=== PATIENT | female | born 1960 | race African-American/Black ===

== ENCOUNTER 2020-01-09 15:01 | Outpatient (REF) | payer OTHER, SELFPAY ==
[2020-01-09 17:38] LABS: Alanine Aminotransferase 20 U/L (0-31); Albumin Level 4.7 g/dL (3.5-5.0); Alkaline Phosphatase 169 U/L (39-117); Anion Gap 12 (12-20); Aspartate Amino Transferase 21 U/L (5-31); Bilirubin Total 0.5 mg/dL (0.0-1.0); Blood Urea Nitrogen 15 mg/dL (9-16); Calcium 9.5 mg/dL (8.4-10.2); Carbon Dioxide 31 mmol/L (22-29); Chloride 99 mmol/L (96-108); Estimated Glomerular Filt Rate > 60; Glucose Fasting 88 mg/dL (60-99); Potassium 4.2 mmol/l (3.3-5.1); Sodium 138 mmol/L (135-145); Total Protein 8.1 g/dL (6.5-8.0)
[2020-01-09 17:59] LABS: Vitamin D 25-OH Total 17.5 ng/mL (>30)
[2020-01-09 18:09] LABS: Folate 10.1 ng/mL (> or = 4.0); Vitamin B12 148 pg/mL (200-900)
== END 2020-01-09 15:02 | disposition home or self-care (01) ==
LOC: HO.HMGCLDS 15:01
PROVIDERS: PCP Internal Medicine; Visit Provider Internal Medicine
DX: R53.83 Other fatigue (principal); R53.81 Other malaise; I10 Essential (primary) hypertension
CPT/HCPCS: 80053; 82306; 82607; 82746; 84443

== ENCOUNTER → 2020-01-30 14:31 | Outpatient (BNVA) | payer OTHER, SELFPAY | PROVIDERS: PCP Internal Medicine; Referring Provider Internal Medicine; Visit Provider Internal Medicine Cardiovascular Disease | DX: R00.2 Palpitations (principal); R07.9 Chest pain, unspecified | CPT/HCPCS: 93005; 99202 ==

== ENCOUNTER 2020-02-28 12:21 | Outpatient (REF) | payer OTHER, SELFPAY | END 2020-02-28 12:22 | disposition home or self-care (01) | LOC: HO.HMGCLDS 12:21 | PROVIDERS: PCP Internal Medicine; Visit Provider Internal Medicine | DX: Z20.828 Contact with and (suspected) exposure to other viral communicable diseases (principal) | CPT/HCPCS: C9803; U0003 ==

== ENCOUNTER → 2020-03-18 10:47 | Outpatient (BNVA) | payer OTHER, SELFPAY | PROVIDERS: PCP Internal Medicine; Referring Provider Internal Medicine; Visit Provider Nurse Practitioner Family | DX: G47.33 Obstructive sleep apnea (adult) (pediatric) (principal); R53.82 Chronic fatigue, unspecified; G47.19 Other hypersomnia; R06.83 Snoring | CPT/HCPCS: Q3014 ==

== ENCOUNTER 2020-03-28 11:36 | Outpatient (REF) | payer OTHER, SELFPAY ==
[2020-03-28 14:03] LABS: MANUAL DIFF FLAG NO
[2020-03-28 14:09] LABS: Basophils Absolute Auto 0.1 X10*3/uL (0.0-0.2); Basophils Percent Auto 0.5 % (0-2); Eosinophils Absolute Auto 0.1 X10*3/uL (0.0-0.4); Eosinophils Percent Auto 1.3 % (0-4); Hematocrit 42.7 % (37-47); Hemoglobin 13.8 g/dl (12.0-16.0); Imm Gran Abs Auto 0.03 X10*3/uL (0.00-0.03); Imm Gran Pct Auto 0.3 % (0.0-0.4); Lymphocytes Absolute Auto 3.5 X10*3/uL (1.2-4.9); Lymphocytes Percent Auto 34.5 % (20-40); Mean Corpuscular HGB Conc 32.3 g/dl (31.0-35.0); Mean Corpuscular Hemoglobin 29.6 pg (27.0-33.0); Mean Corpuscular Volume 91.4 fL (80-98); Mean Platelet Volume 11.5 fL (9.4-12.3); Monocytes Absolute Auto 0.8 X10*3/uL (0.1-1.2); Monocytes Percent Auto 8.4 % (2-11); Neutrophils Absolute Auto 5.5 X10*3/uL (2.0-8.3); Platelet Count 425 X10*3/uL (160-400); Red Blood Count 4.67 X10*6/uL (4.20-5.50); Red Cell Distribution Width 13.5 % (11.0-16.0); White Blood Count 10.1 X10*3/uL (4.8-10.8)
[2020-03-28 14:45] LABS: Alanine Aminotransferase 22 U/L (0-31); Anion Gap 17 (12-20); Aspartate Amino Transferase 23 U/L (5-31); Blood Urea Nitrogen 13 mg/dL (9-16); Calcium 10.1 mg/dL (8.4-10.2); Carbon Dioxide 25 mmol/L (22-29); Chloride 103 mmol/L (96-108); Estimated Glomerular Filt Rate 49; Glucose Fasting 85 mg/dL (60-99); Potassium 4.3 mmol/l (3.3-5.1); Sodium 141 mmol/L (135-145)
[2020-03-28 15:22] LABS: Folate 11.6 ng/mL (> or = 4.0); Vitamin B12 > 2000 pg/mL (200-900)
== END 2020-03-28 11:37 | disposition home or self-care (01) ==
LOC: HO.HMGCLDS 11:36
PROVIDERS: Absent Provider Internal Medicine; PCP Internal Medicine; Visit Provider Internal Medicine
DX: R53.81 Other malaise (principal); R53.83 Other fatigue; I10 Essential (primary) hypertension; E53.8 Deficiency of other specified B group vitamins; K29.70 Gastritis, unspecified, without bleeding
CPT/HCPCS: 36415; 80048; 82607; 82746; 84450; 84460; 85025

== ENCOUNTER 2020-04-04 11:16 | Outpatient (REF) | payer OTHER, SELFPAY | END 2020-04-04 11:17 | disposition home or self-care (01) | LOC: HO.LAB 11:16 | PROVIDERS: PCP Internal Medicine; Visit Provider Internal Medicine | DX: Z20.822 Contact with and (suspected) exposure to COVID-19 (principal) | CPT/HCPCS: 36415; C9803; U0003 ==

== ENCOUNTER 2020-04-28 09:32 | Outpatient (REF) | payer OTHER, SELFPAY ==
--- NOTE | 2020-04-28 11:30 | PFT_ITS ---
Forced vital capacity, FEV1, IAP16-18 are normal. MVV is slightly decreased, probably due to suboptimal effort. Post bronchodilator therapy, no significant change, but MVV is increased to normal. Total lung capacity and residual volume normal. Diffusion capacity only slightly decreased. CONCLUSION: Normal pulmonary function test. Very slight decrease in diffusion capacity is nonspecific finding, may be due to technical reason or could be due to non-pulmonary factors. Clinical correlation recommended. MD BENIGNO Jacques/MODL / [id number]
== END 2020-04-28 09:33 | disposition home or self-care (01) ==
LOC: HO.RESP 09:32
PROVIDERS: PCP Internal Medicine; Visit Provider Internal Medicine
DX: J98.09 Other diseases of bronchus, not elsewhere classified (principal); Z87.891 Personal history of nicotine dependence
CPT/HCPCS: 94060; 94727; 94729

== ENCOUNTER 2020-06-16 08:08 | Outpatient (REF) | payer OTHER, SELFPAY ==
[2020-06-16 12:03] LABS: Alanine Aminotransferase 20 U/L (0-31); Anion Gap 14 (12-20); Aspartate Amino Transferase 18 U/L (5-31); Blood Urea Nitrogen 8 mg/dL (9-16); Calcium 9.3 mg/dL (8.4-10.2); Carbon Dioxide 25 mmol/L (22-29); Chloride 106 mmol/L (96-108); Cholesterol 185 mg/dL; Estimated Glomerular Filt Rate > 60; Glucose Fasting 122 mg/dL (60-99); HDL Cholesterol 42 mg/dL; LDL Cholesterol Calculated 90 mg/dl; Potassium 4.2 mmol/L (3.3-5.1); Sodium 141 mmol/L (135-145); Triglycerides 265 mg/dL
[2020-06-16 12:06] LABS: Vitamin D 25-OH Total 82.3 ng/mL (>30)
[2020-06-16 12:29] LABS: Folate 6.7 ng/mL (> or = 4.0); Vitamin B12 301 pg/mL (200-900)
== END 2020-06-16 08:09 | disposition home or self-care (01) ==
LOC: HO.HMGCLDS 08:08
PROVIDERS: PCP Internal Medicine; Visit Provider Internal Medicine
DX: E55.9 Vitamin D deficiency, unspecified (principal); E53.8 Deficiency of other specified B group vitamins; E78.5 Hyperlipidemia, unspecified
CPT/HCPCS: 36415; 80048; 80061; 82306; 82607; 82746; 84450; 84460

== ENCOUNTER → 2020-06-17 10:51 | Outpatient (BNVA) | payer OTHER, SELFPAY | PROVIDERS: PCP Internal Medicine; Visit Provider Nurse Practitioner Family ==

== ENCOUNTER → 2020-07-28 15:10 | Outpatient (BNVA) | payer OTHER, SELFPAY | PROVIDERS: Visit Provider Internal Medicine Gastroenterology | DX: Z13.89 Encounter for screening for other disorder (principal) | CPT/HCPCS: 99212 ==

== ENCOUNTER 2020-09-02 09:48 | Outpatient (REF) | payer OTHER, SELFPAY ==
[2020-09-02 12:10] LABS: Vitamin D 25-OH Total 78.8 ng/mL (>30)
[2020-09-02 12:11] LABS: Alanine Aminotransferase 15 U/L (0-31); Anion Gap 14 (12-20); Aspartate Amino Transferase 20 U/L (5-31); Blood Urea Nitrogen 18 mg/dL (9-16); Calcium 9.5 mg/dL (8.4-10.2); Carbon Dioxide 24 mmol/L (22-29); Chloride 109 mmol/L (96-108); Cholesterol 180 mg/dL; Estimated Glomerular Filt Rate > 60; Glucose Fasting 111 mg/dL (60-99); HDL Cholesterol 59 mg/dL; LDL Cholesterol Calculated 111 mg/dl; Potassium 4.6 mmol/L (3.3-5.1); Sodium 142 mmol/L (135-145); Triglycerides 52 mg/dL
[2020-09-02 12:13] LABS: Estimated Average Glucose 126 mg/dL
[2020-09-02 12:25] LABS: Folate 11.1 ng/mL (> or = 4.0); Vitamin B12 327 pg/mL (200-900)
== END 2020-09-02 09:49 | disposition home or self-care (01) ==
LOC: HO.HMGCLDS 09:48
PROVIDERS: PCP Internal Medicine; Visit Provider Nurse Practitioner Family
DX: E53.8 Deficiency of other specified B group vitamins (principal); E55.9 Vitamin D deficiency, unspecified; E78.5 Hyperlipidemia, unspecified; I10 Essential (primary) hypertension; K29.70 Gastritis, unspecified, without bleeding; K58.1 Irritable bowel syndrome with constipation; R73.01 Impaired fasting glucose
CPT/HCPCS: 36415; 80048; 80061; 82306; 82607; 82746; 83036; 84450; 84460

== ENCOUNTER 2021-02-13 10:47 | Outpatient (REF) | payer OTHER, SELFPAY ==
--- NOTE | ~2021-02-13 | XR_ITS ---
EXAMINATION: XR CERVICAL SPINE CLINICAL INFORMATION: Headache COMPARISON: None TECHNIQUE: 5 views of the cervical spine were obtained. FINDINGS: No abnormal prevertebral soft tissue swelling is seen. No acute cervical spine fracture is noted. Neuroforamina and posterior elements unremarkable. Disc spaces are maintained. There is mild marginal spurring seen at the C6-C7 level. There is some facet sclerosis noted C3-C5. XR/XR cervical spine 4V IMPRESSION: Mild cervical spondylosis without acute fracture.
== END 2021-02-13 10:48 | disposition home or self-care (01) ==
LOC: HO.HMGCX 10:47
PROVIDERS: PCP Internal Medicine; Visit Provider Internal Medicine
DX: M54.2 Cervicalgia (principal); R51.9 Headache, unspecified
CPT/HCPCS: 72050

== ENCOUNTER 2021-02-23 08:27 | Outpatient (REF) | payer OTHER, SELFPAY ==
[2021-02-23 12:10] LABS: Anion Gap 13 (12-20); Blood Urea Nitrogen 12 mg/dL (9-16); Calcium 9.8 mg/dL (8.4-10.2); Carbon Dioxide 25 mmol/L (22-29); Chloride 108 mmol/L (96-108); Estimated Glomerular Filt Rate > 60; Glucose Fasting 104 mg/dL (60-99); Potassium 4.3 mmol/L (3.3-5.1); Sodium 142 mmol/L (135-145)
[2021-02-23 12:33] LABS: Vitamin D 25-OH Total 33.8 ng/mL (>30)
[2021-02-23 12:36] LABS: Folate 10.3 ng/mL (> or = 4.0); Vitamin B12 271 pg/mL (200-900)
== END 2021-02-23 08:28 | disposition home or self-care (01) ==
LOC: HO.HMGCLDS 08:27
PROVIDERS: PCP Internal Medicine; Visit Provider Internal Medicine
DX: R51.9 Headache, unspecified (principal); I10 Essential (primary) hypertension; R73.01 Impaired fasting glucose; E53.8 Deficiency of other specified B group vitamins; G62.9 Polyneuropathy, unspecified
CPT/HCPCS: 36415; 80048; 82306; 82607; 82746

== ENCOUNTER 2021-05-07 14:21 | Outpatient (REF) | payer OTHER, SELFPAY ==
--- NOTE | ~2021-05-07 | MM_ITS ---
EXAMINATION: MM SCREENING DIGITAL BREAST TOMOSYNTHESIS, BILATERAL CLINICAL INFORMATION: Screening. Asymptomatic. The lifetime risk of breast cancer based on the Tyrer-Cuzick Model is 4%. COMPARISON: Mammography: 04/09/2019, outside mammography 09/09/2017 ([facility]) TECHNIQUE: Digital breast tomosynthesis is performed in both the craniocaudal and mediolateral oblique views along with computer-aided detection (CAD). Synthesized 2D images are generated from the tomosynthesis. FINDINGS: There are scattered areas of fibroglandular density (ACR BI-RADS breast composition Category b). There are no significant masses, abnormal calcifications, or other abnormalities. Parenchymal pattern is similar to prior studies. There are no significant changes. MM/MM tomosynthesis screening BI IMPRESSION: No mammographic evidence of malignancy. ASSESSMENT: BI-RADS 1: Negative RECOMMENDATION: Routine annual mammography screening. This patient's information was entered into a reminder system with a target due date for their next mammogram.
== END 2021-05-07 14:22 | disposition home or self-care (01) ==
LOC: HO.MAMMO 14:21
PROVIDERS: Visit Provider Nurse Practitioner Family
DX: Z12.31 Encounter for screening mammogram for malignant neoplasm of breast (principal)
CPT/HCPCS: 77063; 77067

== ENCOUNTER 2021-08-05 13:35 | Outpatient (REF) | payer OTHER, SELFPAY ==
[2021-08-05 13:50] LABS: MANUAL DIFF FLAG NO
[2021-08-05 14:02] LABS: Basophils Percent Auto 0.5 % (0-2); Eosinophils Absolute Auto 0.1 X10*3/uL (0.0-0.4); Eosinophils Percent Auto 1.8 % (0-4); Hemoglobin 12.7 g/dl (12.0-16.0); Imm Gran Abs Auto 0.02 X10*3/uL (0.00-0.03); Imm Gran Pct Auto 0.3 % (0.0-0.4); Lymphocytes Absolute Auto 2.7 X10*3/uL (1.2-4.9); Mean Corpuscular HGB Conc 31.8 g/dl (31.0-35.0); Mean Corpuscular Hemoglobin 29.3 pg (27.0-33.0); Mean Corpuscular Volume 92.2 fL (80.0-98.0); Mean Platelet Volume 10.7 fL (9.4-12.3); Monocytes Absolute Auto 0.7 X10*3/uL (0.1-1.2); Monocytes Percent Auto 9.2 % (2-11); Neutrophils Percent Auto 53.2 % (45-73); Platelet Count 350 X10*3/uL (160-400); Red Blood Count 4.34 X10*6/uL (4.20-5.50); Red Cell Distribution Width 13.1 % (11.0-16.0); White Blood Count 7.6 X10*3/uL (4.8-10.8)
[2021-08-05 15:04] LABS: TSH reflex Free T4 0.83 uIU/mL (0.32-4.0); Vitamin D 25-OH Total 34.6 ng/mL (>30)
[2021-08-05 15:05] LABS: Alanine Aminotransferase 16 U/L (0-31); Anion Gap 13 (12-20); Aspartate Amino Transferase 17 U/L (5-31); Blood Urea Nitrogen 14 mg/dL (9-16); Calcium 9.6 mg/dL (8.4-10.2); Carbon Dioxide 23 mmol/L (22-29); Chloride 107 mmol/L (96-108); Estimated Glomerular Filt Rate > 60; Glucose Random 108 mg/dL (60-115); Potassium 4.2 mmol/L (3.3-5.1); Sodium 139 mmol/L (135-145)
[2021-08-05 15:13] LABS: Folate 10.9 ng/mL (> or = 4.0); Vitamin B12 408 pg/mL (200-900)
[2021-08-05 17:07] LABS: Estimated Average Glucose 123 mg/dL; Hemoglobin A1c % 5.9 %
== END 2021-08-05 13:36 | disposition home or self-care (01) ==
LOC: HO.LAB 13:35
PROVIDERS: Internal Medicine; PCP Nurse Practitioner Family; Visit Provider Nurse Practitioner Family
DX: I10 Essential (primary) hypertension (principal); E11.9 Type 2 diabetes mellitus without complications; R42 Dizziness and giddiness; E78.5 Hyperlipidemia, unspecified; E55.9 Vitamin D deficiency, unspecified; Z86.39 Personal history of other endocrine, nutritional and metabolic disease
CPT/HCPCS: 36415; 80048; 82306; 82607; 82746; 83036; 84443; 84450; 84460; 85025

== ENCOUNTER → 2021-09-28 13:33 | Outpatient (REF) | payer OTHER, SELFPAY | LOC: HO.SL 13:33 | PROVIDERS: PCP Nurse Practitioner Family; Visit Provider Nurse Practitioner Family | DX: G47.33 Obstructive sleep apnea (adult) (pediatric) (principal) | CPT/HCPCS: 95806 ==

== ENCOUNTER → 2021-10-19 13:21 | Outpatient (BNVA) | payer OTHER, SELFPAY | PROVIDERS: PCP Physician Assistant; Visit Provider Internal Medicine | DX: M26.19 Other specified anomalies of jaw-cranial base relationship (principal); G47.33 Obstructive sleep apnea (adult) (pediatric); E66.9 Obesity, unspecified; Z68.32 Body mass index [BMI] 32.0-32.9, adult | CPT/HCPCS: 99202 ==

== ENCOUNTER 2021-12-08 08:03 | Outpatient (REF) | payer OTHER, SELFPAY ==
--- NOTE | ~2021-12-08 | XR_ITS ---
EXAMINATION: XR SHOULDER, RIGHT CLINICAL INFORMATION: Pain. COMPARISON: None TECHNIQUE: AP external rotation, Grashey, scapular Y, and axillary views of the right shoulder. FINDINGS: The bones and soft tissues are normal. No fracture. Glenohumeral and acromioclavicular alignment is anatomic with normal joint space. No abnormal soft tissue calcifications. XR/XR shoulder RT min 2V IMPRESSION: Unremarkable right shoulder.
== END 2021-12-08 08:04 | disposition home or self-care (01) ==
LOC: HO.HOSX 08:03
PROVIDERS: Visit Provider Physician Assistant
DX: M75.101 Unspecified rotator cuff tear or rupture of right shoulder, not specified as traumatic (principal)
CPT/HCPCS: 20610; 73030; 99202; J1040

== ENCOUNTER → 2021-12-15 13:27 | Outpatient (BNVA) | payer OTHER, SELFPAY | PROVIDERS: PCP Physician Assistant; Visit Provider Internal Medicine Gastroenterology | DX: K21.9 Gastro-esophageal reflux disease without esophagitis (principal); K25.9 Gastric ulcer, unspecified as acute or chronic, without hemorrhage or perforation; K29.70 Gastritis, unspecified, without bleeding; K59.09 Other constipation; E53.8 Deficiency of other specified B group vitamins | CPT/HCPCS: 99212 ==

== ENCOUNTER 2022-02-08 07:33 | Day surgery (SDC) | payer OTHER, SELFPAY ==
[2022-01-26 12:08] VITALS: BMI 32.4
--- NOTE | 2022-02-05 12:43 | P.CONAN_ITS ---
Documented by User: Uzma Fernandez NP 02/05/22 12:46 HPI - Anesthesia Eval Consult details Narrative: 61yo F for Upper Endoscopy and Colonoscopy PMF Active Problems Active Problems: All Active Problems (Updated 12/08/21 @ 15:27 by Shayla Arango) GERD (gastroesophageal reflux disease) (Acute) Dizziness (Acute) Plantar fasciitis of right foot (Acute) Encounter to establish care (Acute ~04/08/21) Anxiety and depression (Acute) Seafood allergy (Acute) Right anterior shoulder pain (Acute) Vitamin D deficiency (Acute) Vitamin B12 deficiency (Acute) Dizziness (Acute) Vertigo (Acute) Vertigo (Acute) Sleep apnea (Acute) Fatigue (Acute) Hypertension (Acute) SOB (shortness of breath) on exertion (Acute) Left shoulder tendinitis (Acute) Asthma (Acute) Colon cancer screening (Acute) Cough (Acute) Painful arc syndrome of right shoulder (Acute) ANKIT (obstructive sleep apnea) (Acute) Retrognathia (Acute) Posterior neck pain (Acute) Frequent headaches (Acute) Headache (Acute) Obesity (BMI 30-39.9) (Acute) Essential hypertension (Acute) Plantar fasciitis, bilateral (Acute) Impaired fasting glucose (Acute) Irritable bowel syndrome with constipation (Acute) Carpal tunnel syndrome on left (Acute) Gastric ulcer (Acute) Dyslipidemia (Acute) Former smoker (Acute) Recurrent bronchospasm (Acute) Degenerative disc disease, lumbar (Acute) Vitamin D deficiency (Acute) Vitamin B12 deficiency (Acute) Gastritis (Acute) Osteoarthritis involving multiple joints on both sides of body (Acute) Depression (Acute) Migraine (Acute) Intermittent palpitations (Acute) ANKIT (obstructive sleep apnea) (Acute) Past Medical History Medical History Carpal tunnel syndrome on left Degenerative disc disease, lumbar Depression Dyslipidemia Essential hypertension Former smoker Frequent headaches Gastric ulcer Gastritis Headache History of drug abuse Impaired fasting glucose Intermittent palpitations Irritable bowel syndrome with constipation Migraine Obesity (BMI 30-39.9) ANKIT (obstructive sleep apnea) ANKIT (obstructive sleep apnea) Osteoarthritis involving multiple joints on both sides of body Peripheral neuropathy Plantar fasciitis, bilateral Posterior neck pain Recurrent bronchospasm Retrognathia Stress at work Vitamin B12 deficiency Vitamin D deficiency Family History Family History Father CKD (chronic kidney disease) Mother Alcoholism Surgical History Surgical History History of esophagogastroduodenoscopy (EGD) History of partial hysterectomy History of right knee joint replacement Hx of colonoscopy Social History Social History Housing: Apartment Are you a primary care transition coordinator to a significant other at home: No Do you presently have visiting nurse or other home services: No Alcohol intake: never Patient Tobacco Use Status: Former Tobacco user Quit Date: 2015 Tobacco use type: Cigarette Years Smoked: 30 yrs e-Cigarette/Vaping Use: Never Used Second Hand Smoke Exposure: No Use of substances other than those prescribed or required for medical reasons: No Have you been hit, kicked, punched, or otherwise hurt by someone within the past year? 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 Cognitive needs: No Hearing needs: No Vision needs: Yes Meds Allergies Allergy/AdvReac Type Severity Reaction Status Date / Time seafood Allergy Severe Anaphylaxis Verified 01/26/22 11:13 codeine [Codeine] Allergy Intermediate RASH/ITCHIN Verified 01/26/22 11:13 G tomato Allergy Intermediate Gastrointestinal Verified 01/26/22 11:13 Upset levofloxacin [From Levaquin] AdvReac Intermediate NAUSEA Verified 01/26/22 11:13 Motrin AdvReac Intermediate stomach Verified 01/26/22 11:13 pains pravastatin AdvReac Intermediate Muscle pain Verified 01/26/22 11:13 peanuts Allergy Severe anaphylaxis Uncoded 01/26/22 11:13 Home Medications Medication Instructions Recorded Confirmed Last Taken Type lorazepam 0.5 mg tablet 0.5 mg PO BEDTIME 01/09/20 01/26/22 Unknown History carboxymethylcellulose sodium 0.5 1 drp ophthalmic (eye) BID 12/15/21 01/26/22 Unknown History % eye drops (Refresh Tears) cyanocobalamin (vitamin B-12) 1,000 mcg PO DAILY 12/15/21 01/26/22 Unknown History 1,000 mcg tablet Exam Exam Date and Time: February 05, 2022 1243 Height,Weight and Vital Signs: Height 5 ft 3 in Weight 83.007 kg Pertinent Lab Results Pertinent Lab Results: Laboratory Tests 08/05/21 08/05/21 13:49 13:49 WBC 7.6 Hgb 12.7 Hct 40.0 Plt Count 350 Sodium 139 Potassium 4.2 Chloride 107 Carbon Dioxide 23 BUN 14 Creatinine 0.90 Assessment and Plan Assessment Anesthesia Assessment: Chart Reviewed Documented by User: Rosa Brito MD 02/08/22 08:47 PMFSH Past Medical History Medical History Carpal tunnel syndrome on left Degenerative disc disease, lumbar Depression Dyslipidemia Essential hypertension Former smoker Frequent headaches Gastric ulcer Gastritis Headache History of drug abuse Impaired fasting glucose Intermittent palpitations Irritable bowel syndrome with constipation Migraine Obesity (BMI 30-39.9) ANKIT (obstructive sleep apnea) ANKIT (obstructive sleep apnea) Osteoarthritis involving multiple joints on both sides of body Peripheral neuropathy Plantar fasciitis, bilateral Posterior neck pain Recurrent bronchospasm Retrognathia Stress at work Vitamin B12 deficiency Vitamin D deficiency Functional capacity: independent ambulation Patient : No Family History Family History Father CKD (chronic kidney disease) Mother Alcoholism Family history of problems with anesthesia: No Surgical History Surgical History History of esophagogastroduodenoscopy (EGD) History of partial hysterectomy History of right knee joint replacement Hx of colonoscopy History of Problems with Anesthesia: No Social History Social History Housing: Apartment Are you a primary care transition coordinator to a significant other at home: No Do you presently have visiting nurse or other home services: No Alcohol intake: never Patient Tobacco Use Status: Former Tobacco user Quit Date: 2015 Tobacco use type: Cigarette Years Smoked: 30 yrs e-Cigarette/Vaping Use: Never Used Second Hand Smoke Exposure: No Use of substances other than those prescribed or required for medical reasons: No Have you been hit, kicked, punched, or otherwise hurt by someone within the past year? 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 Cognitive needs: No Hearing needs: No Vision needs: Yes Meds Allergies Allergy/AdvReac Type Severity Reaction Status Date / Time seafood Allergy Severe Anaphylaxis Verified 01/26/22 11:13 codeine [Codeine] Allergy Intermediate RASH/ITCHIN Verified 01/26/22 11:13 G tomato Allergy Intermediate Gastrointestinal Verified 01/26/22 11:13 Upset levofloxacin [From Levaquin] AdvReac Intermediate NAUSEA Verified 01/26/22 11:13 Motrin AdvReac Intermediate stomach Verified 01/26/22 11:13 pains pravastatin AdvReac Intermediate Muscle pain Verified 01/26/22 11:13 peanuts Allergy Severe anaphylaxis Uncoded 01/26/22 11:13 Home Medications Medication Instructions Recorded Confirmed Last Taken Type lorazepam 0.5 mg tablet 0.5 mg PO BEDTIME 01/09/20 01/26/22 Unknown History carboxymethylcellulose sodium 0.5 1 drp ophthalmic (eye) BID 12/15/21 01/26/22 Unknown History % eye drops (Refresh Tears) cyanocobalamin (vitamin B-12) 1,000 mcg PO DAILY 12/15/21 01/26/22 Unknown History 1,000 mcg tablet Exam Airway Mallampati Class: II TM Dist: >3cm Neck ROM: Full Partial: Lower Heart: RRR Lungs: CTA Assessment and Plan Assessment Anesthesia Assessment: Anesthesia Plan Discussed Final Anesthetic Review Family History of Problems with Anesthesia: No History of Problems with Anesthesia: No NPO: Yes ASA Class: II Final Preanesthetic Review: No Changes in Pt Med Stat, Meds/Allgs Chart Reviewed, Consent Obtained/Reviewed and Anes Risks/Benef Reviewed Patient Risk: Low Procedure Risk: Low Anesthetic Plan Anesthetic Plan: MAC: Disposition: Standard PACU
--- NOTE | 2022-02-08 07:32 | P.HPSUR_ITS ---
Pre-Procedural Eval Section A Date of Service: 02/08/22 The patient is an INPATIENT: No The History & Physical has been completed within 30 days and I have reviewed it.: No Section B Chief Complaint: reflux disease,screening,Gastric ulcer, Details of Present Illness: Colon cancer screening, GERD Relevant Family History (Specify if Yes): No Relevant Social History: Tobacco Use (Former smoker) Present Medications: see Short Stay Collaborative assessment Medical History: Significant History (Carpal tunnel syndrome on left Degenera tive disc disease, lumbar Depression Dyslipidemia Essential hypertension Former smoker Frequent headaches Gastric ulcer Gastritis Headache History of drug abuse Impaired fasting glucose Intermittent palpitations Irritable bowel syndrome with constipation Migrai) History of Previous Operations: Relevant previous surgery/procedure and date(s) (History of esophagogastroduodenoscopy (EGD) History of partial hysterectomy History of right knee joint replacement Hx of colonoscopy) Allergies: Allergies Allergy/AdvReac Type Severity Reaction Status Date / Time seafood Allergy Severe Anaphylaxis Verified 01/26/22 11:13 codeine [Codeine] Allergy Intermediate RASH/ITCHIN Verified 01/26/22 11:13 G tomato Allergy Intermediate Gastrointestinal Verified 01/26/22 11:13 Upset levofloxacin [From Levaquin] AdvReac Intermediate NAUSEA Verified 01/26/22 11:13 Motrin AdvReac Intermediate stomach Verified 01/26/22 11:13 pains pravastatin AdvReac Intermediate Muscle pain Verified 01/26/22 11:13 peanuts Allergy Severe anaphylaxis Uncoded 01/26/22 11:13 Review of Systems Sugical H&P ROS: Negative: Constitution, Cardiovascular, Respiratory and Gastrointestinal Exam Surgical H&P Exam: Normal: Heart, Normal: Lungs, Normal: Extremities and Normal: Abdomen Plan Diagnosis/Plan: Unchanged I have reviewed the history and physical and performed a pertinent physical examination on my patient. No changes have occurred unless specified.
[2022-02-08 07:50] VITALS: BMI 32.7
[2022-02-08 07:59] VITALS: BP 141/92; PULSE 80; RESP 16; TEMP 36.6; O2SAT 97
[2022-02-08] MEDS: Lactated Ringers 1,000 ML 100 ML IVCONT (08:28)
--- NOTE | 2022-02-08 08:35 | P.BOP_ITS ---
Brief Operative Note Date of Service: 02/08/22 Pre-op diagnosis: COLON CANCER SCREENING, GERD, NAUSEA Post-op diagnosis: other ( GERD, GASTRITIS, COLON POLYPS, DIVERTICULOSIS, HEMORRHOIDS) Procedure: FLEXIBLE TRANSORAL UPPER GASTROINTESTINAL ENDOSCOPY WITH BIOPSIES AND COLONOSCOPY TILL CECUM WITH BIOPSIES Surgeon: Eleonora Londono MD Anesthesia: MAC Was an Senior Mortgage Loan Processor used for this Procedure?: Yes Senior Mortgage Loan Processor: Josué Fermin Estimated blood loss (mL): 0 Pathology: other (A. ANTRAL BIOPSIES B. GASTRIC BODY C) BX Random Right Colon D) Polyp Transverse Colon) Condition: stable Disposition: PACU
--- NOTE | 2022-02-08 08:35 | W.PM.OPN ---
Operative Note Operative Note Date of Service: 02/08/22 Narrative: Pre-op diagnosis: COLON CANCER SCREENING, GERD, NAUSEA Post-op diagnosis:?other ( GERD, GASTRITIS, COLON POLYPS, DIVERTICULOSIS, HEMORRHOIDS) Surgeon: Eleonora Londono MD Anesthesia:?MAC FLEXIBLE TRANSORAL UPPER GASTROINTESTINAL ENDOSCOPY WITH BIOPSIES AND COLONOSCOPY TILL CECUM WITH BIOPSIES UPPER ENDOSCOPY Consent: Indications for the procedure and potential complications of bleeding, perforation, reaction to medications and missed diagnosis were discussed with the patient and informed consent was obtained. Instrument: Olympus GIF H 190 mid size upper endoscope Monitoring: Vital signs and clinical assessment, continuous EKG monitoring, Pulse oximetry, Carbon Dioxide monitoring and blood pressure monitoring were done throughout the procedure. Procedure: The patient was placed in the left lateral decubitis position and pre-procedure medications were administered and a bite block was placed. The endoscope was inserted into the mouth and advanced under direct vision to the third part of duodenum. A careful inspection was made as the upper endoscope was withdrawn including a retroflexed examination of the proximal stomach; Findings and interventions are described below. Findings: Larynx: Normal Esophagus: GE junction at 36 cms. No esophagitis or Blakely?s. Stomach: Moderate diffuse gastric erythema with prominent gastric folds and nodular appearing muosa in the gastric body - biopsied. Moderate erythema in the antrum. No recurrent ulcer seen in the antrum. Grade 2 flap valve on retroflexed examination of the cardia. Duodenum: Normal bulb and descending duodenum. Intervention: Biopsies as noted above COLONOSCOPY PROCEDURE NOTE Consent: Indications for the procedure and potential complications of bleeding, perforation, reaction to medications and missed diagnosis were discussed with the patient and informed consent was obtained. Instrument: Olympus PCF H 190 L variable stiffness pediatric colonoscope Monitoring: Vital signs and clinical assessment, intermittent blood pressure monitoring, continuous EKG monitoring, Pulse oximetry and Carbon Dioxide monitoring were done throughout the procedure. Colon withdrawl time was 12 minutes. Procedure: The patient was placed in the left lateral decubitis position and pre-procedure medications were administered. After a digital rectal examination of the ano-rectum, the video colonoscope was inserted into the rectum and advanced through the colon to the cecum. The colonoscope was slowly withdrawn in a retrograde panoramic fashion and the colon mucosa was carefully examined including a retroflexed view of the rectum. Findings and interventions are described below. Procedure Difficulty: : Without difficulty Findings: Terminal Ileum: distal 5 cm was examined and appeared normal Cecum: Normal Ascending Colon: Normal Transverse Colon: Two 4-5 mm sessile polyps removed with a cold bx Descending Colon: Normal Sigmoid Colon: Moderate diverticulosis Rectum: Normal Ano-rectum: Moderate internal hemorrhoids and perianal skin tags Colon preparation: Good Impression and Post Procedure Diagnosis: Endoscopy Findings: STOMACH: Moderate diffuse gastric erythema with prominent gastric folds and nodular appearing muosa in the gastric body - biopsied. Moderate erythema in the antrum. No recurrent ulcer seen in the antrum. Colonoscopy Findings: Two small polyps removed Moderate diverticulosis seen in the sigmoid colon Moderate hemorrhoids on retroflexed exam. Plan: Await pathology results Patient has an appointment on 02/26/22 in the GI [facility] with Eleonora Londono M.D.. Repeat Colonoscopy interval based on path results - in 5 years if polyps are adenomatous and 10 years if polyps are hyperplastic. Above findings were reviewed with the patient and colon polyps and diverticulosis handouts were given in the discharge area
[2022-02-08 09:21] VITALS: BP 123/72; PULSE 92; RESP 16; TEMP 36.4; O2SAT 96
[2022-02-08 09:36] VITALS: BP 128/88; PULSE 78; RESP 16; TEMP 36.4; O2SAT 100
--- NOTE | 2022-02-08 14:24 | HO.POSTANES ---
Post Anesthesia Evaluation Post Anesthesia Evaluation Vital Signs: Vital Signs Temp Pulse Resp BP Pulse Ox O2 Del Method 02/08/22 09:36 97.5 F 78 16 128/88 100 Room Air 02/08/22 09:21 97.5 F 92 16 123/72 96 Room Air 02/08/22 07:59 97.9 F 80 16 141/92 H 97 Room Air Anesthesia: Monitored Mental Status: Awake Pain Control: Satisfactory Nausea/Vomiting: None Hydration: Adequate Anesthesia-Related Issues: No Anes. Related Issues
== END 2022-02-08 10:14 | disposition home or self-care (01) ==
PROVIDERS: PCP Physician Assistant; Visit Provider Internal Medicine Gastroenterology
PROC: (CPT 45380; principal; 2022-02-08 08:30)
DX: Z12.11 Encounter for screening for malignant neoplasm of colon (principal); K63.5 Polyp of colon; K57.30 Diverticulosis of large intestine without perforation or abscess without bleeding; K64.8 Other hemorrhoids; K64.4 Residual hemorrhoidal skin tags; K58.1 Irritable bowel syndrome with constipation; K21.9 Gastro-esophageal reflux disease without esophagitis; K29.50 Unspecified chronic gastritis without bleeding; K25.9 Gastric ulcer, unspecified as acute or chronic, without hemorrhage or perforation; I10 Essential (primary) hypertension; E78.5 Hyperlipidemia, unspecified; J45.909 Unspecified asthma, uncomplicated; R94.5 Abnormal results of liver function studies; G47.33 Obstructive sleep apnea (adult) (pediatric); E53.8 Deficiency of other specified B group vitamins; R73.01 Impaired fasting glucose; F32.A Depression, unspecified; F41.1 Generalized anxiety disorder; Z79.899 Other long term (current) drug therapy; Z88.8 Allergy status to other drugs, medicaments and biological substances; Z88.1 Allergy status to other antibiotic agents; Z87.891 Personal history of nicotine dependence
CPT/HCPCS: 45380; 43239; 88305; 88342

== ENCOUNTER → 2022-02-19 14:16 | Outpatient (BNVA) | payer OTHER, SELFPAY | PROVIDERS: PCP Physician Assistant; Visit Provider Physician Assistant | DX: M25.511 Pain in right shoulder (principal) | CPT/HCPCS: 99212 ==

== ENCOUNTER → 2022-02-26 07:28 | Outpatient (BNVA) | payer OTHER, SELFPAY | PROVIDERS: PCP Physician Assistant; Visit Provider Internal Medicine Gastroenterology | DX: Z12.11 Encounter for screening for malignant neoplasm of colon (principal); K21.9 Gastro-esophageal reflux disease without esophagitis; K25.9 Gastric ulcer, unspecified as acute or chronic, without hemorrhage or perforation; K58.1 Irritable bowel syndrome with constipation; E53.8 Deficiency of other specified B group vitamins; R68.81 Early satiety; R10.9 Unspecified abdominal pain | CPT/HCPCS: Q3014 ==

== ENCOUNTER 2022-03-09 15:20 | Outpatient (REF) | payer OTHER, SELFPAY ==
--- NOTE | ~2022-03-09 | MR_ITS ---
EXAMINATION: MR SHOULDER WITHOUT CONTRAST, RIGHT CLINICAL INFORMATION: Right shoulder pain following a lifting injury in May 2021. Decreased range of motion. COMPARISON: Right shoulder radiographs dated 12/08/2021. TECHNIQUE: MRI of the shoulder without contrast was performed on a high-field scanner. FINDINGS: Examination limited secondary to patient motion. ROTATOR CUFF: Supraspinatus and infraspinatus tendinosis. There appears to be intrasubstance/articular surface partial tearing of the posterior aspect of the supraspinatus tendon which measures approximately 1.5 cm in ML dimension. There is bursal surface fraying/partial tearing of the junctional fibers. It is unclear if there is a full-thickness component to the tear, however, this is thought less likely due to the lack of fluid within the subacromial-subdeltoid bursa. Mild subscapularis tendinosis. No muscle atrophy or fatty infiltration. BICEPS: Intact. CORACOACROMIAL ARCH: The undersurface of the acromion is attenuated, consistent with possible prior acromioplasty. The distal clavicle appears to be resected. LABRUM/CAPSULE: There appears to be heterogeneous increased T2 signal along the undersurface of the anterior, anteroinferior, inferior, posteroinferior, and posterior labrum. Evaluation significantly limited due to patient motion. Intact inferior joint capsule. GLENOHUMERAL JOINT/MARROW: Glenohumeral articular cartilage thinning with areas of full-thickness loss anteriorly with air is anterosuperior glenoid subchondral cystic change. Inferior glenoid subchondral cystic change. Small marginal osteophytes. Small joint effusion. Inferior to the joint space there is a somewhat linear cyst measuring 0.5 x 0.8 x 1.7 cm, likely representing a paralabral cyst. MR/MR shoulder RT wo con IMPRESSION: Evaluation significantly limited due to patient motion. 1. Supraspinatus and infraspinatus tendinosis with intrasubstance/articular surface partial tearing of the posterior aspect of the supraspinatus tendon measuring 1.5 cm in ML dimension. Bursal surface fraying/partial tearing of the junctional fibers. It is unclear if there is a full-thickness component to the tear, however, this is thought less likely due to the lack of fluid within the subacromial subdeltoid bursa. Mild subscapularis tendinosis. 2. Probable prior acromioplasty and distal clavicular resection. 3. Diffuse undersurface tearing of the anterior, anteroinferior, inferior, posteroinferior, and posterior labrum. Inferior paralabral cyst measuring up to 1.7 cm. Evaluation significantly limited due to patient motion. 4. [id number] glenohumeral osteoarthritis. Small joint effusion.
== END 2022-03-09 15:21 | disposition home or self-care (01) ==
LOC: HO.MRI 15:20
PROVIDERS: PCP Physician Assistant; Visit Provider Physician Assistant
DX: M25.511 Pain in right shoulder (principal)
CPT/HCPCS: 73221

== ENCOUNTER 2022-05-13 14:24 | Outpatient (REF) | payer OTHER, SELFPAY ==
--- NOTE | ~2022-05-13 | MM_ITS ---
EXAMINATION: MM SCREENING DIGITAL BREAST TOMOSYNTHESIS, BILATERAL CLINICAL INFORMATION: Screening. Asymptomatic. The lifetime risk of breast cancer based on the Tyrer-Cuzick Model is 4%. COMPARISON: Mammography: 05/07/2021, 04/09/2019; outside exam 09/09/2017 ([facility]) TECHNIQUE: Digital breast tomosynthesis is performed in both the craniocaudal and mediolateral oblique views along with computer-aided detection (CAD). Synthesized 2D images are generated from the tomosynthesis. FINDINGS: There are scattered areas of fibroglandular density (ACR BI-RADS breast composition Category b). There are no significant masses, abnormal calcifications, or other abnormalities. Parenchymal pattern is similar to prior studies. There are scattered stable bilateral minor asymmetries. No developing density or architectural abnormality. The axilla are unremarkable. Skin contours are smooth. MM/MM tomosynthesis screening BI IMPRESSION: No mammographic evidence of malignancy. ASSESSMENT: BI-RADS 2: Benign RECOMMENDATION: Routine annual mammography screening. This patient's information was entered into a reminder system with a target due date for their next mammogram.
== END 2022-05-13 14:25 | disposition home or self-care (01) ==
LOC: HO.MAMMO 14:24
PROVIDERS: PCP Physician Assistant; Visit Provider Physician Assistant
DX: Z12.31 Encounter for screening mammogram for malignant neoplasm of breast (principal)
CPT/HCPCS: 77063; 77067

== ENCOUNTER 2022-06-16 09:07 | Outpatient (REF) | payer OTHER, SELFPAY ==
--- NOTE | ~2022-06-16 | XR_ITS ---
EXAMINATION: XR CHEST CLINICAL INFORMATION: Bronchitis COMPARISON: Previous chest x-ray April 2019 TECHNIQUE: 2 views of the chest were obtained. FINDINGS: No significant abnormality is noted involving the heart, lungs, mediastinum, bony thorax or soft tissues. XR/XR chest 2V IMPRESSION: Unremarkable examination.
[2022-06-16 10:56] LABS: Hematocrit 36.6 % (37.0-47.0); Hemoglobin 11.7 g/dl (12.0-16.0); Mean Corpuscular Hemoglobin 29.3 pg (27.0-33.0); Mean Corpuscular Volume 91.5 fL (80.0-98.0); Mean Platelet Volume 11.4 fL (9.4-12.3); Platelet Count 401 X10*3/uL (160-400); Red Cell Distribution Width 13.8 % (11.0-16.0); White Blood Count 12.3 X10*3/uL (4.8-10.8)
[2022-06-16 12:24] LABS: Alanine Aminotransferase 12 U/L (0-31); Albumin Level 4.1 g/dL (3.5-5.0); Alkaline Phosphatase 131 U/L (39-117); Anion Gap 14 (12-20); Aspartate Amino Transferase 14 U/L (5-31); Bilirubin Total 0.2 mg/dL (0.0-1.0); Blood Urea Nitrogen 23 mg/dL (9-16); Calcium 9.8 mg/dL (8.4-10.2); Carbon Dioxide 23 mmol/L (22-29); Chloride 108 mmol/L (96-108); Estimated Glomerular Filt Rate 50; Glucose Fasting 126 mg/dL (60-99); Potassium 4.1 mmol/L (3.3-5.1); Rheumatoid Factor < 13.0 IU/mL (<15.0); Sodium 141 mmol/L (135-145); TSH reflex Free T4 0.56 uIU/mL (0.32-4.0); Total Protein 6.9 g/dL (6.5-8.0)
[2022-06-16 12:48] LABS: Microalbum/Creatinine Ratio Ur 25.1 ug/mg cr
[2022-06-21 09:24] LABS: Anti Nuclear Antibody Screen NEGATIVE (NEGATIVE)
== END 2022-06-16 09:08 | disposition home or self-care (01) ==
LOC: HO.XRAY 09:07
PROVIDERS: PCP Physician Assistant; Visit Provider Physician Assistant
DX: J40 Bronchitis, not specified as acute or chronic (principal); I10 Essential (primary) hypertension; M25.511 Pain in right shoulder
CPT/HCPCS: 36415; 71046; 80053; 82043; 84443; 85027; 86038; 86039; 86431

== ENCOUNTER 2022-07-14 08:44 | Outpatient (REF) | payer OTHER, SELFPAY ==
--- NOTE | ~2022-07-14 | US_ITS ---
EXAMINATION: US ABDOMEN COMPLETE CLINICAL INFORMATION: Unspecified abdominal pain. COMPARISON: None available. TECHNIQUE: Real-time imaging of the abdominal viscera. FINDINGS: PANCREAS: Normal. ABDOMINAL AORTA: The proximal, mid, and distal segments are normal in caliber. INFERIOR VENA CAVA: Visualized portions are normal. LIVER: The liver is normal in size. The liver contour is normal. There is increased liver echogenicity. No focal hepatic lesion. There is no intrahepatic biliary duct dilatation seen. GALLBLADDER: Normal. The gallbladder is physiologically distended without evidence of stones, sludge, polyps, wall thickening or pericholecystic fluid. COMMON BILE DUCT: Normal in caliber measuring 0.6 cm in diameter. RIGHT KIDNEY: There is an echogenic stone in lower pole measuring 0.4 x 0.2 x 0.2 cm. No additional echogenic stones or caliectasis seen. No hydronephrosis or focal parenchymal lesions. The kidney measures 9.8 cm in maximum dimension. LEFT KIDNEY: Normal. No hydronephrosis. No renal calculi or focal parenchymal lesions. The kidney measures 10.0 cm in maximum dimension. SPLEEN: Normal. The spleen measures 8.2 cm in maximum dimension. FREE FLUID: None. US/US abdomen complete IMPRESSION: 1. Small nonobstructive echogenic stone lower pole right kidney. 2. Mild hepatic steatosis without focal lesion. 3. The rest of the abdomen ultrasound is unremarkable.
== END 2022-07-14 08:45 | disposition home or self-care (01) ==
LOC: HO.US 08:44
PROVIDERS: PCP Physician Assistant; Visit Provider Internal Medicine Gastroenterology
DX: R10.9 Unspecified abdominal pain (principal)
CPT/HCPCS: 76700

== ENCOUNTER → 2022-07-20 08:53 | Outpatient (REF) | payer OTHER, SELFPAY | LOC: HO.NUCMED 08:53 | PROVIDERS: PCP Physician Assistant; Visit Provider Internal Medicine Gastroenterology | DX: Z13.89 Encounter for screening for other disorder (principal) ==

== ENCOUNTER 2022-08-26 09:32 | Outpatient (REF) | payer OTHER, SELFPAY ==
--- NOTE | ~2022-08-26 | CT_ITS ---
EXAMINATION: CT CHEST WITH CONTRAST CLINICAL INFORMATION: Question pulmonary nodule; chronic thoracic pain and shortness of breath. COMPARISON: None available. TECHNIQUE: Multidetector volumetric CT imaging of the chest was obtained after the administration of 65 mL of Omnipaque 350 intravenous contrast without immediate adverse reactions. Axial MIP volume rendering provided. Sagittal and coronal reformatted images were obtained. This CT examination was performed using dose optimization techniques as appropriate, variously including the following: *Automated exposure control *Adjustment of mA and/or kV according to patient size (this includes techniques or standardized protocols for targeted exams where dose is matched to indication/reason for exam; i.e. 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 LUNGS: Inferiorly within the right upper lobe (7:83), a 2 mm benign, calcified granuloma is seen. Within the superior segment of the left lower lobe (7:75 and 83), 2 mm and 4 mm noncalcified subpleural nodules are seen. There is no mass, infiltrate or groundglass opacity. No generalized increase is seen in peripheral interlobular septal markings. There is mild dependent hypoaeration. No bleb or bullous formation is seen. No small airway thickening is seen. The central airways appear patent. MEDIASTINUM: The thyroid is unremarkable. There is no thoracic aortic aneurysm or dissection. There are mild atherosclerotic calcifications of the great vessel origins and thoracic aorta. No mediastinal or hilar lymphadenopathy is seen. PLEURA: There is no pleural effusion. No pleural mass or thickening. AXILLA: No lymphadenopathy. UPPER ABDOMEN: There is hepatic steatosis. The adrenal glands are unremarkable. OSSEOUS STRUCTURES: Unremarkable. CT/CT chest w IV con IMPRESSION: 1. Nonspecific, noncalcified 4 mm and 2 mm nodules are seen within the superior segment of the left lower lobe. According to the UPDATED 2017 Fleischner Society recommendations, the advised follow-up imaging for solid nodules < 6 mm is: LOW RISK PATIENT: No routine follow-up. HIGH RISK PATIENT: Optional CT at 12 months. 2. No mass, infiltrate or groundglass opacity is seen. 3. There is no thoracic lymphadenopathy or pleural effusion. 4. No aggressive osseous lesion is seen. 5. There is hepatic steatosis. Fleischner guidelines were followed.
[2022-08-26] MEDS: iohexoL 350 MG/ML 100 ML INFUS..BTL IV (11:10)
[2022-08-27 06:31] LABS: Creatinine POC 0.6 mg/dL (0.5-1.4); GFR POC > 60
== END 2022-08-26 09:33 | disposition home or self-care (01) ==
LOC: HO.CT 09:32
PROVIDERS: PCP Physician Assistant; Visit Provider Physician Assistant
DX: R91.1 Solitary pulmonary nodule (principal); M54.6 Pain in thoracic spine; Z91.89 Other specified personal risk factors, not elsewhere classified
CPT/HCPCS: 71260; 82565; Q9967

== ENCOUNTER → 2022-09-03 10:16 | Outpatient (BNVA) | payer OTHER, SELFPAY | PROVIDERS: PCP Physician Assistant; Visit Provider Orthopaedic Surgery | DX: M75.101 Unspecified rotator cuff tear or rupture of right shoulder, not specified as traumatic (principal) | CPT/HCPCS: 20610; 99202; J1100 ==

== ENCOUNTER 2022-09-14 09:31 | Outpatient (AMB) | payer OTHER, SELFPAY ==
--- NOTE | 2022-09-14 09:38 | MHC.PC.OV ---
Vital Signs 09/14/22 09:40 Height 5 ft 2 in Weight 175 lb 4 oz BMI 32.1 BP 128/72 Blood Pressure Location Lt brachial Position Sitting Pulse 80 Pulse Source Pulse Oximeter Pulse Oximetry (%) 98 Oxygen Delivery Method Room Air Intake Visit Reasons: f/u HTN Intake Note: pt is here for f/u on HTN. patient is here stating he is in a lot of pain, states her lungs and shoulder is causing her issues. she would like to discuss this today because she states she is struggling a lot with the pain and discomfort Optical Lab Technician Required: No Accompanied by: Self / Same As Patient Allergies peanut Allergy (Severe, Verified 09/14/22 09:57) Anaphylaxis seafood Allergy (Severe, Verified 09/14/22 09:57) Anaphylaxis codeine [Codeine] Allergy (Intermediate, Verified 09/14/22 09:57) RASH/ITCHING tomato Allergy (Intermediate, Verified 09/14/22 09:57) Gastrointestinal Upset celecoxib [From Celebrex] Adverse Reaction (Intermediate, Verified 09/14/22 09:57) Palpitations ibuprofen [From Motrin] Adverse Reaction (Intermediate, Verified 09/14/22 09:57) Stomach pains levofloxacin [From Levaquin] Adverse Reaction (Intermediate, Verified 09/14/22 09:57) Nausea pravastatin Adverse Reaction (Intermediate, Verified 09/14/22 09:57) Muscle pain Medication List - Last Reconciled 09/14/22 by Feliciano Corey PA-C acetaminophen (Tylenol Extra Strength) 500 mg PO Q6H PRN 15 days albuterol sulfate 90 mcg/actuation 1 inh inhalation QID PRN 30 days amlodipine 5 mg PO DAILY cholecalciferol (vitamin D3) (Vitamin D3) 25 mcg PO DAILY cyanocobalamin (vitamin B-12) 1,000 mcg PO DAILY diclofenac sodium 50 mg PO BID 30 days diclofenac sodium 1% 2 grams topical QID dicyclomine 20 mg PO BID 30 days linaclotide (Linzess) 145 mcg PO QAM 30 days lorazepam 0.5 mg PO BEDTIME lubiprostone (Amitiza) 8 mcg PO BID 30 days mecobalamin (vitamin B12) 1,000 mcg PO DAILY 90 days miscellaneous medical supply (Blood Pressure Cuff) As directed ondansetron 4 mg PO Q8H PRN pantoprazole 40 mg PO BID 90 days riboflavin (vitamin B2) 400 mg PO DAILY rosuvastatin 5 mg PO 3XW [Self Adhesive Electrode [id number] As directed NS] sucralfate 1 g PO BID 30 days tizanidine 2 mg PO BEDTIME 30 days Tobacco use date assessed: 09/14/22 Dental Screening Dental Screen Date: 09/14/22 Did you have a dental visit in the last 12 months?: Yes Was dental information given to patient?: Patient has dentist HPI f/u HTN HPI Details Patient is a 62-year-old female here today for follow-up visit t.? patient has a past medical history significant for hypertension, obesity, GERD, IBS, ANKIT and migraines. .. Concerns--> continues to shoulder pain. MRI of the right shoulder moderate arthritis and partial tendon tear. Has seen orthopedics and has gotten injections in her shoulders. She is not interested in seeing pain management for injections Does use diclofenac sodium which helps some. Has used tizanidine 2 mg which she reports originally worked though stopped having affect on her pain. She reports due to her coughing she has been having upper left back pain. CT chest showing to nodules 2mm and 4mm.? Has been using Celebrex for her arthritic pain which does help her joint pains though causes abdominal pain and palpitations. Also did get CT chest did did show left pulmonary nodules 2 mm and 4 mm. .. CHRONIC MEDICAL CONDITIONS--> ANKIT:? Patient continues with nightly use of CPAP machine is followed by tire buster. . HTN:? Blood pressure today in office acceptable, likely due to current pain and bilateral shoulders.? Continues with the use amlodipine. .. GERD:? Continues on PPI therapy with good effect reducing her GERD symptoms.? PFSH Medical History Carpal tunnel syndrome on left Degenerative disc disease, lumbar Depression Dyslipidemia Essential hypertension Former smoker Frequent headaches Gastric ulcer Gastritis Headache History of drug abuse Impaired fasting glucose Intermittent palpitations Irritable bowel syndrome with constipation Migraine Obesity (BMI 30-39.9) ANKIT (obstructive sleep apnea) ANKIT (obstructive sleep apnea) Osteoarthritis involving multiple joints on both sides of body Peripheral neuropathy Plantar fasciitis, bilateral Posterior neck pain Recurrent bronchospasm Retrognathia Stress at work Vitamin B12 deficiency Vitamin D deficiency Surgical History History of esophagogastroduodenoscopy (EGD) History of partial hysterectomy History of right knee joint replacement Hx of colonoscopy Family History Father CKD (chronic kidney disease) Mother Alcoholism Social History Housing: Apartment Are you a primary care companion to a significant other at home: No Do you presently have visiting nurse or other home services: No Alcohol intake: never Patient Tobacco Use Status: Former Tobacco user Quit Date: 2015 Tobacco use type: Cigarette Years Smoked: 30 yrs e-Cigarette/Vaping Use: Never Used Second Hand Smoke Exposure: No service: No Current occupational status: employed Current occupation: [employer] Current occupational exposures/hazards: No Cognitive needs: No Hearing needs: No Vision needs: Yes Questionnaire Thrive Questionnaire Date Thrive assessed: 04/29/22 MATTEO-7 AMB Questionnaire MATTEO-7 Date MATTEO - 7 assessed: 04/29/22 Source: Developed by Drs. Josué Feldman, Shari Luo, Lenny Barnes and colleagues, with an educational nino from [employer] Review of Systems Const Denies headache(s) Eyes Denies loss of vision ENT Denies vertigo, Denies dizziness, Denies headache(s) and Denies sore throat Card Denies chest pain, Denies leg edema and Denies lightheadedness Resp Denies cough, Denies hemoptysis and Denies wheezing GI Denies abdominal pain, Denies melena, Denies constipation, Denies diarrhea and Denies vomiting Denies urinary frequency, Denies dysuria and Denies urinary urgency Musc Denies arthralgias, Denies joint swelling, Denies numbness and Denies tingling Neuro Denies Abnormal speech present, Denies behavioral changes, Denies vertigo, Denies dizziness, Denies headache(s), Denies loss of vision, Denies memory loss, Denies numbness and Denies tingling Psych Denies anxiety, Denies behavioral changes, Denies depression, Denies memory loss and Denies panic attacks Stefano/Lymph Denies easy bleeding and Denies easy bruising Aller/Immun Denies wheezing Physical exam (Primary Care) Vital Signs: Last Vital Signs Pulse 80 09/14/22 09:40 BP 128/72 09/14/22 09:40 Pulse Ox 98 09/14/22 09:40 Oxygen Delivery Method Room Air 09/14/22 09:40 BMI result Body Mass Index 32.1 BMI Assessment/Plan discussion: High Tobacco/Smoking Status: Tobacco use Status Tobacco use date assessed 09/14/22 07 09:40 Patient Tobacco Use Status Former Tobacco user 09/14/22 09:40 Tobacco use type Cigarette 09/14/22 09:40 e-Cigarette/Vaping Use Never Used 09/14/22 09:40 Thrive Assessment: Date of Thrive Assessment Date Thrive assessed 04/29/22 09/14/22 09:40 Const General: healthy appearing, no acute distress, alert and awake Nutritional Appearance: well nourished Orientation/consciousness: oriented to person, oriented to place and oriented to time HENMT Ears: TM's normal bilaterally General nose exam: Normal nasal mucous membranes and turbinates present Eyes Conjunctivae: conjunctivae normal Sclerae: sclerae normal Pupils: Equal, round and reactive pupils present Neck Neck: Yes no lymphadenopathy and Yes no JVD Thyroid: Thyroid normal Carotids: no bruits Resp Effort & Inspection: normal respiratory effort and not tachypneic Auscultation: no crackles, no rales, no rhonchi and no wheezes Cardio Rate: regular rate Rhythm: regular rhythm Heart sounds: no murmurs and normal S1 and S2 GI Palpation (GI): Soft to palpation, nontender, no hepatomegaly and no splenomegaly Auscultation: normal bowel sounds Skin General skin exam: no rashes or lesions noted and dry skin Neuro General: oriented to person, oriented to place and oriented to time Cranial nerves: Yes Equal, round and reactive pupils present Speech: No Abnormal speech present Gait exam (Neuro): Normal gait present Motor exam (neuro): no tremor noted Extrem Other: RIGHT SHOULDER: LIMITED RANGE OF MOTION DUE TO PAIN AND STIFFNESS, Right upper extremity: full ROM Left upper extremity: full ROM Right lower extremity: full ROM; no edema Left lower extremity: full ROM; no edema Psych Mental Status: mental status grossly normal Speech and movement: Normal speech and movement present Affect: normal affect Attitude: cooperative Thought process: Normal thought process present Assessment and Plan Assessment & Plan (1) Right rotator cuff tear: Code(s): M75.101 - Unspecified rotator cuff tear or rupture of right shoulder, not specified as traumatic Qualifiers: Rotator cuff tear extent: incomplete Rotator cuff tear trauma status: nontraumatic Qualified Code(s): M75.111 - Incomplete rotator cuff tear or rupture of right shoulder, not specified as traumatic Plan: PATIENT HAS A PARTIAL TEAR ON HER RIGHT SHOULDER. FOLLOWED BY ORTHOPEDICS AND GOT CORTISONE INJECTION WHICH DID NOT HELP HER PAIN. SHE CONTINUES WITH DICLOFENAC SODIUM GEL AND TIZANIDINE THOUGH FEELS IT IS NOT EFFECTIVE. SHE REPORTS PAIN IS BEEN AND AFFECTING HER LIFE SHE IS MORE IRRITABLE. SHE WOULD LIKE TO TRIAL NEW MUSCLE RELAXER AND TRAMADOL FOR PAIN SCALES OF 8-10. (2) Chronic thoracic back pain: Code(s): M54.6 - Pain in thoracic spine; G89.29 - Other chronic pain Qualifiers: Back pain laterality: left Qualified Code(s): M54.6 - Pain in thoracic spine; G89.29 - Other chronic pain (3) Pulmonary nodule less than 1 cm in diameter with moderate to high risk for malignant neoplasm: Code(s): R91.1 - Solitary pulmonary nodule; Z91.89 - Other specified personal risk factors, not elsewhere classified (4) Chest pain at rest: Code(s): R07.9 - Chest pain, unspecified Plan: Patient concerned about her continued chest pain which may be related to her thoracic and right shoulder pain. Will get EKG to evaluate for ischemia. Low suspicion for ACS (5) Hypertension: Code(s): I10 - Essential (primary) hypertension Qualifiers: Hypertension type: primary hypertension Qualified Code(s): I10 - Essential (primary) hypertension Plan: Blood pressure acceptable today in office. Will continue her current dose of antihypertensive medication with goal blood pressure to be below 140/90 (6) Hyperlipidemia: Code(s): E78.5 - Hyperlipidemia, unspecified Qualifiers: Hyperlipidemia type: mixed hyperlipidemia Qualified Code(s): E78.2 - Mixed hyperlipidemia Plan: Continues on statin therapy 3 times a week. Goal LDL to be below 130. Orders: Orders ECG 12 lead EKG Today R07.9 - Chest pain, unspecified Medications: New baclofen 10 mg PO BEDTIME 30 days 30 tabs 0RF M75.111 - Incomplete rotator cuff tear or rupture of right shoulder, not specified as traumatic tramadol 50 mg PO BID 7 days PRN 14 tabs 0RF pain M75.111 - Incomplete rotator cuff tear or rupture of right shoulder, not specified as traumatic ibuprofen 600 mg PO TID 30 days PRN 90 tabs 0RF pain M75.111 - Incomplete rotator cuff tear or rupture of right shoulder, not specified as traumatic Refilled rosuvastatin 5 mg PO 3XW 39 tabs 1RF Discontinued tizanidine Discontinued Reason: Doctor's Order 2 mg PO BEDTIME 30 days 30 tabs 3RF muscle spasticity M25.511 - Pain in right shoulder diclofenac sodium Discontinued Reason: Doctor's Order 50 mg PO BID 30 days 60 tabs 3RF M54.9 - Dorsalgia, unspecified Coding Level of Care Code Est Pt Level 4 (10971) Diagnoses Right rotator cuff tear M75.111 Rotator cuff tear extent: incomplete Rotator cuff tear trauma status: nontraumatic Chronic thoracic back pain M54.6; G89.29 Back pain laterality: left Pulmonary nodule less than 1 cm in diameter with moderate to high risk for malignant neoplasm R91.1; Z91.89 Chest pain at rest R07.9 Hypertension I10 Hypertension type: primary hypertension Hyperlipidemia E78.2 Hyperlipidemia type: mixed hyperlipidemia
[2022-09-14 09:40] VITALS: BP 128/72; PULSE 80; O2SAT 98; BMI 32.1
== END 2022-09-14 10:29 | disposition home or self-care (01) ==
PROVIDERS: Visit Provider Physician Assistant
DX: R07.9 Chest pain, unspecified (principal); I10 Essential (primary) hypertension; Z91.89 Other specified personal risk factors, not elsewhere classified; M75.111 Incomplete rotator cuff tear or rupture of right shoulder, not specified as traumatic; M54.6 Pain in thoracic spine; G89.29 Other chronic pain; R91.1 Solitary pulmonary nodule; E78.2 Mixed hyperlipidemia
CPT/HCPCS: 99214

== ENCOUNTER 2022-09-21 10:11 | Outpatient (AMB) | payer OTHER, SELFPAY ==
--- NOTE | 2022-09-21 10:19 | A.OFFVIS_ITS ---
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 Tile Setter Required: No Forming Press Operator: Forming Press Operator offered & declined Accompanied by: Self / Same As Patient Allergies peanut Allergy (Severe, Verified 09/21/22 10:24) Anaphylaxis seafood Allergy (Severe, Verified 09/21/22 10:24) Anaphylaxis codeine [Codeine] Allergy (Intermediate, Verified 09/21/22 10:24) RASH/ITCHING tomato Allergy (Intermediate, Verified 09/21/22 10:24) Gastrointestinal Upset celecoxib [From Celebrex] Adverse Reaction (Intermediate, Verified 09/21/22 10:24) Palpitations ibuprofen [From Motrin] Adverse Reaction (Intermediate, Verified 09/21/22 10:24) Stomach pains levofloxacin [From Levaquin] Adverse Reaction (Intermediate, Verified 09/21/22 10:24) Nausea pravastatin Adverse Reaction (Intermediate, Verified 09/21/22 10:24) Muscle pain Medication List - Last Reconciled 09/21/22 by Jamee Gamino LPN acetaminophen (Tylenol Extra Strength) 500 mg PO Q6H PRN 15 days albuterol sulfate 90 mcg/actuation 1 inh inhalation QID PRN 30 days amlodipine 5 mg PO DAILY baclofen 10 mg PO BEDTIME 30 days cholecalciferol (vitamin D3) (Vitamin D3) 25 mcg PO DAILY cyanocobalamin (vitamin B-12) 1,000 mcg PO DAILY diclofenac sodium 1% 2 grams topical QID dicyclomine 20 mg PO BID 30 days ibuprofen 600 mg PO TID PRN 30 days linaclotide (Linzess) 145 mcg PO QAM 30 days lorazepam 0.5 mg PO BEDTIME lubiprostone (Amitiza) 8 mcg PO BID 30 days mecobalamin (vitamin B12) 1,000 mcg PO DAILY 90 days miscellaneous medical supply (Blood Pressure Cuff) As directed ondansetron 4 mg PO Q8H PRN pantoprazole 40 mg PO BID 90 days riboflavin (vitamin B2) 400 mg PO DAILY rosuvastatin 5 mg PO 3XW [Self Adhesive Electrode [id number] As directed NS] sucralfate 1 g PO BID 30 days tramadol 50 mg PO BID PRN [address] scan HPI Details Janet is a pleasant 62 year old female, former smoker, approximately 30 pack year history, quit 2017 with underlying asthma, severe obstructive sleep apnea not on CPAP and anxiety. She was referred by PCP after chest CT revealed pulmonary nodules. She reports ongoing left thoracic back pain and associated it with new finding of nodules. She also reports dyspnea on moderate exertion such as stairs with intermittent wheezing and dry cough. She has albuterol MDI/nebulizer with no significant relief of symptoms. She previously used Advair with suboptimal effects. She denies childhood asthma. She reports her sister, smoker, had lung cancer. She underwent a sleep study, ordered by sleep medicine, in 2021 which revealed an AHI of 60 and was prescribed CPAP therapy. Unfortunately, she had difficulty adjusting to the machine and would take it off after an hour or two of using. She continues to report significant daytime somnolence. [facility] Medical History Carpal tunnel syndrome on left Degenerative disc disease, lumbar Depression Dyslipidemia Essential hypertension Former smoker Frequent headaches Gastric ulcer Gastritis Headache History of drug abuse Impaired fasting glucose Intermittent palpitations Irritable bowel syndrome with constipation Migraine Obesity (BMI 30-39.9) ANKIT (obstructive sleep apnea) ANKIT (obstructive sleep apnea) Osteoarthritis involving multiple joints on both sides of body Peripheral neuropathy Plantar fasciitis, bilateral Posterior neck pain Recurrent bronchospasm Retrognathia Stress at work Vitamin B12 deficiency Vitamin D deficiency Surgical History History of esophagogastroduodenoscopy (EGD) History of partial hysterectomy History of right knee joint replacement Hx of colonoscopy Family History Father CKD (chronic kidney disease) Mother Alcoholism Social History (Updated 09/21/22 @ 10:28 by Jamee Gamino LPN) Housing: Apartment Are you a primary critical care rn to a significant other at home: No Do you presently have visiting nurse or other home services: No Alcohol intake: never Patient Tobacco Use Status: Former Tobacco user Quit Date: 2015 Tobacco use type: Cigarette Cigarette Packs Per Day: 1 Cigarettes Per Day: 20 Years Smoked: 30 yrs e-Cigarette/Vaping Use: Never Used Second Hand Smoke Exposure: No service: No Current occupational status: employed 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 Current occupational exposures/hazards: No Cognitive needs: No Hearing needs: No Vision needs: Yes Review of Systems Const Denies chills, Denies excessive sweating, Denies fever(s), Denies headache(s) and Denies night sweats Eyes Denies dry eyes, Denies irritation and Denies itchy eyes ENT Reports Normal hearing present, Denies headache(s), Denies nasal congestion, Denies nasal discharge, Denies post nasal drip and Denies sore throat Card Denies chest pain, Denies chest pain at rest, Denies chest pain with activity, Denies claudication, Denies leg edema, Denies dyspnea, Denies orthopnea and Denies paroxysmal nocturnal dyspnea Resp Denies chest congestion, Denies excessive phlegm production, Denies pain on in spiration, Denies pain with cough, Denies dyspnea and Denies stridor Musc Denies myalgias Neuro Reports Normal hearing present and Denies headache(s) Endo Denies excessive sweating Stefano/Lymph Denies lymphadenopathy Aller/Immun Denies itchy eyes and Denies seasonal rhinorrhea Physical Exam Vital Signs: Last Vital Signs Pulse 85 09/21/22 10:20 BP 130/80 09/21/22 10:20 Pulse Ox 96 09/21/22 10:20 Oxygen Delivery Method Room Air 09/21/22 10:20 BMI result Body Mass Index 31.9 Const General: cooperative, comfortable, no acute distress, well developed and alert Nutritional Appearance: obese Orientation/consciousness: patient oriented x3 Limitations: no limitations HEENT Head: Yes normal to inspection, Yes normocephalic and Yes atraumatic Ears: hearing grossly normal bilaterally and external ears normal Eyes General: appearance normal, both eyes and all related structures Eyelids: Yes eyelids normal Sclerae: sclerae normal EOM: EOMs intact bilaterally Neck Neck: Yes normal visual inspection and Yes no lymphadenopathy Lymphatic: no lymphadenopathy noted Chest Chest palpation & inspection: normal inspection of the chest Resp Effort & Inspection: normal respiratory effort, able to speak in complete sentences, no audible wheezes, no cough, no stridor, not tachypneic, no tripod positioning and no use of accessory muscles Auscultation: clear to auscultation bilaterally Cardio Jugular venous distension: no JVD Rate: regular rate Rhythm: regular rhythm Back/Spine/Pelvis Other: reproducible left thoracic back pain, with palpable taut bands, no pain noted with inspiration Skin Other: warm, dry General skin exam: no rashes or lesions noted Neuro General: patient oriented x3 Cranial nerves: Yes Normal hearing present Cognition (Neuro): normal cognition Gait exam (Neuro): Normal gait present Extrem General: Yes normal to inspection, Yes capillary refill normal, Yes no clubbing, cyanosis or edema and Yes no pedal edema Psych Appearance: grossly normal and well kempt Speech and movement: Normal speech and movement present and Clear speech present Affect: normal affect Attitude: cooperative Thought process: Normal thought process present Thought content: Normal thought content present Insight: Good insight present (Psych) Judgement: Good judgement present (Psych) Results Reviewed Results Reviewed: [address] [address] [address] Scan Report Signed Patient: Janet Ramos MR#: [id number] : 1960 Acct:[id number] Age/Sex: 62 / F ADM Date: 08/26/[address]: Feliciano Corey PA-C Ordering Physician: Feliciano Corey PA-C Date of Service: 08/26/22 Procedure(s): CT chest w IV con Accession Number(s): [id number] cc: Feliciano Corey PA-C~ EXAMINATION: CT CHEST WITH CONTRAST CLINICAL INFORMATION: Question pulmonary nodule; chronic thoracic pain and shortness of breath.? COMPARISON: None available. TECHNIQUE: Multidetector volumetric CT imaging of the chest was obtained after the administration of 65 mL of Omnipaque 350 intravenous contrast without immediate adverse reactions. Axial MIP volume rendering provided. Sagittal and coronal reformatted images were obtained. This CT examination was performed using dose optimization techniques as appropriate, variously including the following: *Automated exposure control *Adjustment of mA and/or kV according to patient size (this includes techniques or standardized protocols for targeted exams where dose is matched to indication/reason for exam; i.e. 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 LUNGS: Inferiorly within the right upper lobe (7:83), a 2 mm benign, calcified granuloma is seen. Within the superior segment of the left lower lobe (7:75 and 83), 2 mm and 4 mm noncalcified subpleural nodules are seen. There is no mass, infiltrate or groundglass opacity. No generalized increase is seen in peripheral interlobular septal markings. There is mild dependent hypoaeration. No bleb or bullous formation is seen. No small airway thickening is seen. The central airways appear patent. MEDIASTINUM: The thyroid is unremarkable. There is no thoracic aortic aneurysm or dissection. There are mild atherosclerotic calcifications of the great vessel origins and thoracic aorta. No mediastinal or hilar lymphadenopathy is seen. PLEURA: There is no pleural effusion. No pleural mass or thickening.? AXILLA: No lymphadenopathy.? UPPER ABDOMEN: There is hepatic steatosis. The adrenal glands are unremarkable.? OSSEOUS STRUCTURES: Unremarkable.? CT/CT chest w IV con IMPRESSION: ? 1. Nonspecific, noncalcified 4 mm and 2 mm nodules are seen within the superior segment of the left lower lobe. ? According to the UPDATED 2017 Fleischner Society recommendations, the advised follow-up imaging for solid nodules < 6 mm is: ?? LOW RISK PATIENT: No routine follow-up. ?? HIGH RISK PATIENT: Optional CT at 12 months. ? 2. No mass, infiltrate or groundglass opacity is seen. ? 3. There is no thoracic lymphadenopathy or pleural effusion. ? 4. No aggressive osseous lesion is seen. ? 5. There is hepatic steatosis. ? Fleischner guidelines were followed. Assessment & Plan Assessment & Plan (1) Asthma: Code(s): J45.909 - Unspecified asthma, uncomplicated Qualifiers: Asthma complication type: uncomplicated Asthma persistence: intermittent Asthma severity: mild Qualified Code(s): J45.20 - Mild intermittent asthma, uncomplicated (2) Pulmonary nodule less than 1 cm in diameter with moderate to high risk for malignant neoplasm: Code(s): R91.1 - Solitary pulmonary nodule; Z91.89 - Other specified personal risk factors, not elsewhere classified (3) ANKIT (obstructive sleep apnea): Code(s): G47.33 - Obstructive sleep apnea (adult) (pediatric) (4) Retrognathia: Code(s): M26.19 - Other specified anomalies of jaw-cranial base relationship (5) Chronic thoracic back pain: Code(s): M54.6 - Pain in thoracic spine; G89.29 - Other chronic pain Qualifiers: Back pain laterality: left Qualified Code(s): M54.6 - Pain in thoracic spine; G89.29 - Other chronic pain Plan Reviewed significance of untreated severe ANKIT and the importance of trying CPAP therapy again. Will send prescription and discussed attempting to use during the day to adjust to the machine, during naps, as well as the option of trialing a different mask. If she continues to have difficulties, will refer her for a oral device, as she has notable retrognathia. She reports long history of asthma and has trialed Advair in the past with suboptimal effect. Will send in symbicort. Inhaler technique reviewed. In regards to her chronic left thoracic pain, it is likely musculoskeletal, as it is reproducible with palpation, will send for th oracic xray. Reviewed chest CT and explained the low likelihood of nodules being a source of her pain. Given her smoking history and family history of lung cancer, will repeat CT in one year. Will follow up after 4 weeks of CPAP therapy or sooner if needed. All questions were answered and patient is in agreement of plan. Orders: Orders XR thoracic spine 2V 09/21/22 G89.29 - Other chronic pain, M54.6 - Pain in thoracic spine CT chest wo IV con 08/05/23 R91.1 - Solitary pulmonary nodule, Z91.89 - Other specified personal risk factors, not elsewhere classified Medications: New 2 budesonide-formoterol 160-4.5 mcg/actuation (Symbicort) 2 puffs inhalation Q12H 10.2 grams 3RF Coding Level of Care Code New Pt Level 4 (98955) Diagnoses Asthma J45.20 Asthma complication type: uncomplicated Asthma persistence: intermittent Asthma severity: mild Pulmonary nodule less than 1 cm in diameter with moderate to high risk for malignant neoplasm R91.1; Z91.89 ANKIT (obstructive sleep apnea) G47.33 Retrognathia M26.19 Chronic thoracic back pain M54.6; G89.29 Back pain laterality: left
[2022-09-21 10:20] VITALS: BP 130/80; PULSE 85; O2SAT 96; BMI 31.9
== END 2022-09-21 11:10 | disposition home or self-care (01) ==
PROVIDERS: PCP Physician Assistant; Visit Provider Nurse Practitioner Family
DX: J45.20 Mild intermittent asthma, uncomplicated (principal); R91.1 Solitary pulmonary nodule; Z91.89 Other specified personal risk factors, not elsewhere classified; G47.33 Obstructive sleep apnea (adult) (pediatric); M26.19 Other specified anomalies of jaw-cranial base relationship; M54.6 Pain in thoracic spine; G89.29 Other chronic pain
CPT/HCPCS: 99204

== ENCOUNTER → 2022-09-21 10:11 | Outpatient (BNVA) | payer OTHER, SELFPAY | PROVIDERS: PCP Physician Assistant; Visit Provider Nurse Practitioner Family | DX: J45.20 Mild intermittent asthma, uncomplicated (principal); R91.1 Solitary pulmonary nodule; G47.33 Obstructive sleep apnea (adult) (pediatric); M26.19 Other specified anomalies of jaw-cranial base relationship; M54.6 Pain in thoracic spine; G89.29 Other chronic pain; Z91.89 Other specified personal risk factors, not elsewhere classified | CPT/HCPCS: 99202 ==

== ENCOUNTER → 2022-09-23 11:22 | Outpatient (REF) | payer OTHER, SELFPAY ==
--- NOTE | 2022-09-23 11:28 | ECG_ITS ---
Test Reason : chest pain Blood Pressure : / mmHG Vent. Rate : 088 BPM Atrial Rate : 088 BPM P-R Int : 150 ms QRS Dur : 090 ms QT Int : 372 ms P-R-T Axes : 066 008 040 degrees QTc Int : 450 ms Normal sinus rhythm Normal ECG When compared with ECG of 28-SEP-2018 12:52, No significant change was found Referred By: Feliciano Corey Electronically Signed By:Jarett Cheney
== END ==
LOC: HO.CARD 11:22
PROVIDERS: Absent Provider Nurse Practitioner Family; PCP Physician Assistant; Visit Provider Physician Assistant
DX: R07.9 Chest pain, unspecified (principal)
CPT/HCPCS: 93005

== ENCOUNTER → 2022-09-23 11:28 | Outpatient (BNV) | payer OTHER, SELFPAY | PROVIDERS: Absent Provider Nurse Practitioner Family; PCP Physician Assistant; Visit Provider Internal Medicine Cardiovascular Disease | DX: R07.9 Chest pain, unspecified (principal) | CPT/HCPCS: 93010 ==

== ENCOUNTER 2022-10-08 10:35 | Outpatient (AMB) | payer OTHER, SELFPAY ==
--- NOTE | 2022-10-08 10:40 | A.OFFVIS_ITS ---
Intake Vital Signs 10/08/22 11:01 Height 5 ft 2 in Weight 172 lb BMI 31.5 BP 134/77 Blood Pressure Location Lt brachial Position Sitting Respiration 16 Pulse 92 Pulse Source Pulse Oximeter Pulse Oximetry (%) 95 Oxygen Delivery Method Room Air Intake Visit Reasons: Pain in thoracic spine Allergies peanut Allergy (Severe, Verified 09/21/22 10:24) Anaphylaxis seafood Allergy (Severe, Verified 09/21/22 10:24) Anaphylaxis codeine [Codeine] Allergy (Intermediate, Verified 09/21/22 10:24) RASH/ITCHING tomato Allergy (Intermediate, Verified 09/21/22 10:24) Gastrointestinal Upset celecoxib [From Celebrex] Adverse Reaction (Intermediate, Verified 09/21/22 10:24) Palpitations ibuprofen [From Motrin] Adverse Reaction (Intermediate, Verified 09/21/22 10:24) Stomach pains levofloxacin [From Levaquin] Adverse Reaction (Intermediate, Verified 09/21/22 10:24) Nausea pravastatin Adverse Reaction (Intermediate, Verified 09/21/22 10:24) Muscle pain HPI HPI Comments History of Present Illness Details Janet is a very pleasant 62 year old female who presents to the office today for evaluation and management of left thoracic back pain. She has been suffering from this pain for around 6 months, denies inciting injury. Pain is reproducible with palpation and movement. She describes the pain as 9/10, constant but worse at night, sharp, tight and aching. Previously tried NSAIDs and is currently applying diclofenac topical with moderate relief, muscle relaxers and tramadol prescribed by pcp. She reports good relief with the combination of muscle relaxer and tramadol. In the past she has attempted PT and states it made her pain worse. She has tried acupuncture and did not tolerate it. She has a tens unit at home but does not have the time to use it regularly. She has received cortisone injections for lower back in the past which made her pain worse. Lidocaine patches and compound cream were declines by insurance in the past. Thoracic Spine Xray ordered by referring provider, has not completed yet. In terms of muscle damage condition is described as aching, shooting, stabbing and sharp. Pain negatively impacting her mobility, work, sleep, general activity and emotional well being. [facility] Medical History Carpal tunnel syndrome on left Degenerative disc disease, lumbar Depression Dyslipidemia Essential hypertension Former smoker Frequent headaches Gastric ulcer Gastritis Headache History of drug abuse Impaired fasting glucose Intermittent palpitations Irritable bowel syndrome with constipation Migraine Obesity (BMI 30-39.9) ANKIT (obstructive sleep apnea) ANKIT (obstructive sleep apnea) Osteoarthritis involving multiple joints on both sides of body Peripheral neuropathy Plantar fasciitis, bilateral Posterior neck pain Recurrent bronchospasm Retrognathia Stress at work Vitamin B12 deficiency Vitamin D deficiency Surgical History History of esophagogastroduodenoscopy (EGD) History of partial hysterectomy History of right knee joint replacement Hx of colonoscopy Family History Father CKD (chronic kidney disease) Mother Alcoholism Social History (Updated 09/21/22 @ 10:28 by Jamee Gamino LPN) Housing: Apartment Are you a primary childcare center director to a significant other at home: No Do you presently have visiting nurse or other home services: No Alcohol intake: never Patient Tobacco Use Status: Former Tobacco user Quit Date: 2015 Tobacco use type: Cigarette Cigarette Packs Per Day: 1 Cigarettes Per Day: 20 Years Smoked: 30 yrs e-Cigarette/Vaping Use: Never Used Second Hand Smoke Exposure: No service: No Current occupational status: employed 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 Answers questions appropriately. Fully engaged in examination. Skin: warm, dry, intact without visible rashes or lesions. HEENT: Normocephalic. Conjuntivae clear without exudate. Sclera non-icteric. Hearing intact. Cardiac: External chest normal in appearance. Respiratory: No signs of trauma. No signs of respiratory distress. No cough, audible wheezing or stridor. Abdomen: without gross distension. MS: No obvious swelling or deformities. Tenderness to palpation left lower trapezius with palpable taught bands and trigger points. Pain increased with palpation and movement Neurological: Oriented to person, place, time and situation. Thought process intact. No gait abnormalities appreciated. Psychiatric: Appropriate mood and affect. Good judgment and insight. Assessment & Plan Assessment & Plan (1) Strain of left trapezius muscle: Code(s): S46.812A - Strain of other muscles, fascia and tendons at shoulder and upper arm level, left arm, initial encounter Plan History, physical exam and provocative testing consistent with left lower trapezius strain. Discussed options for conservative treatment with patient including physical therapy, topical compound cream, lidocaine patches and Tens unit. She is not interested in PT and has a Tens unit at home but has not been using d/t time constraints. Encouraged her to try using Tens unit daily. Discussed compound cream and lidocaine patches, she was resistant to having these sent to pharmacy, they have been denied by insurance in the past. She is willing to try if insurance will cover. Patient not interested in proceeding with trigger point injections at this time, she has a remote history or cortisone injections and had a negative response. She does not want to repeat. Patient found best relief with tramadol and muscle relaxers. Baclofen refill was sent by pcp two days ago. She will call her pcp to further discuss continuing on the tramadol. Patient to hold po baclofen and topical diclofenac if she is able to start using the topical compounding cream. Follow up here as needed, call if pain worsens and she wishes to proceed with above mentioned options for treatment. Medications: New lidocaine 5% leave on most painful area for up to 12 hrs 1 patch topical DAILY 30 ea 3RF S46.812A - Strain of other muscles, fascia and tendons at shoulder and upper arm level, left arm, initial encounter cream base no.105 (bulk) (Base W301 cream) Baclofen 5%, Ketoprofen 10%, Cyclobenzaprine 2%, Magnesium CL 10% SIG: apply pea-sized amount 3-5 times daily to painful areas as needed as directed; Do not use with diclofenac topical cream. 180 grams 0RF pain Coding Level of Care Code New Pt Level 4 (51587) Diagnoses Strain of left trapezius muscle S46.812A
[2022-10-08 11:01] VITALS: BP 134/77; PULSE 92; RESP 16; O2SAT 95; BMI 31.5
== END 2022-10-08 11:28 | disposition home or self-care (01) ==
PROVIDERS: PCP Physician Assistant; Visit Provider Registered Nurse Emergency
DX: S46.812A Strain of other muscles, fascia and tendons at shoulder and upper arm level, left arm, initial encounter (principal)
CPT/HCPCS: 99204

== ENCOUNTER → 2022-10-08 10:35 | Outpatient (BNVA) | payer OTHER, SELFPAY | PROVIDERS: PCP Physician Assistant; Visit Provider Registered Nurse Emergency | DX: S46.812A Strain of other muscles, fascia and tendons at shoulder and upper arm level, left arm, initial encounter (principal) | CPT/HCPCS: 99202 ==

== ENCOUNTER 2022-10-29 09:37 | Outpatient (AMB) | payer OTHER, SELFPAY ==
--- NOTE | 2022-10-29 09:46 | A.OFFVIS_ITS ---
Intake Intake Visit Reasons: OV-RT shoulder pain -Last Injection 09/03/22 Intake Note: Janet is a 62 year old female who presents today for a follow up og her right shoulder pain. Last seen on 09/03/22 where both shoulders were injected. Recent MRI shows partial tear of the right supraspinatus tendon. She was referred to pain mgmt for a possible nerve ablation but has not followed up with this. She reports that the last injection was not helpful. She has been taking tramadol. Allergies peanut Allergy (Severe, Verified 10/29/22 09:48) Anaphylaxis seafood Allergy (Severe, Verified 10/29/22 09:48) Anaphylaxis codeine [Codeine] Allergy (Intermediate, Verified 10/29/22 09:48) RASH/ITCHING tomato Allergy (Intermediate, Verified 10/29/22 09:48) Gastrointestinal Upset celecoxib [From Celebrex] Adverse Reaction (Intermediate, Verified 10/29/22 09:48) Palpitations ibuprofen [From Motrin] Adverse Reaction (Intermediate, Verified 10/29/22 09:48) Stomach pains levofloxacin [From Levaquin] Adverse Reaction (Intermediate, Verified 10/29/22 09:48) Nausea pravastatin Adverse Reaction (Intermediate, Verified 10/29/22 09:48) Muscle pain HPI OV-RT shoulder pain -Last Injection 09/03/22 HPI Details Janet is a 62 year old woman who presents for a follow-up of her right RTC tear. She was last seen and injected on 09/03/22, bilaterally & with no relief. She was referred to our colleagues in Pain Management to discuss a SPRINT trial or nerve ablation, but she has not followed up with this. She continues to complain of pain with daily activity, worse with overhead activity and at night. She says her pain is severe and she feels limited by this, and her pain has been worsening over the last year. She says she is miserable all the time due to her pain and has not been able to sleep at night. She has been attending PT and says they provided a topical cream for her to use. She has been taking Tramadol for her pain, with mild relief. She had a poor reaction to Celebrex in the past. She found no relief from Diclofenac cream, a TENS unit, or icing. She says she is caring for her young granddaughter at home, and is not able to rest her shoulder She says she had some surgery to her right shoulder in the past, ~10 years ago, but she does not remember any details.?? [facility] Medical History Carpal tunnel syndrome on left Degenerative disc disease, lumbar Depression Dyslipidemia Essential hypertension Former smoker Frequent headaches Gastric ulcer Gastritis Headache History of drug abuse Impaired fasting glucose Intermittent palpitations Irritable bowel syndrome with constipation Migraine Obesity (BMI 30-39.9) ANKIT (obstructive sleep apnea) ANKIT (obstructive sleep apnea) Osteoarthritis involving multiple joints on both sides of body Peripheral neuropathy Plantar fasciitis, bilateral Posterior neck pain Recurrent bronchospasm Retrognathia Stress at work Vitamin B12 deficiency Vitamin D deficiency Surgical History History of esophagogastroduodenoscopy (EGD) History of partial hysterectomy History of right knee joint replacement Hx of colonoscopy Family History Father CKD (chronic kidney disease) Mother Alcoholism Social History (Updated 09/21/22 @ 10:28 by Jamee Gamino LPN) Housing: Apartment Are you a primary acute care assistant to a significant other at home: No Do you presently have visiting nurse or other home services: No Alcohol intake: never Patient Tobacco Use Status: Former Tobacco user Quit Date: 2015 Tobacco use type: Cigarette Cigarette Packs Per Day: 1 Cigarettes Per Day: 20 Years Smoked: 30 yrs e-Cigarette/Vaping Use: Never Used Second Hand Smoke Exposure: No service: No Current occupational status: employed 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 Current occupational exposures/hazards: No Cognitive needs: No Hearing needs: No Vision needs: Yes Review of Systems Const All systems reviewed & are unremarkable except as noted in HPI and below Physical Exam Const General: no acute distress, alert and awake Orientation/consciousness: patient oriented x3 HEENT Head: Yes normocephalic and Yes atraumatic Eyes EOM: EOMs intact bilaterally Resp Effort & Inspection: normal respiratory effort and able to speak in complete sentences Cardio Jugular venous distension: no JVD Skin General skin exam: turgor normal Rashes: no rashes Neuro General: patient oriented x3 Extrem Other: Right Shoulder: Very painful shoulder ER to 35 degrees 4/5 strength with empty can testing + H&N Psych Appearance: grossly normal Affect: normal affect Attitude: cooperative Results Reviewed Results Reviewed: I personally reviewed relevant MR images High-grade partial thickness tear that is not improved, with labral tearing Assessment & Plan Assessment & Plan (1) Right rotator cuff tear: Code(s): M75.101 - Unspecified rotator cuff tear or rupture of right shoulder, not specified as traumatic Qualifiers: Rotator cuff tear extent: incomplete Rotator cuff tear trauma status: nontraumatic Qualified Code(s): M75.111 - Incomplete rotator cuff tear or rupture of right shoulder, not specified as traumatic Plan: This is a 62 year old woman with partial tear of the right supraspinatus tendon. She has pain with daily activity, worse with overhead activity and at night, and has been worsening over the last year. She has failed conservative treatment options, is limited in her ADLs by pain and feels her QOL is diminished. I discussed her diagnosis and treatment options. I recommend a right shoulder RTC repair with likely biceps tenotomy. I discussed the risks, benefits, and alternatives including, but not limited to, the risk of pain, infection, stiffness, need for further surgery as well as potential medical complications such as blood clots, pulmonary embolism and cardiac complications. I discussed the recovery timeline and process as well as the importance of PT. Janet is a good candidate for this surgery, and she wishes to proceed with this decision. She will speak with Sofi to schedule this procedure. Plan Scribed for Feroz Duque MD by Santiago Segal, medical unit secretary, on 10/29/22 at 10:00 AM, EST. Coding Level of Care Code Est Pt Level 4 (68818) Diagnoses Right rotator cuff tear M75.111 Rotator cuff tear extent: incomplete Rotator cuff tear trauma status: nontraumatic
== END 2022-10-29 10:12 | disposition home or self-care (01) ==
PROVIDERS: PCP Physician Assistant; Visit Provider Orthopaedic Surgery
DX: M75.111 Incomplete rotator cuff tear or rupture of right shoulder, not specified as traumatic (principal)
CPT/HCPCS: 99214

== ENCOUNTER → 2022-10-29 09:37 | Outpatient (BNVA) | payer OTHER, SELFPAY | PROVIDERS: PCP Physician Assistant; Visit Provider Orthopaedic Surgery | DX: M75.111 Incomplete rotator cuff tear or rupture of right shoulder, not specified as traumatic (principal) | CPT/HCPCS: 99212 ==

== ENCOUNTER 2022-11-16 10:07 | Day surgery (SDC) | payer OTHER, SELFPAY ==
[2022-11-11 12:57] VITALS: BMI 32.0
--- NOTE | 2022-11-15 08:53 | P.CONAN_ITS ---
Documented by User: Uzma Fernandez NP 11/15/22 08:56 HPI - Anesthesia Eval Consult details Narrative: 62yo F for Right Shoulder Arthroscopy,poss rotator cuff repair PMFSH Active Problems Active Problems: All Active Problems (Updated 11/15/22 @ 07:17 by Ashleigh Hebert RN) Strain of left trapezius muscle (Acute) Nocturnal hypoxemia (Acute) Hyperlipidemia (Acute) Chest pain at rest (Acute) Right rotator cuff tear (Acute) Chronic thoracic back pain (Acute) Pulmonary nodule less than 1 cm in diameter with moderate to high risk for malignant neoplasm (Acute) Upper back pain (Acute) Bronchitis (Acute) Physical exam (Acute) Abdominal pain (Acute) Early satiety (Acute) Right shoulder pain (Acute) Painful arc syndrome of right shoulder (Acute) Cough (Acute) Colon cancer screening (Acute) Asthma (Acute) Left shoulder tendinitis (Acute) SOB (shortness of breath) on exertion (Acute) Hypertension (Acute) Fatigue (Acute) Sleep apnea (Acute) Vertigo (Acute) Vertigo (Acute) Dizziness (Acute) Vitamin B12 deficiency (Acute) Vitamin D deficiency (Acute) Right anterior shoulder pain (Acute) Seafood allergy (Acute) Anxiety and depression (Acute) Encounter to establish care (Acute ~04/08/21) Plantar fasciitis of right foot (Acute) Dizziness (Acute) GERD (gastroesophageal reflux disease) (Acute) ANKIT (obstructive sleep apnea) (Acute) Retrognathia (Acute) Posterior neck pain (Acute) Frequent headaches (Acute) Headache (Acute) Obesity (BMI 30-39.9) (Acute) Essential hypertension (Acute) Plantar fasciitis, bilateral (Acute) Impaired fasting glucose (Acute) Irritable bowel syndrome with constipation (Acute) Carpal tunnel syndrome on left (Acute) Gastric ulcer (Acute) Dyslipidemia (Acute) Former smoker (Acute) Recurrent bronchospasm (Acute) Degenerative disc disease, lumbar (Acute) Vitamin D deficiency (Acute) Vitamin B12 deficiency (Acute) Gastritis (Acute) Osteoarthritis involving multiple joints on both sides of body (Acute) Depression (Acute) Migraine (Acute) Intermittent palpitations (Acute) ANKIT (obstructive sleep apnea) (Acute) Past Medical History Medical History Retrognathia Posterior neck pain Frequent headaches Stress at work Obesity (BMI 30-39.9) Essential hypertension Plantar fasciitis, bilateral Impaired fasting glucose Irritable bowel syndrome with constipation Carpal tunnel syndrome on left Gastric ulcer Dyslipidemia Former smoker Recurrent bronchospasm Degenerative disc disease, lumbar Vitamin D deficiency Vitamin B12 deficiency History of drug abuse Gastritis Peripheral neuropathy Osteoarthritis involving multiple joints on both sides of body Depression Migraine Intermittent palpitations ANKIT (obstructive sleep apnea) Family History Family History Father CKD (chronic kidney disease) Mother Alcoholism Family history of problems with anesthesia: No Surgical History Surgical History History of esophagogastroduodenoscopy (EGD) Hx of colonoscopy History of right knee joint replacement History of partial hysterectomy History of Problems with Anesthesia: No Social History Social History Housing: Apartment Are you a primary out of school hours care worker to a significant other at home: No Do you presently have visiting nurse or other home services: No Alcohol intake: never Patient Tobacco Use Status: Former Tobacco user Quit Date: 2015 Tobacco use type: Cigarette Cigarette Packs Per Day: 1 Cigarettes Per Day: 20 Years Smoked: 30 yrs e-Cigarette/Vaping Use: Never Used Second Hand Smoke Exposure: No Are you DNR?: No Advance Directives: No Advance Directives Information Provided: Yes Nutrition Risks: No Nutritional Risk service: No Current occupational status: employed 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 Current occupational exposures/hazards: No Cognitive needs: No Hearing needs: No Vision needs: Yes Meds Allergies Allergy/AdvReac Type Severity Reaction Status Date / Time peanut Allergy Severe Anaphylaxis Verified 11/16/22 11:00 seafood Allergy Severe Anaphylaxis Verified 11/16/22 11:00 codeine [Codeine] Allergy Intermediate RASH/ITCHIN Verified 11/16/22 11:00 G tomato Allergy Intermediate Gastrointestinal Verified 11/16/22 11:00 Upset celecoxib [From Celebrex] AdvReac Intermediate Palpitation Verified 11/16/22 11:00 s ibuprofen [From Motrin] AdvReac Intermediate Stomach Verified 11/16/22 11:01 pains levofloxacin [From Levaquin] AdvReac Intermediate Nausea Verified 11/16/22 11:00 pravastatin AdvReac Intermediate Muscle pain Verified 11/16/22 11:00 Home Medications Medication Instructions Recorded Confirmed Last Taken Type lorazepam 0.5 mg tablet 0.5 mg PO BEDTIME 01/09/20 11/16/22 Unknown History cyanocobalamin (vitamin B-12) 1,000 mcg PO DAILY 12/15/21 11/16/22 Unknown History 1,000 mcg tablet Exam Exam Date and Time: November 15, 2022 0853 Height,Weight and Vital Signs: Height 5 ft 2 in Weight 79.379 kg Pertinent Lab Results Pertinent Lab Results: Laboratory Tests 06/16/22 10:16 WBC 12.3 H Hgb 11.7 L Hct 36.6 L Plt Count 401 H Sodium 141 Potassium 4.1 Chloride 108 Carbon Dioxide 23 BUN 23 H Creatinine 1.11 Narrative Narrative: EKG 09/2022 Vent. Rate : 088 BPM Atrial Rate : 088 BPM P-R Int : 150 ms QRS Dur : 090 ms QT Int : 372 ms P-R-T Axes : 066 008 040 degrees QTc Int : 450 ms Normal sinus rhythm Normal ECG When compared with ECG of 28-SEP-2018 12:52, No significant change was found Assessment and Plan Assessment Anesthesia Assessment: Chart Reviewed Final Anesthetic Review Family History of Problems with Anesthesia: No History of Problems with Anesthesia: No Documented by User: Ariel Atkinson MD 11/16/22 13:06 [facility] Past Medical History Medical History Retrognathia Posterior neck pain Frequent headaches Stress at work Obesity (BMI 30-39.9) Essential hypertension Plantar fasciitis, bilateral Impaired fasting glucose Irritable bowel syndrome with constipation Carpal tunnel syndrome on left Gastric ulcer Dyslipidemia Former smoker Recurrent bronchospasm Degenerative disc disease, lumbar Vitamin D deficiency Vitamin B12 deficiency History of drug abuse Gastritis Peripheral neuropathy Osteoarthritis involving multiple joints on both sides of body Depression Migraine Intermittent palpitations ANKIT (obstructive sleep apnea) Family History Family History Father CKD (chronic kidney disease) Mother Alcoholism Surgical History Surgical History History of esophagogastroduodenoscopy (EGD) Hx of colonoscopy History of right knee joint replacement History of partial hysterectomy Social History Social History Housing: Apartment Are you a primary out of school hours care worker to a significant other at home: No Do you presently have visiting nurse or other home services: No Alcohol intake: never Patient Tobacco Use Status: Former Tobacco user Quit Date: 2015 Tobacco use type: Cigarette Cigarette Packs Per Day: 1 Cigarettes Per Day: 20 Years Smoked: 30 yrs e-Cigarette/Vaping Use: Never Used Second Hand Smoke Exposure: No Are you DNR?: No Advance Directives: No Advance Directives Information Provided: Yes Nutrition Risks: No Nutritional Risk service: No Current occupational status: employed 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 Current occupational exposures/hazards: No Cognitive needs: No Hearing needs: No Vision needs: Yes Meds Allergies Allergy/AdvReac Type Severity Reaction Status Date / Time peanut Allergy Severe Anaphylaxis Verified 11/16/22 11:00 seafood Allergy Severe Anaphylaxis Verified 11/16/22 11:00 codeine [Codeine] Allergy Intermediate RASH/ITCHIN Verified 11/16/22 11:00 G tomato Allergy Intermediate Gastrointestinal Verified 11/16/22 11:00 Upset celecoxib [From Celebrex] AdvReac Intermediate Palpitation Verified 11/16/22 11:00 s ibuprofen [From Motrin] AdvReac Intermediate Stomach Verified 11/16/22 11:01 pains levofloxacin [From Levaquin] AdvReac Intermediate Nausea Verified 11/16/22 11:00 pravastatin AdvReac Intermediate Muscle pain Verified 11/16/22 11:00 Home Medications Medication Instructions Recorded Confirmed Last Taken Type lorazepam 0.5 mg tablet 0.5 mg PO BEDTIME 01/09/20 11/16/22 Unknown History cyanocobalamin (vitamin B-12) 1,000 mcg PO DAILY 12/15/21 11/16/22 Unknown History 1,000 mcg tablet Exam Airway Mallampati Class: I TM Dist: >3cm Neck ROM: Full Assessment and Plan Assessment Anesthesia Assessment: Anesthesia Plan Discussed Final Anesthetic Review NPO: Yes ASA Class: III Final Preanesthetic Review: No Changes in Pt Med Stat, Meds/Allgs Chart Review ed, Consent Obtained/Reviewed and Anes Risks/Benef Reviewed Patient Risk: Intermediate Procedure Risk: Low Anesthetic Plan Anesthetic Plan: GA and Regional Block Disposition: Standard PACU
[2022-11-16] VITALS (7 sets, daily range): BP systolic 128–147; BP diastolic 72–92; PULSE 77–99; RESP 16–20; TEMP 36.1–36.7; O2SAT 97–100
[2022-11-16] MEDS: Lactated Ringers 1,000 ML 100 ML IVCONT (11:02)
[2022-11-16] MEDS: Albuterol Sulfate (0.083%) 2.5 MG/3 ML VIAL.NEB INHALE (11:30)
--- NOTE | 2022-11-16 16:57 | PM.OP ---
Brief Operative Note Date of Service: 11/16/22 Pre-op diagnosis: Right shoulder RTC tear Post-op diagnosis: other (1) same 2) OA right shoulder) Procedure: RTC repair Implants: Esteban [employer] Nephew double loaded helacoil x 1 and 5.5 knotless suture anchor x 1 Surgeon: Feroz Duque MD Anesthesia: GETA and regional Was an Senior Client Advisor used for this Procedure?: No Estimated blood loss (mL): 20 IV fluids (mL): 1,000 Pathology: none sent Condition: stable Disposition: PACU
--- NOTE | 2022-11-26 11:14 | P.OP_ITS ---
Operative Note Operative Note Date of Service: 11/16/22 Narrative: Date of Service: 11/16/22 Pre-op diagnosis: Right shoulder RTC tear Post-op diagnosis: other (1) same 2) OA right shoulder) Procedure: RTC repair Implants: Esteb[employer]hew double loaded helacoil x 1 and 5.5 knotless suture anchor x 1 Surgeon: Feroz Duque MD Anesthesia: GETA and regional Was an Rod And Tube Straightener used for this Procedure?: No Estimated blood loss (mL): 20 IV fluids (mL): 1,000 Pathology: none sent Condition: stable Disposition: PACU Procedure in detail: Patient was brought to the operating room and placed the the beach chair position. All bony prominences were well padded and the limb was prepped and draped in standard sterile fashion. A time out was called to identify proper site, proper procedure and proper surgeon. IV antibiotics per weight were administered. I began by making a posterolateral stab incision with a 15 blade. A blunt trochar was placed into the glenohumeral joint and I insufflated the joint with saline and a 30 degree arthroscope was placed. I established an outside- in anterior portal just distal to the biceps tendon. I then began my inspection of the glenohumeral joint. There were G3 cartilage changes at the anterior glenoid with G1-2 changes of the corresponding portions of the humeral head. There was a full thickness undersurface RTC tear. The subcapularis was intact. I debrided the loose cartilage of the glenoid and the scattered degenerative labral tears.. I then removed the trochar and entered the subacromial space. A direct lateral portal was then established and I performed a bursectomy. The cuff was then examined. There was a full thickness tear of the supraspinatus without retraction. The tear was mobile. I placed one row double loaded anchors after using a tap just adjacent to the articular cartilage and then brought the suture limbs (4) through the medial cuff. I then debrided the bare area down to bleeding bone and brought 4 limbs to one lateral 5.0 anchor. This re- approximated the cuff anatomy anatomically. Once I was satisfied with the repair final images were captured and I removed all instrumentation. Portals were closed with nylon. Patient was placed in an abduction sling, extubated and brought to the recovery room in stable condition. There were no known complications.
== END 2022-11-16 15:02 | disposition home or self-care (01) ==
PROVIDERS: PCP Physician Assistant; Visit Provider Orthopaedic Surgery
PROC: (CPT 29805; principal; 2022-11-16 12:40)
DX: M75.111 Incomplete rotator cuff tear or rupture of right shoulder, not specified as traumatic (principal); M24.111 Other articular cartilage disorders, right shoulder; M19.011 Primary osteoarthritis, right shoulder; G47.33 Obstructive sleep apnea (adult) (pediatric); I10 Essential (primary) hypertension; E78.5 Hyperlipidemia, unspecified; R73.01 Impaired fasting glucose; G62.9 Polyneuropathy, unspecified; M26.19 Other specified anomalies of jaw-cranial base relationship; E55.9 Vitamin D deficiency, unspecified; F33.2 Major depressive disorder, recurrent severe without psychotic features; Z88.5 Allergy status to narcotic agent; Z88.1 Allergy status to other antibiotic agents; Z88.8 Allergy status to other drugs, medicaments and biological substances; Z98.890 Other specified postprocedural states; Z87.891 Personal history of nicotine dependence
CPT/HCPCS: 29827; 29822; 94640; C1713; J0171; J0690; J2250; J2371; J2405; J2795; J3010

== ENCOUNTER → 2022-11-16 10:07 | Outpatient (BNV) | payer OTHER, SELFPAY | PROVIDERS: PCP Physician Assistant; Visit Provider Orthopaedic Surgery | DX: M75.121 Complete rotator cuff tear or rupture of right shoulder, not specified as traumatic (principal); M19.011 Primary osteoarthritis, right shoulder | CPT/HCPCS: 29827 ==

== ENCOUNTER 2022-11-22 09:42 | Outpatient (AMB) | payer OTHER, SELFPAY ==
--- NOTE | 2022-11-22 09:59 | A.OFFVIS_ITS ---
Intake Intake Visit Reasons: PO RT poss.RTC 11/16/22NE Intake Note: Janet 62 yr old female presents today for her P/O visit for her right As RTC from 11/16/22. States she removed her dressing at home [facility] 11/19/22 due to bad smell on dressing. States she has pain under her arm pit and is concern about the bruising on arm. Over all states she is doing well. Allergies peanut Allergy (Severe, Verified 11/22/22 10:07) Anaphylaxis seafood Allergy (Severe, Verified 11/22/22 10:07) Anaphylaxis codeine [Codeine] Allergy (Intermediate, Verified 11/22/22 10:07) RASH/ITCHING tomato Allergy (Intermediate, Verified 11/22/22 10:07) Gastrointestinal Upset celecoxib [From Celebrex] Adverse Reaction (Intermediate, Verified 11/22/22 10:07) Palpitations ibuprofen [From Motrin] Adverse Reaction (Intermediate, Verified 11/22/22 10:07) Stomach pains levofloxacin [From Levaquin] Adverse Reaction (Intermediate, Verified 11/22/22 10:07) Nausea pravastatin Adverse Reaction (Intermediate, Verified 11/22/22 10:07) Muscle pain HPI PO RT poss.RTC 11/16/22NE HPI Details 62-year-old female who returns to the [facility] today for post-op right RTC , 11/16/[address] Duque. She continues to have pain under her armpit and c/o bruising on her arm. She states she removed her dressing at home on 11/19/22 due to bad smell on her dressing. She is doing well otherwise and has no concerns today. [facility] Medical History Retrognathia Posterior neck pain Frequent headaches Stress at work Obesity (BMI 30-39.9) Essential hypertension Plantar fasciitis, bilateral Impaired fasting glucose Irritable bowel syndrome with constipation Carpal tunnel syndrome on left Gastric ulcer Dyslipidemia Former smoker Recurrent bronchospasm Degenerative disc disease, lumbar Vitamin D deficiency Vitamin B12 deficiency History of drug abuse Gastritis Peripheral neuropathy Osteoarthritis involving multiple joints on both sides of body Depression Migraine Intermittent palpitations ANKIT (obstructive sleep apnea) Surgical History History of esophagogastroduodenoscopy (EGD) Hx of colonoscopy History of right knee joint replacement History of partial hysterectomy Family History Father CKD (chronic kidney disease) Mother Alcoholism Social History Housing: Apartment Are you a primary home health care physician to a significant other at home: No Do you presently have visiting nurse or other home services: No Alcohol intake: never Patient Tobacco Use Status: Former Tobacco user Quit Date: 2015 Tobacco use type: Cigarette Cigarette Packs Per Day: 1 Cigarettes Per Day: 20 Years Smoked: 30 yrs e-Cigarette/Vaping Use: Never Used Second Hand Smoke Exposure: No service: No Current occupational status: employed 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 Anterior deltoid sensation intact. She has good ROM of the elbow. NVI. Assessment & Plan Assessment & Plan (1) Right rotator cuff tear: Code(s): M75.101 - Unspecified rotator cuff tear or rupture of right shoulder, not specified as traumatic Qualifiers: Rotator cuff tear extent: incomplete Rotator cuff tear trauma status: nontraumatic Qualified Code(s): M75.111 - Incomplete rotator cuff tear or rupture of right shoulder, not specified as traumatic Plan Sutures removed today, steri strips applied. We did review her postop findings along with her post-operative images. I did explain that she needs to wear the sling for at least 6 weeks and avoid any type of lifting or reaching above or behind her plane of body. She will begin physical therapy on November 23. She was given a refill of oxycodone and Tylenol. She will see us back in [address] Duque, sooner if needed. Medications: New acetaminophen 650 mg (2 x 325 mg) PO Q4-6H PRN 240 tabs 0RF fever or pain 30 days Refilled oxycodone Partial Fill upon patient request. 5 mg PO Q4H PRN 42 tabs 0RF pain 7 days Patient Instructions: Scribed for Elle Reece PA-C, by Anshu Mendieta medical staff physician, on 11/22/2022 at 10:30 AM ETELVINA. Elle Carl PA-C, have personally reviewed and agree with the information entered by the scribe. Coding Level of Care Code Global (43376) Diagnoses Nontraumatic incomplete tear of right rotator cuff M75.111 Rotator cuff tear extent: incomplete Rotator cuff tear trauma status: nontraumatic
== END 2022-11-22 10:24 | disposition home or self-care (01) ==
PROVIDERS: PCP Physician Assistant; Visit Provider Physician Assistant
DX: M75.111 Incomplete rotator cuff tear or rupture of right shoulder, not specified as traumatic (principal)
CPT/HCPCS: 99024

== ENCOUNTER → 2022-11-22 09:42 | Outpatient (BNVA) | payer OTHER, SELFPAY | PROVIDERS: PCP Physician Assistant; Visit Provider Physician Assistant ==

== ENCOUNTER 2022-12-15 09:42 | Outpatient (AMB) | payer OTHER, SELFPAY ==
[2022-12-15 09:49] VITALS: BP 150/78; PULSE 84; RESP 17; O2SAT 97; BMI 31.1
--- NOTE | 2022-12-15 09:49 | MHC.PC.OV ---
Vital Signs 12/15/22 09:49 12/15/22 10:28 Height 5 ft 2 in Weight 170 lb BMI 31.1 BP 150/78 H 138/90 H Blood Pressure Location Lt brachial Position Sitting Respiration 17 Pulse 84 Pulse Source Pulse Oximeter Pulse Oximetry (%) 97 Oxygen Delivery Method Room Air Intake Visit Reasons: Follow-up hypertension, right shoulder pain Intake Note: Pt is here for right shoulder pain post surgery and HTN F/U. Pt is requesting pain medication, oxycodone 5mg is not working. Tankage Grinder Required: No Accompanied by: Self / Same As Patient Allergies peanut Allergy (Severe, Verified 12/15/22 10:03) Anaphylaxis seafood Allergy (Severe, Verified 12/15/22 10:03) Anaphylaxis codeine [Codeine] Allergy (Intermediate, Verified 12/15/22 10:03) RASH/ITCHING tomato Allergy (Intermediate, Verified 12/15/22 10:03) Gastrointestinal Upset celecoxib [From Celebrex] Adverse Reaction (Intermediate, Verified 12/15/22 10:03) Palpitations ibuprofen [From Motrin] Adverse Reaction (Intermediate, Verified 12/15/22 10:03) Stomach pains levofloxacin [From Levaquin] Adverse Reaction (Intermediate, Verified 12/15/22 10:03) Nausea pravastatin Adverse Reaction (Intermediate, Verified 12/15/22 10:03) Muscle pain Medication List - Last Reconciled 12/15/22 by Feliciano Corey PA-C acetaminophen (Tylenol Extra Strength) 500 mg PO Q6H PRN 15 days acetaminophen 650 mg (2 x 325 mg) PO Q4-6H PRN 30 days albuterol sulfate 90 mcg/actuation 1 inh inhalation QID PRN 30 days amlodipine 5 mg PO DAILY cholecalciferol (vitamin D3) (Vitamin D3) 25 mcg PO DAILY cream base no.105 (bulk) (Base W301 cream) Baclofen 5%, Ketoprofen 10%, Cyclobenzaprine 2%, Magnesium CL 10% SIG: apply pea-sized amount 3-5 times daily to painful areas as needed as directed; Do not use with diclofenac topical cream. cyanocobalamin (vitamin B-12) 1,000 mcg PO DAILY ibuprofen 600 mg PO TID PRN 30 days lorazepam 0.5 mg PO BEDTIME miscellaneous medical supply (Blood Pressure Cuff) As directed ondansetron 4 mg PO Q8H PRN oxycodone 5 mg PO Q6H PRN 7 days pantoprazole 40 mg PO BID 90 days rosuvastatin 5 mg PO 3XW [Self Adhesive Electrode AGF-101 As directed NS] sucralfate 1 g PO BID 30 days Tobacco use date assessed: 09/14/22 Dental Screening Dental Screen Date: 12/15/22 Did you have a dental visit in the last 12 months?: Yes Did you have a dental problem in the last 6 months where you did not have access to dental care?: No Was dental information given to patient?: Patient has dentist HPI Follow-up hypertension, right shoulder pain HPI Details Patient is a 62-year-old female here today for follow-up visit. Patient has a past medical history significant for hypertension, asthma, anxiety depression, GERD. Loosely underwent right shoulder surgery unfortunately continues to be in pain. She has been taking oxycodone 5 mg q.6 hours without much relief. 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 Pain management plan--> was unable to tolerate Celebrex, she found the prednisone was helpful thus will send 7 days script of prednisone for inflammation, will add on meloxicam daily and baclofen to use at night. Advised to use oxycodone 5 mg on a p.r.n. basis for pain scales 8-10. She plans on re-establishing with physical therapy week. Hypertension: Patient's blood pressure elevated today in office likely due to her current pain in her shoulder. Continues with amlodipine 5 mg. She does report perhaps having low blood pressures at home as she feels symptoms of dizziness after she takes her blood pressure medication at times. She does not have a blood pressure cuff to monitor and is willing to purchase or someone to take her blood pressures at home lipid [facility] Medical History Retrognathia Posterior neck pain Frequent headaches Stress at work Obesity (BMI 30-39.9) Essential hypertension Plantar fasciitis, bilateral Impaired fasting glucose Irritable bowel syndrome with constipation Carpal tunnel syndrome on left Gastric ulcer Dyslipidemia Former smoker Recurrent bronchospasm Degenerative disc disease, lumbar Vitamin D deficiency Vitamin B12 deficiency History of drug abuse Gastritis Peripheral neuropathy Osteoarthritis involving multiple joints on both sides of body Depression Migraine Intermittent palpitations ANKIT (obstructive sleep apnea) Surgical History History of esophagogastroduodenoscopy (EGD) Hx of colonoscopy History of right knee joint replacement History of partial hysterectomy Family History Father CKD (chronic kidney disease) Mother Alcoholism Social History Housing: Apartment Are you a primary lead care manager to a significant other at home: No Do you presently have visiting nurse or other home services: No Alcohol intake: never Patient Tobacco Use Status: Former Tobacco user Quit Date: 2015 Tobacco use type: Cigarette Cigarette Packs Per Day: 1 Cigarettes Per Day: 20 Years Smoked: 30 yrs e-Cigarette/Vaping Use: Never Used Second Hand Smoke Exposure: No service: No Current occupational status: employed 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 Josué Feldman, Shari Luo, Lenny Barnes and colleagues, with an educational nino from [employer]. Review of Systems Const Denies headache(s) Eyes Denies loss of vision ENT Denies vertigo, Denies dizziness, Denies headache(s) and Denies sore throat Card Denies chest pain, Denies leg edema and Denies lightheadedness Resp Denies cough, Denies hemoptysis and Denies wheezing GI Denies abdominal pain, Denies melena, Denies constipation, Denies diarrhea and Denies vomiting Denies urinary frequency, Denies dysuria and Denies urinary urgency Musc Denies arthralgias, Denies joint swelling, Denies numbness and Denies tingling Neuro Denies Abnormal speech present, Denies behavioral changes, Denies vertigo, Denies dizziness, Denies headache(s), Denies loss of vision, Denies memory loss, Denies numbness and Denies tingling Psych Denies anxiety, Denies behavioral changes, Denies depression, Denies memory loss and Denies panic attacks Stefano/Lymph Denies easy bleeding and Denies easy bruising Aller/Immun Denies wheezing Physical exam (Primary Care) Vital Signs: Last Vital Signs Pulse 84 12/15/22 09:49 Resp 17 12/15/22 09:49 BP 138/90 H 12/15/22 10:28 Pulse Ox 97 12/15/22 09:49 Oxygen Delivery Method Room Air 12/15/22 09:49 BMI result Body Mass Index 31.1 Tobacco/Smoking Status: Tobacco use Status Tobacco use date assessed 09/14/22 12/15/22 09:57 Patient Tobacco Use Status Former Tobacco user 12/15/22 09:57 Tobacco use type Cigarette 12/15/22 09:57 e-Cigarette/Vaping Use Never Used 12/15/22 09:57 Thrive Assessment: Date of Thrive Assessment Date Thrive assessed 04/29/22 12/15/22 09:57 Const General: healthy appearing, no acute distress, alert and awake Nutritional Appearance: well nourished Orientation/consciousness: oriented to person, oriented to place and oriented to time HENMT Ears: TM's normal bilaterally General nose exam: Normal nasal mucous membranes and turbinates present Eyes Conjunctivae: conjunctivae normal Sclerae: sclerae normal Pupils: Equal, round and reactive pupils present Neck Neck: Yes no lymphadenopathy and Yes no JVD Thyroid: Thyroid normal Carotids: no bruits Resp Effort & Inspection: normal respiratory effort and not tachypneic Auscultation: no crackles, no rales, no rhonchi and no wheezes Cardio Rate: regular rate Rhythm: regular rhythm Heart sounds: no murmurs and normal S1 and S2 GI Palpation (GI): Soft to palpation, nontender, no hepatomegaly and no splenomegaly Auscultation: normal bowel sounds Skin General skin exam: no rashes or lesions noted and dry skin Neuro General: oriented to person, oriented to place and oriented to time Cranial nerves: Yes Equal, round and reactive pupils present Speech: No Abnormal speech present Gait exam (Neuro): Normal gait present Motor exam (neuro): no tremor noted Extrem Other: RIGHT SHOULDER: PATIENT'S RIGHT ARM AND SLING. LIMITED RANGE OF MOTION TO TO PAIN AND STIFFNESS. WELL-HEALED ARTHROSCOPIC SURGICAL SCARS. Right upper extremity: full ROM Left upper extremity: full ROM Right lower extremity: full ROM; no edema Left lower extremity: full ROM; no edema Psych Mental Status: mental status grossly normal Speech and movement: Normal speech and movement present Affect: normal affect Attitude: cooperative Thought process: Normal thought process present Assessment and Plan Assessment & Plan (1) Status post right rotator cuff repair: Code(s): Z98.890 - Other specified postprocedural states Plan: As per HPI. Patient continues to be in moderate amount of pain and she is 1 month out of surgery. 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 Because of this she has not been able to do much physical therapy. Pain management plan--> was unable to tolerate Celebrex, she found the prednisone was helpful thus will send 7 days script of prednisone for inflammation, will add on meloxicam daily and baclofen to use at night. Advised to use oxycodone 5 mg on a p.r.n. basis for pain scales 8-10. She plans on re-establishing with physical therapy week. (2) Essential hypertension: Code(s): I10 - Essential (primary) hypertension Plan: Patient's blood pressure elevated today in office. Advised to monitor blood pressure at home to get consistent readings. Continues on amlodipine 5 mg. Goal blood pressures to be below 140/90 Medications: New meloxicam 15 mg PO DAILY 15 days 15 tabs 1RF Z98.890 - Other specified postprocedural states prednisone 10 mg PO DAILY 7 days 7 tabs 0RF Z98.890 - Other specified postprocedural states baclofen 10 mg PO BEDTIME 15 days 15 tabs 0RF Z98.890 - Other specified postprocedural states Refilled cyanocobalamin (vitamin B-12) 1,000 mcg PO DAILY 90 tabs 1RF E53.8 - Deficiency of other specified B group vitamins On Hold ibuprofen Hold Comment: Doctor's Order 600 mg PO TID 30 days PRN 90 tabs 0RF pain M75.111 - Incomplete rotator cuff tear or rupture of right shoulder, not specified as traumatic Coding Level of Care Code Est Pt Level 4 (76479) Diagnoses Status post right rotator cuff repair Z98.890 Essential hypertension I10
[2022-12-15 10:28] VITALS: BP 138/90
== END 2022-12-15 10:33 | disposition home or self-care (01) ==
PROVIDERS: PCP Physician Assistant; Visit Provider Physician Assistant
DX: Z98.890 Other specified postprocedural states (principal); I10 Essential (primary) hypertension
CPT/HCPCS: 99214

== ENCOUNTER 2022-12-27 09:24 | Outpatient (AMB) | payer OTHER, SELFPAY ==
--- NOTE | 2022-12-27 10:14 | MHC.OFFVIS ---
Intake Vital Signs 12/27/22 10:15 Height 5 ft 2 in Weight 170 lb BMI 31.1 Intake Visit Reasons: PO-Rt shoulder RTC repair 11/16 Intake Note: Janet is a 62 year old female who presents today for a post operative appointment s/p Right RTC Repair 11/16/22. Patient continues to work with PT which is going well but also painful. Patient reports that she is doing well, she has some continues pain that is worse at night. She finds that she is uncomfortable at night as she does not know how to position arm. She is taking oxycodone for he pain as well as Tylenol and ibuprofen. Reports that she occasionally will take two oxycodone pills. Allergies peanut Allergy (Severe, Verified 12/27/22 10:15) Anaphylaxis seafood Allergy (Severe, Verified 12/27/22 10:15) Anaphylaxis codeine [Codeine] Allergy (Intermediate, Verified 12/27/22 10:15) RASH/ITCHING tomato Allergy (Intermediate, Verified 12/27/22 10:15) Gastrointestinal Upset celecoxib [From Celebrex] Adverse Reaction (Intermediate, Verified 12/27/22 10:15) Palpitations ibuprofen [From Motrin] Adverse Reaction (Intermediate, Verified 12/27/22 10:15) Stomach pains levofloxacin [From Levaquin] Adverse Reaction (Intermediate, Verified 12/27/22 10:15) Nausea pravastatin Adverse Reaction (Intermediate, Verified 12/27/22 10:15) Muscle pain HPI PO-Rt shoulder RTC repair 11/16 HPI Details Janet is a 62 year old woman who presents ~6 weeks S/P right RTC repair with Bursectomy. She had a RTC tear and lolis-operatively found to have shoulder OA. She says she is doing well overall, and continues to attend PT. She says she has pain primarily at night and is unsure how to position her arm in order to sleep. She is taking Tylenol, Ibuprofen, and Oxycodone for pain. She says she occasionally takes two oxycodone at once for pain relief. [facility] Medical History Retrognathia Posterior neck pain Frequent headaches Stress at work Obesity (BMI 30-39.9) Essential hypertension Plantar fasciitis, bilateral Impaired fasting glucose Irritable bowel syndrome with constipation Carpal tunnel syndrome on left Gastric ulcer Dyslipidemia Former smoker Recurrent bronchospasm Degenerative disc disease, lumbar Vitamin D deficiency Vitamin B12 deficiency History of drug abuse Gastritis Peripheral neuropathy Osteoarthritis involving multiple joints on both sides of body Depression Migraine Intermittent palpitations ANKIT (obstructive sleep apnea) Surgical History History of esophagogastroduodenoscopy (EGD) Hx of colonoscopy History of right knee joint replacement History of partial hysterectomy Family History Father CKD (chronic kidney disease) Mother Alcoholism Social History Housing: Apartment Are you a primary elderly caregiver to a significant other at home: No Do you presently have visiting nurse or other home services: No Alcohol intake: never Patient Tobacco Use Status: Former Tobacco user Quit Date: 2015 Tobacco use type: Cigarette Cigarette Packs Per Day: 1 Cigarettes Per Day: 20 Years Smoked: 30 yrs e-Cigarette/Vaping Use: Never Used Second Hand Smoke Exposure: No service: No Current occupational status: employed 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 Current occupational exposures/hazards: No Cognitive needs: No Hearing needs: No Vision needs: Yes Review of Systems Const All systems reviewed & are unremarkable except as noted in HPI and below Physical Exam Vital Signs: BMI result Body Mass Index 31.1 Const General: no acute distress, alert and awake Orientation/consciousness: patient oriented x3 HEENT Head: Yes normocephalic and Yes atraumatic Eyes EOM: EOMs intact bilaterally Resp Effort & Inspection: normal respiratory effort and able to speak in complete sentences Cardio Jugular venous distension: no JVD Skin General skin exam: turgor normal Rashes: no rashes Neuro General: patient oriented x3 Extrem Other: Right Shoulder: Portals C/D/I 45 degrees passive ER 90 degrees active AB Psych Appearance: grossly normal Affect: normal affect Attitude: cooperative Assessment & Plan Assessment & Plan (1) Status post right rotator cuff repair: Code(s): Z98.890 - Other specified postprocedural states Plan: This is a 62 year old woman S/P right RTC repair with bursectomy, DOS: 11/16/22. She is doing well, continues to attend PT, and primarily has pain at night. She will discontinue her sling at this time, continue to attend PT, and limit or avoid any overhead or lifting activities at this time. She has finished her Oxycodone yesterday and I reviewed the safe use of NSAIDs with her. I recommend lolis-scapular strengthening exercises at home, she will follow up in 6 weeks. (2) Osteoarthritis of right shoulder: Code(s): M19.011 - Primary osteoarthritis, right shoulder Plan Scribed for Feroz Duque MD by Santiago Segal, medical administrator, on 12/27/22 at 10:30 AM, EST. Coding Level of Care Code Global (87132) Diagnoses Status post right rotator cuff repair Z98.890 Osteoarthritis of right shoulder M19.011
[2022-12-27 10:15] VITALS: BMI 31.1
== END 2022-12-27 10:43 | disposition home or self-care (01) ==
PROVIDERS: PCP Physician Assistant; Visit Provider Orthopaedic Surgery
DX: Z98.890 Other specified postprocedural states (principal); M19.011 Primary osteoarthritis, right shoulder
CPT/HCPCS: 99024

== ENCOUNTER → 2022-12-27 09:24 | Outpatient (BNVA) | payer OTHER, SELFPAY | PROVIDERS: PCP Physician Assistant; Visit Provider Orthopaedic Surgery ==

== ENCOUNTER 2023-01-03 12:00 | Outpatient (RCR) | payer OTHER, SELFPAY ==
--- NOTE | 2022-11-24 10:46 | MHC.PT.EP ---
[facility] [place] Office [place] Office [place] Office [address] Fermin Resendez [address] [phone] F: [phone] F: [phone] F: [phone] F: [phone] Physical Therapy Plan of Care Date of Evaluation: 11/23/22 Date of Surgery: 11/16/22 Diagnosis: Right RTC repair Assessment: Pt is a pleasant 62yo F who presents to PT 1 week s/p R RTC repair with Dr. Duque on 11/16/22. She presents to PT with expected impairments in pain, decreased ROM, decreased strength, and soft tissue restrictions. She is limited functionally by lifting, reaching, overhead ADLs, and use of R UE. She is an excellent candidate for skilled PT in order to progress per RTC protocol to maximize function and facilitate return to PLOF. She is recommended to be seen 2x/week for 10 weeks in order to progress per protocol. Frequency and Duration: The patient will be seen 2x/week for 10 weeks Short Term Goals: Pt will be I with HEP to promote self management of symptoms Pt will increase R shoulder flexion to 140 by week 3 per protocol Pt will increase R shoulder ER to 45 deg at 90 deg ABD by week 3 per protocol Client Operations Manager Goals: Pt will achieve full PROM all planes of R shoulder by week 8 per protocol Pt will achieve full AROM all planes of R shoulder per protocol Pt will achieve full strength all planes of R shoulder per protocol Treatment Plan: Modalities to reduce pain, spasms and effusion. Manual therapy to restore motion and function. Therapeutic exercise to improve strength and flexibility. Neuromuscular re-education for posture and balance. Therapeutic activities to return to functional activities of daily living. Electronically signed by: Marielle Gómez, PT, DPT Please sign and return to therapist. Thank you for your referral.
--- NOTE | 2023-03-29 14:30 | MHC.PT.DC ---
[facility] [place] [facility] [place] Office [place] [facility] [address] Fermin Resendez [address] [phone] F: [phone] F: [phone] F: [phone] F: [phone] Physical Therapy Discharge Report Diagnosis: Right RTC repair Date of Surgery: 11/16/22 Date of Evaluation: 11/23/22 Date of Discharge: 03/29/23 Treatments to Date: 7 Cancellations to Date: 6 No Shows to Date: 1 Discharge Status: Visit Non-compliance Discharge Summary: Pt was seen for PT from 11/23/22-01/03/23. Her last attended appointment was 01/03/23. She has had multiple cancellations throughout PT POC and had a no-show appointment for her last scheduled appointment. She is being D/C from skilled PT due to [facility] attendance policy and visit non-compliance. Pt current level of function unknown at this time Electronically signed by: Marielle Gómez, PT, DPT Please sign and return to therapist. Thank you for your referral.
== END 2023-03-29 14:30 | disposition home or self-care (01) ==
LOC: HO.PT 12:00
PROVIDERS: PCP Physician Assistant; Visit Provider Physician Assistant
DX: M75.111 Incomplete rotator cuff tear or rupture of right shoulder, not specified as traumatic (principal); Z98.890 Other specified postprocedural states
CPT/HCPCS: 97110; 97140; 97162

== ENCOUNTER 2023-02-17 10:39 | Outpatient (AMB) | payer OTHER, SELFPAY ==
[2023-02-17 11:45] VITALS: BMI 31.1
--- NOTE | 2023-02-17 11:45 | MHC.OFFVIS ---
Intake Vital Signs 02/17/23 11:45 Height 5 ft 2 in Weight 170 lb BMI 31.1 Intake Visit Reasons: OV-Rt shoulder RTC repair 11/16/22 Intake Note: Janet is a 62 year old female who presents today for a post operative appointment s/p Right RTC Repair 11/16/22. Patient reports that she is having pain with above the head movements. She is using lidocane patches, which do mildly help. She feels that the arm is very weak and needs support She missed the last few therapy appointments Allergies peanut Allergy (Severe, Verified 12/27/22 10:15) Anaphylaxis seafood Allergy (Severe, Verified 12/27/22 10:15) Anaphylaxis codeine [Codeine] Allergy (Intermediate, Verified 12/27/22 10:15) RASH/ITCHING tomato Allergy (Intermediate, Verified 12/27/22 10:15) Gastrointestinal Upset celecoxib [From Celebrex] Adverse Reaction (Intermediate, Verified 12/27/22 10:15) Palpitations ibuprofen [From Motrin] Adverse Reaction (Intermediate, Verified 12/27/22 10:15) Stomach pains levofloxacin [From Levaquin] Adverse Reaction (Intermediate, Verified 12/27/22 10:15) Nausea pravastatin Adverse Reaction (Intermediate, Verified 12/27/22 10:15) Muscle pain HPI OV-Rt shoulder RTC repair 11/16/22 HPI Details Janet is a 62 year old woman who presents ~3 months S/P right RTC repair with Bursectomy. She had a RTC tear and lolis-operatively found to have shoulder OA. She says she is having some shoulder pain with activity She has been working on strengthening exercises at home and continues to attend PT, though she says she has missed her last few appointments. [facility] Medical History Retrognathia Posterior neck pain Frequent headaches Stress at work Obesity (BMI 30-39.9) Essential hypertension Plantar fasciitis, bilateral Impaired fasting glucose Irritable bowel syndrome with constipation Carpal tunnel syndrome on left Gastric ulcer Dyslipidemia Former smoker Recurrent bronchospasm Degenerative disc disease, lumbar Vitamin D deficiency Vitamin B12 deficiency History of drug abuse Gastritis Peripheral neuropathy Osteoarthritis involving multiple joints on both sides of body Depression Migraine Intermittent palpitations ANKIT (obstructive sleep apnea) Surgical History History of esophagogastroduodenoscopy (EGD) Hx of colonoscopy History of right knee joint replacement History of partial hysterectomy Family History Father CKD (chronic kidney disease) Mother Alcoholism Social History Housing: Apartment Are you a primary rn care transition to a significant other at home: No Do you presently have visiting nurse or other home services: No Alcohol intake: never Patient Tobacco Use Status: Former Tobacco user Quit Date: 2015 Tobacco use type: Cigarette Cigarette Packs Per Day: 1 Cigarettes Per Day: 20 Years Smoked: 30 yrs e-Cigarette/Vaping Use: Never Used Second Hand Smoke Exposure: No service: No Current occupational status: employed 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 Current occupational exposures/hazards: No Cognitive needs: No Hearing needs: No Vision needs: Yes Review of Systems Const All systems reviewed & are unremarkable except as noted in HPI and below Physical Exam Vital Signs: BMI result Body Mass Index 31.1 Const General: no acute distress, alert and awake Orientation/consciousness: patient oriented x3 HEENT Head: Yes normocephalic and Yes atraumatic Eyes EOM: EOMs intact bilaterally Resp Effort & Inspection: normal respiratory effort and able to speak in complete sentences Cardio Jugular venous distension: no JVD Skin General skin exam: turgor normal Rashes: no rashes Neuro General: patient oriented x3 Extrem Other: + h/n neg EC 30/90/130/S1 Psych Appearance: grossly normal Affect: normal affect Attitude: cooperative Assessment & Plan Assessment & Plan (1) Status post right rotator cuff repair: Code(s): Z98.890 - Other specified postprocedural states Plan: RIght shoulder pain. No findings on exam but mechanics are poor. Reassured her. PT and diclofenac. Plan Scribed for Feroz Duque MD by Santiago Segal, medical insurance collector, on 02/17/23 at 11:55 AM, EST. Orders: Orders PT Evaluation and Treatment Today Z98.890 - Other specified postprocedural states Medications: New diclofenac sodium 50 mg PO Q12H PRN 60 tabs 0RF pain Coding Level of Care Code Global (41932) Diagnoses Status post right rotator cuff repair Z98.890
== END 2023-02-17 11:59 | disposition home or self-care (01) ==
PROVIDERS: PCP Physician Assistant; Visit Provider Orthopaedic Surgery
DX: M25.511 Pain in right shoulder (principal)
CPT/HCPCS: 99214

== ENCOUNTER → 2023-02-17 10:39 | Outpatient (BNVA) | payer OTHER, SELFPAY | PROVIDERS: PCP Physician Assistant; Visit Provider Orthopaedic Surgery | DX: Z47.89 Encounter for other orthopedic aftercare (principal); Z98.890 Other specified postprocedural states | CPT/HCPCS: 99212 ==

== ENCOUNTER 2023-03-09 11:00 | Outpatient (REF) | payer OTHER, SELFPAY | END 2023-03-09 11:01 | disposition home or self-care (01) | LOC: HO.HMGCLDS 11:00 | PROVIDERS: PCP Physician Assistant; Visit Provider Physician Assistant | DX: R42 Dizziness and giddiness (principal); R53.83 Other fatigue; E53.8 Deficiency of other specified B group vitamins; D50.9 Iron deficiency anemia, unspecified | CPT/HCPCS: 36415; 80048; 82607; 82746; 83540; 84443; 85027 ==

== ENCOUNTER 2023-03-22 08:55 | Outpatient (AMB) | payer OTHER, SELFPAY ==
[2023-03-22 09:00] VITALS: BP 140/90; PULSE 92; O2SAT 97; BMI 32.6
--- NOTE | 2023-03-22 09:00 | A.OFFPC_ITS ---
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: No Allergies peanut Allergy (Severe, Verified 03/22/23 09:00) Anaphylaxis seafood Allergy (Severe, Verified 03/22/23 09:00) Anaphylaxis codeine [Codeine] Allergy (Intermediate, Verified 03/22/23 09:00) RASH/ITCHING tomato Allergy (Intermediate, Verified 03/22/23 09:00) Gastrointestinal Upset celecoxib [From Celebrex] Adverse Reaction (Intermediate, Verified 03/22/23 09:00) Palpitations ibuprofen [From Motrin] Adverse Reaction (Intermediate, Verified 03/22/23 09:00) Stomach pains levofloxacin [From Levaquin] Adverse Reaction (Intermediate, Verified 03/22/23 09:00) Nausea pravastatin Adverse Reaction (Intermediate, Verified 03/22/23 09:00) Muscle pain Medication List - Last Reconciled 03/22/23 by Steven Richards Po, albuterol sulfate 90 mcg/actuation 1 inh inhalation QID PRN 30 days amlodipine 10 mg PO DAILY 90 days blood pressure test kit-medium As directed cholecalciferol (vitamin D3) (Vitamin D3) 25 mcg PO DAILY cyanocobalamin (vitamin B-12) 1,000 mcg PO DAILY diclofenac sodium 1% (Arthritis Pain (diclofenac)) 2 grams topical QID 30 days lorazepam 0.5 mg PO BEDTIME meloxicam 15 mg PO DAILY 15 days miscellaneous medical supply (Blood Pressure Cuff) As directed ondansetron 4 mg PO Q8H PRN pantoprazole 40 mg PO BID 90 days [pulse oximeter As directed] rosuvastatin 5 mg PO 3XW [Self Adhesive Electrode AGF-101 As directed NS] sucralfate 1 g PO BID 30 days Tobacco use date assessed: 03/22/23 Dental Screening Dental Screen Date: 03/22/23 HPI dizziness HPI Details 62-year-old obese female with a history of obstructive sleep apnea migraine depression lumbar degenerative disc disease hypercholesterolemia gastric ulcer impaired glucose tolerance coming in for an acute problem. ER visit [facility] 03/01/2023 for headache and dizziness patient also follows up with orthopedics for right shoulder rotator cuff repair November 2022 advised physical therapy 2 months dizzy. complain of occipital MEAD, eye blurry . Blood work reviewed with the patient noted some elevated BUN but otherwise all of the other numbers were within normal limits. Patient was just started on amlodipine 10 mg once a day and blood pressure is better presently and will continue to monitor. With the elevated BUN advised patient to increase oral fluids. Patient also complains of hearing problem/tinnitus has been given meclizine. With the tinnitus discussed about hearing test. This has been requested [facility] Medical History (Updated 03/22/23 @ 10:25 by Steven Carcamo MD) Retrognathia Posterior neck pain Frequent headaches Stress at work Obesity (BMI 30-39.9) Essential hypertension Plantar fasciitis, bilateral Impaired fasting glucose Irritable bowel syndrome with constipation Carpal tunnel syndrome on left Gastric ulcer Dyslipidemia Former smoker Recurrent bronchospasm Degenerative disc disease, lumbar Vitamin D deficiency Vitamin B12 deficiency History of drug abuse Gastritis Peripheral neuropathy Osteoarthritis involving multiple joints on both sides of body Depression Migraine Intermittent palpitations ANKIT (obstructive sleep apnea) Surgical History History of esophagogastroduodenoscopy (EGD) Hx of colonoscopy History of right knee joint replacement History of partial hysterectomy Family History Father CKD (chronic kidney disease) Mother Alcoholism Social History Housing: Apartment Are you a primary resident care aide to a significant other at home: No Do you presently have visiting nurse or other home services: No Alcohol intake: never Patient Tobacco Use Status: Former Tobacco user Quit Date: 2015 Tobacco use type: Cigarette Cigarette Packs Per Day: 1 Cigarettes Per Day: 20 Years Smoked: 30 yrs e-Cigarette/Vaping Use: Never Used Second Hand Smoke Exposure: No service: No Current occupational status: employed 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 1. Little interest or pleasure in doing things: not at all 2. Feeling down, depressed, or hopeless: several days 3. Trouble falling or staying asleep, or sleeping too much: not at all 4. Feeling tired or having little energy: not at all 5. Poor appetite or overeating: not at all 6. Feeling bad about yourself - or that you are a failure or have let yourself or your family down: not at all 7. Trouble concentrating on things, such as reading the newspaper or watching television: not at all 8. Moving or speaking so slowly that other people could have noticed. Or the opposite - being so fidgety or restless that you have been moving around a lot more than usual: not at all 9. Thoughts that you would be better off or of hurting yourself in some way: not at all Total score: 1 Depression Screening Interpretation: Negative Depression Screening Done: Yes Source: Developed by Drs. Josué Feldman, Shari Luo, Lenny Barnes and colleagues, with an educational nino from [employer]. Thrive Questionnaire Date Thrive assessed: 03/22/23 I am a: Patient What is your living situation today?: I have a steady place to live Within the past 12 months, did the food you bought not last and you didn't have the money to get more?: Never true Within the past 12 months, did you worry whether your food would run out before you got money to buy more?: Never true Do you have trouble paying for medicines?: No Do you have trouble getting transportation to medical appointments?: No Do you have trouble paying your heating and electricity bill?: No Do you have trouble taking care of your child, family member or friend?: No Do you have trouble with day-to-day activities such as bathing, preparing meals, shopping, managing finances, etc.?: No Are you currently unemployed and looking for a job?: No Are you interested in more education?: No AUDIT C Alcohol Use Questionnaire (AUDIT-C) 1. How often do you have a drink containing alcohol?: Never 3. How often do you have six or more drinks on one occasion?: Never Total Score: 0 MATTEO-7 AMB Questionnaire MATTEO-7 Date MATTEO - 7 assessed: 03/22/23 Source: Developed by Drs. Josué L. GastonShari saucedo, Lenny Barnes and colleagues, with an educational nino from [employer]. Physical exam (Primary Care) Vital Signs: Last Vital Signs Pulse 92 03/22/23 09:00 BP 140/90 H 03/22/23 09:00 Pulse Ox 97 03/22/23 09:00 Oxygen Delivery Method Room Air 03/22/23 09:00 BMI result Body Mass Index 32.6 Tobacco/Smoking Status: Tobacco use Status Tobacco use date assessed 03/22/23 03/22/23 09:02 Patient Tobacco Use Status Former Tobacco user 03/22/23 09:02 Tobacco use type Cigarette 03/22/23 09:02 e-Cigarette/Vaping Use Never Used 03/22/23 09:02 PHQ-9: PHQ-9 Score PHQ-9: Total score 1 03/22/23 09:21 Depression Screening Interpretation: Negative Thrive Assessment: Date of Thrive Assessment Date Thrive assessed 03/22/23 03/22/23 09:02 Const General: alert; No acute distress Eyes Conjunctivae: conjunctivae normal Resp Auscultation: clear to auscultation bilaterally Cardio Rate: regular rate Rhythm: regular rhythm GI Inspection: Yes normal to inspection Extrem General: Yes normal to inspection and No edema Assessment and Plan Assessment & Plan (1) Generalized anxiety disorder: Comment: CHD couonselling Code(s): F41.1 - Generalized anxiety disorder Plan: started on sertraline but patient has not started it due to antibiotic being given for otitis media. Your exam noted normal no earwax. (2) Tinnitus: Code(s): H93.19 - Tinnitus, unspecified ear Plan: hearing test requested (3) Essential hypertension: Code(s): I10 - Essential (primary) hypertension Plan: continue with amlodipine - monitor the BP and record, low salt diet (4) Obesity (BMI 30-39.9): Comment: PATIENT IS MODERATELY OBESE, HAD LOST SOME WEIGHT FOR A WHILE BUT NOW BACK TO H ER BASELINE. Code(s): E66.9 - Obesity, unspecified Plan: diet and exercise (5) GERD (gastroesophageal reflux disease): Code(s): K21.9 - Gastro-esophageal reflux disease without esophagitis Plan: Avoid the foods that causes that usually spicy foods, tomato products, juices, coffee, soda and foods that your sensitive to. After eating do not lie down, allow 3-4 hours before in lie down. And keep the head of bed above 30 degrees to avoid the acid from going up. Placed on pantoprazole regularly and Carafate as needed (6) Impaired fasting glucose: Code(s): R73.01 - Impaired fasting glucose Plan: Decrease the amount of carbohydrate intake, pasta, bread, rice and potatoes are all sugar and that is aside from all the sweet stuff, remember that fruits are good but they are Sweet also. Orders: Referrals Speech and Hearing Referral H93.19 - Tinnitus, unspecified ear Medications: New sertraline 25 mg PO DAILY 30 tabs 3RF F41.1 - Generalized anxiety disorder Coding Level of Care Code Est Pt Level 4 (71899) Diagnoses Generalized anxiety disorder F41.1 Tinnitus H93.19 Essential hypertension I10 Obesity (BMI 30-39.9) E66.9 GERD (gastroesophageal reflux disease) K21.9 Impaired fasting glucose R73.01
[2023-03-22 10:20] VITALS: BP 130/88
== END 2023-03-22 10:38 | disposition home or self-care (01) ==
PROVIDERS: PCP Physician Assistant; Visit Provider Internal Medicine
DX: I10 Essential (primary) hypertension (principal); E66.9 Obesity, unspecified; Z68.32 Body mass index [BMI] 32.0-32.9, adult; F41.1 Generalized anxiety disorder; K21.9 Gastro-esophageal reflux disease without esophagitis; R73.01 Impaired fasting glucose; H93.19 Tinnitus, unspecified ear
CPT/HCPCS: 99214

== ENCOUNTER 2023-04-27 09:45 | Outpatient (AMB) | payer OTHER, SELFPAY ==
--- NOTE | 2023-04-27 10:11 | A.OFFPC_ITS ---
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 Required: No Accompanied by: Self / Same As Patient Allergies peanut Allergy (Severe, Verified 04/27/23 10:32) Anaphylaxis seafood Allergy (Severe, Verified 04/27/23 10:32) Anaphylaxis codeine [Codeine] Allergy (Intermediate, Verified 04/27/23 10:32) RASH/ITCHING tomato Allergy (Intermediate, Verified 04/27/23 10:32) Gastrointestinal Upset celecoxib [From Celebrex] Adverse Reaction (Intermediate, Verified 04/27/23 10:32) Palpitations ibuprofen [From Motrin] Adverse Reaction (Intermediate, Verified 04/27/23 10:32) Stomach pains levofloxacin [From Levaquin] Adverse Reaction (Intermediate, Verified 04/27/23 10:32) Nausea pravastatin Adverse Reaction (Intermediate, Verified 04/27/23 10:32) Muscle pain Medication List - Last Reconciled 04/27/23 by Feliciano Corey PA-C albuterol sulfate 90 mcg/actuation 1 inh inhalation QID PRN 30 days amlodipine 10 mg PO DAILY 90 days blood pressure test kit-medium As directed cholecalciferol (vitamin D3) (Vitamin D3) 25 mcg PO DAILY cyanocobalamin (vitamin B-12) 1,000 mcg PO DAILY diclofenac sodium 1% (Arthritis Pain (diclofenac)) 2 grams topical QID 30 days lorazepam 0.5 mg PO BEDTIME meclizine 25 mg PO BID PRN 10 days meloxicam 15 mg PO DAILY 15 days miscellaneous medical supply (Blood Pressure Cuff) As directed ondansetron 4 mg PO Q8H PRN pantoprazole 40 mg PO BID 90 days [pulse oximeter As directed] rosuvastatin 5 mg PO 3XW [Self Adhesive Electrode AGF-101 As directed NS] sertraline 25 mg PO DAILY sucralfate 1 g PO BID 30 days Tobacco use date assessed: 03/22/23 Dental Screening Dental Screen Date: 04/27/23 Did you have a dental visit in the last 12 months?: Yes Did you have a dental problem in the last 6 months where you did not have access to dental care?: No Was dental information given to patient?: Patient has dentist HPI MATTEO HPI Details Patient is a 62-year-old female here today for follow-up visit. Patient has a past medical history significant for hypertension, asthma, anxiety depression, GERD. HAS MULTIPLE COMPLAINTS TODAY s/p Right shoulder surgery: Has done physical therapy. Does have upcoming appointment with orthopedics. She is still reports some weakness and decreased range of motion in her right shoulder and upper extremity. She does report feeling somewhat swollen after she sleeps. Has been using warm compress and advised to switch to using cool compress. Does use meloxicam for her pain and inflammation though feels it has not effective. Anxiety: She continues to see a mental therapist and a psychiatrist who manages her mental health medication. Anxiety has been bit better since not having her granddaughter to watch over. .. Hyperlipidemia: Continues with statin therapy and a every other day basis. Most recent lipid panel showing appropriate total cholesterol and LDL. Hypertension: Patient's blood pressure acceptable today in office. Continues with amlodipine 5 mg. She does report perhaps having low blood pressures at home as she feels symptoms of dizziness after she takes her blood pressure medication at times. She does not have a blood pressure cuff to monitor and is willing to purchase or someone to take her blood pressures at home Laboratory Tests 08/05/21 06/16/22 08/26/22 13:49 10:16 10:06 RBC 4.34 4.00 L Hgb 11.7 L Creatinine POC Creatinine 0.6 Random Glucose Hemoglobin A1c % 5.9 Vitamin B12 408 25-OH Vitamin D To julieta 34.6 Folate TSH 0.83 03/09/23 11:06 RBC 4.32 Hgb Creatinine 0.80 POC Creatinine Random Glucose 104 Hemoglobin A1c % Vitamin B12 395 25-OH Vitamin D To julieta Folate 13.6 TSH PFSH Medical History (Updated 04/27/23 @ 11:00 by Feliciano Corey PA-C) Seafood allergy Retrognathia Posterior neck pain Frequent headaches Stress at work Obesity (BMI 30-39.9) Essential hypertension Plantar fasciitis, bilateral Impaired fasting glucose Irritable bowel syndrome with constipation Carpal tunnel syndrome on left Gastric ulcer Dyslipidemia Former smoker Recurrent bronchospasm Degenerative disc disease, lumbar Vitamin D deficiency Vitamin B12 deficiency History of drug abuse Gastritis Peripheral neuropathy Osteoarthritis involving multiple joints on both sides of body Depression Migraine Intermittent palpitations ANKIT (obstructive sleep apnea) Surgical History History of esophagogastroduodenoscopy (EGD) Hx of colonoscopy History of right knee joint replacement History of partial hysterectomy Family History Father CKD (chronic kidney disease) Mother Alcoholism Social History Housing: Apartment Are you a primary home care consultant to a significant other at home: No Do you presently have visiting nurse or other home services: No Alcohol intake: never Patient Tobacco Use Status: Former Tobacco user Quit Date: 2015 Tobacco use type: Cigarette Cigarette Packs Per Day: 1 Cigarettes Per Day: 20 Years Smoked: 30 yrs e-Cigarette/Vaping Use: Never Used Second Hand Smoke Exposure: No service: No Current occupational status: employed 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 1. Little interest or pleasure in doing things: not at all 2. Feeling down, depressed, or hopeless: not at all 3. Trouble falling or staying asleep, or sleeping too much: not at all 4. Feeling tired or having little energy: not at all 5. Poor appetite or overeating: not at all 6. Feeling bad about yourself - or that you are a failure or have let yourself or your family down: not at all 7. Trouble concentrating on things, such as reading the newspaper or watching television: not at all 8. Moving or speaking so slowly that other people could have noticed. Or the opposite - being so fidgety or restless that you have been moving around a lot more than usual: not at all 9. Thoughts that you would be better off or of hurting yourself in some way: not at all Total score: 0 Depression Screening Interpretation: Negative Depression Screening Done: Yes 60319 - PHQ-9 Billing: Yes Source: Developed by Drs. Josué Feldman, Shari Luo, Lenny Barnes and colleagues, with an educational nino from [employer]. Thrive Questionnaire Date Thrive assessed: 03/22/23 AUDIT C Alcohol Use Questionnaire (AUDIT-C) 1. How often do you have a drink containing alcohol?: Never 3. How often do you have six or more drinks on one occasion?: Never Total Score: 0 MATTEO-7 AMB Questionnaire MATTEO-7 Date MATTEO - 7 assessed: 03/22/23 Source: Developed by Drs. Josué Feldman, Shari Luo, Lenny Barnes and colleagues, with an educational nino from [employer]. Review of Systems Const Denies headache(s) Eyes Denies loss of vision ENT Denies vertigo, Denies dizziness, Denies headache(s) and Denies sore throat Card Denies chest pain, Denies leg edema and Denies lightheadedness Resp Denies cough, Denies hemoptysis and Denies wheezing GI Denies abdominal pain, Denies melena, Denies constipation, Denies diarrhea and Denies vomiting Denies urinary frequency, Denies dysuria and Denies urinary urgency Musc Denies arthralgias, Denies joint swelling, Denies numbness and Denies tingling Neuro Denies Abnormal speech present, Denies behavioral changes, Denies vertigo, Denies dizziness, Denies headache(s), Denies loss of vision, Denies memory loss, Denies numbness and Denies tingling Psych Denies anxiety, Denies behavioral changes, Denies depression, Denies memory loss and Denies panic attacks Stefano/Lymph Denies easy bleeding and Denies easy bruising Aller/Immun Denies wheezing Physical exam (Primary Care) Vital Signs: Last Vital Signs Pulse 90 04/27/23 10:13 Resp 17 04/27/23 10:13 BP 122/78 04/27/23 10:13 Pulse Ox 95 04/27/23 10:13 Oxygen Delivery Method Room Air 04/27/23 10:13 BMI result Body Mass Index 32.6 Tobacco/Smoking Status: Tobacco use Status Tobacco use date assessed 03/22/23 04/27/23 10:12 Patient Tobacco Use Status Former Tobacco user 04/27/23 10:12 Tobacco use type Cigarette 04/27/23 10:12 e-Cigarette/Vaping Use Never Used 04/27/23 10:12 PHQ-9: PHQ-9 Score PHQ-9: Total score 0 04/27/23 10:37 Depression Screening Interpretation: Negative Thrive Assessment: Date of Thrive Assessment Date Thrive assessed 03/22/23 04/27/23 10:12 Const General: healthy appearing, no acute distress, alert and awake Nutritional Appearance: well nourished Orientation/consciousness: oriented to person, oriented to place and oriented to time HENMT Ears: TM's normal bilaterally General nose exam: Normal nasal mucous membranes and turbinates present Eyes Conjunctivae: conjunctivae normal Sclerae: sclerae normal Pupils: Equal, round and reactive pupils present Neck Neck: Yes no lymphadenopathy and Yes no JVD Thyroid: Thyroid normal Carotids: no bruits Resp Effort & Inspection: normal respiratory effort and not tachypneic Auscultation: no crackles, no rales, no rhonchi and no wheezes Cardio Rate: regular rate Rhythm: regular rhythm Heart sounds: no murmurs and normal S1 and S2 GI Palpation (GI): Soft to palpation, nontender, no hepatomegaly and no splenomeg lynn Auscultation: normal bowel sounds Skin General skin exam: no rashes or lesions noted and dry skin Neuro General: oriented to person, oriented to place and oriented to time Cranial nerves: Yes Equal, round and reactive pupils present Speech: No Abnormal speech present Gait exam (Neuro): Normal gait present Motor exam (neuro): no tremor noted Extrem Right upper extremity: full ROM Left upper extremity: full ROM Right lower extremity: full ROM; no edema Left lower extremity: full ROM; no edema Psych Mental Status: mental status grossly normal Speech and movement: Normal speech and movement present Affect: normal affect Attitude: cooperative Thought process: Normal thought process present Assessment and Plan Assessment & Plan (1) Essential hypertension: Code(s): I10 - Essential (primary) hypertension Plan: Patient's blood pressure acceptable today in office. Will continue her current antihypertensive medication with goal blood pressure to remain below 140/90. (2) Dyslipidemia: Code(s): E78.5 - Hyperlipidemia, unspecified Plan: Most recent lipid panel showing acceptable total cholesterol and LDL. She does use cholesterol medication never other day basis. Goal LDL to remain below 130 (3) Left knee pain: Code(s): M25.562 - Pain in left knee Qualifiers: Chronicity: chronic Qualified Code(s): M25.562 - Pain in left knee; G89.29 - Other chronic pain Plan: Reports having left knee pain when walking. Will send for x-ray likely has osteoarthritis. Advised continue her meloxicam. (4) Asthma: Code(s): J45.909 - Unspecified asthma, uncomplicated Qualifiers: Asthma complication type: uncomplicated Asthma persistence: intermittent Asthma severity: mild Qualified Code(s): J45.20 - Mild intermittent asthma, uncomplicated Plan: Patient reports she still does have SOB on exertion. Does pulmonary nodule though be followed on annual basis. Has upcoming CT in July of 2023. (5) Pulmonary nodule less than 1 cm in diameter with moderate to high risk for malignant neoplasm: Code(s): R91.1 - Solitary pulmonary nodule; Z91.89 - Other specified personal risk factors, not elsewhere classified Plan: As above has upcoming CT of chest in July of 2023. (6) SOB (shortness of breath) on exertion: Code(s): R06.02 - Shortness of breath Plan: As above (7) Tinnitus: Code(s): H93.19 - Tinnitus, unspecified ear Qualifiers: Laterality: left Qualified Code(s): H93.12 - Tinnitus, left ear Plan: Reports having tinnitus in his left ear. Will send for hearing exam to evaluate the need for amplification. Orders: Orders Lipid Panel Today E78.2 - Mixed hyperlipidemia AMB Hemoglobin A1c Today R73.01 - Impaired fasting glucose Comprehensive [place]. Panel Fast Today I10 - Essential (primary) hypertension XR knee LT 3V Today G89.29 - Other chronic pain, M25.562 - Pain in left knee Referrals Speech and Hearing Referral H93.19 - Tinnitus, unspecified ear Medications: New tramadol 50 mg PO BID 7 days PRN 14 tabs 0RF pain M19.011 - Primary osteoarthritis, right shoulder Refilled cyanocobalamin (vitamin B-12) 1,000 mcg PO DAILY 90 tabs 1RF E53.8 - Deficiency of other specified B group vitamins cholecalciferol (vitamin D3) (Vitamin D3) 25 mcg PO DAILY 90 tabs 1RF I10 - Essential (primary) hypertension Coding Level of Care Code Est Pt Level 4 (44498) Diagnoses Essential hypertension I10 Dyslipidemia E78.5 Chronic pain of left knee M25.562; G89.29 Chronicity: chronic Mild intermittent asthma without complication J45.20 Asthma complication type: uncomplicated Asthma persistence: intermittent Asthma severity: mild Pulmonary nodule less than 1 cm in diameter with moderate to high risk for malignant neoplasm R91.1; Z91.89 SOB (shortness of breath) on exertion R06.02 Tinnitus of left ear H93.12 Laterality: left
[2023-04-27 10:13] VITALS: BP 122/78; PULSE 90; RESP 17; O2SAT 95; BMI 32.6
== END 2023-04-27 11:03 | disposition home or self-care (01) ==
PROVIDERS: PCP Physician Assistant; Visit Provider Physician Assistant
DX: I10 Essential (primary) hypertension (principal); E78.5 Hyperlipidemia, unspecified; M25.562 Pain in left knee; G89.29 Other chronic pain; J45.20 Mild intermittent asthma, uncomplicated; R91.1 Solitary pulmonary nodule; Z91.89 Other specified personal risk factors, not elsewhere classified; R06.02 Shortness of breath; H93.12 Tinnitus, left ear
CPT/HCPCS: 99214

== ENCOUNTER 2023-05-04 08:11 | Outpatient (REF) | payer OTHER, SELFPAY ==
--- NOTE | ~2023-05-04 | XR_ITS ---
EXAMINATION: XR KNEE, LEFT CLINICAL INFORMATION: Pain. COMPARISON: Radiograph left knee 02/07/2014. TECHNIQUE: Three views of the left knee. FINDINGS: No fracture or subluxation. Mild joint space narrowing and subcortical sclerosis of the medial and patellofemoral compartments. Small marginal osteophytes in the medial compartment. Nonaggressive appearing 0.6 cm lucent observation in the proximal tibia adjacent to the intercondylar fossa, favoring to represent a degenerative cyst or bone cyst. Minimal subchondral lucent changes along the posterior pole of the patella, favoring to represent subchondral degenerative changes. No abnormal soft tissue calcifications. No osseous erosions. No joint effusion. No significant soft tissue abnormality. XR/XR knee LT 3V IMPRESSION: 1. No acute fracture or subluxation. 2. Mild degenerative changes.
[2023-05-04 09:10] LABS: Alanine Aminotransferase 10 U/L (0-31); Albumin Level 4.1 g/dL (3.5-5.0); Alkaline Phosphatase 127 U/L (39-117); Anion Gap 11 (12-20); Aspartate Amino Transferase 17 U/L (5-31); Bilirubin Total 0.2 mg/dL (0.0-1.0); Blood Urea Nitrogen 18 mg/dL (9-16); Calcium 9.7 mg/dL (8.4-10.2); Carbon Dioxide 26 mmol/L (22-29); Chloride 105 mmol/L (96-108); Cholesterol 205 mg/dL (<200); Estimated Glomerular Filt Rate > 60; Glucose Fasting 100 mg/dL (60-99); HDL Cholesterol 56 mg/dL (>40); LDL Cholesterol Calculated 124 mg/dL (<100); Potassium 4.3 mmol/L (3.3-5.1); Sodium 138 mmol/L (135-145); Total Protein 7.7 g/dL (6.5-8.0); Triglycerides 127 mg/dL (<150)
== END 2023-05-04 08:12 | disposition home or self-care (01) ==
LOC: HO.LAB 08:11
PROVIDERS: PCP Physician Assistant; Visit Provider Physician Assistant
DX: M25.562 Pain in left knee (principal); E78.2 Mixed hyperlipidemia; G89.29 Other chronic pain; I10 Essential (primary) hypertension
CPT/HCPCS: 36415; 73562; 80053; 80061

== ENCOUNTER 2023-05-19 08:43 | Outpatient (REF) | payer OTHER, SELFPAY ==
--- NOTE | ~2023-05-19 | MM_ITS ---
EXAMINATION: MM SCREENING DIGITAL BREAST TOMOSYNTHESIS, BILATERAL CLINICAL INFORMATION: Screening. Asymptomatic. COMPARISON: Mammography: 05/13/2022, 05/07/2021, 04/09/2019; outside exam 09/09/2017 ([facility]) TECHNIQUE: Digital breast tomosynthesis is performed in both the craniocaudal and mediolateral oblique views along with computer-aided detection (CAD). Synthesized 2D images are generated from the tomosynthesis. FINDINGS: There are scattered areas of fibroglandular density (ACR BI-RADS breast composition Category b). There are no suspicious masses, suspicious grouped calcifications, or areas of architectural distortion in either breast. There are stable scattered bilateral minor asymmetries. The parenchymal pattern is stable from prior exams. No axillary or skin abnormalities. MM/MM tomosynthesis screening BI IMPRESSION: No mammographic evidence of malignancy. No significant change. ASSESSMENT: BI-RADS BI-RADS 2 - Benign Findings RECOMMENDATION: Routine annual mammography screening. 1 year F/U This examination should not preclude the clinical evaluation of a suspicious palpable abnormality. This patient's information was entered into a reminder system with a target due date for their next mammogram.
== END 2023-05-19 08:44 | disposition home or self-care (01) ==
LOC: HO.MAMMO 08:43
PROVIDERS: PCP Physician Assistant; Visit Provider Physician Assistant
DX: Z12.31 Encounter for screening mammogram for malignant neoplasm of breast (principal)
CPT/HCPCS: 77063; 77067; 99212

== ENCOUNTER → 2023-05-19 09:15 | Outpatient (BNV) | payer OTHER, SELFPAY | PROVIDERS: PCP Physician Assistant; Visit Provider Radiology Diagnostic Radiology | DX: Z12.31 Encounter for screening mammogram for malignant neoplasm of breast (principal) | CPT/HCPCS: 77063; 77067 ==

== ENCOUNTER 2023-05-19 09:17 | Outpatient (AMB) | payer OTHER, SELFPAY ==
--- NOTE | 2023-05-19 10:13 | A.OFFVIS_ITS ---
Intake Intake Visit Reasons: OV-Rt shoulder RTC repair 11/16/22 - Confirmed Intake Note: Janet is a 62 year old female who presents today for a post operative appointment s/p Right RTC Repair 11/16/22. She says she is having some shoulder pain with activity. The pain she feels is from the shoulder and radiates down to the elbow, she also feels that the arm is just hanging & heavy . Denies numbness nad tingling in the right hand. She takes meloxicam and Tramadol which help her with her pain. She also utilizes lidocane patches PRN. She has been working on strengthening exercises at home but does not attend formal therapy. Allergies peanut Allergy (Severe, Verified 04/27/23 10:32) Anaphylaxis seafood Allergy (Severe, Verified 04/27/23 10:32) Anaphylaxis codeine [Codeine] Allergy (Intermediate, Verified 04/27/23 10:32) RASH/ITCHING tomato Allergy (Intermediate, Verified 04/27/23 10:32) Gastrointestinal Upset celecoxib [From Celebrex] Adverse Reaction (Intermediate, Verified 04/27/23 10:32) Palpitations ibuprofen [From Motrin] Adverse Reaction (Intermediate, Verified 04/27/23 10:32) Stomach pains levofloxacin [From Levaquin] Adverse Reaction (Intermediate, Verified 04/27/23 10:32) Nausea pravastatin Adverse Reaction (Intermediate, Verified 04/27/23 10:32) Muscle pain HPI OV-Rt shoulder RTC repair 11/16/22 - Confirmed HPI Details Janet is a 62 year old female who presents today for a post operative appointment s/p Right RTC Repair 11/16/22. She says she is having some shoulder pain with activity. The pain she feels is from the shoulder and radiates down to the elbow, she also feels that the arm is just hanging & heavy . Denies numbness and tingling in the right hand. She takes meloxicam and Tramadol which help her with her pain. She also utilizes lidocane patches PRN. She has been working on strengthening exercises at home but does not attend formal therapy. Overall she feels that she is improving but slowly. [facility] Medical History (Updated 04/27/23 @ 11:00 by Feliciano Corey PA-C) Seafood allergy Retrognathia Posterior neck pain Frequent headaches Stress at work Obesity (BMI 30-39.9) Essential hypertension Plantar fasciitis, bilateral Impaired fasting glucose Irritable bowel syndrome with constipation Carpal tunnel syndrome on left Gastric ulcer Dyslipidemia Former smoker Recurrent bronchospasm Degenerative disc disease, lumbar Vitamin D deficiency Vitamin B12 deficiency History of drug abuse Gastritis Peripheral neuropathy Osteoarthritis involving multiple joints on both sides of body Depression Migraine Intermittent palpitations ANKIT (obstructive sleep apnea) Surgical History History of esophagogastroduodenoscopy (EGD) Hx of colonoscopy History of right knee joint replacement History of partial hysterectomy Family History Father CKD (chronic kidney disease) Mother Alcoholism Social History Housing: Apartment Are you a primary child care leader to a significant other at home: No Do you presently have visiting nurse or other home services: No Alcohol intake: never Patient Tobacco Use Status: Former Tobacco user Quit Date: 2015 Tobacco use type: Cigarette Cigarette Packs Per Day: 1 Cigarettes Per Day: 20 Years Smoked: 30 yrs e-Cigarette/Vaping Use: Never Used Second Hand Smoke Exposure: No service: No Current occupational status: employed 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 She is where I would expect her to be 6 months post especially given the size of her tear and her age. I discussed this with her and she agrees. Continue strengthening and daily activities. F/u 3 months. Plan 3 month follow up Coding Level of Care Code Est Pt Level 3 (84143) Diagnoses Status post right rotator cuff repair Z98.890
== END 2023-05-19 10:33 | disposition home or self-care (01) ==
PROVIDERS: PCP Physician Assistant; Visit Provider Orthopaedic Surgery
DX: M25.511 Pain in right shoulder (principal)
CPT/HCPCS: 99213

== ENCOUNTER 2023-06-15 10:57 | Outpatient (AMB) | payer OTHER, SELFPAY ==
[2023-06-15 11:05] VITALS: BMI 33.3
--- NOTE | 2023-06-15 11:05 | A.OFFVIS_ITS ---
Intake VS Expanded 06/15/23 11:05 06/17/23 21:45 Height 5 ft 2 in 5 ft 2 in Weight 181 lb 14.102 oz 182 lb BMI 33.3 33.3 Intake Visit Reasons: Mixed hyperlipidemia/CONFIRMED Allergies peanut Allergy (Severe, Verified 04/27/23 10:32) Anaphylaxis seafood Allergy (Severe, Verified 04/27/23 10:32) Anaphylaxis codeine [Codeine] Allergy (Intermediate, Verified 04/27/23 10:32) RASH/ITCHING tomato Allergy (Intermediate, Verified 04/27/23 10:32) Gastrointestinal Upset celecoxib [From Celebrex] Adverse Reaction (Intermediate, Verified 04/27/23 10:32) Palpitations ibuprofen [From Motrin] Adverse Reaction (Intermediate, Verified 04/27/23 10:32) Stomach pains levofloxacin [From Levaquin] Adverse Reaction (Intermediate, Verified 04/27/23 10:32) Nausea pravastatin Adverse Reaction (Intermediate, Verified 04/27/23 10:32) Muscle pain HPI Nutrition Presentation Details Pt presents for MNT for mixed hyperlipidemia. Pt was referred by PCPKarolina Typical meal intake B: crackers cheese, cofffee sugar and milk carnation or whole grain bar 3-4 pm Sand (ham/cheese/eggs and toast ) ,juices or fermin marian ,water eating out 2-3 x/wk fried foods fish : not including fruits 1-2 /d dairy : 2-3 + serving/d ve x/wk physical activity-- ETOH/SMoking--- Beverages: water, juices, seldom soda DSG-Ywaoldr-Uk.Jeor Equation Height 5 ft 2 in Weight 182 lb Resting Metabolic Rate 1338.00 Calculated Activity Level Sedentary Calories Needed to Maintain Weight 1605.60 Diagnosis Nutrition problem #1 food nutri know defi As related to (etiology) #1 diagnosis As evidenced by (sign/symptom) #1 knowledge deficit of diet Most Recent Diabetes Results: Cholesterol 205 mg/dL (<200) H 05/04/23 HDL Cholesterol 56 mg/dL (>40) 05/04/23 Triglycerides 127 mg/dL (<150) 05/04/23 Creatinine 0.82 mg/dL (0.5-1.4) 05/04/23 Blood Urea Nitrogen 18 mg/dL (9-16) H 05/04/23 Sodium 138 mmol/L (135-145) 05/04/23 Potassium 4.3 mmol/L (3.3-5.1) 05/04/23 Chloride 105 mmol/L (96-108) 05/04/23 Carbon Dioxide 26 mmol/L (22-29) 05/04/23 Calcium 9.7 mg/dL (8.4-10.2) 05/04/23 AST 17 U/L (5-31) 05/04/23 ALT 10 U/L (0-31) 05/04/23 Total Protein 7.7 g/dL (6.5-8.0) 05/04/23 Albumin 4.1 g/dL (3.5-5.0) 05/04/23 [facility] Medical History (Updated 04/27/23 @ 11:00 by Feliciano Corey PA-C) Seafood allergy Retrognathia Posterior neck pain Frequent headaches Stress at work Obesity (BMI 30-39.9) Essential hypertension Plantar fasciitis, bilateral Impaired fasting glucose Irritable bowel syndrome with constipation Carpal tunnel syndrome on left Gastric ulcer Dyslipidemia Former smoker Recurrent bronchospasm Degenerative disc disease, lumbar Vitamin D deficiency Vitamin B12 deficiency History of drug abuse Gastritis Peripheral neuropathy Osteoarthritis involving multiple joints on both sides of body Depression Migraine Intermittent palpitations ANKIT (obstructive sleep apnea) Surgical History History of esophagogastroduodenoscopy (EGD) Hx of colonoscopy History of right knee joint replacement History of partial hysterectomy Family History Father CKD (chronic kidney disease) Mother Alcoholism Social History Housing: Apartment Are you a primary day care assistant to a significant other at home: No Do you presently have visiting nurse or other home services: No Alcohol intake: never Patient Tobacco Use Status: Former Tobacco user Quit Date: 2015 Tobacco use type: Cigarette Cigarette Packs Per Day: 1 Cigarettes Per Day: 20 Years Smoked: 30 yrs e-Cigarette/Vaping Use: Never Used Second Hand Smoke Exposure: No service: No Current occupational status: employed 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 Current occupational exposures/hazards: No Cognitive needs: No Hearing needs: No Vision needs: Yes Assessment & Plan Assessment & Plan (1) Hyperlipidemia: Code(s): E78.5 - Hyperlipidemia, unspecified Qualifiers: Hyperlipidemia type: mixed hyperlipidemia Qualified Code(s): E78.2 - Mixed hyperlipidemia Plan: Wt: 83 Kg ( 06/2023 ) Est kcal needs as per MSJ: 1600 (40% carb, 30% protein/fat) Est fluid needs as per 30 ml/d: 2500 Est prot per day as per 1 g/kg bw: 83 Recommend fiber intake : 8-10 g per day and gradually increase to 25-28 g per day for women and 35-38 g for men or as tolerated Recommend sodium intake per day : less than 1500 mg less than 2000 mg Educated patient on: ( R = reviewed V = verbalizes understanding N/R = needs review N/A = not applicable * Food sources of carbohydrate, adequate serving sizes and its role in various health conditions: R V N/R * Differences between complex carbohydrates a simple carbohydrates, role of fiber in diet: R * Lean protein sources of foods: R V NR * Differences between types of fats and role in diet (mono on saturated fat fatty acids, saturated fatty acids, trans fats): R * Food sources of sodium in salt and healthy modifications for heart health in kidney health: R V R/V * Vitamins and minerals: R V N/R * Healthy plate method concept: R V N/R * Physical activity: Benefits a precaution: R Patient Instructions: Work on reducing saturated fats (fried foods/pastries), reduce on fatty gravies/sauces/cheese sauces see 1600 prem low fat meal plan Coding Level of Care Code Nutr Indiv Intake (82623) Diagnoses Mixed hyperlipidemia E78.2 Hyperlipidemia type: mixed hyperlipidemia Time Spent (min) 30
[2023-06-17 21:45] VITALS: BMI 33.3
== END 2023-06-15 11:45 | disposition home or self-care (01) ==
PROVIDERS: PCP Physician Assistant; Visit Provider Dietitian, Registered
DX: E78.2 Mixed hyperlipidemia (principal)

== ENCOUNTER → 2023-06-15 10:57 | Outpatient (BNVA) | payer OTHER, SELFPAY | PROVIDERS: PCP Physician Assistant; Visit Provider Dietitian, Registered | DX: E78.2 Mixed hyperlipidemia (principal) | CPT/HCPCS: 97802 ==

== ENCOUNTER 2023-07-26 11:02 | Outpatient (AMB) | payer OTHER, SELFPAY ==
[2023-07-26 11:31] VITALS: BMI 32.5
--- NOTE | 2023-07-26 11:31 | A.OFFVIS_ITS ---
VS Expanded 07/26/23 11:31 Height 5 ft 2 in Weight 177 lb 14.609 oz BMI 32.5 Intake Visit Reasons: hyperlipidemia/CONFIRMED Allergies peanut Allergy (Severe, Verified 04/27/23 10:32) Anaphylaxis seafood Allergy (Severe, Verified 04/27/23 10:32) Anaphylaxis codeine [Codeine] Allergy (Intermediate, Verified 04/27/23 10:32) RASH/ITCHING tomato Allergy (Intermediate, Verified 04/27/23 10:32) Gastrointestinal Upset celecoxib [From Celebrex] Adverse Reaction (Intermediate, Verified 04/27/23 10:32) Palpitations ibuprofen [From Motrin] Adverse Reaction (Intermediate, Verified 04/27/23 10:32) Stomach pains levofloxacin [From Levaquin] Adverse Reaction (Intermediate, Verified 04/27/23 10:32) Nausea pravastatin Adverse Reaction (Intermediate, Verified 04/27/23 10:32) Muscle pain Nutrition Presentation Details: Pt presents for MNT f/u for hyperlipidemia Pt reports working on diet modification Has questions regardingfood labels BS Monitoring Most Recent Diabetes Results: Cholesterol 205 mg/dL (<200) H 05/04/23 HDL Cholesterol 56 mg/dL (>40) 05/04/23 Triglycerides 127 mg/dL (<150) 05/04/23 Creatinine 0.82 mg/dL (0.5-1.4) 05/04/23 Blood Urea Nitrogen 18 mg/dL (9-16) H 05/04/23 Sodium 138 mmol/L (135-145) 05/04/23 Potassium 4.3 mmol/L (3.3-5.1) 05/04/23 Chloride 105 mmol/L (96-108) 05/04/23 Carbon Dioxide 26 mmol/L (22-29) 05/04/23 Calcium 9.7 mg/dL (8.4-10.2) 05/04/23 AST 17 U/L (5-31) 05/04/23 ALT 10 U/L (0-31) 05/04/23 Total Protein 7.7 g/dL (6.5-8.0) 05/04/23 Albumin 4.1 g/dL (3.5-5.0) 05/04/23 [facility] Medical History (Updated 07/12/23 @ 08:04 by Feliciano Corey PA-C) Seafood allergy Retrognathia Posterior neck pain Frequent headaches Stress at work Obesity (BMI 30-39.9) Essential hypertension Plantar fasciitis, bilateral Impaired fasting glucose Irritable bowel syndrome with constipation Carpal tunnel syndrome on left Gastric ulcer Dyslipidemia Former smoker Recurrent bronchospasm Degenerative disc disease, lumbar Vitamin D deficiency Vitamin B12 deficiency History of drug abuse Gastritis Peripheral neuropathy Osteoarthritis involving multiple joints on both sides of body Depression Migraine Intermittent palpitations ANKIT (obstructive sleep apnea) Surgical History History of esophagogastroduodenoscopy (EGD) Hx of colonoscopy History of right knee joint replacement History of partial hysterectomy Family History Father CKD (chronic kidney disease) Mother Alcoholism Social History Housing: Apartment Are you a primary ostomy care nurse to a significant other at home: No Do you presently have visiting nurse or other home services: No Alcohol intake: never Patient Tobacco Use Status: Former Tobacco user Quit Date: 2015 Tobacco use type: Cigarette Cigarette Packs Per Day: 1 Cigarettes Per Day: 20 Years Smoked: 30 yrs e-Cigarette/Vaping Use: Never Used Second Hand Smoke Exposure: No service: No Current occupational status: employed 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 Current occupational exposures/hazards: No Cognitive needs: No Hearing needs: No Vision needs: Yes Assessment & Plan Assessment & Plan (1) Hyperlipidemia: Code(s): E78.5 - Hyperlipidemia, unspecified Category: Medical Qualifiers: Hyperlipidemia type: mixed hyperlipidemia Qualified Code(s): E78.2 - Mixed hyperlipidemia Plan: Wt: 83 Kg ( 06/2023 ), 80 kg (07/2023) Est kcal needs as per MSJ: 1600 (40% carb, 30% protein/fat) Est fluid needs as per 30 ml/d: 2500 Est prot per day as per 1 g/kg bw: 83 Recommend fiber intake : 8-10 g per day and gradually increase to 25-28 g per day for women and 35-38 g for men or as tolerated Recommend sodium intake per day : less than 1500 mg less than 2000 mg Educated patient on: ( R = reviewed V = verbalizes understanding N/R = needs review N/A = not applicable * Food sources of carbohydrate, adequate serving sizes and its role in various health conditions: R V N/R * Differences between complex carbohydrates a simple carbohydrates, role of fiber in diet: R * Lean protein sources of foods: R V NR * Differences between types of fats and role in diet (mono on saturated fat fatty acids, saturated fatty acids, trans fats): R * Interpreting food labels: r * Food sources of sodium in salt and healthy modifications for heart health in kidney health: R V R/V * Vitamins and minerals: R V N/R * Healthy plate method concept: R V N/R * Physical activity: Benefits a precaution: R Patient Instructions: Continue working on reducing saturated fats and trans fats from diet Include fiber rich foods (vegetables, fruits, whole grain foods) Coding Level of Care Code Nutr Indiv Subseq (86838) Diagnoses Mixed hyperlipidemia E78.2 Hyperlipidemia type: mixed hyperlipidemia Time Spent (min) 30
== END 2023-07-26 12:08 | disposition home or self-care (01) ==
PROVIDERS: PCP Physician Assistant; Visit Provider Dietitian, Registered
DX: E78.2 Mixed hyperlipidemia (principal)

== ENCOUNTER → 2023-07-26 11:02 | Outpatient (BNVA) | payer OTHER, SELFPAY | PROVIDERS: PCP Physician Assistant; Visit Provider Dietitian, Registered | DX: E78.2 Mixed hyperlipidemia (principal) | CPT/HCPCS: 97803 ==

== ENCOUNTER 2023-07-27 14:33 | Outpatient (AMB) | payer OTHER, SELFPAY ==
--- NOTE | 2023-07-27 14:44 | MHC.PC.OV ---
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 Accompanied by: Self / Same As Patient Allergies peanut Allergy (Severe, Verified 07/27/23 14:57) Anaphylaxis seafood Allergy (Severe, Verified 07/27/23 14:57) Anaphylaxis codeine [Codeine] Allergy (Intermediate, Verified 07/27/23 14:57) RASH/ITCHING tomato Allergy (Intermediate, Verified 07/27/23 14:57) Gastrointestinal Upset celecoxib [From Celebrex] Adverse Reaction (Intermediate, Verified 07/27/23 14:57) Palpitations ibuprofen [From Motrin] Adverse Reaction (Intermediate, Verified 07/27/23 14:57) Stomach pains levofloxacin [From Levaquin] Adverse Reaction (Intermediate, Verified 07/27/23 14:57) Nausea pravastatin Adverse Reaction (Intermediate, Verified 07/27/23 14:57) Muscle pain Medication List - Last Reconciled 07/27/23 by Feliciano Corey PA-C albuterol sulfate 90 mcg/actuation 1 inh inhalation QID PRN 30 days amlodipine 10 mg PO DAILY 90 days blood pressure test kit-medium As directed cholecalciferol (vitamin D3) (Vitamin D3) 25 mcg PO DAILY cyanocobalamin (vitamin B-12) 1,000 mcg PO DAILY diclofenac sodium 1% (Arthritis Pain (diclofenac)) 2 grams topical QID 30 days lorazepam 0.5 mg PO BEDTIME meclizine 25 mg PO BID PRN 10 days meloxicam 15 mg PO DAILY 30 days miscellaneous medical supply (Blood Pressure Cuff) As directed ondansetron 4 mg PO Q8H PRN pantoprazole 40 mg PO BID [pulse oximeter As directed] rosuvastatin 5 mg PO 3XW [Self Adhesive Electrode [id number] As directed NS] sertraline 25 mg PO DAILY sucralfate 1 g PO BID 30 days tramadol 50 mg PO BID PRN 7 days Tobacco use date assessed: 03/22/23 Dental Screening Dental Screen Date: 04/27/23 HPI pe HPI Details Patient is a 63-year-old female here today for follow-up visit. Patient has a past medical history significant for hypertension, asthma, anxiety depression, GERD. Acute episodes of dizziness and disorientation have somewhat resolved. She does report using a different pair of glasses which may have been the reason for her acute dizziness. She has have an upcoming CT of head in September of 2023. s/p Right shoulder surgery: Has done physical therapy. Does have upcoming appointment with orthopedics. She is still reports some weakness and decreased range of motion in her right shoulder and upper extremity. She does report feeling somewhat swollen after she sleeps. Has been using warm compress and advised to switch to using cool compress. Does use meloxicam for her pain and inflammation though feels it has not effective. . Pulmonary nodules: Patient a previous smoker. CT chest in 2022 showing--> Nonspecific, noncalcified 4 mm and 2 mm nodules are seen within the superior segment of the left lower lobe.. Patient is followed with annual chest CTs for pulmonary nodules. Anxiety: She continues to see a mental therapist and a psychiatrist who manages her mental health medication. Anxiety has been bit better since not having her granddaughter to watch over. .. Hyperlipidemia: Continues with statin therapy and a every other day basis. Most recent lipid panel showing appropriate total cholesterol and LDL. Hypertension: Patient's blood pressure acceptable today in office. Continues with amlodipine 5 mg. She does report perhaps having low blood pressures at home as she feels symptoms of dizziness after she takes her blood pressure medication at times. She does not have a blood pressure cuff to monitor and is willing to purchase or someone to take her blood pressures at home Vaccine: Up-to-date with COVID vaccine, need PCV. unclear if had varicella. Needs Tdap. Colon cancer screening: Colon done in 2021- repeat 5 years Mammogram: Mammogram done in May of 2023, normal [facility] Medical History (Updated 07/28/23 @ 07:38 by Feliciano Corey PA-C) Plantar fasciitis of right foot Seafood allergy Frequent headaches Stress at work Obesity (BMI 30-39.9) Essential hypertension Plantar fasciitis, bilateral Impaired fasting glucose Irritable bowel syndrome with constipation Gastric ulcer Dyslipidemia Former smoker Degenerative disc disease, lumbar Vitamin D deficiency Vitamin B12 deficiency History of drug abuse Gastritis Peripheral neuropathy Osteoarthritis involving multiple joints on both sides of body Migraine ANKIT (obstructive sleep apnea) Surgical History History of esophagogastroduodenoscopy (EGD) Hx of colonoscopy History of right knee joint replacement History of partial hysterectomy Family History (Updated 07/27/23 @ 15:06 by Feliciano Corey PA-C) Father CKD (chronic kidney disease) Mother Alcoholism CVA (cerebral vascular accident), Onset Age: 54 Social History Housing: Apartment Are you a primary career development coordinator to a significant other at home: No Do you presently have visiting nurse or other home services: No Alcohol intake: never Patient Tobacco Use Status: Former Tobacco user Quit Date: 2015 Tobacco use type: Cigarette Cigarette Packs Per Day: 1 Cigarettes Per Day: 20 Years Smoked: 30 yrs e-Cigarette/Vaping Use: Never Used Second Hand Smoke Exposure: No service: No Current occupational status: employed 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 Josué Feldman, Shari Luo, Lenny Barnes and colleagues, with an educational nino from [employer]. Review of Systems Const Denies body aches, Denies chills, Denies excessive sweating, Denies fatigue, Denies fever(s) and Denies headache(s) Eyes Denies blurry vision ENT Denies dysphagia, Denies vertigo, Denies dizziness, Denies headache(s), Denies hearing loss and Denies tinnitus Card Denies chest pain, Denies chest pain with activity, Denies syncope, Denies irregular heart rhythm and Denies dyspnea Resp Denies chest congestion, Denies cough, Denies hemoptysis, Denies dyspnea and Denies wheezing GI Denies abdominal pain, Denies melena, Denies hematochezia, Denies coffee ground emesis, Denies dysphagia, Denies diarrhea, Denies nausea and Denies vomiting Denies urinary frequency, Denies dysuria, Denies urinary hesitancy and Denies urinary urgency Musc Denies arthralgias, Denies limited range of motion, Denies muscle cramps and Denies muscle weakness Skin/Breast Denies rash and Denies skin ulcer Neuro Denies Abnormal speech present, Denies confusion, Denies vertigo, Denies dizziness, Denies syncope, Denies headache(s), Denies memory loss and Denies seizure-like activity Psych Denies anxiety, Denies confusion, Denies depression, Denies memory loss, Denies panic attacks and Denies paranoia Endo Denies excessive sweating, Denies fatigue, Denies flushing, Denies polydipsia and Denies polyuria Aller/Immun Denies wheezing Physical exam (Primary Care) Vital Signs: Last Vital Signs Pulse 98 07/27/23 14:50 BP 118/82 07/27/23 14:50 Pulse Ox 97 07/27/23 14:50 Oxygen Delivery Method Room Air 07/27/23 14:50 BMI result Body Mass Index 32.2 Tobacco/Smoking Status: Tobacco use Status Tobacco use date assessed 03/22/23 07/27/23 14:44 Patient Tobacco Use Status Former Tobacco user 07/27/23 14:44 Tobacco use type Cigarette 07/27/23 14:44 e-Cigarette/Vaping Use Never Used 07/27/23 14:44 Thrive Assessment: Date of Thrive Assessment Date Thrive assessed 03/22/23 07/27/23 14:44 Const General: cooperative, comfortable, no acute distress, alert and awake; No confusion Orientation/consciousness: oriented to person, oriented to place, patient oriented x3 and No confusion HENMT Head: Yes normocephalic Ears: external ears normal and TM's normal bilaterally Face and sinus: No sinus tenderness Mouth: Normal oral and palatal mucosa present and tongue normal Teeth and gingiva: dentition normal and gingiva normal Throat: Yes posterior oropharynx normal, Yes tonsils normal and Yes uvula midline Eyes Conjunctivae: conjunctivae normal Sclerae: sclerae normal Pupils: Equal, round and reactive pupils present EOM: EOMs intact bilaterally Direct Ophthalmoscopy: No no photophobia Neck Neck: Yes no lymphadenopathy, No tender and Yes no JVD Thyroid: Thyroid normal Carotids: no bruits Chest Chest palpation & inspection: no tenderness Resp Effort & Inspection: normal respiratory effort, no audible wheezes, not labored and no stridor Auscultation: no crackles, no rales, no rhonchi and no wheezes Cardio Jugular venous distension: no JVD Rate: regular rate, not bradycardic and not tachycardic Rhythm: regular rhythm Bruits: no carotid bruits Peripheral pulses: Peripheral pulses 2+ throughout GI Inspection: Yes normal to inspection, No abdominal wall ecchymosis and No visible herniation Palpation (GI): Soft to palpation, nontender, no guarding, not rigid and No hepatosplenomegaly present Auscultation: normoactive bowel sounds General: Yes no CVA tenderness Back/Spine/Pelvis Back: no CVA tenderness and No back tenderness Cervical Spine: cervical ROM normal Thoracic/Lumbar Spine: thoracic and lumbar spine normal to inspection, straight leg raise negative bilaterally, No thoraco-lumbar ROM limited and No lumbar spinal tenderness Skin Lesions: no lesions Rashes: no rashes Wounds: no wounds Neuro General: oriented to person, oriented to place, patient oriented x3, CN's II-XI intact bilaterally and No confusion Cranial nerves: Yes Equal, round and reactive pupils present and Yes Normal accommodation reflex present Cognition (Neuro): normal cognition Speech: No Abnormal speech present Gait exam (Neuro): Normal gait present Motor exam (neuro): 5/5 motor strength present throughout Extrem Right upper extremity: full ROM; no cyanosis Left upper extremity: full ROM; no cyanosis Right lower extremity: no edema Left lower extremity: no edema Psych Appearance: grossly normal Mental Status: mental status grossly normal Affect: normal affect Attitude: cooperative Thought process: Normal thought process present Immunizations pneumoc 20-yeison conj-dip cr(PF) 0.5 mL IM syringe Performing Provider: Feliciano Corey PA-C Performing Location: [facility] Administered by: ANSHU Elizondo on 07/27/23 15:47 Dose Route Admin Location Dispensed Lot Number Expiration Date NDC Political Geographer 0.5 mL IM Left Deltoid 0.5 mL [id number] 07/06/27 6473-4280-69 [employer] VIS Given Date VIS Provided VIS Publication Date 07/27/23 Single Vaccine 21 Eligibility Eligibility Date Funding Source Not [facility] Eligible 07/27/23 Private Assessment and Plan Assessment & Plan (1) Annual physical exam: Code(s): Z00.00 - Encounter for general adult medical examination without abnormal findings (2) Essential hypertension: Code(s): I10 - Essential (primary) hypertension Plan: Patient's blood pressure acceptable today in office. Will continue her current antihypertensive medication with goal blood pressure to remain below 140/90. (3) Dyslipidemia: Code(s): E78.5 - Hyperlipidemia, unspecified Plan: Most recent lipid panel showing borderline high total cholesterol.. She is now seeing a dietitian and working on dietary modifications. She continues to use rosuvastatin 5 mg 3 times a week. She does use cholesterol medication never other day basis. Goal LDL to remain below 130 (4) Asthma: Code(s): J45.909 - Unspecified asthma, uncomplicated Qualifiers: Asthma complication type: uncomplicated Asthma persistence: intermittent Asthma severity: mild Qualified Code(s): J45.20 - Mild intermittent asthma, uncomplicated Plan: Patient reports her asthma has been fairly well controlled with p.r.n. use of her albuterol inhaler. Does pulmonary nodule though be followed on annual basis. Has upcoming CT of chest in August of 2023 (5) Pulmonary nodule less than 1 cm in diameter with moderate to high risk for malignant neoplasm: Code(s): R91.1 - Solitary pulmonary nodule; Z91.89 - Other specified personal risk factors, not elsewhere classified Plan: Nonspecific, noncalcified 4 mm and 2 mm nodules are seen within the superior segment of the left lower lobe. As above has upcoming CT of chest in August of 2023. (6) Confusion: Code(s): R41.0 - Disorientation, unspecified Plan: Has resolved, was thought to be due to using a new pair of corrective lenses. Although does have a head CT coming up to evaluate for arterial stenosis in September of 2023 (7) Impaired fasting glucose: Code(s): R73.01 - Impaired fasting glucose Plan: Patient's most recent fasting blood sugar slightly elevated. She has been speaking with a dietitian and making dietary changes. (8) Former smoker: Code(s): Z87.891 - Personal history of nicotine dependence Plan: Patient quit smoking a few years ago. Does have obstructive sleep apnea and asthma. Does have 2 mm pulmonary nodule that is followed on annual basis. Orders: Orders Complete Blood Count no Diff 07/27/23 J45.20 - Mild intermittent asthma, uncomplicated Comprehensive [place]. Panel Fast 07/27/23 I10 - Essential (primary) hypertension Hemoglobin A1c 07/27/23 R73.01 - Impaired fasting glucose Vitamin D 25-OH Total 07/27/23 E55.9 - Vitamin D deficiency, unspecified Lipid Panel 07/27/23 E78.5 - Hyperlipidemia, unspecified Pneumococcal 20 Immunization 07/27/23 E55.9 - Vitamin D deficiency, unspecified, Z23 - Encounter for immunization Medications: Refilled tramadol 50 mg PO BID 7 days PRN 14 tabs 0RF pain M19.011 - Primary osteoarthritis, right shoulder Patient Instructions: Goal: Blood pressure to remain below 140/90 Barriers: Adheres to healthy eating habits and physical activity Coding Level of Care Code Est Pt Prev Care 40-64y(75217) Diagnoses Annual physical exam Z00.00 Essential hypertension I10 Dyslipidemia E78.5 Mild intermittent asthma without complication J45.20 Asthma complication type: uncomplicated Asthma persistence: intermittent Asthma severity: mild Pulmonary nodule less than 1 cm in diameter with moderate to high risk for malignant neoplasm R91.1; Z91.89 Confusion R41.0 Impaired fasting glucose R73.01 Former smoker Z87.891
[2023-07-27 14:50] VITALS: BP 118/82; PULSE 98; O2SAT 97; BMI 32.2
== END 2023-07-27 15:48 | disposition home or self-care (01) ==
LOC: HO.HMGH 14:36
PROVIDERS: PCP Physician Assistant; Visit Provider Physician Assistant
DX: Z23 Encounter for immunization (principal)
CPT/HCPCS: 90471; 90677; 99396

== ENCOUNTER 2023-08-03 10:32 | Outpatient (REF) | payer OTHER, SELFPAY ==
--- NOTE | ~2023-08-03 | CT_ITS ---
EXAMINATION: CT CHEST WITHOUT CONTRAST CLINICAL INFORMATION: Follow up pulmonary nodule. COMPARISON: CT chest 08/26/2022. TECHNIQUE: Multidetector volumetric CT imaging of the chest was done. Axial MIP volume rendering provided. Sagittal and coronal reformatted images were obtained. This CT examination was performed using dose optimization techniques as appropriate, variously including the following: *Automated exposure control *Adjustment of mA and/or kV according to patient size (this includes techniques or standardized protocols for targeted exams where dose is matched to indication/reason for exam; i.e. extremities or head) *Use of iterative reconstruction technique DLP: 175 mGy-cm FINDINGS: LUNGS: Multiple new bilateral solid pulmonary nodules some demonstrating a more grouped distribution and some that are more isolated, for example a group of pulmonary nodules in the right upper lobe largest measuring 7 mm (image 109 series 7), and a more isolated solid nodule in the anteromedial right lower lobe measuring 5 mm (image 255 series 7). There is a background of mild bronchial wall thickening with scattered intrabronchial mucous secretions. There is suggestion of mild cylindrical bronchiectasis in the right middle lobe and bilateral lower lobes. MEDIASTINUM: Normal heart size. No pericardial effusion. No mediastinal lymphadenopathy. Normal appearance of the thyroid gland. CORONARY ARTERY CALCIFICATION: Coronary artery calcifications are present. PLEURA: No pleural effusion or pneumothorax. AXILLA: Increased size of left-sided retropectoral high axillary lymph nodes measuring up to 8 mm in short axis, previously 5 mm (images 6 and 7, series 3). UPPER ABDOMEN: No significant abnormality in this limited noncontrast examination. OSSEOUS STRUCTURES: No acute or aggressive appearing osseous findings. CT/CT chest wo IV con IMPRESSION: Multiple bilateral pulmonary nodules that are new compared to most recent prior from 08/26/2022 with a combination of a grouped and isolated distribution as well as a background of mild bronchial wall thickening and possible early, subtle cylindrical bronchiectasis. Constellation of findings suggests an infectious/inflammatory process, although underlying malignancy cannot be excluded. According to the UPDATED 2017 Fleischner Society recommendations, the advised follow-up imaging for multiple solid nodules measuring up to 6-8 mm is follow-up CT at 3 to 6 months. Increased size of left-sided retropectoral axillary lymph nodes. Recommend correlation with physical examination and attention on follow-up in future CT chest. If the patient is due, dedicated breast imaging is advised.
== END 2023-08-03 10:33 | disposition home or self-care (01) ==
LOC: HO.CT 10:32
PROVIDERS: PCP Physician Assistant; Visit Provider Nurse Practitioner Family
DX: R91.1 Solitary pulmonary nodule (principal); Z91.89 Other specified personal risk factors, not elsewhere classified
CPT/HCPCS: 71250

== ENCOUNTER 2023-08-25 09:53 | Outpatient (AMB) | payer OTHER, SELFPAY ==
--- NOTE | 2023-08-25 10:24 | A.OFFVIS_ITS ---
Vital Signs 08/25/23 10:25 Height 5 ft 2 in Weight 176 lb BMI 32.2 Intake Visit Reasons: OV-Rt shoulder RTC repair 11/16/22 Intake Note: Janet is a 62 year old female who presents today for a post operative appointment s/p Right RTC Repair 11/16/22. Patient reports that her shoulder is feeling better, but it occasionally has a flair up of pain and weakness. She has concerns of left knee pain, which has been discussed in the past and surgical intervention was discussed but she did not want to proceed with this. She has been taking tramadol and meloxicam . Addidionally she has pain in the left hip/groin, but is unsure if her pain in the hip is felt from the knee. Allergies peanut Allergy (Severe, Verified 07/27/23 14:57) Anaphylaxis seafood Allergy (Severe, Verified 07/27/23 14:57) Anaphylaxis codeine [Codeine] Allergy (Intermediate, Verified 07/27/23 14:57) RASH/ITCHING tomato Allergy (Intermediate, Verified 07/27/23 14:57) Gastrointestinal Upset celecoxib [From Celebrex] Adverse Reaction (Intermediate, Verified 07/27/23 14:57) Palpitations ibuprofen [From Motrin] Adverse Reaction (Intermediate, Verified 07/27/23 14:57) Stomach pains levofloxacin [From Levaquin] Adverse Reaction (Intermediate, Verified 07/27/23 14:57) Nausea pravastatin Adverse Reaction (Intermediate, Verified 07/27/23 14:57) Muscle pain HPI HPI OV-Rt shoulder RTC repair 11/16/22: Details: Janet is doing well s/p RTC ~ 9 months ago. She continues to feel strong and stronger and her motion is improving with only mild limitations in terminal combined abduction. She also complains of left hip and knee pain. [facility] Medical History Plantar fasciitis of right foot Seafood allergy Frequent headaches Stress at work Obesity (BMI 30-39.9) Essential hypertension Plantar fasciitis, bilateral Impaired fasting glucose Irritable bowel syndrome with constipation Gastric ulcer Dyslipidemia Former smoker Degenerative disc disease, lumbar Vitamin D deficiency Vitamin B12 deficiency History of drug abuse Gastritis Peripheral neuropathy Osteoarthritis involving multiple joints on both sides of body Migraine ANKIT (obstructive sleep apnea) Surgical History History of esophagogastroduodenoscopy (EGD) Hx of colonoscopy History of right knee joint replacement History of partial hysterectomy Family History Father CKD (chronic kidney disease) Mother Alcoholism CVA (cerebral vascular accident), Onset Age: 54 Social History Housing: Apartment Are you a primary pediatric care coordinator to a significant other at home: No Do you presently have visiting nurse or other home services: No Alcohol intake: never Patient Tobacco Use Status: Former Tobacco user Tobacco use type: Cigarette Cigarette Packs Per Day: 1 Cigarettes Per Day: 20 Years Smoked: 30 yrs e-Cigarette/Vaping Use: Never Used Second Hand Smoke Exposure: No service: No Current occupational status: employed 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 Current occupational exposures/hazards: No Cognitive needs: No Hearing needs: No Vision needs: Yes Physical Exam Vital Signs: BMI result Body Mass Index 32.2 Const General: cooperative, healthy appearing, no acute distress and well groomed Orientation/consciousness: oriented to person and oriented to place HEENT Head: Yes normal to inspection, Yes normocephalic and Yes atraumatic Eyes General: appearance normal, both eyes and all related structures Alignment and Position: alignment normal Conjunctivae: conjunctivae normal EOM: EOMs intact bilaterally Neck Neck: Yes normal visual inspection and Yes trachea midline Resp Other: No rerpiratory distress Effort & Inspection: normal respiratory effort and able to speak in complete sentences GI Other: No abdominal distension Back/Spine/Pelvis Cervical Spine: normal cervical lordosis and cervical ROM normal Skin General skin exam: no rashes or lesions noted Neuro General: oriented to person, oriented to place and gait normal Extrem Other: Right shoulder with full ROM and no pain with EC testing Assessment & Plan Assessment & Plan (1) Status post right rotator cuff repair: Code(s): Z98.890 - Other specified postprocedural states Category: Surgical Plan: Janet is doing very well s/p right RTC repair. She should continue activity as toelrated. She describes some hip and knee pain that she would like to discuss in further detail. I recommend she return to see me to discuss her hips and knees and that, at that time, we can order xrays of her hips/knees. Coding Level of Care Code Est Pt Level 3 (51328) Diagnoses Status post right rotator cuff repair Z98.890
[2023-08-25 10:25] VITALS: BMI 32.2
== END 2023-08-25 10:54 | disposition home or self-care (01) ==
PROVIDERS: PCP Physician Assistant; Visit Provider Orthopaedic Surgery
DX: M75.101 Unspecified rotator cuff tear or rupture of right shoulder, not specified as traumatic (principal); Z98.890 Other specified postprocedural states
CPT/HCPCS: 99213

== ENCOUNTER → 2023-08-25 09:53 | Outpatient (BNVA) | payer OTHER, SELFPAY | PROVIDERS: PCP Physician Assistant; Visit Provider Orthopaedic Surgery | DX: Z98.890 Other specified postprocedural states (principal) | CPT/HCPCS: 99212 ==

== ENCOUNTER 2023-09-02 09:03 | Outpatient (REF) | payer OTHER, SELFPAY ==
--- NOTE | ~2023-09-02 | XR_ITS ---
EXAMINATION: XR PELVIS CLINICAL INFORMATION: History pain COMPARISON: None available. TECHNIQUE: AP view of the pelvis and one view of the left hip. FINDINGS: No acute fracture or dislocation. Dense subcentimeter sclerotic lesion in the left acetabulum and the absence of any underlying malignancy may reflect a bone island. Joint spaces are maintained. Soft tissues are unremarkable. XR/XR pelvis 1-2V IMPRESSION: 1. No acute fracture or dislocation. 2. Dense subcentimeter sclerotic lesion in the left acetabulum and the absence of any underlying malignancy may reflect a bone island.
== END 2023-09-02 09:04 | disposition home or self-care (01) ==
LOC: HO.HOSX 09:03
PROVIDERS: Visit Provider Orthopaedic Surgery
DX: M17.12 Unilateral primary osteoarthritis, left knee (principal); M25.552 Pain in left hip
CPT/HCPCS: 20610; 72170; 99212; J0665; J1100

== ENCOUNTER 2023-09-02 09:20 | Outpatient (AMB) | payer OTHER, SELFPAY ==
--- NOTE | 2023-09-02 09:23 | A.OFFVIS_ITS ---
Vital Signs 09/02/23 09:28 Height 5 ft 2 in Weight 175 lb BMI 32.0 Intake Visit Reasons: Newprob-Left hip -w/xrays-possible injection Intake Note: Janet is a 63 year old female who presents today from a new problem visit with complaints of left hip pain. Patient reports she has been having on going pain for 2 months in the anterior aspect of her hip. She expresses she has arthritis in her left knee and believes this is why she is now having hip pain. Her daughter in law helps her with her daily activities but when she is not around to help her she has to do most of her chores on her own and states this exacerbates her pain. Interested in an injection. Hx of Right TKA w/ DR in [place]. Hx of Right RTC Repair 11/16/22. Allergies peanut Allergy (Severe, Verified 09/02/23 09:47) Anaphylaxis seafood Allergy (Severe, Verified 09/02/23 09:47) Anaphylaxis codeine [Codeine] Allergy (Intermediate, Verified 09/02/23 09:47) RASH/ITCHING tomato Allergy (Intermediate, Verified 09/02/23 09:47) Gastrointestinal Upset celecoxib [From Celebrex] Adverse Reaction (Intermediate, Verified 09/02/23 09:47) Palpitations ibuprofen [From Motrin] Adverse Reaction (Intermediate, Verified 09/02/23 09:47) Stomach pains levofloxacin [From Levaquin] Adverse Reaction (Intermediate, Verified 09/02/23 09:47) Nausea pravastatin Adverse Reaction (Intermediate, Verified 09/02/23 09:47) Muscle pain HPI HPI Newprob-Left hip -w/xrays-possible injection: Details: Janet is a 63 year old female who presents today from a new problem visit with complaints of left hip pain. Patient reports she has been having on going pain for 2 months in the anterior aspect of her hip. She expresses she has arthritis in her left knee and believes this is why she is now having hip pain. Her daughter in law helps her with her daily activities but when she is not around to help her she has to do most of her chores on her own and states this exacerbates her pain. Interested in an injection. Hx of Right TKA w/ DR homero Petersen. Hx of Right RTC Repair 11/16/22. [facility] Medical History Plantar fasciitis of right foot Seafood allergy Frequent headaches Stress at work Obesity (BMI 30-39.9) Essential hypertension Plantar fasciitis, bilateral Impaired fasting glucose Irritable bowel syndrome with constipation Gastric ulcer Dyslipidemia Former smoker Degenerative disc disease, lumbar Vitamin D deficiency Vitamin B12 deficiency History of drug abuse Gastritis Peripheral neuropathy Osteoarthritis involving multiple joints on both sides of body Migraine ANKIT (obstructive sleep apnea) Surgical History History of esophagogastroduodenoscopy (EGD) Hx of colonoscopy History of right knee joint replacement History of partial hysterectomy Family History Father CKD (chronic kidney disease) Mother Alcoholism CVA (cerebral vascular accident), Onset Age: 54 Social History Housing: Apartment Are you a primary child care education coordinator to a significant other at home: No Do you presently have visiting nurse or other home services: No Alcohol intake: never Patient Tobacco Use Status: Former Tobacco user Tobacco use type: Cigarette Cigarette Packs Per Day: 1 Cigarettes Per Day: 20 Years Smoked: 30 yrs e-Cigarette/Vaping Use: Never Used Second Hand Smoke Exposure: No service: No Current occupational status: employed 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 TTP anterior and medially stable to v/s stress Office Procedures Joint Injection/Drain Joint Injection/Drain Details: Injected 1 mL of Decadron and 3 mL 1% lidocaine and 3 mL of 0.25% Marcaine. Site was prepped using aseptic technique. Patient tolerated the procedure well. Primary Site: left knee Approach Used: anterolateral Coding 86035 - Large joint Procedure code (CPT) selection complete Results Reviewed Results Reviewed: I personally reviewed relevant radiographs. nl AP pelivs. No hip OA Small subchondral cysts left knee Assessment & Plan Assessment & Plan (1) Localized osteoarthritis of left knee: Code(s): M17.12 - Unilateral primary osteoarthritis, left knee Category: Medical Plan: Injected left knee. Not interested in PT. Orders: Orders XR pelvis 1-2V Today M25.559 - Pain in unspecified hip Coding Level of Care Code Est Pt Level 3 (69506) Diagnoses Localized osteoarthritis of left knee M17.12 CPT Codes Coding - 60676 Large joint: 38664 - Large joint ([id number])
[2023-09-02 09:28] VITALS: BMI 32.0
== END 2023-09-02 10:22 | disposition home or self-care (01) ==
PROVIDERS: PCP Physician Assistant; Visit Provider Orthopaedic Surgery
DX: M17.12 Unilateral primary osteoarthritis, left knee (principal)
CPT/HCPCS: 20610; 99213

== ENCOUNTER 2023-09-06 11:22 | Outpatient (AMB) | payer OTHER, SELFPAY ==
--- NOTE | 2023-09-06 11:32 | A.OFFVIS_ITS ---
VS Expanded 09/06/23 11:33 Height 5 ft 2 in Weight 176 lb 12.972 oz BMI 32.3 Intake Visit Reasons: Hyperlipidemia/UNABLE TO LVM Allergies peanut Allergy (Severe, Verified 09/02/23 09:47) Anaphylaxis seafood Allergy (Severe, Verified 09/02/23 09:47) Anaphylaxis codeine [Codeine] Allergy (Intermediate, Verified 09/02/23 09:47) RASH/ITCHING tomato Allergy (Intermediate, Verified 09/02/23 09:47) Gastrointestinal Upset celecoxib [From Celebrex] Adverse Reaction (Intermediate, Verified 09/02/23 09:47) Palpitations ibuprofen [From Motrin] Adverse Reaction (Intermediate, Verified 09/02/23 09:47) Stomach pains levofloxacin [From Levaquin] Adverse Reaction (Intermediate, Verified 09/02/23 09:47) Nausea pravastatin Adverse Reaction (Intermediate, Verified 09/02/23 09:47) Muscle pain Nutrition Presentation Details: Pt presents for MNT f/u for dyilpidemia Pt reports gradual diet modifications BS Monitoring Most Recent Diabetes Results: No Data to Display [facility] Medical History Plantar fasciitis of right foot Seafood allergy Frequent headaches Stress at work Obesity (BMI 30-39.9) Essential hypertension Plantar fasciitis, bilateral Impaired fasting glucose Irritable bowel syndrome with constipation Gastric ulcer Dyslipidemia Former smoker Degenerative disc disease, lumbar Vitamin D deficiency Vitamin B12 deficiency History of drug abuse Gastritis Peripheral neuropathy Osteoarthritis involving multiple joints on both sides of body Migraine ANKIT (obstructive sleep apnea) Surgical History History of esophagogastroduodenoscopy (EGD) Hx of colonoscopy History of right knee joint replacement History of partial hysterectomy Family History Father CKD (chronic kidney disease) Mother Alcoholism CVA (cerebral vascular accident), Onset Age: 54 Social History Housing: Apartment Are you a primary healthcare science specialist to a significant other at home: No Do you presently have visiting nurse or other home services: No Alcohol intake: never Patient Tobacco Use Status: Former Tobacco user Tobacco use type: Cigarette Cigarette Packs Per Day: 1 Cigarettes Per Day: 20 Years Smoked: 30 yrs e-Cigarette/Vaping Use: Never Used Second Hand Smoke Exposure: No service: No Current occupational status: employed 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 [employer] Current occupational exposures/hazards: No Cognitive needs: No Hearing needs: No Vision needs: Yes Assessment & Plan Assessment & Plan (1) Hyperlipidemia: Code(s): E78.5 - Hyperlipidemia, unspecified Category: Medical Qualifiers: Hyperlipidemia type: mixed hyperlipidemia Qualified Code(s): E78.2 - Mixed hyperlipidemia Plan: Wt: 83 Kg ( 06/2023 ), 80 kg (07/2023), 80 kg (08/2023) Est kcal needs as per MSJ: 1600 (40% carb, 30% protein/fat) Est fluid needs as per 30 ml/d: 2500 Est prot per day as per 1 g/kg bw: 83 Recommend fiber intake : 8-10 g per day and gradually increase to 25-28 g per d ay for women and 35-38 g for men or as tolerated Recommend sodium intake per day : less than 1500 mg less than 2000 mg Educated patient on: ( R = reviewed V = verbalizes understanding N/R = needs review N/A = not applicable * Food sources of carbohydrate, adequate serving sizes and its role in various health conditions: R V N/R * Differences between complex carbohydrates a simple carbohydrates, role of fibe r in diet: R * Lean protein sources of foods: R V NR * Differences between types of fats and role in diet (mono on saturated fat fatty acids, saturated fatty acids, trans fats): R * Interpreting food labels: r, v (reducing sat'd fats) * Food sources of sodium in salt and healthy modifications for heart health in kidney health: R V R/V * Vitamins and minerals: R V N/R * Healthy plate method concept: R V N/R * Physical activity: Benefits a precaution: R Patient Instructions: Choose chicken thigh /breast vs wings , reducing on fat/calories Have an apple and night in place of crackers adding fiber to the diet Switch to sunflower butter in place of peanut butter (related to peanut butter allergy) Coding Level of Care Code Nutr Indiv Subseq (62506) Diagnoses Mixed hyperlipidemia E78.2 Hyperlipidemia type: mixed hyperlipidemia Time Spent (min) 25
[2023-09-06 11:33] VITALS: BMI 32.3
== END 2023-09-06 12:03 | disposition home or self-care (01) ==
PROVIDERS: PCP Physician Assistant; Visit Provider Dietitian, Registered
DX: E78.2 Mixed hyperlipidemia (principal)

== ENCOUNTER → 2023-09-06 11:22 | Outpatient (BNVA) | payer OTHER, SELFPAY | PROVIDERS: PCP Physician Assistant; Visit Provider Dietitian, Registered | DX: E66.9 Obesity, unspecified (principal); E78.2 Mixed hyperlipidemia; E53.8 Deficiency of other specified B group vitamins; E55.9 Vitamin D deficiency, unspecified; Z68.32 Body mass index [BMI] 32.0-32.9, adult; Z71.3 Dietary counseling and surveillance | CPT/HCPCS: 97803 ==

== ENCOUNTER 2023-09-14 08:44 | Outpatient (REF) | payer OTHER, SELFPAY ==
--- NOTE | ~2023-09-14 | CT_ITS ---
EXAMINATION: CT SCAN OF THE HEAD CT ANGIOGRAM HEAD CLINICAL INFORMATION: Acute episode of amnesia and confusion COMPARISON: None available. DLP: 2044.75 mGy-cm EXAMINATION: CT brain. FINDINGS: Ventricles, sulci and cisterns are normal for patient's age. There is no midline shift, no abnormal intra- or extra- axial fluid accumulation. Snyder and white matter differentiation is normal. Post contrast images show normal enhancement of major intracerebral blood vessels. No enhancing intracranial lesion or abnormal meningeal enhancement could be seen. Bone window images show no evidence of skull fracture. CT/CT angio head IMPRESSION: 1. 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 2. No intracranial hemorrhage or skull fracture is seen. 3. No evidence of space occupying or enhancing intracranial lesion could be found. 4. The current plain CT scan of the brain shows no diagnostic evidence of acute cerebral infarction. EXAMINATION: CT angiogram of brain. CLINICAL INFORMATION: Right cerebellar infarction. TECHNIQUE: CT angiogram of the brain was performed C7 following the administration of 75 mL of Omnipaque 350. Coronal and sagittal images were reconstructed from axial image data. 3-dimensional volumetric maximum intensity projection images in multiple planes were reconstructed on an independent workstation. This was performed under concurrent direct supervision and monitoring by radiologist. Reformatted maximum intensity projection angiographic images of the brain were reconstructed on an independent workstation. This CT examination was performed using dose optimization techniques as appropriate, variously including the following: *Automated exposure control *Adjustment of mA and/or kV according to patient size (this includes techniques or standardized protocols for targeted exams where dose is matched to indication/reason for exam; i.e. extremities or head) *Use of iterative reconstruction technique DLP: 2044.75 mGy-cm FINDINGS: There is normal visualization of bilateral anterior, middle and posterior cerebral arteries, internal carotid arteries, basilar artery and terminal portions of bilateral vertebral arteries. Anterior communicating artery is normal. Bilateral posterior communicating arteries are not well visualized. Bilateral superior cerebellar arteries are patent. P1 segment of right posterior cerebral artery is hypoplastic with P2 segment perfused by right posterior communicating artery, constituting a origin. Bilateral internal carotid siphons are smoothly patent. There is normal contrast filling of the cerebral venous sinuses. IMPRESSION: 1. origin of right posterior cerebral artery, represents normal variant. 2. No focal cerebral arterial lesion or significant arterial stenosis is seen.
[2023-09-14] MEDS: iohexoL 350 MG/ML 100 ML INFUS..BTL 75 ML IV (09:58)
[2023-09-14 12:07] LABS: GFR POC 58
== END 2023-09-14 08:45 | disposition home or self-care (01) ==
LOC: HO.CT 08:44
PROVIDERS: PCP Physician Assistant; Visit Provider Physician Assistant
DX: R41.0 Disorientation, unspecified (principal); R41.3 Other amnesia
CPT/HCPCS: 70496; 82565; Q9967

== ENCOUNTER 2023-09-20 12:58 | Outpatient (AMB) | payer OTHER, SELFPAY ==
[2023-09-20 13:15] VITALS: BP 110/68; PULSE 74; O2SAT 98; BMI 32.2
--- NOTE | 2023-09-20 13:15 | A.OFFVIS_ITS ---
Vital Signs 09/20/23 13:15 Height 5 ft 2 in Weight 176 lb 2 oz BMI 32.2 BP 110/68 Blood Pressure Location Lt brachial Position Sitting Pulse 74 Pulse Source Pulse Oximeter Pulse Oximetry (%) 98 Oxygen Delivery Method Room Air Intake Visit Reasons: dyspnea/ CT RESULTS Allergies peanut Allergy (Severe, Verified 09/20/23 13:19) Anaphylaxis seafood Allergy (Severe, Verified 09/20/23 13:19) Anaphylaxis codeine [Codeine] Allergy (Intermediate, Verified 09/20/23 13:19) RASH/ITCHING tomato Allergy (Intermediate, Verified 09/20/23 13:19) Gastrointestinal Upset celecoxib [From Celebrex] Adverse Reaction (Intermediate, Verified 09/20/23 13:19) Palpitations ibuprofen [From Motrin] Adverse Reaction (Intermediate, Verified 09/20/23 13:19) Stomach pains levofloxacin [From Levaquin] Adverse Reaction (Intermediate, Verified 09/20/23 13:19) Nausea pravastatin Adverse Reaction (Intermediate, Verified 09/20/23 13:19) Muscle pain HPI HPI dyspnea/ CT RESULTS: Details: Janet is a pleasant 63 year old female, former smoker, approximately 30 pack year history, quit 2017 with underlying asthma, severe obstructive sleep apnea not on CPAP and anxiety. At the last visit, she was placed on symbicort however discontinued after a short period as she was experiencing throat irritation. She continues to report dyspnea on moderate exertion, intermittent wheezing and dry cough. She has albuterol MDI/nebulizer with moderate relief of symptoms. Today she presents to review chest CT results. [facility] Medical History Plantar fasciitis of right foot Seafood allergy Frequent headaches Stress at work Obesity (BMI 30-39.9) Essential hypertension Plantar fasciitis, bilateral Impaired fasting glucose Irritable bowel syndrome with constipation Gastric ulcer Dyslipidemia Former smoker Degenerative disc disease, lumbar Vitamin D deficiency Vitamin B12 deficiency History of drug abuse Gastritis Peripheral neuropathy Osteoarthritis involving multiple joints on both sides of body Migraine ANKIT (obstructive sleep apnea) Surgical History History of esophagogastroduodenoscopy (EGD) Hx of colonoscopy History of right knee joint replacement History of partial hysterectomy Family History Father CKD (chronic kidney disease) Mother Alcoholism CVA (cerebral vascular accident), Onset Age: 54 Social History Housing: Apartment Are you a primary manager critical care to a significant other at home: No Do you presently have visiting nurse or other home services: No Alcohol intake: never Patient Tobacco Use Status: Former Tobacco user Tobacco use type: Cigarette Cigarette Packs Per Day: 1 Cigarettes Per Day: 20 Years Smoked: 30 yrs e-Cigarette/Vaping Use: Never Used Second Hand Smoke Exposure: No service: No Current occupational status: employed 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 Current occupational exposures/hazards: No Cognitive needs: No Hearing needs: No Vision needs: Yes Review of Systems Const Denies chills, Denies excessive sweating, Denies fever(s), Denies headache(s) and Denies night sweats Eyes Denies dry eyes, Denies irritation and Denies itchy eyes ENT Reports Normal hearing present, Denies headache(s), Denies nasal congestion, Denies nasal discharge, Denies post nasal drip and Denies sore throat Card Denies chest pain, Denies chest pain at rest, Denies chest pain with activity, Denies claudication, Denies leg edema, Denies orthopnea and Denies paroxysmal nocturnal dyspnea Resp Denies chest congestion, Denies excessive phlegm production, Denies pain on inspiration, Denies pain with cough and Denies stridor Musc Denies myalgias Neuro Reports Normal hearing present and Denies headache(s) Endo Denies excessive sweating Stefano/Lymph Denies lymphadenopathy Aller/Immun Denies itchy eyes and Denies seasonal rhinorrhea Physical Exam Vital Signs: Last Vital Signs Pulse 74 09/20/23 13:15 BP 110/68 09/20/23 13:15 Pulse Ox 98 09/20/23 13:15 Oxygen Delivery Method Room Air 09/20/23 13:15 BMI result Body Mass Index 32.2 Const General: cooperative, healthy appearing, comfortable, no acute distress, well developed and alert Orientation/consciousness: patient oriented x3 Limitations: no limitations HEENT Head: Yes normal to inspection, Yes normocephalic and Yes atraumatic Ears: hearing grossly normal bilaterally and external ears normal Eyes General: appearance normal, both eyes and all related structures Eyelids: Yes eyelids normal Sclerae: sclerae normal EOM: EOMs intact bilaterally Neck Neck: Yes normal visual inspection and Yes no lymphadenopathy Lymphatic: no lymphadenopathy noted Chest Chest palpation & inspection: normal inspection of the chest Resp Effort & Inspection: normal respiratory effort, able to speak in complete sentences, no audible wheezes, no cough, no stridor, not tachypneic, no tripod positioning and no use of accessory muscles Auscultation: clear to auscultation bilaterally Cardio Jugular venous distension: no JVD Rate: regular rate Rhythm: regular rhythm Skin Other: warm, dry General skin exam: no rashes or lesions noted Neuro General: patient oriented x3 Cranial nerves: Yes Normal hearing present Cognition (Neuro): normal cognition Gait exam (Neuro): Normal gait present Extrem General: Yes normal to inspection, Yes capillary refill normal, Yes no clubbing, cyanosis or edema and Yes no pedal edema Psych Appearance: grossly normal and well kempt Speech and movement: Normal speech and movement present and Clear speech present Affect: normal affect Attitude: cooperative Thought process: Normal thought process present Thought content: Normal thought content present Insight: Good insight present (Psych) Judgement: Good judgement present (Psych) Results Reviewed Results Reviewed: [address] [address] [address] Scan Report Signed Patient: Janet Ramos MR#: [id number] : 1960 Acct:[id number] Age/Sex: 63 / F ADM Date: 08/03/23 Loc: HO.CT Attending Dr: Josephine Antonio NP Ordering Physician: Josephine Antonio NP Date of Service: 08/03/23 Procedure(s): CT chest wo IV con Accession Number(s): [id number] cc: Feliciano Corey PA-C; Josephine Antonio NP~ EXAMINATION: CT CHEST WITHOUT CONTRAST CLINICAL INFORMATION: Follow up pulmonary nodule. COMPARISON: CT chest 08/26/2022. TECHNIQUE: Multidetector volumetric CT imaging of the chest was done. Axial MIP volume rendering provided. Sagittal and coronal reformatted images were obtained. This CT examination was performed using dose optimization techniques as appropriate, variously including the following: *Automated exposure control *Adjustment of mA and/or kV according to patient size (this includes techniques or standardized protocols for targeted exams where dose is matched to indication/reason for exam; i.e. extremities or head) *Use of iterative reconstruction technique DLP: 175 mGy-cm FINDINGS: LUNGS: Multiple new bilateral solid pulmonary nodules some demonstrating a more grouped distribution and some that are more isolated, for example a group of pulmonary nodules in the right upper lobe largest measuring 7 mm (image 109 series 7), and a more isolated solid nodule in the anteromedial right lower lobe measuring 5 mm (image 255 series 7). There is a background of mild bronchial wall thickening with scattered intrabronchial mucous secretions. There is suggestion of mild cylindrical bronchiectasis in the right middle lobe and bilateral lower lobes. MEDIASTINUM: Normal heart size. No pericardial effusion. No mediastinal lymphadenopathy. Normal appearance of the thyroid gland. CORONARY ARTERY CALCIFICATION: Coronary artery calcifications are present. PLEURA: No pleural effusion or pneumothorax. AXILLA: Increased size of left-sided retropectoral high axillary lymph nodes measuring up to 8 mm in short axis, previously 5 mm (images 6 and 7, series 3). UPPER ABDOMEN: No significant abnormality in this limited noncontrast examination. OSSEOUS STRUCTURES: No acute or aggressive appearing osseous findings. CT/CT chest wo IV con IMPRESSION: Multiple bilateral pulmonary nodules that are new compared to most recent prior from 08/26/2022 with a combination of a grouped and isolated distribution as well as a background of mild bronchial wall thickening and possible early, subtle cylindrical bronchiectasis. Constellation of findings suggests an infectious/inflammatory process, although underlying malignancy cannot be excluded. According to the UPDATED 2017 Fleischner Society recommendations, the advised follow-up imaging for multiple solid nodules measuring up to 6-8 mm is follow-up CT at 3 to 6 months. Increased size of left-sided retropectoral axillary lymph nodes. Recommend correlation with physical examination and attention on follow-up in future CT chest. If the patient is due, dedicated breast imaging is advised. Dictated By: Mercedes Fernandez Signed By: <Electronically signed by Mercedes Fernandez in [place]> 09/12/23 1602 DD/ 1055 TD/TT: Net Making Supervisor: Assessment & Plan Assessment & Plan (1) Asthma: Code(s): J45.909 - Unspecified asthma, uncomplicated Category: Medical Qualifiers: Asthma severity: mild Asthma persistence: intermittent Asthma complication type: uncomplicated Qualified Code(s): J45.20 - Mild intermittent asthma, uncomplicated (2) Pulmonary nodule less than 1 cm in diameter with moderate to high risk for malignant neoplasm: Code(s): R91.1 - Solitary pulmonary nodule; Z91.89 - Other specified personal risk factors, not elsewhere classified Category: Medical (3) ANKIT (obstructive sleep apnea): Code(s): G47.33 - Obstructive sleep apnea (adult) (pediatric) Category: Medical (4) 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 There was also note of left retropectoral axillary lymph node, increasing in size from 5 mm to 8mm. Patient has noted discomfort in this area over the last few months. Reviewed the images with patient as well as recommendations for a follow up chest CT in 3 months. Given that this CT is from 07/2023 will put order in for October 2023. Notified PCP of incidental finding of the increased lymph node. Of note, last mammogram from 05/2023 unremarkable. In regards to dyspnea, wheezing and chest tightness, will trial wixela in addition to albuterol PRN. Reviewed importance of good oral hygiene. Will follow up to review chest CT and response to inhaler, or sooner if needed. All questions were answered and patient is in agreement of plan. Medications: New fluticasone propion-salmeterol 250-50 mcg/dose (Wixela Inhub) 1 inh inhalation Q12H 60 ea 6RF Refilled 2 albuterol sulfate 90 mcg/actuation 1 inh inhalation QID 30 days PRN 8.5 grams 3RF shortness of breath or wheezing J45.909 - Unspecified asthma, uncomplicated Coding Level of Care Code Est Pt Level 4 (49735) Diagnoses Mild intermittent asthma without complication J45.20 Asthma severity: mild Asthma persistence: intermittent Asthma complication type: uncomplicated Pulmonary nodule less than 1 cm in diameter with moderate to high risk for malignant neoplasm R91.1; Z91.89 ANKIT (obstructive sleep apnea) G47.33 Retrognathia M26.19
== END 2023-09-20 14:00 | disposition home or self-care (01) ==
PROVIDERS: PCP Physician Assistant; Visit Provider Nurse Practitioner Family
DX: J45.20 Mild intermittent asthma, uncomplicated (principal); R91.1 Solitary pulmonary nodule; Z91.89 Other specified personal risk factors, not elsewhere classified; G47.33 Obstructive sleep apnea (adult) (pediatric); M26.19 Other specified anomalies of jaw-cranial base relationship
CPT/HCPCS: 99214

== ENCOUNTER → 2023-09-20 12:58 | Outpatient (BNVA) | payer OTHER, SELFPAY | PROVIDERS: PCP Physician Assistant; Visit Provider Nurse Practitioner Family | DX: J45.20 Mild intermittent asthma, uncomplicated (principal); R91.1 Solitary pulmonary nodule; G47.33 Obstructive sleep apnea (adult) (pediatric); M26.19 Other specified anomalies of jaw-cranial base relationship; Z91.89 Other specified personal risk factors, not elsewhere classified; Z87.891 Personal history of nicotine dependence | CPT/HCPCS: 99212 ==

== ENCOUNTER 2023-10-11 12:28 | Outpatient (REF) | payer OTHER, SELFPAY | END 2023-10-11 12:29 | disposition home or self-care (01) | LOC: HO.MAMMO 12:28 | PROVIDERS: PCP Physician Assistant; Visit Provider Physician Assistant | DX: Z13.89 Encounter for screening for other disorder (principal) ==

== ENCOUNTER 2023-10-20 09:29 | Outpatient (AMB) | payer OTHER, SELFPAY ==
[2023-10-20 09:34] VITALS: BMI 32.2
--- NOTE | 2023-10-20 09:34 | A.OFFVIS_ITS ---
Vital Signs 10/20/23 09:34 Height 5 ft 2 in Weight 176 lb BMI 32.2 Intake Visit Reasons: OV- Left Hip severe pain Intake Note: Janet is a 63 year old female who presents today for a follow up of her left hip pain. Patient reports that her pain has increased significantly and is impacting her AODL. She has pain at all times, worse when weight bearing. Patient reports that she is feeling exremely anxious Allergies peanut Allergy (Severe, Verified 09/20/23 13:19) Anaphylaxis seafood Allergy (Severe, Verified 09/20/23 13:19) Anaphylaxis codeine [Codeine] Allergy (Intermediate, Verified 09/20/23 13:19) RASH/ITCHING tomato Allergy (Intermediate, Verified 09/20/23 13:19) Gastrointestinal Upset celecoxib [From Celebrex] Adverse Reaction (Intermediate, Verified 09/20/23 13:19) Palpitations ibuprofen [From Motrin] Adverse Reaction (Intermediate, Verified 09/20/23 13:19) Stomach pains levofloxacin [From Levaquin] Adverse Reaction (Intermediate, Verified 09/20/23 13:19) Nausea pravastatin Adverse Reaction (Intermediate, Verified 09/20/23 13:19) Muscle pain HPI HPI OV- Left Hip severe pain: Details: Janet is a 63 year old female who presents today for a follow up of her left hip pain. Patient reports that her pain has increased significantly and is impacting her AODL. She has pain at all times, worse when weight bearing. Her pain is lateral left hip PFSH Medical History Plantar fasciitis of right foot Seafood allergy Frequent headaches Stress at work Obesity (BMI 30-39.9) Essential hypertension Plantar fasciitis, bilateral Impaired fasting glucose Irritable bowel syndrome with constipation Gastric ulcer Dyslipidemia Former smoker Degenerative disc disease, lumbar Vitamin D deficiency Vitamin B12 deficiency History of drug abuse Gastritis Peripheral neuropathy Osteoarthritis involving multiple joints on both sides of body Migraine ANKIT (obstructive sleep apnea) Surgical History History of esophagogastroduodenoscopy (EGD) Hx of colonoscopy History of right knee joint replacement History of partial hysterectomy Family History Father CKD (chronic kidney disease) Mother Alcoholism CVA (cerebral vascular accident), Onset Age: 54 Social History Housing: Apartment Are you a primary healthcare market consultant to a significant other at home: No Do you presently have visiting nurse or other home services: No Alcohol intake: never Patient Tobacco Use Status: Former Tobacco user Tobacco use type: Cigarette Cigarette Packs Per Day: 1 Cigarettes Per Day: 20 Years Smoked: 30 yrs e-Cigarette/Vaping Use: Never Used Second Hand Smoke Exposure: No service: No Current occupational status: employed 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 No groin pain with hip Office Procedures Joint Injection/Aspiration Joint Injection/Aspiration Details: Injected 1 mL of Decadron and 3 mL 1% lidocaine and 3 mL of 0.25% Marcaine. Site was prepped using aseptic technique. Patient tolerated the procedure well. Primary Site: other (Left greater trochanter) Approach Used: posterolateral Coding 03658 - Large joint Procedure code (CPT) selection complete Results Reviewed Results Reviewed: No significant hip osteoarthritis Assessment & Plan Assessment & Plan (1) Greater trochanteric bursitis of left hip: Code(s): M70.62 - Trochanteric bursitis, left hip Category: Medical Plan: Left hip bursitis. I injected her left hip. I discussed further treatment options. She can follow up p.r.n. if she would like and I think the next step would be physical therapy. Coding Level of Care Code Est Pt Level 3 (28164) Diagnoses Greater trochanteric bursitis of left hip M70.62 CPT Codes Coding - Large joint: 36480 - Large joint ([id number])
== END 2023-10-20 10:38 | disposition home or self-care (01) ==
PROVIDERS: PCP Physician Assistant; Visit Provider Orthopaedic Surgery
DX: M70.62 Trochanteric bursitis, left hip (principal)
CPT/HCPCS: 20610; 99213

== ENCOUNTER → 2023-10-20 09:29 | Outpatient (BNVA) | payer OTHER, SELFPAY | PROVIDERS: PCP Physician Assistant; Visit Provider Orthopaedic Surgery | DX: M70.62 Trochanteric bursitis, left hip (principal) | CPT/HCPCS: 20610; 99212; J0665; J1100 ==

== ENCOUNTER 2023-11-03 08:01 | Outpatient (REF) | payer OTHER, SELFPAY ==
[2023-11-03 08:25] LABS: Hematocrit 38.8 % (37.0-47.0); Hemoglobin 12.6 g/dl (12.0-16.0); Mean Corpuscular HGB Conc 32.5 g/dl (31.0-35.0); Mean Corpuscular Hemoglobin 29.5 pg (27.0-33.0); Mean Corpuscular Volume 90.9 fL (80.0-98.0); Mean Platelet Volume 10.4 fL (9.4-12.3); Platelet Count 319 X10*3/uL (160-400); Red Blood Count 4.27 X10*6/uL (4.20-5.50); Red Cell Distribution Width 13.4 % (11.0-16.0); White Blood Count 8.3 X10*3/uL (4.8-10.8)
[2023-11-03 08:29] LABS: Estimated Average Glucose 117 mg/dL; Hemoglobin A1c % 5.7 % (<6.0)
[2023-11-03 09:08] LABS: Alanine Aminotransferase 12 U/L (0-31); Albumin Level 4.2 g/dL (3.5-5.0); Alkaline Phosphatase 112 U/L (39-117); Anion Gap 14 (12-20); Aspartate Amino Transferase 14 U/L (5-31); Bilirubin Total 0.3 mg/dL (0.0-1.0); Blood Urea Nitrogen 14 mg/dL (9-16); Calcium 9.9 mg/dL (8.4-10.2); Carbon Dioxide 26 mmol/L (22-29); Chloride 106 mmol/L (96-108); Cholesterol 203 mg/dL (<200); Estimated Glomerular Filt Rate 58; Glucose Fasting 112 mg/dL (60-99); HDL Cholesterol 57 mg/dL (>40); LDL Cholesterol Calculated 127 mg/dL (<100); Potassium 3.9 mmol/L (3.3-5.1); Sodium 142 mmol/L (135-145); Total Protein 7.3 g/dL (6.5-8.0); Triglycerides 97 mg/dL (<150)
[2023-11-03 09:17] LABS: Vitamin D 25-OH Total 48.5 ng/mL (>30)
== END 2023-11-03 08:02 | disposition home or self-care (01) ==
LOC: HO.LAB 08:01
PROVIDERS: PCP Physician Assistant; Visit Provider Physician Assistant
DX: J45.20 Mild intermittent asthma, uncomplicated (principal); E55.9 Vitamin D deficiency, unspecified; R09.89 Other specified symptoms and signs involving the circulatory and respiratory systems; E78.5 Hyperlipidemia, unspecified; R73.01 Impaired fasting glucose; I10 Essential (primary) hypertension
CPT/HCPCS: 36415; 80053; 80061; 82306; 83036; 85027

== ENCOUNTER 2023-11-29 | Outpatient (REF) | payer OTHER, SELFPAY | END 2023-11-29 00:01 | disposition home or self-care (01) | LOC: CF | PROVIDERS: PCP Physician Assistant; Visit Provider Physician Assistant | DX: R91.1 Solitary pulmonary nodule (principal); J45.20 Mild intermittent asthma, uncomplicated; R73.01 Impaired fasting glucose; Z91.89 Other specified personal risk factors, not elsewhere classified | CPT/HCPCS: 99212 ==

== ENCOUNTER 2023-11-29 11:23 | Outpatient (AMB) | payer OTHER, SELFPAY ==
[2023-11-29 11:48] VITALS: BP 160/100; PULSE 125; O2SAT 95; BMI 31.5
--- NOTE | 2023-11-29 11:48 | MHC.PC.OV ---
Vital Signs 11/29/23 11:48 11/29/23 12:19 Height 5 ft 2 in Weight 172 lb 2 oz BMI 31.5 BP 160/100 H 138/90 H Blood Pressure Location Lt brachial Position Sitting Pulse 125 H Pulse Source Pulse Oximeter Pulse Oximetry (%) 95 Oxygen Delivery Method Room Air Intake Visit Reasons: f/u HLD Supervisor Motor Vehicle Assembly Required: No Accompanied by: Self / Same As Patient Allergies peanut Allergy (Severe, Verified 11/29/23 12:03) Anaphylaxis seafood Allergy (Severe, Verified 11/29/23 12:03) Anaphylaxis codeine [Codeine] Allergy (Intermediate, Verified 11/29/23 12:03) RASH/ITCHING tomato Allergy (Intermediate, Verified 11/29/23 12:03) Gastrointestinal Upset celecoxib [From Celebrex] Adverse Reaction (Intermediate, Verified 11/29/23 12:03) Palpitations ibuprofen [From Motrin] Adverse Reaction (Intermediate, Verified 11/29/23 12:03) Stomach pains levofloxacin [From Levaquin] Adverse Reaction (Intermediate, Verified 11/29/23 12:03) Nausea pravastatin Adverse Reaction (Intermediate, Verified 11/29/23 12:03) Muscle pain Medication List - Last Reconciled 11/29/23 by Feliciano Corey PA-C albuterol sulfate 90 mcg/actuation 1 inh inhalation QID PRN 30 days amlodipine 10 mg PO DAILY 90 days blood pressure test kit-medium As directed cholecalciferol (vitamin D3) (Vitamin D3) 25 mcg PO DAILY COVID-19 antigen test (BinaxNOW COVID-19 Ag Self Test kit) As directed cyanocobalamin (vitamin B-12) 1,000 mcg PO DAILY diclofenac sodium 1% (Arthritis Pain (diclofenac)) 2 grams topical QID 30 days diphenhydramine HCl (Benadryl Allergy) 25 mg PO BEDTIME 10 days fluticasone propion-salmeterol 250-50 mcg/dose (Wixela Inhub) 1 inh inhalation Q12H lorazepam 0.5 mg PO BEDTIME meclizine 25 mg PO BID PRN 10 days meloxicam 15 mg PO DAILY 30 days miscellaneous medical supply (Blood Pressure Cuff) As directed ondansetron 4 mg PO Q8H PRN pantoprazole 40 mg PO BID 90 days [pulse oximeter As directed] rosuvastatin 5 mg PO 3XW [Self Adhesive Electrode AGF-101 As directed NS] sertraline 25 mg PO DAILY sucralfate 1 g PO BID 30 days tramadol 50 mg PO BID PRN 7 days [wedge pillow As directed] Tobacco use date assessed: 03/22/23 Dental Screening Dental Screen Date: 04/27/23 HPI f/u HLD HPI Details Patient is a 63-year-old female here today for follow-up visit. Patient has a past medical history significant for hypertension, asthma, anxiety depression, GERD. s/p Right shoulder surgery: Has done physical therapy. She has better range of motion in her right shoulder. She has much less pain was well per . Pulmonary nodules: Patient a previous smoker. CT chest in 2022 showing--> Nonspecific, noncalcified 4 mm and 2 mm nodules are seen within the superior segment of the left lower lobe.. Patient is followed with annual chest CTs for pulmonary nodules. Which she also has nocturnal hypoxemia to which requires supplemental oxygen overnight. Also needs a wedge pillow to help prop her up during sleep He is requesting a 2nd opinion from a new neurologist .. Hyperlipidemia: Continues with statin therapy and a every other day basis. Most recent lipid panel showing appropriate total cholesterol and LDL. Hypertension: Patient's blood pressure very elevated today in office, she is under some emotional distress due to recently losing her brother.. Continues with amlodipine 10 mg. Laboratory Tests 03/09/23 05/04/23 11/03/23 11:06 08:25 08:15 RBC 4.32 Hgb 12.6 Creatinine 0.82 Fasting Glucose 100 H 112 H Hemoglobin A1c % 5.7 Cholesterol 205 H 203 H LDL Cholesterol, C alc 124 H PFSH Medical History Plantar fasciitis of right foot Seafood allergy Frequent headaches Stress at work Obesity (BMI 30-39.9) Essential hypertension Plantar fasciitis, bilateral Impaired fasting glucose Irritable bowel syndrome with constipation Gastric ulcer Dyslipidemia Former smoker Degenerative disc disease, lumbar Vitamin D deficiency Vitamin B12 deficiency History of drug abuse Gastritis Peripheral neuropathy Osteoarthritis involving multiple joints on both sides of body Migraine ANKIT (obstructive sleep apnea) Surgical History History of esophagogastroduodenoscopy (EGD) Hx of colonoscopy History of right knee joint replacement History of partial hysterectomy Family History Father CKD (chronic kidney disease) Mother Alcoholism CVA (cerebral vascular accident), Onset Age: 54 Social History Housing: Apartment Are you a primary home care specialist to a significant other at home: No Do you presently have visiting nurse or other home services: No Alcohol intake: never Patient Tobacco Use Status: Former Tobacco user Tobacco use type: Cigarette Cigarette Packs Per Day: 1 Cigarettes Per Day: 20 Years Smoked: 30 yrs e-Cigarette/Vaping Use: Never Used Second Hand Smoke Exposure: No service: No Current occupational status: employed 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 Josué Feldman, Shari Luo, Lenny Barnes and colleagues, with an educational nino from [employer]. Review of Systems Const Denies headache(s) Eyes Denies loss of vision ENT Denies vertigo, Denies dizziness, Denies headache(s) and Denies sore throat Card Denies chest pain, Denies leg edema and Denies lightheadedness Resp Denies cough, Denies hemoptysis and Denies wheezing GI Denies abdominal pain, Denies melena, Denies constipation, Denies diarrhea and Denies vomiting Denies urinary frequency, Denies dysuria and Denies urinary urgency Musc Denies arthralgias, Denies joint swelling, Denies numbness and Denies tingling Neuro Denies Abnormal speech present, Denies behavioral changes, Denies vertigo, Denies dizziness, Denies headache(s), Denies loss of vision, Denies memory loss, Denies numbness and Denies tingling Psych Denies anxiety, Denies behavioral changes, Denies depression, Denies memory loss and Denies panic attacks Stefano/Lymph Denies easy bleeding and Denies easy bruising Aller/Immun Denies wheezing Physical exam (Primary Care) Vital Signs: Last Vital Signs Pulse 125 H 11/29/23 11:48 BP 138/90 H 11/29/23 12:19 Pulse Ox 95 11/29/23 11:48 Oxygen Delivery Method Room Air 11/29/23 11:48 BMI result Body Mass Index 31.5 Tobacco/Smoking Status: Tobacco use Status Tobacco use date assessed 03/22/23 11/29/23 11:54 Patient Tobacco Use Status Former Tobacco user 11/29/23 11:54 Tobacco use type Cigarette 11/29/23 11:54 e-Cigarette/Vaping Use Never Used 11/29/23 11:54 Thrive Assessment: Date of Thrive Assessment Date Thrive assessed 03/22/23 11/29/23 11:54 Const General: healthy appearing, no acute distress, alert and awake Nutritional Appearance: well nourished Orientation/consciousness: oriented to person, oriented to place and oriented to time HENMT Ears: TM's normal bilaterally General nose exam: Normal nasal mucous membranes and turbinates present Eyes Conjunctivae: conjunctivae normal Sclerae: sclerae normal Pupils: Equal, round and reactive pupils present Neck Neck: Yes no lymphadenopathy and Yes no JVD Thyroid: Thyroid normal Carotids: no bruits Resp Effort & Inspection: normal respiratory effort and not tachypneic Auscultation: no crackles, no rales, no rhonchi and no wheezes Cardio Rate: regular rate Rhythm: regular rhythm Heart sounds: no murmurs and normal S1 and S2 GI Palpation (GI): Soft to palpation, nontender, no hepatomegaly and no splenomegaly Auscultation: normal bowel sounds Skin General skin exam: no rashes or lesions noted and dry skin Neuro General: oriented to person, oriented to place and oriented to time Cranial nerves: Yes Equal, round and reactive pupils present Speech: No Abnormal speech present Gait exam (Neuro): Normal gait present Motor exam (neuro): no tremor noted Extrem Right upper extremity: full ROM Left upper extremity: full ROM Right lower extremity: full ROM; no edema Left lower extremity: full ROM; no edema Psych Mental Status: mental status grossly normal Speech and movement: Normal speech and movement present Affect: normal affect Attitude: cooperative Thought process: Normal thought process present Assessment and Plan Assessment & Plan (1) Essential hypertension: Code(s): I10 - Essential (primary) hypertension Plan: Patient's blood pressure slightly elevated today in office likely due to her emotional distress she is in that this time due to her recent passing of her brother. Will continue her current antihypertensive medication with goal blood pressure to remain below 140/90. (2) Dyslipidemia: Code(s): E78.5 - Hyperlipidemia, unspecified Plan: Most recent lipid panel showing borderline high total cholesterol.. She is now seeing a dietitian and working on dietary modifications. She continues to use rosuvastatin 5 mg 3 times a week. She does use cholesterol medication never other day basis. Goal LDL to remain below 130 (3) Asthma: Code(s): J45.909 - Unspecified asthma, uncomplicated Qualifiers: Asthma complication type: uncomplicated Asthma persistence: intermittent Asthma severity: mild Qualified Code(s): J45.20 - Mild intermittent asthma, uncomplicated Plan: Patient reports her asthma has been fairly well controlled with p.r.n. use of her albuterol inhaler. Does pulmonary nodule though be followed on annual basis. Needs repeat CT scan and chest to evaluate her nodules. (4) Impaired fasting glucose: Code(s): R73.01 - Impaired fasting glucose Plan: Most recent fasting blood sugar 112 and A1c of 5.7. She will continue working on lifestyle and dietary modification (5) Pulmonary nodule less than 1 cm in diameter with moderate to high risk for malignant neoplasm: Code(s): R91.1 - Solitary pulmonary nodule; Z91.89 - Other specified personal risk factors, not elsewhere classified Plan: As per HPI patient does have lung nodule that will be followed by serial CT scans. She does have pulmonology was following her though she is requesting to see a new pulmonology provider. Will place in 2nd opinion for Dr. Plunkett Orders: Orders Lipid Panel Today E78.2 - Mixed hyperlipidemia Complete Blood Count no Diff Today E78.2 - Mixed hyperlipidemia Comprehensive Gordon. Panel Fast Today E78.2 - Mixed hyperlipidemia Referrals Pulmonology Referral J45.20 - Mild intermittent asthma, uncomplicated, R91.1 - Solitary pulmonary nodule, Z91.89 - Other specified personal risk factors, not elsewhere classified Medications: New Shower Chair As directed 1 ea 0RF M51.36 - Other intervertebral disc degeneration, lumbar region Refilled albuterol sulfate 90 mcg/actuation 1 inh inhalation QID 30 days PRN 8.5 grams 3RF shortness of breath or wheezing J45.909 - Unspecified asthma, uncomplicated amlodipine 10 mg PO DAILY 90 days 90 tabs 1RF I10 - Essential (primary) hypertension fluticasone propion-salmeterol 250-50 mcg/dose (Wixela Inhub) 1 inh inhalation Q12H 60 ea 6RF [wedge pillow] As directed 1 ea 0RF G47.30 - Sleep apnea, unspecified, K21.9 - Gastro-esophageal reflux disease without esophagitis cyanocobalamin (vitamin B-12) 1,000 mcg PO DAILY 90 tabs 1RF E53.8 - Deficiency of other specified B group vitamins meclizine 25 mg PO BID 10 days PRN 20 tabs 0RF dizziness R42 - Dizziness and giddiness sertraline 25 mg PO DAILY 30 tabs 3RF F41.1 - Generalized anxiety disorder Coding Level of Care Code Est Pt Level 4 (49648) Diagnoses Essential hypertension I10 Dyslipidemia E78.5 Mild intermittent asthma without complication J45.20 Asthma complication type: uncomplicated Asthma persistence: intermittent Asthma severity: mild Impaired fasting glucose R73.01 Pulmonary nodule less than 1 cm in diameter with moderate to high risk for malignant neoplasm R91.1; Z91.89
[2023-11-29 12:19] VITALS: BP 138/90
== END 2023-11-29 12:29 | disposition home or self-care (01) ==
PROVIDERS: PCP Physician Assistant; Visit Provider Physician Assistant
DX: I10 Essential (primary) hypertension (principal); E78.5 Hyperlipidemia, unspecified; J45.20 Mild intermittent asthma, uncomplicated; R73.01 Impaired fasting glucose; R91.1 Solitary pulmonary nodule; Z91.89 Other specified personal risk factors, not elsewhere classified

== ENCOUNTER 2023-12-22 09:10 | Outpatient (AMB) | payer OTHER, SELFPAY ==
--- NOTE | 2023-12-22 09:14 | A.OFFVIS_ITS ---
Intake Visit Reasons: follow up /med review Intake Note: Patient follow up for abdominal pain and US results. Patient cc: N/V on and off, abdominal pain, GERD with burning sensation come and go. 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 Allergies peanut Allergy (Severe, Verified 12/22/23 09:13) Anaphylaxis seafood Allergy (Severe, Verified 12/22/23 09:13) Anaphylaxis codeine [Codeine] Allergy (Intermediate, Verified 12/22/23 09:13) RASH/ITCHING tomato Allergy (Intermediate, Verified 12/22/23 09:13) Gastrointestinal Upset celecoxib [From Celebrex] Adverse Reaction (Intermediate, Verified 12/22/23 09:13) Palpitations ibuprofen [From Motrin] Adverse Reaction (Intermediate, Verified 12/22/23 09:13) Stomach pains levofloxacin [From Levaquin] Adverse Reaction (Intermediate, Verified 12/22/23 09:13) Nausea pravastatin Adverse Reaction (Intermediate, Verified 12/22/23 09:13) Muscle pain Medication List - Last Reconciled 12/22/23 by Eleonora Londono MD albuterol sulfate 90 mcg/actuation 1 inh inhalation QID PRN 30 days amlodipine 10 mg PO DAILY 90 days blood pressure test kit-medium As directed cholecalciferol (vitamin D3) (Vitamin D3) 25 mcg PO DAILY COVID-19 antigen test (BinaxNOW COVID-19 Ag Self Test kit) As directed cyanocobalamin (vitamin B-12) 1,000 mcg PO DAILY diclofenac sodium 1% (Arthritis Pain (diclofenac)) 2 grams topical QID 30 days diphenhydramine HCl (Benadryl Allergy) 25 mg PO BEDTIME 10 days fluticasone propion-salmeterol 250-50 mcg/dose (Wixela Inhub) 1 inh inhalation Q12H lorazepam 0.5 mg PO BEDTIME meclizine 25 mg PO BID PRN 10 days meloxicam 15 mg PO DAILY 30 days miscellaneous medical supply (Blood Pressure Cuff) As directed ondansetron 4 mg PO Q8H PRN pantoprazole 40 mg PO BID 90 days [pulse oximeter As directed] rosuvastatin 5 mg PO 3XW [Self Adhesive Electrode [id number] As directed NS] sertraline 25 mg PO DAILY Shower Chair As directed sucralfate 1 g PO BID 30 days tramadol 50 mg PO BID PRN 7 days [wedge pillow As directed] HPI HPI follow up /med review: Details: TELEMEDICINE VISIT FOR THIS 63 -YEAR-OLD FEMALE REFERRED FOR COLON CANCER SCREENING TO SCHEDULE A COLONOSCOPY AND FOR FU OF HEARTBURN AND NAUSEA; CHRONIC ILLNESSES:? ASTHMA, MIGRIANES, DEPRESSION - H/0 SUICIDALITY OVER DOSE - DOES THERAPY WEEKLY WITH DR. HOWARD AT [facility], ANXIETY, RT LUNG NODULE, RIGHT HIP AND LEFT KNEE OA, MEMORY LOSS, GASTRITIS, H/O BACK PAIN, H/O DRUG USE - CLEAN FOR MANY YEARS, GERD ?TODAY'S VISIT Patient follow up for abdominal pain and US results. Patient cc: N/V on and off, abdominal pain, GERD with burning sensation come and go. Trying to eat healthy and lost some weight - 172 Younger brother at age 56 (on his BD) 2 weeks - hospitalized at [facility] with MRSA and of heart failure and still grieving (waiting for the autopsy report) Has been watching what she eats - does not eat foods which is going to cause nausea or make her sick. Takes Pantoprazole and sucralfate - has intermittent nausea and vomiting Tries not to eat late at night. Drinking more water and eating less cheese. Taking quinoa instead of rice Takes Lorazepam 0.5 mg at bedtime and dose was increased to 1 mg. PAST VISIT: If she eats a whole meal, she will have abdominal pain - can get sick. Eats a small portion - thinks her metabolism is slow and is not very active. Denies constipation. Has 2-3 loose BMs a day - soft and not hard Occasional constipation followed by passage of hard stools. Patient cc: abdominal bloating and still with pain in her right after procedure. Denies any other GI issues. EGD and Colon results reviewed with the patient. I am not feeling good. Having nausea yesterday - took 3 tab of dulcolax and went 8 times It was a big mess Has nausea and having some stomach ache Pantoprazole is not helping and does not have Zofran. Avoids red meat and sauces Scheduled EGD and Colon twice and had to cancel since her ride got COVID infection. Having constipation for the past month Had dinner at 8 pm - rice, salad, shrimp and octupus.. Had not eaten octopus in several yrs.? Able to drink tiny sips. Also noted a burning sensation. Denies facial swelling and had to sit up straight to see if food would go down. became anxious and noted ? shortness of breath. Noted minor episode of dysphagia the day prior when she had a small amount of octopus. ? Dysphagia when she had rice and shrimp Food felt stuck. Woke up at 5 am with chest pain and went to [facility] ER. Feet were itching a lot Notes intermittent heartburn and takes pantoprazole and zofran. Has chronic constipation and takes a stool softener 3 times a day with partial improvement. Minor rectal bleeding when she has hard stools. Denies known FH of colon polyps or cancer. ? EGD AND BIOPSY RESULTS WERE REVIEWED WITH THE PATIENT. ? Stopped eating Soda, Oreos, coffee and drinking a lot of water. ? Takes Protonix only before eating any irritating foods - 4/7 days a week - advised to take daily. ? Takes Carafate prn if she has pain 3/7 days a week. ? Takes Garlic in the morning. ? Takes fermin tea. ? Symptoms have improved partially ? Denies smoking and stopped drinking 5 yrs ago. - heavy drinker on the weekends ? Take Alleve 2 pills a day for CTS - had abd pain before she started taking Alleve. ? Had an EGD and Colonoscopy 5 yrs ago ? at [facility] - normal per patient and said its good for 10 yrs. ? Denies problems with anesthesia ? Denies major cardiac or pulmonary problems. ? Denies known FH of colon polyps or GI malignancy. ? PAST GI HISTORY BY REVIEW OF MEDICAL RECORDS: ? Last seen on 03/14/19: ? Assessments ? 1. Upper abdominal pain - R10.10 (Primary) ? 2. Gastroesophageal reflux disease, esophagitis presence not specified - K21.9 ? 3. Abdominal bloating - R14.0 ? 4. Constipation, unspecified constipation type - K59.00 ? 5. Elevated LFTs - R94.5 ? 58 YF with migraine headache, asthma, anxiety and depression seen for evaluation of abdominal pain with bloating, GERD and constipation. She has early satiety suggestive of gastric outlet obstruction versus idiopathic gastroparesis. ? Patient was advised to start Carafate in addition to omeprazole 20 mg once daily and schedule an upper endoscopy for further evaluation. Procedure and potential complications including bleeding, perforation, drug reaction, aspiration and missed diagnosis were reviewed with the patient. ? Treatment ? 1. Upper abdominal pain ? Start Carafate Tablet, 1 GM, 1 tablet at bedtime on an empty stomach before meals, Orally, twice a day, 30 day(s), 60 Tablet, Refills 3 ? IMAGING: EGD ? 2. Gastroesophageal reflux disease, esophagitis presence not specified ? IMAGING: EGD ? 3. Abdominal bloating ? LAB: IgA ? LAB: TRANSGLUTAMINASE AB IGA ? LAB: TRANSGLUTAMINASE AB IGG ? IMAGING: EGD ? 4. Elevated LFTs ? LAB: LIVER PROFILE ? Notes: Elevated AP of 151 in 2009. Will check repeat LFTs [facility] reviewed. Elevated AP of 151 in 2009. ?IMAGING STUDIES: 05/2006 UGI showed: ? IMPRESSION: Small hiatus hernia with mild gastroesophageal reflux. ? Otherwise normal upper GI and small bowel series. ?ENDOSCOPIC PROCEDURES: 02/08/22 EGD AND COLON SHOWED: Endoscopy Findings: STOMACH: Moderate diffuse gastric erythema with prominent gastric folds and nodular appearing muosa in the gastric body - biopsied. ? Moderate erythema in the antrum.? No recurrent ulcer seen in the antrum. Colonoscopy Findings: Two small polyps removed Moderate diverticulosis seen in the sigmoid colon Moderate hemorrhoids on retroflexed exam. Plan: Repeat Colonoscopy interval based on path results - in 5 years if polyps are adenomatous and 10 years if polyps are hyperplastic. BIOPSIES SHOWED: A.? Stomach, antrum, biopsy:? Antral-type mucosa with mild chronic inactive inflammation; no Helicobacter organisms seen. B.? Stomach, body, biopsy:? Oxyntic mucosa with mild chronic inactive inflammation; no Helicobacter organisms seen. C.? Colon, random right, biopsy:? Colonic mucosa within normal limits. D.? Colon, transverse, polypectomy:? Colonic mucosa with mild surface hyperplastic changes and small lymphoid aggregate; multiple additional levels examined. 02/16/19 EGD SHOWED: ? STOMACH: Moderate diffuse gastric erythema with prominent gastric folds and ? nodular appearing muosa in the gastric body - biopsied. A 1.5 cms healing ? ulcer in the antrum with multiple healing erosions bopsies were obtained. ? DUODENUM: Normal ? Plan: ? Await pathology results ? Continue present medications ? Patient has an appointment on 05/08/19 in the GI Clinic with Eleonora Londono M.D ? BIOPSIES SHOWED: ? A. Small bowel, biopsies: Duodenal mucosa with no significant histopathology; no ? villous abnormality identified; no increase in intraepithelial lymphocytes. ? B. Stomach, antrum, biopsies: Gastric antral mucosa with mild chronic, inactive ? gastritis; negative for Helicobacter pylori organisms; negative for intestinal ? metaplasia; negative for dysplasia. ? C. Stomach, ulcer, biopsy: Reactive gastropathy with background mild chronic inactive ? inflammation; no Helicobacter organisms seen; negative for dysplasia. ? D. Stomach, body, biopsy: Gastric body mucosa with mild chronic, inactive ? gastritis; negative for Helicobacter pylori organisms; negative for intestinal metaplasia; negative for dysplasia. Colonoscopy at [facility] or [facility] 10 yrs ago - normal per pt. [facility] Medical History Plantar fasciitis of right foot Seafood allergy Frequent headaches Stress at work Obesity (BMI 30-39.9) Essential hypertension Plantar fasciitis, bilateral Impaired fasting glucose Irritable bowel syndrome with constipation Gastric ulcer Dyslipidemia Former smoker Degenerative disc disease, lumbar Vitamin D deficiency Vitamin B12 deficiency History of drug abuse Gastritis Peripheral neuropathy Osteoarthritis involving multiple joints on both sides of body Migraine ANKIT (obstructive sleep apnea) Surgical History History of esophagogastroduodenoscopy (EGD) Hx of colonoscopy History of right knee joint replacement History of partial hysterectomy Family History Father CKD (chronic kidney disease) Mother Alcoholism CVA (cerebral vascular accident), Onset Age: 54 Social History Housing: Apartment Are you a primary skin care instructor to a significant other at home: No Do you presently have visiting nurse or other home services: No Alcohol intake: never Patient Tobacco Use Status: Former Tobacco user Tobacco use type: Cigarette Cigarette Packs Per Day: 1 Cigarettes Per Day: 20 Years Smoked: 30 yrs e-Cigarette/Vaping Use: Never Used Second Hand Smoke Exposure: No service: No Current occupational status: employed 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 [employer] Current occupational exposures/hazards: No Cognitive needs: No Hearing needs: No Vision needs: Yes Review of Systems Const All systems reviewed & are unremarkable except as noted in HPI and below Telehealth Telehealth Telehealth Platform: Telephone Location of provider rendering services: practice address Location of patient: address on file Patient Identification confirmed using: Name, : Yes Telehealth method: voice only Patient verbally consented to treatment: Yes Patient verbally consented to billing insurance company: Yes Patient informed of any privacy concerns related to visit: Yes Minutes spent on Phone/Video with Pt.: 15 Assessment & Plan Assessment & Plan (1) Vitamin B12 deficiency: Code(s): E53.8 - Deficiency of other specified B group vitamins Category: Medical (2) Gastric ulcer: Code(s): K25.9 - Gastric ulcer, unspecified as acute or chronic, without hemorrhage or perforation Category: Medical (3) GERD (gastroesophageal reflux disease): Code(s): K21.9 - Gastro-esophageal reflux disease without esophagitis Category: Medical (4) Early satiety: Code(s): R68.81 - Early satiety Category: Medical Plan 63 YF with migraine headache, asthma, anxiety and depression followed in GI for abdominal pain with bloating, GERD and constipation. She has early satiety suggestive of gastric outlet obstruction versus idiopathic gastroparesis. Patient was advised to start Carafate in addition to omeprazole 20 mg once daily 02/16/19 EGD showed Moderate diffuse gastric erythema with prominent gastric folds and nodular appearing mucosa in the gastric body - biopsied. A 1.5 cms healing ulcer in the antrum with multiple healing erosions. Gastric biopsies were negative for Helicobacter pylori. 02/2022 EGD and colonoscopy was performed in results as noted above. Patient was advised to schedule an abdominal ultrasound and a gastric emptying study. 10/17/24 Refill sent for sucralfate Follow-up in 4 weeks Medications: Refilled sucralfate 1 g PO BID 30 days 60 tabs 1RF K21.9 - Gastro-esophageal reflux disease without esophagitis Coding Level of Care Code Tele Est Pt Level 3 (99568) Diagnoses Vitamin B12 deficiency E53.8 Gastric ulcer K25.9 GERD (gastroesophageal reflux disease) K21.9 Early satiety R68.81 Time Spent (min) 15
== END 2023-12-22 09:55 | disposition home or self-care (01) ==
LOC: HO.HGI 09:10
PROVIDERS: PCP Physician Assistant; Visit Provider Internal Medicine Gastroenterology
DX: K25.9 Gastric ulcer, unspecified as acute or chronic, without hemorrhage or perforation (principal); K21.9 Gastro-esophageal reflux disease without esophagitis; R68.81 Early satiety; E53.8 Deficiency of other specified B group vitamins
CPT/HCPCS: 99442

== ENCOUNTER → 2023-12-22 09:10 | Outpatient (BNVA) | payer OTHER, SELFPAY | PROVIDERS: PCP Physician Assistant; Visit Provider Internal Medicine Gastroenterology ==

== ENCOUNTER 2024-03-02 13:09 | Outpatient (REF) | payer OTHER, SELFPAY ==
--- NOTE | ~2024-03-02 | CT_ITS ---
EXAMINATION: CT CHEST WITHOUT CONTRAST CLINICAL INFORMATION: Pulmonary nodule. COMPARISON: Multiple priors, most recent CT chest dated 08/03/2023. TECHNIQUE: Multidetector volumetric CT imaging of the chest was done. Axial MIP volume rendering provided. Sagittal and coronal reformatted images were obtained. This CT examination was performed using dose optimization techniques as appropriate, variously including the following: *Automated exposure control *Adjustment of mA and/or kV according to patient size (this includes techniques or standardized protocols for targeted exams where dose is matched to indication/reason for exam; i.e. 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 LUNGS: Previously seen clustered right upper lobe pulmonary nodules have significantly decreased when compared to the prior examination with near-complete resolution. There are a few tiny 0.2-0.3 cm right lower lobe pulmonary nodules persisting. There are increasing reticulonodular densities along the posterior aspect of the right upper lobe. Additional previously seen right middle and lower lobe nodules have decreased. No large, confluent airspace consolidation. Central airways are patent. MEDIASTINUM: No cardiomegaly. No pericardial effusion. No thoracic aortic dilatation. No significant mediastinal or hilar lymphadenopathy. Unremarkable thyroid. CORONARY ARTERY CALCIFICATION: None visualized on this study. PLEURA: There is no pleural effusion. No pleural mass or thickening. AXILLA: No lymphadenopathy. UPPER ABDOMEN: Unremarkable. OSSEOUS STRUCTURES: Unremarkable. CT/CT chest wo IV con IMPRESSION: 1. Waxing and waning nodular densities within the right lung, overall decreased when compared to the prior CT. Given the interval change when compared to the prior examination, findings likely represent an infectious or inflammatory process. No large, confluent airspace consolidation or large pulmonary mass. 2. No significant lymphadenopathy. Fleischner guidelines were followed. Electronically signed by: Francisco Mcgowan MD 03/02/2024 03:47 PM EST
== END 2024-03-02 13:10 | disposition home or self-care (01) ==
LOC: HO.CT 13:09
PROVIDERS: PCP Physician Assistant; Visit Provider Nurse Practitioner Family
DX: R91.1 Solitary pulmonary nodule (principal); Z91.89 Other specified personal risk factors, not elsewhere classified
CPT/HCPCS: 71250

== ENCOUNTER 2024-03-29 12:12 | Outpatient (AMB) | payer OTHER, SELFPAY ==
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
[2024-03-29 12:51] VITALS: BP 120/78; PULSE 80; O2SAT 98; BMI 30.4
--- OUTSIDE RECORDS SUMMARY | 2024-03-29 14:34 | XMS_ITS | Data Portability ---
Author Organization [employer] [place] [facility] [place] Address [address] [place] [address] Care Team Providers Care Twitchell Operator Name Role Phone GIRMA KOEHLER Referring Provider [phone] HIM CCA OTHER Assessment Encounter Date Assessment Date Assessment LastModified by Organization Details LastModified Time 12/28/2023 12/28/2023 I provided real -time medical direction via phone for this encounter and was available for additional phone-based assistance as needed. I have reviewed and agree with the Assessment and Plan as documented by the Inclusion Specialist. Patient given the opportunity to ask questions. Our service contacted for an assessment of: wound care As per above, patient developed sylvester of skins 7 days ago. Has been putting hydrogen peroxide on them. Taking Tylenol for pain Per user experience designer on the scene, VSS. AF. NAD. See uploaded pictures Impression: Sylvester Plan: Stop peroxide. Use silvadene or bacitracin. Keep clean and dry. Allergies: Reviewed PCP f/u: would benefit from wound care We discussed the diagnostic uncertainty of home visits and the risk associated with this. In this case, the patient and I felt this to be an acceptable and reasonable amount of risk given the benefit of avoiding an ED visit. We discussed the need to seek care urgently/emergentl y in the setting of any new or worsening serious symptoms, particularly fever chills [email or web address] Not available 12/28/2023 10:11:30 02/21/2024 02/21/2024 As noted, we wer e called to see this patient regarding concerns of 3 weeks of feeling unwell including generalized weakness/fatigue, palpitations, nonexertional intermittent chest pain without any clear exacerbating or alleviating factors. Reports a pulsating sensation in her head when she is having palpitations but no headaches, no vision changes, no weakness, no neck pain. PMHx notable for hypertension, hyperlipidemia, anxiety, and GERD. Jie has not been able to reach her PCP. No acute injuries or falls. No URI sxs. No f/c. No n/v/d. No abd pain. No rashes. No sob. No lightheadedness or fainting. No melena or brbpr. Taking PO. Evaluation in the field was performed by my user experience designer colleague, as noted above, I provided real-time direction and supervision for this visit. The evaluation revealed stable vitals, nonfocal neuro exam, fully awake, alert and oriented, nl gait, nc/at, neck supple, lungs clear, rrr, abd soft, nd, no ext edema; mmm. Impression & Plan: Palpitations Atypical CP Nonspecific weakness/fatigue Lower clinical suspicion for ACS, PE, TAD, PNA, malignant dysrhythmia, occult GIB, acute CVA Work up included POC h/h, BMP, ekg, rapid flu and covid. Labs and ekg independently reviewed by me, discussed with medic and patient. Will ask CRC RN to do a wellness check tomorrow and try to coordinate follow up with PCP Primary care, consider a follow up for a reassessment Disposition: We discussed the diagnostic uncertainty of home visits and the risk associated with this. In this case, the patient and I felt this to be an acceptable and reasonable amount of risk given the benefit of avoiding an ED visit. We discussed the need to seek care urgently/emergentl y in the setting of any new or worsening serious symptoms, particularly exertional cp, sob, fevers, lightheadness, black or bloody stools, other concerns [email or web address] Not available 02/21/2024 19:13:59 Plan of Treatment Reminders Order Date Submit Date Provider Last Modified By Organization Details Last Modified Time Details Appointments None recorded. Lab BMP, serum or plasma 2023 024 JACKY [facility], [address] [place] [address], [id number], 4 08:00:40 rapid flu (A+B) 2023 024 [email or web address] [facility], [address] [place] [address], [id number], 4 18:58:21 hemoglobi n + hematocri t, blood 2023 024 JACKY [facility], [address] [place], [id number], 4 08:01:48 rapid SARS CoV 2 Ag, QL IA, respirato ry specimen 2023 024 [email or web address] [facility], [address] [place] [address], [id number], 4 18:58:28 rapid SARS CoV 2 Ag, QL IA, respirato ry specimen 2023 024 JACKY [facility], [address] [place] [address], [id number], 4 08:01:48 rapid flu (A+B) 2023 JACKY [facility], [address] [place] [address], [id number], 4 08:01:49 BMP, serum or plasma 2023 024 JACKY [facility], [address] [place] [address], [id number], 4 08:01:50 hemoglobi n + hematocri t, blood 2023 024 JACKY [facility], [address] [place] [address], [id number], 4 08:01:50 Referral None recorded. Procedures None recorded. Surgeries None recorded. Imaging electroca rdiogram 2023 024 [email or web address] [facility], [address] [place] [address], [id number], 4 09:46:22 electroca rdiogram 2023 024 [email or web address] [facility], [address] [place] [address], [id number], 09:46:31 Medication Orders ketorolac 30 mg/mL injection solution 2023 024 [email or web address] Not available 09:43:24 Patient TargetsNo targets recorded. Patient InstructionsNo instructions recorded. Reason for Referral None Reported. Results Created Date Observation Date Name Description Value Unit Range Abnormal Flag Note LastModifiedBy Organization Detail LastModifiedTime 02/21/2002/21/2024 rapid SARS CoV 2 Ag, QL IA, respi rator y speci men rapid SARS CoV 2 Ag, QL IA, respiratory specimen negati ve Not Available [facility] [address] [place] [address], [id number], 02/21/2024 18:51:03 02/21/20 24 02/21/2024 rapid flu (A+B) Flu negati ve Not Available [facility] [address] [place] [address], [id number], 02/21/2024 18:50:39 02/21/20 24 02/22/2024 elect rocar diogr am No observ ation record ed. [email or web address] [address] [place] [address], [id number], 02/22/2024 08:02:14 02/21/20 24 02/22/2024 elect rocar diogr am No observ ation record ed. [email or web address] [address] [place] [address], [id number], 02/22/2024 08:02:35 Result Notes None recorded. Procedures Surgical History None recorded. Imaging Results Imaging Date Name Status LastModified by Organization Details LastModified Time 02/22/2024 electrocardiogram completed [email or web address] [address] [place] [address], [id number], 02/22/2024 08:02:14 02/22/2024 electrocardiogram completed [email or web address] [address] [place] [address], [id number], 02/22/2024 08:02:35 Procedure Notes None recorded. Medical Equipment None Reported. Allergies Allergen ID Allergen Name Allergen Category Reaction Reaction Severity Criticality Documentation Date Start Date Code Code System Note Provider Name and Address Organization Details Recorded Time 8178 levofloxa lily medicatio n Not available Not available Not available 01/03/2024 35474 RxNorm Not Available [facility] - production 4 03:42:32 913 Levaquin medicatio n Not available Not available Not available 11/01/2021 19076 2 RxNorm Natty Messer MD [address] [place] [address],[address], [place], [address], [facility] 2 17:19:49 914 morphine medicatio n Not available Not available Not available 11/01/2021 7052 RxNorm Natty Messer MD [address] [place] [address],[address], [place], [address], GIVVER 2 17:19:55 Medications Name Sig Start Date Stop Date Status Note LastModified by Organization Details LastModified Time Refresh Tears 0.5 % eye drops INSTILL 1 DROP INTO BOTH EYES TWICE A DAY active Not Available Not Available Not Available tizanidine 2 mg tablet TAKE 1 TABLET BY MOUTH AT BEDTIME NEEDED SPASM active Not Available Not Available No t Available ondansetron HCl 4 mg tablet TAKE 1 TABLET BY MOUTH EVERY 8 HOURS NEEDED FOR NAUSEA AND VOMITING active Not Available Not Available No t Available prednisone 20 mg tablet TAKE 1 TABLET BY MOUTH EVERY DAY active Not Available Not Available No t Available cyanocobalam in (vit B-12) 1,000 mcg tablet TAKE 1 TABLET BY MOUTH EVERY DAY active Not Available Not Available No t Available amlodipine 2.5 mg tablet TAKE 1 TABLET BY MOUTH EVERY DAY active Not Available Not Available No t Available amlodipine 5 mg tablet TAKE 1 TABLET BY MOUTH EVERY DAY active Not Available Not Available No t Available ketorolac 30 mg/mL (1 mL) injection solution Inject 15 mg by intramuscul ar route for 1 day. 2021 active Not Available Not Available Not Avai lable lorazepam 0.5 mg tablet TAKE ONE TABLET BY MOUTH TWICE A DAY NEEDED FOR ANXIETY active Not Available Not Available No t Available dicyclomine 20 mg tablet TAKE 1 CAPSULE BY MOUTH THREE TIMES DAILY active Not Available Not Available Not Available meclizine 25 mg tablet TAKE 1 TABLET BY MOUTH EVERY DAY NEEDED FOR MOTION SICKNESS active Not Available Not Available No t Available pantoprazole 40 mg tablet,delay ed release TAKE 1 TABLET BY MOUTH ONCE DAILY active Not Available Not Available No t Available Banophen 25 mg tablet TAKE 1/2 OR 1 TABLET AT BEDTIME NEEDED FOR SLEEP active Not Available Not Available No t Available sertraline 25 mg tablet TAKE 1 TABLET BY MOUTH EVERY DAY active Not Available Not Available No t Available epinephrine 0.3 mg/0.3 mL injection, auto-injecto r DIRECTED FOR ANAPHYLAXIS . KEEP ON HAND AT ALL TIMES active Not Available Not Available No t Available methylpredni solone 4 mg tablets in a dose pack TAKE 6 TABLETS ON DAY 1 DIRECTED ON PACKAGE AND DECREASE BY 1 TAB EACH DAY FOR A TOTAL OF 6 DAYS active Not Available Not Available No t Available ondansetron 4 mg disintegrati ng tablet TAKE 1 TABLET BY MOUTH EVERY 8 HOURS NEEDED FOR NAUSEA AND VOMITING active Not Available Not Available No t Available nabumetone 500 mg tablet TAKE 1 TABLET BY MOUTH TWICE A DAY active Not Available Not Available No t Available magnesium 200 mg tablet TAKE 1 TABLET BY MOUTH EVERY DAY active Not Available Not Available No t Available Vitamin D3 25 mcg (1,000 unit) tablet TAKE 1 TABLET BY MOUTH ONCE DAILY active Not Available Not Available No t Available rosuvastatin 5 mg tablet TAKE 1 TABLET BY MOUTH THREE TIMES A WEEK active Not Available Not Available No t Available tizanidine 4 mg capsule TAKE 1 CAPSULE BY MOUTH BEDTIME NEEDED FOR MUSCLE SPASTICITY active Not Available Not Available N ot Available ondansetron HCl (PF) 4 mg/2 mL injection solution 4mg by [facility] at my request 2021 active Not Available Not Available Not Avai lable diclofenac 1 % topical gel APPLY 2 GRAMS TOPICALLY 4 TIMES A DAY active Not Available Not Available Not Available ketorolac 30 mg/mL injection solution Inject 15 mg by intravenous route. 2023 active Not Available Not Available Not Avai lable Senexon-S 8.6 mg-50 mg tablet TAKE 2 TABLETS BY MOUTH DAILY NEEDED FOR CONSTIPATIO N active Not Available Not Available No t Available Banophen 50 mg capsule TAKE 1 CAPSULE BY MOUTH EVERYDAY AT BEDTIME active Not Available Not Available No t Available mecobalamin (vitamin B12) 1,000 mcg disintegrati ng tablet,subli ngual TAKE 1 TABLET BY MOUTH EVERY DAY active Not Available Not Available No t Available riboflavin (vitamin B2) 400 mg tablet TAKE 1 TABLET BY MOUTH DAILY active Not Available Not Available Not Available Vitals Date Recorded Heart rate Body weight Oxygen saturation Oxygen saturation in Arterial blood by Pulse oximetry Respiratory rate Body temperature Systolic blood pressure Diastolic blood pressure Provider Name and Address Organization Details Last Updated DateTime 3 81 /min 33793.7 2 g 98 % 98 % 16 /min 97.8 [degF] 135 mm[Hg] 87 mm[Hg] Not Available [facility] 3 13:13:37 Date Recorded Body temperature Body height Oxygen saturation Oxygen saturation in Arterial blood by Pulse oximetry Heart rate Body weight Respiratory rate Systolic blood pressure Diastolic blood pressure Provider Name and Address Organization Details Last Updated DateTime 3 97.5 [degF] 160.02 cm 97 % 97 % 80 /min 89208.9 68 g 16 /min 163 mm[Hg] 115 mm[Hg] Not Available [facility] 3 19:43:16 Date Recorded Respiratory rate Body temperature Body height Oxygen saturation Oxygen saturation in Arterial blood by Pulse oximetry Body weight Heart rate Systolic blood pressure Diastolic blood pressure Provider Name and Address Organization Details Last Updated DateTime 4 16 /min 97.6 [degF] 157.48 cm 98 % 98 % 98419.6 g 92 /min 132 mm[Hg] 88 mm[Hg] Not Available [facility] 4 09:26:21 Date Recorded Body height Oxygen saturation Oxygen saturation in Arterial blood by Pulse oximetry Respiratory rate Heart rate Body temperature Body weight Systolic blood pressure Diastolic blood pressure Provider Name and Address Organization Details Last Updated DateTime 4 152.4 cm 98 % 98 % 14 /min 80 /min 98.4 [degF] 60999.8 g 128 mm[Hg] 80 mm[Hg] Not Available [facility] 4 09:53:58 Date Recorded Respiratory rate Heart rate Body height Body weight Body temperature Oxygen saturation Oxygen saturation in Arterial blood by Pulse oximetry Systolic blood pressure Diastolic blood pressure Provider Name and Address Organization Details Last Updated DateTime 4 16 /min 72 /min 160.02 cm 48475.8 24 g 98.2 [degF] 99 % 99 % 121 mm[Hg] 83 mm[Hg] Not Available [facility] - production 18:36:22 Social History None recorded. Functional Status None recorded. Mental Status None recorded. Family History Nothing Reported. Medical History No medical history recorded. Gynecological HistoryNo gynecological history recorded. Obstetrics History GPAL:G 0 P 0 0 0 0 Past Encounters Encounter ID Performer Location Encounter Start Date Encounter Closed Date Diagnosis/Indication Diagnosis SNOMED-CT Code Diagnosis ICD10 Code Diagnosis Note [id number] Azam Posada MD [facility] [address] [place] [phone] 07/28/2021 16:03:46 07/28/2021 16:08:14 [id number] [facility] [address] [place] [phone] 07/29/2021 14:03:55 11/13/2021 12:40:11 Closed injury of head 6561575699 06 S09.90XD + Concussion / given worsening headache/ dizziness & nausea with new blurred vision- patient needs CT imaging of brain to r/o bleed/cont usion. Pat agreeable now to go to the ER( had refused at last visit). Expectant report called to [facility] [id number] [facility] [address] [place] [phone] 11/01/2021 17:18:52 11/18/2021 11:39:21 Shoulder pain [id number] M25.519 I have reviewed and agree with the Assessment and Plan as documented by the Inclusion Specialist. I was available for additional phone based assistance as needed. Patient declined to have Medic call me [id number] [facility] [address] [place] [phone] 02/17/2022 15:49:16 02/19/2022 10:47:42 Shoulder pain 32986889 M25.519 No hx of kidney disease; has responded well per patient report to Toradol in the past; cannot tolerate NSAIDS but this is due to GI issue (method of administra tion) [id number] [facility] [address] [place] [phone] 02/20/2022 20:39:34 02/23/2022 11:03:44 Shoulder pain 69244772 M25.519 Ongoing shoulder pain unchanged from 3d ago, awaiting MRI. No contraindi cations to NSAIDs (mild gastritis) , given toradol x1 and encouraged NSAID + PPI and APAP, PCP f/up. Red flag symptoms reviewed, pt instructed to call 911 if condition worsens or new symptoms develop, pt expressed understand ing. I have reviewed and agree with the assessment and plan as documented by the user experience designer. I provided real time medical direction for this encounter and was immediatel y available to provide additional phone based assistance as needed. [id number] Michael Ram MD [facility] [address] [place] [phone] 05/27/2022 10:35:07 05/31/2022 12:47:58 Strain of left trapezius muscle [id number] S29.012A [id number] Buddy Carter MD [facility] [address] [place] [phone] 08/20/2022 14:55:30 08/21/2022 22:51:29 Pain of right shoulder joint [id number] 0672343 M25.511 Patient presents with recent onset pain of the right shoulder. On exam there is full range of motion with mild pain. There is tenderness on top of the shoulder which may be consistent with bursitis. Management of bursitis, is rest, ice, and anti-infla mmatory therapy initiallyP dmitry- Toradol 15mg IM- OK for low dose NSAIDs if no renal disease or history of stomach ulcers, though for a short period [id number] Jia Ruiz MD [facility] [address] [place] [phone] 09/09/2022 12:10:03 09/09/2022 23:13:39 Pain of right shoulder joint [id number] M25.511 [id number] Chely Klein MD [facility] [address] [place] [phone] 11/28/2022 13:13:25 11/28/2022 18:15:24 Chest pain 50758257 R07.9 Evaluation in the field was performed by my user experience designer colleague, as noted above, I provided real-time direction and supervisio n for this visit. 62yo F recent should surgery p/w a few days of sharp chest pain radiating to back. Denies tearing sensation or associated dyspnea, diaphoresi s, LE edema/DVT sx. VS wnl. Taking oxycodone post-op w/ some improvemen t of chest pain. Endorses sig stress. On user experience designer exam chest pain reproducib le and pt tearful, anxious taking care of great grandchild . EKG without acute ST seg changes to suggest ACS, no classic signs for PE however discussed w/ pt limitation of EKG alone in diagnosing serious etiologies such as ACS, aortic dissection , or PE. Pt declined ED eval for further work up. Given most likely etiology is referred pain from shoulder or stress given toradol x1 and recommend PCP eval tomorrow in person. We discussed the diagnostic uncertaint y of home visits and the risk associated with this. In this case, the patient and I felt this to be an acceptable and reasonable amount of risk given the benefit of avoiding an ED visit. We discussed the need to seek care urgently/e mergently in the setting of any new or worsening serious symptoms, shortness of breath, cough, chest pain, fever. [id number] Azam Posada MD [facility] [address] [place] [phone] 03/01/2023 19:43:02 03/27/2023 14:08:15 Hypertensive urgency [id number] I16.0 This 62-year-ol d female called with a new onset fairly severe headache, paresthesi as and an elevated BP. She has no history of chronic headaches. I am concerned about a possible brain bleed and recommende d that she go to the ER. The patient agreed with this plan. [id number] Chely Klein MD [facility] [address] [place] [phone] 10/10/2023 09:24:11 10/10/2023 17:16:32 Pain of left hip joint [id number] 54526 M25.552 Evaluation in the field was performed by my user experience designer colleague, as noted above, I provided real-time direction and supervisio n for this visit. 63yo F endorsing 2 months of atraumatic L hip pain. Worse with lying down and standing, pain feels deep . Minimal improvemen t w/ APAP, meloxicam, and tramadol given by PCP. Not done PT. Prior imaging unremarkab le. Denies fevers/chi lls. On user experience designer eval VS unremarkab le, exam generalize d pain with ROM without point TTP. Most likely hip OA, low suspicion for septic joint or new fracture given report of unremarkab le imaging. Recommend con't APAP, given toradol 15 mg IM x1 (last meloxicam 24hr ago), and engaging with PCP to discuss next steps for chronic pain control. PCP: please schedule pt to discuss mgmt of poorly controlled chronic L hip pain. We discussed the diagnostic uncertaint y of home visits and the risk associated with this. In this case, the patient and I felt this to be an acceptable and reasonable amount of risk given the benefit of avoiding an ED visit. We discussed the need to seek care urgently/e mergently in the setting of any new or worsening serious symptoms, shortness of breath, cough, chest pain, fever. [id number] Liat Foote MD [facility] [address] [place] [phone] 12/28/2023 09:53:45 12/28/2023 18:59:37 Burn of skin [id number] T30.0 [id number] DAVID ADAME MD [facility] [address] [place] [phone] 02/21/2024 18:36:14 02/21/2024 22:16:37 Palpitations 71820081 R00.2 Weakness present 4778736 07 M62.81 Fatigue 23285316 R53.83 Health Concerns Section Related Observation LastModified by Organization Detai ls LastModified Time None Recorded Concern Status LastModified by Organization Details LastModified Time None Recorded Advance Directives Directive None Recorded Payers Encounter Date Sequence Insurance Name Policy Number Policy Godinez Covered Member ID Godinez Member ID Guarantor Name 11/28/2022 1 [facility] - DOS ON OR AFTER 2022 - DUAL ELIGIBLE - [facility] AND ONE CARE (MEDICARE REPLACEMENT/ADV ANTAGE - HMO) Janet Ramos [id number] Janet Ramos 03/01/2023 1 [facility] - DOS ON OR AFTER 2022 - DUAL ELIGIBLE - [facility] AND ONE CARE (MEDICARE REPLACEMENT/ADV ANTAGE - HMO) Janet Ramos [id number] Janet Ramos 10/10/2023 1 [facility] - DOS ON OR AFTER 2022 - DUAL ELIGIBLE - [facility]IONS AND ONE CARE (MEDICARE REPLACEMENT/ADV ANTAGE - HMO) Janet Ramos [id number] Janet Ramos 12/28/2023 1 [facility] - DOS ON OR AFTER 2022 - DUAL ELIGIBLE - [facility] OPTIONS AND ONE CARE (MEDICARE REPLACEMENT/ADV ANTAGE - HMO) Janet Ramos [id number] Janet Ramos 02/21/2024 1 [facility] - DOS ON OR AFTER 2022 - DUAL ELIGIBLE - [facility] OPTIONS AND ONE CARE (MEDICARE REPLACEMENT/ADV ANTAGE - HMO) Janet Ramos [id number] Janet Ramos Notes Date Note Type Note Provider Name and Address Organization Details Recorded Time 11/28/2022 text/html [facility] Nursing Assessment: Patient Reports: Diaphoretic/Sweating ; Shortness of Breath; Weakness/tachycardia Denies: History of Heart Attack, in the setting of active chest pain Active Chest pain, radiates to neck jaw and or arm Describes as ? c rushing? Sudden onset of nausea/Vomiting and shortness of breath. Unable to speak in full sentences without distress Palpitations, feeling dizzy Chest pain, increased fatigue CHF history, increased swelling and edema Chief Complaints: Chest Pain PMH: COPD/Asthma, Hypertension, Diabetes Allergies: Levofloxacin Comments: Member reports having right shoulder surgery 12 days ago - Member reports she have been having chest pain since last night - Pain is described as sharp - On/off - Improves when laying down - Member reports increased stress - R/T caring for a child and is hoping DCF removes the child. Declines any ER treatment -Concerns expressed and advised s/s to monitor - Agrees to contact 911 if s/s worsen. Yenifer THOMAS .................... .................... .................... .................... .................... .................... .................... . Inclusion Specialist Note From Sha Paredes: Pt reports two days of intermittent left sided chest pain that radiates to her back. Pt denies hx of NE. Pt denies SOB, VELAZCO, f/n/v/d. Of note, pt sts she is under a great deal of stress because she is currently taking compete care of her 3 year old great granddaughter while DCF sorts the case out. Pt is alert, NAD. VSS. Afebrile. Neuro exam and gait normal. Lungs CTA. Benign ABD exam. No LLE. ECG is NSR with no ST elevation or ectopy. During interview pt is clearly stressed out and began crying when discussing her family. Pt advised that we cannot r/o NSTEMI in the field and is instructed to seek emergent medical care for new or worsening sx, which are reviewed with her. .................... .................... .................... .................... .................... .................... .................... . Disposition: Fulfilled Chely Klein MD [address] [facility],[address], [place], [phone], [employer] 11/28/2022 13:47:21 03/01/2023 text/html HPI: Member transferred from member services stating she has called her PCP a few times but states she has been given the run around. Member reports feeling dizzy with getting up, was short of breath yesterday and gave herself an updraft treatment with effect. Member also reports having a headache. Member has tested herself for COVID with negative results on Tue and today. Member is eating and drinking fluids. Member states she does not want to visit the ED. .................... .................... .................... .................... .................... .................... .................... . CRC Nurse Triage Notes (Mariano Werner): Comments: Reviewed - Yenifer THOMAS .................... .................... .................... .................... .................... .................... .................... . Inclusion Specialist Note From Sha Paredes: Pt reports several days of worsening MEAD unrelieved by tylenol and intermittent blurred vision. Pt denies CP, SOB, VELAZCO, f/n/v/d. Pt is alert, NAD. Hypertensive 168/115, VS otherwise stable. Afebrile. Non focal neuro exam. Normal gait. Pupils 3 mm + PERRLA. Lungs CTA. Benign ABD exam. No LE edema. Rapid covid and flu negative. Unremarkable ECG. Pt advised to go to the ED to r/o CVA. Pt agreeable but adamantly

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
--- OUTSIDE RECORDS SUMMARY | 2024-03-29 14:34 | XMS_ITS | Clinical Summary ---
Author Organization [employer] [facility] it Address [address] [place] [address] Care Team Providers Care Table Lever Operator Name Role Phone Malgorzata Reeves MD Primary Care Provider [phone] Surgical History Surgery Date Site/Laterality Comments SHOULDER SURGERY PROCEDURE: HISTORICAL SHOULDER SURGERY OTHER SURGICAL HISTORY PROCEDURE: SKIN CYST; COMMENT: back and elbow BACK SURGERY PROCEDURE: HISTORICAL BACK SURGERY; COMMENT: forgien object remove HYSTERECTOMY PROCEDURE: HISTORICAL HYSTERECTOMY TUBAL LIGATION PROCEDURE: HISTORICAL TUBAL LIGATION TOTAL KNEE ARTHROPLASTY Right PROCEDURE: HISTORICAL TOTAL KNEE REPLACE FOOT SURGERY PROCEDURE: HISTORICAL FOOT SURGERY CERVICAL BIOPSY W/ LOOP ELECTRODE EXCISION PROCEDURE: ND CONIZATION CERVIX W/WO D&C RPR ELTRD EXC; COMMENT: pt states twice Medical History Medical History Date Comments Anxiety 04/30/2019 DX:Anxiety Asthma 04/30/2019 DX:Asthma Depression 04/30/2019 DX:Depression GERD (gastroesophageal reflux disease) DX:GERD (gastroesophageal reflux disease) History of total right knee replacement 0 DX:History of total right knee replacement HTN (hypertension) DX:HTN (hyper tension) Hyperlipidemia DX:Hyperlipidemi a ANKIT (obstructive sleep apnea) DX :ANKIT (obstructive sleep apnea) Prediabetes DX:Prediabetes PTSD (post-traumatic stress disorder) DX:PTSD (post-traumatic stress disorder); COMMENT: Followed by [facility] Pulmonary nodule 03/07/2014 DX:Pulmonary no dule; COMMENT: benign, followed by PCP Severe obesity (BMI 35.0-39. 9) with comorbidity (CMS/HCC) 04/30/2019 DX:Severe obesity (BMI 35.0- 39.9) with comorbidity (HCC) Vitamin D deficiency DX:Vitamin D deficiency Family History Medical History Relation Name Comments Other: kidney d Father Liver disease Mother Relation Name Status Comments Father Mother Social History Tobacco Use Types Packs/Day Years Used Date Smoking Tobacco: Former Cigarettes Q uit: 03/07/2016 Smokeless Tobacco: Former Quit: 03/07/2016 Alcohol Use Standard Drinks/Week Comments No 0 (1 standard drink = 0.6 oz pur e alcohol) Sex and Gender Information Value Date Recorded Sex Assigned at Not on file Gender Identity Not on file Sexual Orientation Not on file Obstetrics History Plan of Treatment Health Maintenance Due Date Last Done Comments Breast Cancer Screening 1960 Pneumococcal Vaccine: Pediat rics (0 to 5 Years) and At-Risk Patients (6 to 64 Years) (1 of 2 - PCV) 1966 Cervical Cancer Screening: P ap Smear 1981 Zoster Vaccines (1 of 2) 2010 RSV Immunization Patients 60 + Years Old (1 - Risk 60-74 years 1-dose series) 2020 Cholesterol Screening (Lipid Panel) 02/06/2022 Colorectal Cancer Screening: Colonoscopy 02/06/2022 Depression Screening 02/06/2022 HIV Screening 02/06/2022 Hepatitis C Screening 02/06/2022 Social Influencers of Health Screening 02/06/2022 Hypertension/CHF/CAD Annual BMP Blood Test 02/20/2022 COVID-19 Vaccine ( - 2023-2 5 season) 2023 Influenza Vaccine (#1) 2023 DTaP,Tdap,and Td Vaccines (2 - Td or Tdap) 08/25/2027 08/24/2017 HIB Vaccines Aged Out No longer eligi ble based on patient's age to complete this topic HPV Vaccines Aged Out No longer eligi ble based on patient's age to complete this topic Hepatitis A Vaccines Aged Out No long er eligible based on patient's age to complete this topic Hepatitis B Vaccines Aged Out No long er eligible based on patient's age to complete this topic IPV Vaccines Aged Out No longer eligi ble based on patient's age to complete this topic MMR Vaccines Aged Out No longer eligi ble based on patient's age to complete this topic Meningococcal ACWY Vaccine Aged Out N o longer eligible based on patient's age to complete this topic RSV Immunization Patients Un lydia 20 months Aged Out No longer eligible b ased on patient's age to complete this topic Varicella Vaccines Aged Out No longer eligible based on patient's age to complete this topic Care Teams Table Lever Operator Relationship Specialty Start Date End Date Malgorzata Reeves MD [address] [place] [address] PCP - General Internal Medicine 03/28/19
--- OUTSIDE RECORDS SUMMARY | 2024-03-29 14:34 | XMS_ITS | Clinical Summary ---
Author Organization [facility] Address [address] [place] [address] Care Team Providers Care Medical Research Associate Name Role Phone Janina Don MD Primary Care Pro vider Allergies Active Allergy Reactions Criticality Noted Date Comments [place] 08/04/2017 Codeine 08/04/2017 Ibuprofen Rash Low 06/20/2014 Levofloxacin Nausea And Vomiting 06/14/2014 Other 08/04/2017 Tomato 11/11/2017 Medications Medication Sig Dispensed Refills Start Date End Date Status acetaminophen (TYLENOL) 325 MG tablet Take 650 mg by mouth. 0 02/13/2015 Active albuterol (PROVENTIL HFA;VENTOLIN HFA) 108 (90 BASE) MCG/ACT inhaler Inhale 2 puffs into the lungs. 0 11/28/2015 Active clonazePAM (KLONOPIN) 1 MG tablet TK 1 T PO TID PRN 0 10/30/2015 Active cyanocobalamin (VITAMIN B12) 1000 MCG/ML injection Inject 1,000 mcg into the muscle. 0 09/02/2015 Active diphenhydrAMINE (BENADRYL) 50 MG capsule TK 2 CS PO HS 0 11/01/2015 Active docusate sodium (COLACE) 100 MG capsule Take 100 mg by mouth. 0 02/13/2015 Active fluticasone (FLOVENT HFA) 110 MCG/ACT inhaler INHALE 1 PUFF BY MOUTH TWICE DAILY 0 05/24/2016 Active mometasone (NASONEX) 50 MCG/ACT nasal spray spray or apply 2 sprays inside Nose. 0 11/28/2015 Active omeprazole (PRILOSEC) 20 MG capsule TAKE 1 CAPSULE BY MOUTH EVERY MORNING BEFORE BREAKFAST. DO NOT CRUSH OR CHEW 0 09/23/2016 Active polyethylene glycol (GLYCOLAX) powder Dissolve in a glass (8 oz) of water. 0 12/18/2014 Active risperiDONE (RISPERDAL) 1 MG tablet TK 1 T PO HS FOR 2 WEEKS THEN TK 2 TS HS 0 11/04/2015 Active simvastatin (ZOCOR) tablet 40 mg Take 40 mg by mouth. 0 09/02/2015 Active venlafaxine (EFFEXOR-XR) 150 MG 24 hr capsule TK 1 C PO D 0 10/30/2015 Active venlafaxine (EFFEXOR-XR) 75 MG 24 hr capsule TK ONE C PO D 0 10/30/2015 Active Cholecalciferol (D 2000) 2000 UNITS TABS Take 2,000 Units by mouth. 0 02/13/2015 Active risperiDONE (RISPERDAL) 0.5 MG tablet TK 1 T PO BID 1 11/22/2016 Active ARTIFICIAL TEARS 1.4 % ophthalmic solution INSTILL 1 DROP INTO BOTH EYES BID PRF DRY EYES 0 12/21/2016 Active OXcarbazepine (TRILEPTAL) 300 MG tablet TK 1 T PO QAM AND TK 2 TS PO QHS 0 12/25/2016 Active ondansetron (ZOFRAN) 4 MG tablet TK 1 T PO Q 8 H PRN NV 1 12/09/2016 Active NICOTINE STEP 1 21 MG/24HR 0 10/26/2016 Active mirtazapine (REMERON) 7.5 MG tablet TK 1 T PO QHS 2 12/20/2016 Active hydrochlorothiazide (MICROZIDE) 12.5 MG capsule TK 1 C PO DAILY 6 12/09/2016 Active diclofenac (VOLTAREN) 25 MG EC tablet TK 1 T PO TID PRF PAIN 2 12/13/2016 Active HYDROmorphone (DILAUDID) 2 MG tablet TK 1 T PO Q 8 H PRN P 0 03/11/2017 Active methocarbamol (ROBAXIN) 750 MG tablet TK 1 T PO QID PRF MUSCLE SPASMS 0 02/17/2017 Active sulfamethoxazole-trim ethoprim (BACTRIM DS,SEPTRA DS) 800-160 MG per tablet TK 1 T PO BID FOR 7 DAYS 0 01/19/2017 Active Active Problems Problem Noted Date Diagnosed Date Right shoulder pain 10/29/2016 Family History Medical History Relation Name Comments No Sig Med Hx Mother Relation Name Status Comments Mother Social History Tobacco Use Types Packs/Day Years Used Date Smoking Tobacco: Smoker, Current Status Unknown Smokeless Tobacco: Never Alcohol Use Standard Drinks/Week Comments No 0 (1 standard drink = 0.6 oz pur e alcohol) Sex and Gender Information Value Date Recorded Sex Assigned at Not on file Gender Identity Not on file Sexual Orientation Not on file Plan of Treatment Health Maintenance Due Date Last Done Comments Hepatitis C Screening 1960 COVID-19 Vaccine (#1) 1960 Depression Screening 1972 Preventative Health Evaluation 1978 Cervical Cancer Screening (P ap Smear) 1981 Colon Cancer Screening (Colonoscopy) 2005 Breast Cancer Screening (Mammogram) 2010 Shingrix-Zoster Vaccine (1 of 2) 2010 Pneumococcal Vaccine (2 of 2 - PCV) 02/14/2016 02/13/2015 Influenza Vaccine (#1) 2023 DTap / Tdap / Td (2 - Td or Tdap) 08/25/2027 018 RSV Adult > 60+ Yrs or Pregn ant (1 - 1-dose 75+ series) 05/06/2035 Hepatitis B Vaccines Aged Out No long er eligible based on patient's age to complete this topic RSV Ped < 20 months Aged Out No longe r eligible based on patient's age to complete this topic Care Teams Medical Research Associate Relationship Specialty Start Date End Date Janina Don MD [address] [place] [address] [place] [address] PCP - General Family Medicine 08/24/18
== END 2024-03-29 13:50 | disposition home or self-care (01) ==
PROVIDERS: PCP Physician Assistant; Visit Provider Physician Assistant
DX: I10 Essential (primary) hypertension (principal); L30.9 Dermatitis, unspecified; J45.20 Mild intermittent asthma, uncomplicated; F41.9 Anxiety disorder, unspecified; F32.A Depression, unspecified; E78.2 Mixed hyperlipidemia; R07.9 Chest pain, unspecified

== ENCOUNTER → 2024-03-29 12:12 | Outpatient (BNVA) | payer OTHER, SELFPAY | PROVIDERS: PCP Physician Assistant; Visit Provider Physician Assistant | DX: I10 Essential (primary) hypertension (principal); L30.9 Dermatitis, unspecified; J45.20 Mild intermittent asthma, uncomplicated; F41.9 Anxiety disorder, unspecified; F32.A Depression, unspecified; E78.2 Mixed hyperlipidemia; R07.9 Chest pain, unspecified | CPT/HCPCS: 96127; 99212 ==

== ENCOUNTER → 2024-04-09 09:57 | Outpatient (BNV) | payer OTHER, SELFPAY | PROVIDERS: PCP Physician Assistant | DX: R06.02 Shortness of breath (principal) | CPT/HCPCS: 93016; 93018 ==

== ENCOUNTER → 2024-05-07 13:27 | Outpatient (BNVA) | payer OTHER, SELFPAY | PROVIDERS: PCP Physician Assistant; Visit Provider Nurse Practitioner Family | DX: J45.41 Moderate persistent asthma with (acute) exacerbation (principal); R05.9 Cough, unspecified | CPT/HCPCS: 99212 ==

== ENCOUNTER 2024-05-07 14:36 | Outpatient (AMB) | payer OTHER, SELFPAY ==
--- NOTE | 2024-05-07 15:05 | MHC.PC.OV ---
Vital Signs 05/07/24 15:06 Height 5 ft 2 in Weight 167 lb BMI 30.5 BP 148/90 H Blood Pressure Location Lt brachial Position Sitting Pulse 93 Pulse Source Pulse Oximeter Temp 97.3 F Temp Source Temporal Artery Scan Pulse Oximetry (%) 98 Oxygen Delivery Method Room Air Intake Visit Reasons: asthma Maintenance Welder Required: No Accompanied by: Self / Same As Patient Allergies peanut Allergy (Severe, Verified 05/07/24 15:22) Anaphylaxis seafood Allergy (Severe, Verified 05/07/24 15:22) Anaphylaxis codeine [Codeine] Allergy (Intermediate, Verified 05/07/24 15:22) RASH/ITCHING tomato Allergy (Intermediate, Verified 05/07/24 15:22) Gastrointestinal Upset celecoxib [From Celebrex] Adverse Reaction (Intermediate, Verified 05/07/24 15:22) Palpitations ibuprofen [From Motrin] Adverse Reaction (Intermediate, Verified 05/07/24 15:22) Stomach pains levofloxacin [From Levaquin] Adverse Reaction (Intermediate, Verified 05/07/24 15:22) Nausea pravastatin Adverse Reaction (Intermediate, Verified 05/07/24 15:22) Muscle pain Medication List - Last Reconciled 05/07/24 by RAJEEV Dickerson albuterol sulfate 90 mcg/actuation 1 puff inhalation QID PRN albuterol sulfate 2.5 mg (3 mL) inhalation Q6H PRN 15 days amlodipine 10 mg PO DAILY 90 days benzonatate 100 mg PO TID blood pressure test kit-medium As directed cholecalciferol (vitamin D3) (Vitamin D3) 25 mcg PO DAILY COVID-19 antigen test ([facility] COVID-19 Ag Self Test kit) As directed cyanocobalamin (vitamin B-12) 1,000 mcg PO DAILY diclofenac sodium 1% (Arthritis Pain (diclofenac)) 2 grams topical QID 30 days diphenhydramine HCl (Benadryl Allergy) 25 mg PO BEDTIME 10 days fluticasone propion-salmeterol 250-50 mcg/dose (Wixela Inhub) 1 inh inhalation Q12H hydroxyzine HCl 25 mg PO BID 7 days meclizine 25 mg PO BID PRN 10 days meloxicam 15 mg PO DAILY 30 days miscellaneous medical supply (Blood Pressure Cuff) As directed nebulizers (AeroEclipse II Nebulizer) NEED FOR NEW NEBULIZER MACHINE ondansetron 4 mg PO Q8H PRN pantoprazole 40 mg PO BID [pulse oximeter As directed] rosuvastatin 5 mg PO 3XW [Self Adhesive Electrode AGF-101 As directed NS] Shower Chair As directed sucralfate 1 g PO BID 90 days tramadol 50 mg PO BID PRN 7 days triamcinolone acetonide 0.1% 1 appl topical DAILY 30 days [wedge pillow As directed] Tobacco use date assessed: 03/29/24 Dental Screening Dental Screen Date: 03/29/24 HPI asthma HPI Details The patient is a 64-year-old female with significant past medical history of generalized anxiety, pulmonary nodules less than 1 cm in diameter with moderate to high risk for malignant neoplasm, bronchitis, asthma, sleep apnea, hypertension and GERD Reports that her asthma exacerbation has been going on for about a month and a half. Reports she was seeing Josephine Antonio CLAY MILLER in Pulmonology and was given some bad news about lung nodules. Reports that the news was too much for her and she did not have her family with her for support. Patient reports that she felt like she was given information as if she was about to . Patient reports that she ended up in [place]; unclear if she went to see another doctor or just going to see family. However, it appears that due to the patient refusal to see this provider, she has not been able to get her asthma under control. The patient was unable to speak a full sentence without coughing and wheezing between. Discussed with the patient that the specialist would be able to do more for her asthma then the primary care setting. The patient remains adamant about not seeing a certain provider. The patient is asking for a referral for a new applications processor. Discussed with patient that one was already placed by her PCP, but it will take time to be seen. Will put the patient on a Prednisone taper and increase her benzonatate to 200mg TID. The patient would benefit from oxygen supplement (2 liters at rest and 3 liters with exertion). [facility] Medical History Plantar fasciitis of right foot Seafood allergy Frequent headaches Stress at work Obesity (BMI 30-39.9) Essential hypertension Plantar fasciitis, bilateral Impaired fasting glucose Irritable bowel syndrome with constipation Gastric ulcer Dyslipidemia Former smoker Degenerative disc disease, lumbar Vitamin D deficiency Vitamin B12 deficiency History of drug abuse Gastritis Peripheral neuropathy Osteoarthritis involving multiple joints on both sides of body Migraine ANKIT (obstructive sleep apnea) Surgical History History of esophagogastroduodenoscopy (EGD) Hx of colonoscopy History of right knee joint replacement History of partial hysterectomy Family History Father CKD (chronic kidney disease) Mother Alcoholism CVA (cerebral vascular accident), Onset Age: 54 Social History Housing: Apartment Are you a primary home day care provider to a significant other at home: No Do you presently have visiting nurse or other home services: No Alcohol intake: never Patient Tobacco Use Status: Former Tobacco user Tobacco use type: Cigarette Cigarette Packs Per Day: 1 Cigarettes Per Day: 20 Years Smoked: 30 yrs e-Cigarette/Vaping Use: Never Used Second Hand Smoke Exposure: No service: No Current occupational status: employed 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 Josué Feldman, Shari Luo, Lenny Barnes and colleagues, with an educational nino from [employer]. Review of Systems Const Details: Denies chills, Denies fatigue, Denies fever(s), Denies headache(s) and Denies weakness HEENT Denies change in vision, Denies dizziness, Denies headache(s), Denies hearing loss, Denies nasal congestion, Denies sinus pain, Denies sinus pressure and Denies sore throat Card Denies chest pain, Denies lightheadedness, +dyspnea and Denies other (palpitations) Resp +nonproductive cough, +dyspnea and +wheezing GI Denies abdominal pain, Denies melena, Denies hematochezia, Denies change in bowel habits, Denies dyspepsia and Denies nausea Denies hematuria and Denies dysuria Physical exam (Primary Care) Vital Signs: Last Vital Signs Temp 97.3 F 05/07/24 15:06 Pulse 93 05/07/24 15:06 BP 148/90 H 05/07/24 15:06 Pulse Ox 98 05/07/24 15:06 Oxygen Delivery Method Room Air 05/07/24 15:06 BMI result Body Mass Index 30.5 Tobacco/Smoking Status: Tobacco use Status Tobacco use date assessed 03/29/24 05/07/24 15:10 Patient Tobacco Use Status Former Tobacco user 05/07/24 15:10 Tobacco use type Cigarette 05/07/24 15:10 e-Cigarette/Vaping Use Never Used 05/07/24 15:10 Thrive Assessment: Date of Thrive Assessment Date Thrive assessed 03/29/24 05/07/24 15:10 Const Other: General: no acute distress, well developed, alert and awake Nutritional Appearance: well nourished Orientation/consciousness: patient oriented x3 HENMT Head: Yes normocephalic and Yes atraumatic Ears: hearing grossly normal bilaterally and TM's normal bilaterally General nose exam: Normal external nose present and Normal nares present Mouth: Normal oral and palatal mucosa present and moist mucous membranes Eyes Pupils: Equal, round and reactive pupils present and Pupil accommodation reflex normal EOM: EOMs intact bilaterally Neck Neck: Yes normal visual inspection, Yes no lymphadenopathy Thyroid: Thyroid normal Lymphatic: no lymphadenopathy noted Resp Effort & Inspection: normal respiratory effort Auscultation: wheezes throughout upper and lower lobes Cardio Rate: regular rate Rhythm: regular rhythm Heart sounds: S1 normal heart sound present, S2 normal heart sound present, no gallops, no murmurs and no rubs GI Palpation (GI): Abdomen is soft and nontender Auscultation: normal bowel sounds General: Yes no CVA tenderness Coding Level of Care Code Est Pt Level 4 (31225) Diagnoses Moderate persistent asthma with exacerbation J45.41 Asthma severity: moderate Asthma persistence: persistent Cough, unspecified type R05.9 Cough type: unspecified Time Spent (min) 39 Assessment & Plan Assessment & Plan (1) Asthma exacerbation: Code(s): J45.901 - Unspecified asthma with (acute) exacerbation Category: Medical Qualifiers: Asthma severity: moderate Asthma persistence: persistent Qualified Code(s): J45.41 - Moderate persistent asthma with (acute) exacerbation Plan: DuoNeb tx was given in office with positive effect. Prednisone tapered was ordered. Increase benzonatate from 100 mg to 200 mg t.i.d. discussed with patient to continue home inhalers and nebulizer. The patient would benefit from oxygen supplement. (2) Cough: Code(s): R05.9 - Cough, unspecified Category: Medical Qualifiers: Cough type: unspecified Qualified Code(s): R05.9 - Cough, unspecified Plan: The patient has nonproductive cough, benzonatate was increased to 200mg TID. Orders: Orders AMB Nebulizer Treatment 05/07/24 R06.2 - Wheezing Medications: New ipratropium-albuterol 0.5 mg-3 mg(2.5 mg base)/3 mL 3 mL inhalation ONCE 3 mL 0RF R06.2 - Wheezing benzonatate 200 mg PO TID 60 caps 0RF R05.9 - Cough, unspecified albuterol sulfate 2.5 mg (3 mL) inhalation ONCE 3 mL 0RF R06.2 - Wheezing prednisone see taper instructions take 4 tabs x 2 day, 3 tabs x2 days, 2 tabs x 2 days, 1 tab x 2 days =20 tabs over 8 days 10 mg PO DIRECTED 20 tabs 0RF Refilled diphenhydramine HCl (Benadryl Allergy) 25 mg PO BEDTIME 10 days 10 tabs 0RF sleep J02.9 - Acute pharyngitis, unspecified
[2024-05-07 15:06] VITALS: BP 148/90; PULSE 93; TEMP 36.3; O2SAT 98; BMI 30.5
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
--- OUTSIDE RECORDS SUMMARY | 2024-05-07 17:24 | XMS_ITS | Clinical Summary ---
Author Organization [facility] [employer] Address [address] [place] [address] Care Team Providers Care Executive Producer Name Role Phone Janina Don MD Primary Care Pro vider Allergies Active Allergy Reactions Criticality Noted Date Comments [place] 08/04/2017 Codeine 08/04/2017 Ibuprofen Rash Low 06/20/2014 [...] (2 of 2 - PCV) 02/14/2016 02/13/2015 Pneumococcal Vaccine (2 of 2 - PCV) [...] age to complete this topic Care Teams Executive Producer Relationship Specialty Start Date End Date Janina Don MD [address] [place] [address] [facility] [address] PCP - General Family Medicine 08/24/18
--- OUTSIDE RECORDS SUMMARY | 2024-05-07 17:24 | XMS_ITS | Encounter Summary ---
Author Organization [facility] Address [address] [place] [address] Care Team Providers Care Gas Meter Installer Name Role Phone Community, Pcp Primary Care Provider Malgorzata Zelaya Md, MD Primary Care Provider Unavailable Encounter Details Date Type Department Care Team Description 08/11/2017 Orders Only General Surgery - [place] [address] [facility] [address] [place] [address] Kalen Rivero MD [address] [place] [id number] Arm lesion (Primary Dx) Social History Tobacco Use Types Packs/Day Years Used Date Smoking Tobacco: Former Smokeless Tobacco: Former Quit: 2016 Sex Assigned at Date Recorded Not on file documented as of this encounter Plan of Treatment Not on file documented as of this encounter Visit Diagnoses Diagnosis Arm lesion- Primary Unspecified disorder of skin and subcutaneous tissue documented in this encounter Care Teams Gas Meter Installer Relationship Specialty Start Date End Date Community, Pcp PCP - General Internal Medicine 07/25/17 03/27/19 Malgorzata Reeves MD, MD PCP - General Internal Medicine 03/28/19 documented as of this encounter
--- OUTSIDE RECORDS SUMMARY | 2024-05-07 17:24 | XMS_ITS | Clinical Summary ---
Author Organization [facility] Address [address] [place] [address] Care Team Providers Care Ecd Name Role Phone Malgorzata Reeves MD Primary Care Provider Surgical History Surgery Date Site/Laterality Comments SHOULDER [...] CERVICAL BIOPSY W/ LOOP ELECTRODE EXCISION PROCEDURE: DC CONIZATION CERVIX W/WO D&C RPR ELTRD EXC; [...] drink = 0.6 oz pur e alcohol) Comments Unknown Sex and Gender Information Value Date Recorded Sex Assigned at Not on file Legal Sex Female 6:13 PM EST Gender Identity Not on file Sexual Orientation Not on file Obstetrics History Plan of Treatment Health Maintenance Due Date Last Done Comments Breast Cancer Screening 1960 Pneumococcal Vaccine: 50+ Ye ars (1 of 2 - PCV) 05/06/1979 Pneumococcal Vaccine: Pediat rics (0 to 5 Years) and At-Risk Patients (6 to 64 Years) (1 of 2 - PCV) 05/06/1979 Cervical Cancer Screening: P ap Smear 1981 [...] patient's age to complete this topic Meningococcal B Vacine Aged Out No lo nger eligible based on patient's age to complete this topic RSV Immunization Patients Un lydia 20 months Aged Out No longer eligible b ased on patient's age to complete this topic Varicella Vaccines Aged Out No longer eligible based on patient's age to complete this topic Care Teams Ecd Relationship Specialty Start Date End Date Malgorzata Reeves MD [address] [place] [address] PCP - General Internal Medicine 03/28/19
--- OUTSIDE RECORDS SUMMARY | 2024-05-07 17:24 | XMS_ITS | Encounter Summary ---
Author Organization [facility] Address [address] [place] [address] Care Team Providers Care Diaper Machine Tender Name Role Phone Community, Pcp Primary Care Provider Malgorzata Zelaya Md, MD Primary Care Provider Unavailable Reason for Visit * Reason Onset Date Comments Testing 03/23/2019 Encounter Details Date Type Department Care Team Description 03/23/2019 Telephone Physiatry - [address] [address] Lilia Mcdonald MD [address] [place] [address] [address] [place] [address] Testing Social History Tobacco Use Types Packs/Day Years Used Date Smoking Tobacco: Former Smokeless Tobacco: Former Quit: 2017 Alcohol Use Standard Drinks/Week Comments No 0 (1 standard drink = 0.6 oz pur e alcohol) Sex Assigned at Date Recorded Not on file documented as of this encounter Miscellaneous Notes * Telephone Encounter - Ashley Goddard M.A. - 03/23/2019 4:45 PM EST EMG ordered by Dr. Mcdonald By fax request documented in this encounter Plan of Treatment Not on file documented as of this encounter Results * EMG INTERNAL/EXTERNAL (04/24/2019) Lilia Mcdonald MD PHYSIATRY documented in this encounter Visit Diagnoses Diagnosis Carpal tunnel syndrome on both sides- Primary Carpal tunnel syndrome documented in this encounter Care Teams Diaper Machine Tender Relationship Specialty Start Date End Date Community, Pcp PCP - General Internal Medicine 07/25/17 03/27/19 Malgorzata Reeves MD, MD PCP - General Internal Medicine 03/28/19 documented as of this encounter
--- OUTSIDE RECORDS SUMMARY | 2024-05-07 17:24 | XMS_ITS | Encounter Summary ---
Author Organization [facility] Address [address] [place] [address] Care Team Providers Care Refinery Operator Vapor Recovery Unit Name Role Phone Community, Pcp Primary Care Provider Malgorzata Zelaya Md, MD Primary Care Provider Unavailable Reason for Visit * Reason Onset Date Comments Testing 08/11/2017 Encounter Details Date Type Department Care Team Description 08/11/2017 Telephone General Surgery - [place] [address] [facility] [address] [place] [address] Kalen Rivero MD [address] [place] [address] Testing Social History Tobacco Use Types Packs/Day Years Used Date Smoking Tobacco: Former Smokeless Tobacco: Former Quit: 2016 Sex Assigned at Date Recorded Not on file documented as of this encounter Miscellaneous Notes * Telephone Encounter - Yaquelin Ace M.A. - 08/11/2017 4:26 PM EDT Pt called in looking for a appt for ultarsound of extrimitys and pt hung up phone she is yelling and cursing documented in this encounter Plan of Treatment Not on file documented as of this encounter Visit Diagnoses Not on filedocumented in this encounter Care Teams Refinery Operator Vapor Recovery Unit Relationship Specialty Start Date End Date Community, Pcp PCP - General Internal Medicine 07/25/17 03/27/19 Malgorzata Reeves MD, MD PCP - General Internal Medicine 03/28/19 documented as of this encounter
== END 2024-05-07 16:00 | disposition home or self-care (01) ==
PROVIDERS: PCP Physician Assistant
DX: J45.41 Moderate persistent asthma with (acute) exacerbation (principal); R05.9 Cough, unspecified

== ENCOUNTER → 2024-05-14 12:23 | Outpatient (REF) | payer OTHER, SELFPAY ==
--- NOTE | 2024-05-14 12:30 | CA_ITS ---
Transthoracic Echocardiogram Patient (Last, First, Middle): Janet Ramos M Gender: Female Date of : 1960 Age: 64 Procedure Date: 05/14/2024 Procedure Type: Transthoracic Echocardiogram Location: OP Height: 157.48 cm Weight: 75.75 kg BSA: 1.77 m2 Heart Rate: 83 bpm BP: 146 / 84 mmHg Manager Functional: SB Referring MD: Feliciano Corey PA-C Symptoms: R07.9 - Chest pain, unspecified Study Quality: Adequate ECG Rhythm: Sinus Conclusions: - The left ventricular systolic function is normal. The calculated ejection fraction is 66% by biplane method. - No obvious valvular pathology seen on this study. Findings Left Ventricle Normal left ventricular cavity size. The left ventricular systolic function is normal. The calculated ejection fraction is 66% by biplane method. There is no evidence of regional wall motion abnormalities. Diastolic function is normal for age. There is mild septal asymmetric hypertrophy. Right Ventricle Normal right ventricular cavity size and systolic function. Atria Both atria are normal in size. Aortic Valve There is a normal trileaflet aortic valve. There is no aortic valve stenosis. There is no aortic valve regurgitation. Mitral Valve The mitral valve appears normal. There is no mitral valve regurgitation. There is no mitral valve stenosis. Pulmonic Valve The pulmonic valve is likely normal. Tricuspid Valve There is mild tricuspid valve regurgitation. There is no evidence of pulmonary hypertension. Great Vessels The asc aorta is normal in size. Venous The inferior vena cava is normal in size and collapses greater than 50% with inspiration. Pericardium/Pleural There is no evidence of pericardial effusion. Prior Study Comparison No prior study available for comparison. Recommendations, Care & Conclusions No obvious valvular pathology seen on this study. Measurements 2D Linear Measurements IVSd: 1.06 0.6-0.9/0.6-1.0 cm LVIDd: 4.40 3.9-5.3/4.2-5.9 cm LVIDd Index: 2.49 2.4-3.2/2.2-3.1 cm/m2 LVIDs: 3.06 2.0-3.6 cm LVPWd: 0.65 0.7-1.1 cm LA Diam: 3.60 2.7-3.8/3.0-4.0 cm LAIDs Index: 2.03 1.5-2.3 cm/m2 LV Mass: 148.63 67-162/88-224 g LV Mass Index: 83.97 43-95/49-115 g/m2 LVOT Diam: 2.00 3.0+(-)1.3 cm 2D Systolic Function EF 4C: 64.30 >55% EF 2C: 67.10 >55% EF BiP: 65.80 >55% Mitral Valve MV Pk E: 1.03 MV PK A: 0.93 MV Decel Time: 179.00 E/A: 1.10 E'Lateral: 10.00 E'Medial: 10.60 E/E' Med: 9.70 E/E' Lat: 10.30 PHT: 52.00 MVA PHT: 4.23 Decel [place]: 5.76 Aortic Valve AoV Pk Fan: 1.55 AoV Pk Grad: 10.00 GABRIELLA: 2.92 LVOT LVOT Pk Fan: 1.38 LVOT Mn Fan: 0.91 LVOT VTI: 0.25 LVOT Pk Grad: 8.00 LVOT Mn Grad: 4.00 LVOT Diam: 2.00 LVOT Area: 3.14 Diastolic Function MV Pk E: 1.03 MV Pk A: 0.93 E/A: 1.10 E'Medial: 10.60 E/E' Med: 9.70 E' Laterial: 10.00 E/E' Lat: 10.30 Right Ventricle TAPSE (mm): 20.80 TVS' Fan: 12.50 Tricuspid Valve TR Pk Fan: 2.39 TR Pk Grad: 23.00 RA Press: 3.00 RVSP: 26.00 Great Vessels Aorta Sinus of Valsalva: 2.90 2.0-3.5 cm Ao Asc: 3.00 2.1-3.4 cm Pulmonary Valve PV Pk Fan: 0.92 Peak PV Grad: 3.00 Updated in Other Vendor System with Status of Final Pancho Shelby MD electronically signed on 05/14/2024 2:29:58 PM with status of Final
--- OUTSIDE RECORDS SUMMARY | 2024-05-14 13:56 | XMS_ITS | Clinical Summary ---
Author Organization [facility] Address [address] [place] [address] Care Team Providers Care Video Poker Floorman Name Role Phone Janina Don MD Primary Care Pro vider Allergies Active Allergy Reactions Criticality Noted Date Comments [place] 08/04/2017 Codeine 08/04/2017 Ibuprofen Rash Low 06/20/2014 [...] age to complete this topic Care Teams Video Poker Floorman Relationship Specialty Start Date End Date Janina Don MD [address] [place] [address] [facility] [id number] PCP - General Family Medicine 08/24/18
--- OUTSIDE RECORDS SUMMARY | 2024-05-14 13:56 | XMS_ITS | Data Portability ---
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 monitor reported s/s and seek emergency treatment if needed. Console Assembler Organization Information for Ana Dumas [employer] Business Legal Name: [employer].? Address: [address] [place] [address], Ceramic Engineer: Michael LEON No.: [id number] Console Assembler POC Test Results from Ana Dumas - ALS Rapid COVID antigen (15:37:58) COVID: - Rapid influenza antigen (15:37:58) Flu: - Rapid strep test (15:37:59) Strep: + .................... .................... .................... .................... .................... .................... .................... . Console Assembler Note From Piter Ana: Sent to a call for a pt complaining of URI symptoms. SC8 arrives on scene, pt is alert and oriented, airway is patent. Pt complains of headache, nasal congestion, sore throat, cough with green phlegm (each AM) x 8 days and chronic abd pain. Pt denies cp, sob, n/v/d, fever, or loc. Pt states she has been using Flonase and nebulizer. Pt states she called her PCP today, who prescribed Amoxicillin x 7 days. Pt states she started Amoxicillin today. BP:115/77, P:80, RR:18, SpO2:98% RA, T:98.4; Head: unremarkable; Lung sounds: clear bilaterally; Abdomen: soft, non-tender, no distention; Back: unremarkable; Extremities: unremarkable; Skin: pink, warm, dry; Rapid covid/flu test: neg; Rapid strep test: neg; C consulted and pt is advised to continue symptomatic treatment and take antibiotics as prescribed. Red flags discussed. Pt has no further questions. .................... .................... .................... .................... .................... .................... .................... . [facility] Consulted: Chely Kelin .................... .................... .................... .................... .................... .................... .................... . Disposition: Fulfilled Chely Klein MD [address] [place] [address],[address], [place], [address], [employer] 04/17/2024 20:28:07 04/29/2024 text/html CRC Nurse Triage Notes (Cassie Reyes - RN): Reason For Request: Patient just got over the flu, and just feels tired, no strength. When she walks she feels more tired, and sometimes feels like passing out when she moves a lot. Minor Headache. Always tired. Patient Reports: History of asthma, increased use of inhaler; Shortness of breath with exertionDenies: Increased work of breathing/labored ? with or without fever Unable to speak in full sentences without distress Discoloration of skin -cyanosis Needs to sleep sitting up, can? t catch breath Shortness of breath in setting of confusion Cough, fever greater than 2 days Lower extremity swelling COPD Sputum increase Cough Pain with inspiration Chief Complaints: WeaknessPMH: COPD/Asthma, Hypertension, Joint Replacement (e.g., Hip, Knee), Chronic Pain, AsthmaPMH Reviewed at 04/28/2024:17Allergies Reviewed at 04/28/2024 - 13:17Comments: Cocktail Waitress verified the name//address and phone number.Pt calling for recently had the flu for over a month. She is not coughing but still feels fatigued and still having fever / chills. She is also having pain in her legs, when she touches it. She can bear weight on the legs.She also feels she is not eating well. She is sob when she is walking . She is talking in full sentences , no exp wheeze. She is also having Montaño. The legs are not swollen or warm to the touch. She has asthma and has nebs and inhalers.Education provided on the response time and the Patient was advised to monitor reported s/s and seek emergency treatment if needed 19:17- Member called to reschedule until tomorrow. Agreeable to a visit. Feeling about the same. Daly Cerrato RN Console Assembler Organization Information for Sha Paredes Legal Name: [facility] Address: [address] [place] [address], [place] [address], Ceramic Engineer: Heraclio Ortega MD CLIA No.: [id number] Console Assembler POC Test Results from Sha Paredes Rapid COVID antigen (10:26:43) COVID: - Rapid influenza antigen (::44) Flu: - epoc (10:26:46) pH: 7.44 pH units pCO2: 40.8 mmHg pO2: 31.4 mmHg Na: 145 mmol/L K: 4.1 mmol/L iCa: 1.21 mmol/L Cl: 107 mmol/L TCO2: 26.5 mEq/L Hct: 39 % Hb: 13.1 g/dL Glu: 125 mg/dL Lac: 1.62 mmol/L Cr: 0.76 mg/dL BUN: 12 mg/dL A .................... .................... .................... .................... .................... .................... .................... . Console Assembler Note From Sha Paredes: This 63-year-old female with a history including but not limited to HTN, asthma, chronic pain requested a visit today to address one month of URI symptoms consisting of dry cough, dyspnea on exertion, fatigue and headaches. Patient denies rhinorrhea, sinus congestion, fevers, nausea, vomiting, diarrhea. Patient is use multiple different OTCs with little to no relief. Patient is using fluticasone, cetirizine, albuterol MDI and nebulized albuterol which she ran out of last night. Patient also endorses poor PO intake and states she finished a seven day course of amoxicillin four days ago. Patient presents awake and alert, in no acute distress and speaking full sentences. She has mild tachycardia, vital signs are otherwise stable and she is afebrile. Nonfocal neurological exam. Normal gait. No sinus tenderness. Normal oropharynx exam. Mild expiratory wheezing. Abdomen is soft, nontender, nondistended. No lower extremity edema. Rapid COVID and flu testing are both negative. Unremarkable POC labs are uploaded. I treated this patient with a duo neb which resolved the wheezing, lactated ringer's 1 L IV which resolve the tachycardia, ketorolac 15 mg IVP which resolvd the headache, prednisone 40 mg and azithromycin 500 mg. We discussed the diagnostic uncertainty of home visits and the risk associated with this. In this case, the patient and I feel this to be an acceptable and reasonable amount of risk given the benefit of avoiding an ED visit. I provided detailed instructions on the patient's prescriptions and the importance of oral hydration. I recommend she follows up with her primary care physician this week and present to the emergency department for any new or worsening severe symptoms such as severe headache, chest pain, severe shortness of breath, high fever, altered mental status. The patient was given the opportunity to ask questions and is agreeable to this plan. .................... .................... .................... .................... .................... .................... .................... . [facility] Consulted: Adilson Taylor .................... .................... .................... .................... .................... .................... .................... . Disposition: Fulfilled Akira Taylor MD [address] [place] [address],[address] [facility], [place], [address], [employer] 04/29/2024 15:01:54 OBGyn Episode No OBEpisode recorded.
--- OUTSIDE RECORDS SUMMARY | 2024-05-14 13:56 | XMS_ITS | Clinical Summary ---
Author Organization [employer] [facility] it Address [address] [place] [address] Care Team Providers Care Case Management Manager Name Role Phone Malgorzata Reeves MD Primary Care Provider [phone] Surgical History Surgery Date Site/Laterality Comments SHOULDER [...] CERVICAL BIOPSY W/ LOOP ELECTRODE EXCISION PROCEDURE: KS CONIZATION CERVIX W/WO D&C RPR ELTRD EXC; [...] age to complete this topic Care Teams Case Management Manager Relationship Specialty Start Date End Date Malgorzata Reeves MD [address] [place] [address] PCP - General Internal Medicine 03/28/19
--- OUTSIDE RECORDS SUMMARY | 2024-05-14 13:56 | XMS_ITS | Continuity of Care Document ---
Author Organization [facility] Assurely [place], [place] in - [facility] hospital Address [address] [place] [address] Care Team Providers Care Engineering Professor Name Role Phone GIRMA KOEHLER Referring Provider HIM CCA OTHER Assessment No assessment recorded. Plan of Treatment Reminders Order Date Submit Date Provider Last Modified By Organization Details Last Modified Time Details Appointments None recorded. Lab rapid SARS CoV 2 Ag, QL [place], respiratory specimen [address], [address] [place] [address], [phone], 5 20:26:06 rapid flu (A+B) 2024 025 [email or web address], [address] [place] [address], [phone], 5 20:26:06 rapid strep group A, throat [address], [address] [place] [address], [phone], 5 20:26:06 Referral None recorded. Procedures None recorded. Surgeries None recorded. Imaging None recorded. Medication Orders None recorded. Patient TargetsNo targets recorded. Patient InstructionsNo instructions recorded. Reason for Referral None Reported. Results Created Date Observation Date Name Description Value Unit Range Abnormal Flag Note LastModifiedBy Organization Detail LastModifiedTime Result Notes None recorded. Medical Equipment None Reported. Allergies Allergen ID Allergen Name Allergen Category Reaction Reaction Severity Criticality Documentation Date Start Date Code Code System Note Provider Name and Address Organization Details Recorded Time 8178 levofloxa lily medicatio n Not available Not available Not available 01/03/2024 12304 RxNorm Not Available [facility] - production 4 03:42:32 913 Levaquin medicatio n Not available Not available Not available 11/01/2021 65648 2 RxDheeraj Messer MD [address] [facility],[address], [place], [address], [employer] 2 17:19:49 914 morphine medicatio n Not available Not available Not available 11/01/2021 7052 RxDheeraj Messer MD [address] [place] [address],[address], [place], [address], [employer] 2 17:19:55 Medications Name Sig Start Date [...] 4 mg/2 mL injection solution 4mg by [facility] at my request 2021 active Not [...] Available No t Available Vitals Date Recorded Oxygen saturation Oxygen saturation in Arterial blood by Pulse oximetry Body temperature Body weight Heart rate Body height Respiratory rate Systolic blood pressure Diastolic blood pressure Provider Name and Address Organization Details Last Updated DateTime 5 98 % 98 % 98.4 [degF] 79936.7 2 g 80 /min 160.02 cm 18 /min 115 mm[Hg] 77 mm[Hg] Not Available [facility] - production 5 15:37:54 Social History None recorded. Functional Status None recorded. Mental Status None recorded. Family History Nothing Reported. Medical History No medical history recorded. Gynecological HistoryNo gynecological history recorded. Obstetrics History GPAL:G 0 P 0 0 0 0 Past Encounters Encounter ID Performer Location Encounter Start Date Encounter Closed Date Diagnosis/Indication Diagnosis SNOMED-CT Code Diagnosis ICD10 Code Diagnosis Note [id number] Chely Klein MD Main - [address] [address] 04/17/2024 15:31:49 04/17/2024 23:01:50 Sore throat 905083944 J02.9 Evaluation in the field was performed by my validation technician colleague, as noted above, I provided real-time direction and supervisio n for this visit. 63yo F evaluated for 1 week of nasal congestion , sore throat, cough, and malaise. Endorses b/l chronic abd pain. Denies fevers, hemoptysis , other new symptoms. Phone call with PCP this AM and was sent rx for amoxicilli n for empiric tx. On validation technician eval VS wnl, exam with lungs CTA [...] shortness of breath, cough, chest pain, fever. Health Concerns Section Related Observation LastModified by Organization Detai ls LastModified Time None Recorded Concern Status LastModified by Organization Details LastModified Time None Recorded Payers Encounter Date Sequence Insurance Name Policy Number Policy Godinez Covered Member ID Godinez Member ID Guarantor Name 04/17/2024 1 [facility] - DOS ON OR AFTER 2022 - DUAL ELIGIBLE - HALFWAY OPTIONS AND ONE CARE (MEDICARE REPLACEMENT/ADV ANTAGE - HMO) Janet Ramos [id number] Janet Ramos Notes Date Note Type Note Provider Name and Address Organization Details Recorded Time 04/17/2024 text/html CRC Nurse Triage Notes (Connie Gallardo - RN): Reason For Request: Pt reporting a headache>cough>sor e throat>some body aches>slight fever>going on 8 days Chief Complaints: Headache, Cough, Sore throat PMH: COPD/Asthma, Hypertension, Joint Replacement (e.g., Hip, Knee), Chronic Pain PMH Reviewed at 04/17/2024 - :35 Allergies Reviewed at 04/17/2024 - 12:35 Comments: [...] s/s and seek emergency treatment if needed. Pharmacy Benefit Manager Organization Information for Ana Dumas Ajith RUDOLPH Business Legal Name: [employer] Address: [address] [place] [address], Shake Table Operator: Michael Steinberg MD CLIA No.: [id number] Pharmacy Benefit Manager POC Test Results from Piter Ananikki RUDOLPH Rapid COVID antigen (15:37:58) COVID: - Rapid influenza antigen (15:37:58) Flu: - Rapid strep test (15:37:59) Strep: + .................. .................. .................. .................. .................. .................. .................. ............... Pharmacy Benefit Manager Note From Ana Dumas: Sent to a call for a pt [...] covid/flu test: neg; Rapid strep test: neg; [facility] consulted and pt is advised to continue symptomatic treatment and take antibiotics as prescribed. Red flags discussed. Pt has no further questions. .................. .................. .................. .................. .................. .................. .................. ............... [facility] Consulted: Chely Klein .................. .................. .................. .................. .................. .................. .................. ............... Disposition: Fulfilled Chely Klein MD [address] [place] [address],[address], [place], [address], Curse - [facility] 04/17/2024 20:28:07 OBGyn Episode No OBEpisode recorded.
--- OUTSIDE RECORDS SUMMARY | 2024-05-14 13:56 | XMS_ITS | Continuity of Care Document ---
Author Organization [facility] [place] - [facility] Address [address] [place] [phone] Care Team Providers Care Arabic Teacher Name Role Phone RODO GIRMA Referring Provider HIM CCA OTHER Assessment No assessment recorded. Plan of Treatment Reminders Order Date Submit Date Provider Last Modified By Organization Details Last Modified Time Details Appointments None recorded. Lab rapid SARS CoV 2 Ag, QL IA, respiratory specimen 2024 025 [facility], [address] [place] [address], [phone], 5 16:30:58 rapid flu (A+B) 2024 025 [facility], [address] [place] [address], [address], 5 16:30:58 BMP, serum or plasma 2024 025 [facility], [address] [place] [address], [address], 5 16:30:59 hemoglobin + hematocrit, blood 2024 025 [facility], [address] [place] [address], [address], 5 16:30:59 Referral None recorded. Procedures None recorded. Surgeries None recorded. Imaging None recorded. Medication Orders lactated Ringers intravenous solution 2024 025 [id number], [address] [place], [address], 5 10:36:17 ketorolac 15 mg/mL injection solution 2024 [address] [facility] [address] [address] [place], [address], 5 10:36:17 azithromyci n 500 mg tablet 2024 025 [address] [facility] [address] [address] [address] [place], [address], 5 10:36:17 azithromyci n 250 mg tablet 2024 025 [facility] [address] [place], [address], 5 10:36:18 prednisone 20 mg tablet 2024 0[address] [place], [address], 5 10:36:17 prednisone 20 mg tablet 2024 025 [facility], [address] [place], [address], 5 10:36:19 ipratropium 0.5 mg-albutero l 3 mg (2.5 mg base)/3 mL nebulizatio n soln 2024 0[address] [place], [address], 5 10:36:17 Patient TargetsNo targets recorded. Patient InstructionsNo instructions [...] Not available Not available Not available 01/03/2024 90293 RxNorm Not Available [facility] - production 4 03:42:32 913 Levaquin medicatio n Not available Not available Not available 11/01/2021 90970 2 Shoshana Messer MD [address] [facility],[address], [place], [address], Yedda 2 17:19:49 914 morphine medicatio n Not available Not available Not available 11/01/2021 7052 Shoshana Messer MD [address] [facility],[address], [place], [address], Yedda 2 17:19:55 Medications Name Sig Start Date [...] 4 mg/2 mL injection solution 4mg by [facility] at my request 2021 active Not [...] Available No t Available Vitals Date Recorded Heart rate Body temperature Oxygen saturation Oxygen saturation in Arterial blood by Pulse oximetry Respiratory rate Systolic blood pressure Diastolic blood pressure Provider Name and Address Organization Details Last Updated DateTime 5 108 /min 98 [degF] 98 % 98 % 18 /min 116 mm[Hg] 85 mm[Hg] Not Available [facility] - production 5 10:19:56 Social History None recorded. Functional Status None recorded. Mental Status None recorded. Family History Nothing Reported. Medical History No medical history recorded. Gynecological HistoryNo gynecological history recorded. Obstetrics History GPAL:G 0 P 0 0 0 0 Past Encounters Encounter ID Performer Location Encounter Start Date Encounter Closed Date Diagnosis/Indication Diagnosis SNOMED-CT Code Diagnosis ICD10 Code Diagnosis Note [id number] Chely Klein MD [facility] - [address] [address] 04/17/2024 15:31:49 04/17/2024 23:01:50 Sore throat 072193603 J02.9 Evaluation in the field was performed by my mechanical technical service specialist colleague, as noted above, I provided real-time direction and supervisio n for this visit. 63yo F evaluated for 1 week of nasal congestion , sore throat, cough, and malaise. Endorses b/l chronic abd pain. Denies fevers, hemoptysis , other new symptoms. Phone call with PCP this AM and was sent rx for amoxicilli n for empiric tx. On mechanical technical service specialist eval VS wnl, exam with lungs CTA [...] shortness of breath, cough, chest pain, fever. [id number] Akira Taylor MD Main - [address] [address] 04/29/2024 10:19:54 04/30/2024 17:15:08 Mild dehydration [id number] 108 E86.0 Will give 1L of LR now. Exacerbati on of mild persistent asthma 684755018 J45.31 Will tx with Z-pack and prednisone taper per patient request. BMP and H/H within normal limits Discussed red flag signs for which to seek higher level of care Headache 11626518 R51.9 S/p Toradol x1 w/improvem ent. No renal disease or bleeding risks. Health Concerns Section Related Observation LastModified by Organization Detai ls LastModified Time None Recorded Concern Status LastModified by Organization Details LastModified Time None Recorded Payers Encounter Date Sequence Insurance Name Policy Number Policy Godinez Covered Member ID Godinez Member ID Guarantor Name 04/29/2024 1 [facility] - DOS ON OR AFTER 2022 - DUAL ELIGIBLE - DETENTION OPTIONS AND ONE CARE (MEDICARE REPLACEMENT/ADV ANTAGE - HMO) Janet Ramos [id number] Janet Ramos Notes Date Note Type Note Provider Name and Address Organization Details Recorded Time 04/29/2024 text/html CRC Nurse Triage Notes (Cassie [...] Hip, Knee), Chronic Pain, AsthmaPMH Reviewed at 04/28/2024 - 13:17Allergies Reviewed at 04/28/2024 - 13:17Comments: Coke Still Cleaner verified the name//address and phone number.Pt calling [...] Feeling about the same. Daly Cerrato RN Manager People Organization Information for Sha Paredes Legal Name: [facility] Address: [address] [place] [address], Canvas Marker: Heraclio Ortega MD [facility] No.: [id number] Manager People POC Test Results from Sha Paredes Rapid [...] .................... .................... .................... .................... .................... .................... . Manager People Note From Sha Paredes: This 63-year-old female [...] .................... .................... .................... .................... .................... .................... . [facility] Consulted: Adilson Taylor .................... .................... .................... .................... .................... .................... .................... . Disposition: Fulfilled Akira Taylor MD [address] [place] [address],[address] [facility], [place], [address], SARY ADRIANA CRAIN 04/29/2024 15:01:54 OBGyn Episode No OBEpisode recorded.
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
== END ==
LOC: HO.CARD 12:23
PROVIDERS: PCP Physician Assistant; Visit Provider Physician Assistant
DX: R07.9 Chest pain, unspecified (principal)
CPT/HCPCS: 93306

== ENCOUNTER → 2024-05-14 12:30 | Outpatient (BNV) | payer OTHER, SELFPAY | PROVIDERS: PCP Physician Assistant; Visit Provider Internal Medicine | DX: I42.2 Other hypertrophic cardiomyopathy (principal); I36.1 Nonrheumatic tricuspid (valve) insufficiency | CPT/HCPCS: 93306 ==

== ENCOUNTER → 2024-05-24 09:00 | Outpatient (BNV) | payer OTHER, SELFPAY | PROVIDERS: PCP Physician Assistant; Visit Provider Internal Medicine | DX: Z12.31 Encounter for screening mammogram for malignant neoplasm of breast (principal) | CPT/HCPCS: 77063; 77067 ==

== ENCOUNTER 2024-05-24 09:04 | Outpatient (REF) | payer OTHER, SELFPAY ==
--- OUTSIDE RECORDS SUMMARY | 2024-05-24 09:37 | XMS_ITS | Clinical Summary ---
Author Organization [facility] it Address [address] [place] [address] Care Team Providers Care Oyster Floater Name Role Phone Malgorzata Reeves MD Primary Care Provider [phone] Surgical History Surgery Date Site/Laterality Comments SHOULDER [...] CERVICAL BIOPSY W/ LOOP ELECTRODE EXCISION PROCEDURE: SD CONIZATION CERVIX W/WO D&C RPR ELTRD EXC; [...] age to complete this topic Care Teams Oyster Floater Relationship Specialty Start Date End Date Malgorzata Reeves MD [address] [place] [address] PCP - General Internal Medicine 03/28/19
--- OUTSIDE RECORDS SUMMARY | 2024-05-24 09:37 | XMS_ITS | Clinical Summary ---
Author Organization [facility] Address [address] [place] [address] Care Team Providers Care Freight Manager Name Role Phone Malgorzata Reeves Md, MD Primary Care Provider Unavailable Allergies Active Allergy Reactions Severity Noted Date Comments Chocolate 08/04/2017 Codeine 08/04/2017 Ibuprofen OTHER 11/11/2017 GI upset Levofloxacin 11/11/2017 Tomato 11/11/2017 Medications Medication Sig Dispensed Refills Start Date End Date Status hydrochlorothiazide (MICROZIDE) 12.5 MG capsule Take 12.5 mg by mouth daily. 0 Active Elastic Bandages & Supports (ABDOMINAL BINDER/ELASTIC 2XL) Misc 1 Tab by Does not apply route daily. 1 Each 0 11/11/2017 Active Pantoprazole Sodium (PROTONIX OR) Take by mouth. 0 Active lorazepam (ATIVAN) 0.5 MG tablet Take 0.5 mg by mouth as needed. 0 Active ALBUTEROL SULFATE IN Inhale into the lungs. 0 Active TRAMADOL HCL OR Take by mouth. 0 Activ e Active Problems Problem Noted Date Severe obesity (BMI 35.0-39.9) with sarita rbidity 04/30/2019 Depression 04/30/2019 Anxiety 04/30/2019 Asthma 04/30/2019 History of total right knee replacement 04/30/2019 Pulmonary nodule 03/07/2014 Overview: benign, followed by PCP Vitamin D deficiency ANKIT (obstructive sleep apnea) HTN (hypertension) PTSD (post-traumatic stress disorder) Overview: Followed by [facility] Prediabetes Hyperlipidemia GERD (gastroesophageal reflux disease) Resolved Problems Problem Noted Date Resolved Date Arm lesion 08/04/2017 04/30/2019 Fibroids 04/30/2019 Immunizations Name Administration Dates Next Due Tdap 08/24/2017 Family History Medical History Relation Name Comments kidney d Father Liver Disease Mother Relation Name Status Comments Father Mother Social History Tobacco Use Types Packs/Day Years Used Date Smoking Tobacco: Former Smokeless Tobacco: Former Quit: 2017 Alcohol Use Standard Drinks/Week Comments No 0 (1 standard drink = 0.6 oz pur e alcohol) Sex Assigned at Date Recorded Not on file Last Filed Vital Signs Vital Sign Reading Time Taken Comments Blood Pressure 124/84 04/24/2019 10:54 AM EST Pulse 68 04/24/2019 10:54 AM EST Temperature 35.8 ??C (96.5 ??F) 08/04/2017 8:50 AM ED T Respiratory Rate - - Oxygen Saturation - - Inhaled Oxygen Concentration - - Weight 88.3 kg (194 lb 9.6 oz) 12/09/2017 11:22 AM EDT Height 157.5 cm (5' 2 ) 12/09/2017 11:22 AM EDT Body Mass Index 35.59 12/09/2017 11:22 AM EDT Plan of Treatment Health Maintenance Due Date Last Done Comments Covid-19 Vaccine (#1) 1960 DEPRESSION SCREEN 1972 HEPATITIS C SCREENING 1978 PNEUMOCOCCAL VACCINE FOR HIG H RISK PATIENTS (#1) 05/06/1979 CHOLESTEROL SCREENING 1980 BASELINE HEALTH EXAM 40-64 2000 MAMMOGRAM 2000 COLON CANCER SCREENING 2010 SHINGLES VACCINE (1 of 2) 2010 CERVICAL CANCER SCREENING 03/28/2018 03/28/2015 INFLUENZA (#1) 2023 BMI CHECK/ADVISE 03/07/2024 11/11/2017, 08/04/2017 DTAP/TDAP/TD (2 - Td or Tdap) 08/25/2027 08/24/2017 Care Teams Freight Manager Relationship Specialty Start Date End Date Malgorzata Reeves MD, MD PCP - General Internal Medicine 03/28/19
--- OUTSIDE RECORDS SUMMARY | 2024-05-24 09:37 | XMS_ITS | Encounter Summary ---
Author Organization [facility] Address [address] [place] [address] Care Team Providers Care Checkerer Hand Name Role Phone Community, Pcp Primary Care Provider Malgorzata Zelaya Md, MD Primary Care Provider Unavailable Reason for Visit * Reason Onset Date Comments Testing 08/11/2017 Encounter Details Date Type Department Care Team Description 08/11/2017 Telephone General Surgery - [facility] [address] [facility] [address] [place] [address] Kalen Rivero MD [address] [place] [address] Testing Social History Tobacco Use Types Packs/Day [...] on filedocumented in this encounter Care Teams Checkerer Hand Relationship Specialty Start Date End Date Community, Pcp PCP - General Internal Medicine 07/25/17 03/27/19 Malgorzata Reeves MD, MD PCP - General Internal Medicine 03/28/19 documented as of this encounter
--- OUTSIDE RECORDS SUMMARY | 2024-05-24 09:37 | XMS_ITS | Continuity of Care Document ---
Author Organization [facility] [place] [facility] Address [address] [place] [address] Care Team Providers Care Asbestos Removal Worker Name Role Phone RODOGIRMA Referring Provider HIM CCA OTHER Assessment Encounter Date Assessment Date Assessment LastModified by Organization Details LastModified Time 05/16/2024 05/16/2024 service called for conitnued productive cough found 64 araceli with hx asthma COPD HTN c/o cough white sputum 3 month completed course azithro, prednisone taper with modest improvement during treatment; however return of sx after course completed consistent with prior hx of prolonged respiratory sx requiring extended treatment +wheeze attempting to make appointment with pulmonary denies fever, chills All: levo, morphine VSS no wheeze on exam; recently took home albuterol neb COVID neg FLU neg #Cough prolonged course, c/w prior already received course azithromycin -course cefpodox -pred 40mg x1 now and relatively longer taper -continue routine nebs -otherwise return to primary team vkudesia Not available 05/16/2024 19:26:32 Plan of Treatment Reminders Order Date Submit Date Provider Last Modified By Organization Details Last Modified Time Details Appointments None recorded. Lab rapid SARS CoV 2 Ag, QL IA, respiratory specimen 2024 025 [facility], [address] [place] [address], [id number], 19:08:31 rapid flu (A+B) 2024 025 [facility], [address] [place] [address], [phone], 19:10:41 rapid SARS CoV 2 Ag, QL IA, respiratory specimen 2024 025 [facility], [address] [place] [address], [id number], 5 22:53:31 rapid flu (A+B) 2024 025 [facility], [address] [place] [address], [phone], 5 22:53:31 Referral None recorded. Procedures None recorded. Surgeries None recorded. Imaging None recorded. Medication Orders cefpodoxime 200 mg tablet 2024 025 [facility]/Pharmacy #[id number], [address] [place], [address], 18:43:18 prednisone 20 mg tablet [address] [facility]/Pharmacy #[id number], [address] [place], [address], 5 18:43:16 prednisone 10 mg tablet [address] [place] [address]/Pharmacy #[id number], [address] [place], [address], 5 18:45:29 Patient TargetsNo targets recorded. Patient InstructionsNo instructions recorded. Reason for Referral None Reported. Results Created Date Observation Date Name Description Value Unit Range Abnormal Flag Note LastModifiedBy Organization Detail LastModifiedTime 05/17/1905/16/2024 rapid flu (A+B) Flu negati ve Not Available [facility] ed [address] [place] [address], [phone], 05/16/2024 18:40:35 05/17/1905/16/2024 rapid SARS CoV 2 Ag, QL IA, respi rator y speci men rapid SARS CoV 2 Ag, QL IA, respiratory specimen negati ve Not Available [facility] ed [address] [place] [address], [phone], 05/16/2024 18:40:35 Result Notes None recorded. Medical Equipment None Reported. Allergies Allergen ID Allergen Name Allergen Category Reaction Reaction Severity Criticality Documentation Date Start Date Code Code System Note Provider Name and Address Organization Details Recorded Time 8178 levofloxa lily medicatio n Not available Not available Not available 01/03/2024 82673 RxNorm Not Available [facility] - production 4 03:42:32 913 Levaquin medicatio n Not available Not available Not available 11/01/2021 15393 2 RxNorm Natty Messer MD [address] [place] [address],[address], [place], [phone], [facility] 2 17:19:49 914 morphine medicatio n Not available Not available Not available 11/01/2021 7052 RxNorm Natty Messer MD [address] [place] [address],[address], [place], [phone], [facility] 2 17:19:55 Medications Name Sig Start Date Stop Date Status Note LastModified by Organization Details LastModified Time prednisone 10 mg tablet PLEASE SEE ATTACHED FOR DETAILED DIRECTIONS active Not Available Not Available N ot Available ipratropium 0.5 mg-albuterol 3 mg (2.5 mg base)/3 mL nebulization soln active Not Available Not Available Not Available tizanidine 2 mg tablet TAKE 1 TABLET BY MOUTH AT BEDTIME NEEDED SPASM active Not Available Not Available No t Available albuterol sulfate 2.5 mg/3 mL (0.083 %) solution for nebulization 2.5 MG (3 ML) INHALED EVERY 6 HOURS NEEDED FOR SHORTNESS OF BREATH OR WHEEZING FOR 15 DAYS active Not Available Not Available Not Available cefpodoxime 200 mg tablet TAKE 1 TABLET BY MOUTH EVERY 12 HOURS FOR 7 DAYS active Not Available Not Available N ot Available azithromycin 250 mg tablet TAKE 1 [...] No t Available prednisone 20 mg tablet Take 2 tablets by oral route. 2024 active Not Available Not Available Not Avai lable cyanocobalam in (vit B-12) 1,000 mcg tablet [...] 4 mg/2 mL injection solution 4mg by [facility] at my request 2021 active Not [...] t Available Vitals Date Recorded Respiratory rate Heart rate Body temperature Oxygen saturation Oxygen saturation in Arterial blood by Pulse oximetry Systolic blood pressure Diastolic blood pressure Provider Name and Address Organization Details Last Updated DateTime 5 18 /min 91 /min 98.6 [degF] 98 % 98 % 127 mm[Hg] 76 mm[Hg] Not Available [facility] - production 5 18:34:55 Social History None recorded. Functional Status None recorded. Mental Status None recorded. Family History Nothing Reported. Medical History No medical history recorded. Gynecological HistoryNo gynecological history recorded. Obstetrics History GPAL:G 0 P 0 0 0 0 Past Encounters Encounter ID Performer Location Encounter Start Date Encounter Closed Date Diagnosis/Indication Diagnosis SNOMED-CT Code Diagnosis ICD10 Code Diagnosis Note [id number] Akira Taylor MD [facility] - [facility] [address] [place] [phone] 04/29/2024 10:19:54 04/30/2024 17:15:08 Mild dehydration 4922290116 108 E86.0 Will give 1L of LR now. Exacerbati on of mild persistent asthma 084525273 J45.31 Will tx with Z-pack and prednisone taper per patient request. BMP and H/H within normal limits Discussed red flag signs for which to seek higher level of care Headache 55933910 R51.9 S/p Toradol x1 w/improvem ent. No renal disease or bleeding risks. [id number] Michael Ram MD Main - [facility] [address] [place] [phone] 05/16/2024 18:34:52 05/17/2024 11:16:25 Cough 73235961 R05.9 Health Concerns Section Related Observation LastModified by Organization Detai ls LastModified Time None Recorded Concern Status LastModified by Organization Details LastModified Time None Recorded Payers Encounter Date Sequence Insurance Name Policy Number Policy Godinez Covered Member ID Godinez Member ID Guarantor Name 05/16/2024 1 [facility] - DOS ON OR AFTER 2022 - DUAL ELIGIBLE - FDC OPTIONS AND ONE CARE (MEDICARE REPLACEMENT/ADV ANTAGE - HMO) Janet Ramos [id number] Janet Ramos Notes Date Note Type Note Provider Name and Address Organization Details Recorded Time 05/16/2024 text/html HPI: Call transferred to [facility] from [facility]. Mbr states she was suppose to have an [facility] visit yesterday but no one came. This repairer typewriter did not locate visit and confirmed with [facility] team no visit received yesterday. Mbr reports recent flu and pneumonia, hx of asthma and lung nodules. Mbr states she has worsening SOB with exertion, productive cough, pain to her upper back, headache and occasional blurry vision. Mbr denies SOB or blurry vision at time of call, CP, fever or chills, numbness, tingling or weakness. Mbr reports she has been feeling unwell for 3 months and is awaiting a referral to a new card room manager. Mbr reports she recently completed course of prednisone. Mbr reports using nebulizer that helps for a little while . Mbr was speaking full clear sentences as time of call. Mbr reports she has contacted PCP and they are unable to get her an appt. Marcelor was offered [facility] which she is agreeable to. Advised a referral would be submitted. Mbr was advised to call for new/worsening sx and was educated on sx that warrant calling 911/going to ED. .................... .................... .................... .................... .................... .................... .................... . [facility] Nurse Triage Notes (Uzma Smith): Reason For Request: SOB Chief Complaints: Breathing Problems PMH: COPD/Asthma, Hypertension, Joint Replacement (e.g., Hip, Knee), Chronic Pain, Asthma PMH Reviewed at 05/16/2024:51 Allergies Reviewed at 05/16/2024 - 15:51 Comments: Reviewed HPI, no further data needed. Maury THOMAS Psychiatric Attendant Organization Information for [facility] Business Legal Name: [employer]? Address: [address] [place] [address], [place] [employer] Supervisor: Michael Steinberg MD [facility] No.: [id number] Psychiatric Attendant POC Test Results from [facility] Rapid influenza antigen (18:46:58) Flu: - Attachments uploaded as part of this test result can be found under Documents section. Rapid COVID antigen (18:46:59) COVID: - Attachments uploaded as part of this test result can be found under Documents section. .................... .................... .................... .................... .................... .................... .................... . Psychiatric Attendant Note From [facility]: SC12 dispatched to the address listed above for the report of a female libertarian with shortness of breath. Patient was found inside home seated on couch, alert and oriented x4, patent airway, breathing non labored speaking in complete sentences, skin WPD in no immediate distress. +/= Chest rise. +SOB, -CP, -NVD, -Trauma, -Fever reported. GCS 15. Lung sounds clear in all brown. Patient reports that she has been sick with URI symptoms for about 3 months now causing exacerbation of her asthma, patient reports that she has been having productive cough in white sputum, congestion, and increased shortness of breath with exertion. Patient reports that she had flu about 3 months ago which started her symptoms, patient reports that when she gets sick the symptoms tend to last a few months. Patient reports that she has had 2 courses of prednisone along with 1 course of Azithromycin which patient reports helped her symptoms. Patient also reports the use of Albuterol nebulizer treatments for symptoms management which patient stated does not help much. Additionally, patient reports discomfort between the shoulder blades that radiates to the chest, patient reports that she already had an echocardiogram and EKG which were normal. Patient advised she is in the process of scheduling an appointment with a card room manager. Patient reports normal food/fluid intake, advised she has been medication compliant. Patient vital signs obtained as noted. COVID/FLU POC tests performed and negative for all. [facility] consulted, provided orders for 40mg Prednisone PO, advised that he would be sending prescription to patient preferred pharmacy for course of prednisone and Cefpodoxime. 40mg Prednisone PO administered without incident, six patient rights verified. Red flags discussed with patient, advised to call back or go to ED if condition worsened. SC 12 clear. [facility] Lab Orders: rapid SARS CoV 2 Ag, QL IA, respiratory specimen: Performed rapid flu (A+B): Performed .................... .................... .................... .................... .................... .................... .................... . [facility] Consulted: Michael Ram .................... .................... .................... .................... .................... .................... .................... . Disposition: Fulfilled Michael Ram MD [address] [facility], [place], [address], S[place] - [place], ADRIANA 05/16/2024 22:53:33 OBGyn Episode No OBEpisode recorded.
--- OUTSIDE RECORDS SUMMARY | 2024-05-24 09:37 | XMS_ITS | Encounter Summary ---
Author Organization [email or web address] Address [address] [place] [address] Care Team Providers Care Tire Fabric Inspector Name Role Phone Community, Pcp Primary Care Provider UnavailMalgorzata Mccurdy Md, MD Primary Care Provider Unavailable [facility] [place] Primary Care Provider Unavaila ble Encounter Details Date Type Department Care Team Description 06/15/2013 Personnel Analyst Report Medical Records [address] [place] [id number] Bernard Nolen PA-C Social History Tobacco Use Types Packs/Day Years Used Date Smoking Tobacco: Never Assessed Sex Assigned at Date Recorded Not on file documented as of this encounter Plan of Treatment Not on file documented as of this encounter Visit Diagnoses Not on filedocumented in this encounter Care Teams Tire Fabric Inspector Relationship Specialty Start Date End Date Community, Pcp PCP - General Internal Medicine 07/25/17 03/27/19 Malgorzata Reeves MD, PCP - General Internal Medicine 03/28/19 [facility] PCP - General 11/07/14 07/24/17 documented as of this encounter
--- OUTSIDE RECORDS SUMMARY | 2024-05-24 09:37 | XMS_ITS | Continuity of Care Document ---
Author Organization [facility] [employer] [facility], [place] - [facility] Address [address] [place] [id number] Care Team Providers Care Income Tax Adjuster Name Role Phone RODO GIRMA Referring Provider HIM CCA OTHER Assessment No assessment recorded. Plan of Treatment Reminders Order Date Submit Date Provider Last Modified By Organization Details Last Modified Time Details Appointments None recorded. Lab rapid SARS CoV 2 Ag, QL IA, respiratory specimen 2024 025 [facility], [address] [place] [address], [id number], 5 16:30:58 rapid flu (A+B) 2024 025 Critical access hospital, [address] [place] [address], [phone], 5 16:30:58 BMP, serum or plasma 2024 025 Critical access hospital, [address] [place] [address], [phone], 5 16:30:59 hemoglobin + hematocrit, blood 2024 025 Critical access hospital, [address] [place] [address], [phone], 5 16:30:59 Referral None recorded. Procedures None recorded. Surgeries None recorded. Imaging None recorded. Medication Orders lactated Ringers intravenous solution 2024 025 [id number], [address] [place], [address], 5 10:36:17 ketorolac 15 mg/mL injection solution 2024 025 [address] [facility] [id number] [address] [place], [address], 5 10:36:17 azithromyci n 500 mg tablet 2024 025 [id number] [place], [address], 5 10:36:17 azithromyci n 250 mg tablet 2024 025 [id number] [address] [place], [address], 5 10:36:18 prednisone 20 mg tablet 2024 025 [id number] [place], [address], 5 10:36:17 prednisone 20 mg tablet 2024 025 [id number], [address] [place], [address], 5 10:36:19 ipratropium 0.5 mg-albutero l 3 mg (2.5 mg base)/3 mL nebulizatio n soln 2024 025 [id number] [place], [address], 5 10:36:17 Patient TargetsNo targets recorded. Patient [...] Not available Not available Not available 01/03/2024 [id number] RxNorm Not Available [facility] - production 4 03:42:32 913 Levaquin medicatio n Not available Not available Not available 11/01/2021 [id number] 2 Shoshana Messer MD [address] [facility],[address], [place], [phone], [employer] 2 17:19:49 914 morphine medicatio n Not available Not available Not available 11/01/2021 7052 Shoshana Messer MD [address] [facility],[address], [place], [address], [employer] 2 17:19:55 Medications Name Sig Start Date [...] 4 mg/2 mL injection solution 4mg by [facility] at my request 2021 active Not Available [...] SNOMED-CT Code Diagnosis ICD10 Code Diagnosis Note [id number] Chely Klein MD Main - [facility] [address] [place] [phone] 04/17/2024 15:31:49 04/17/2024 23:01:50 Sore throat [id number] J02.9 Evaluation in the field was performed by my site head colleague, as noted above, I provided real-time direction and supervisio n for this visit. 63yo F evaluated for 1 week of nasal congestion , sore throat, cough, and malaise. Endorses b/l chronic abd pain. Denies fevers, hemoptysis , other new symptoms. Phone call with PCP this AM and was sent rx for amoxicilli n for empiric tx. On site head eval VS wnl, exam with lungs CTA [...] shortness of breath, cough, chest pain, fever. 44440 Akira Taylor MD Main - [facility] [address] [place] [phone] 04/29/2024 10:19:54 04/30/2024 17:15:08 Mild dehydration [id number] 108 E86.0 Will give 1L of LR now. Exacerbati on of mild persistent asthma [id number] J45.31 Will tx with Z-pack and prednisone taper per patient request. BMP and H/H within normal limits Discussed red flag signs for which to seek higher level of care Headache [id number] R51.9 S/p Toradol x1 w/improvem ent. No renal disease or bleeding risks. Health Concerns Section Related Observation LastModified by Organization Detai ls LastModified Time None Recorded Concern Status LastModified by Organization Details LastModified Time None Recorded Payers Encounter Date Sequence Insurance Name Policy Number Policy Godinez Covered Member ID Godinez Member ID Guarantor Name 04/29/2024 1 [facility] - DOS ON OR AFTER 2022 - DUAL ELIGIBLE - ALF OPTIONS AND ONE CARE (MEDICARE REPLACEMENT/ADV ANTAGE - HMO) Janet Ramos [id number] Janet Ramos Notes Date Note Type Note [...] - 13:17Allergies Reviewed at 04/28/2024 - 13:17Comments: [employer] verified the name//address and phone number.Pt calling [...] Feeling about the same. Daly Cerrato RN Beet Worker Organization Information for [facility] Legal Name: [facility] Transportation Address: [address] [place] [address], [place] [address], Communications Equipment Supervisor: Heraclio Ortega MD [place] No.: [id number] Beet Worker POC Test Results from [facility] Rapid [...] .................... .................... .................... .................... .................... .................... . Beet Worker Note From [facility]: This 63-year-old female [...] .................... .................... .................... .................... .................... .................... . [facility] Consulted: Adilson Taylor .................... .................... .................... .................... .................... .................... .................... . Disposition: Fulfilled Akira Taylor MD [address] [facility],[address], [place], [address], SARY ADRIANA CRAIN 04/29/2024 15:01:54 OBGyn Episode No OBEpisode recorded.
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
--- OUTSIDE RECORDS SUMMARY | 2024-05-24 09:37 | XMS_ITS | Encounter Summary ---
Author Organization [facility] Address [address] [place] [address] Care Team Providers Care Cementer Machine Applicator Name Role Phone Community, Pcp Primary Care Provider Malgorzata Zelaya Md, MD Primary Care Provider Unavailable Encounter Details Date Type Department Care Team Description 08/08/2017 Release of Information Medical Records [address] [place] [id number] Abstract, Provider Social History Tobacco Use Types Packs/Day Years Used Date Smoking Tobacco: Former Smokeless Tobacco: Former Quit: 2017 Sex Assigned at Date Recorded Not on file documented as of this encounter Plan of Treatment Not on file documented as of this encounter Visit Diagnoses Not on filedocumented in this encounter Care Teams Cementer Machine Applicator Relationship Specialty Start Date End Date Community, Pcp PCP - General Internal Medicine 07/25/17 03/27/19 Malgorzata Reeves MD, MD PCP - General Internal Medicine 03/28/19 documented as of this encounter
--- OUTSIDE RECORDS SUMMARY | 2024-05-24 09:37 | XMS_ITS | Clinical Summary ---
Author Organization [facility] Address [address] [place] [address] Care Team Providers Care Electrical Tryout Person Name Role Phone Janina Don MD Primary Care Pro vider Allergies Active Allergy Reactions Criticality Noted Date Comments [place] 08/04/2017 Codeine 08/04/2017 Ibuprofen Rash Low 06/20/2014 [...] age to complete this topic Care Teams Electrical Tryout Person Relationship Specialty Start Date End Date Janina Don MD [address] [place] [address] [facility] [id number] PCP - General Family Medicine 08/24/18
== END 2024-05-24 09:05 | disposition home or self-care (01) ==
LOC: HO.MAMMO 09:04
PROVIDERS: PCP Physician Assistant; Visit Provider Physician Assistant
DX: Z12.31 Encounter for screening mammogram for malignant neoplasm of breast (principal)
CPT/HCPCS: 77063; 77067

== ENCOUNTER 2024-06-14 13:02 | Outpatient (AMB) | payer OTHER, SELFPAY ==
--- NOTE | 2024-06-14 13:15 | A.OFFVIS_ITS ---
Vital Signs 06/14/24 13:56 Height 5 ft 2 in Weight 167 lb BMI 30.5 BP 125/76 Blood Pressure Location Lt brachial Position Sitting Pulse 86 Pulse Oximetry (%) 100 Oxygen Delivery Method Room Air Intake Visit Reasons: r/s from 01/19 Intake Note: Patient follow up for Early satiety Patient cc: abdominal discomfort on and off, chest pain with GERD. Denies any other GI issues. Director Of Rooms Required: No Accompanied by: Self / Same As Patient Allergies peanut Allergy (Severe, Verified 06/14/24 13:14) Anaphylaxis seafood Allergy (Severe, Verified 06/14/24 13:14) Anaphylaxis codeine [Codeine] Allergy (Intermediate, Verified 06/14/24 13:14) RASH/ITCHING tomato Allergy (Intermediate, Verified 06/14/24 13:14) Gastrointestinal Upset celecoxib [From Celebrex] Adverse Reaction (Intermediate, Verified 06/14/24 13:14) Palpitations ibuprofen [From Motrin] Adverse Reaction (Intermediate, Verified 06/14/24 13:14) Stomach pains levofloxacin [From Levaquin] Adverse Reaction (Intermediate, Verified 06/14/24 13:14) Nausea pravastatin Adverse Reaction (Intermediate, Verified 06/14/24 13:14) Muscle pain Medication List - Last Reconciled 06/14/24 by Eleonora Londono MD albuterol sulfate 90 mcg/actuation 1 puff inhalation QID PRN albuterol sulfate 2.5 mg (3 mL) inhalation Q6H PRN 15 days amlodipine 10 mg PO DAILY 90 days blood pressure test kit-medium As directed cholecalciferol (vitamin D3) (Vitamin D3) 25 mcg PO DAILY COVID-19 antigen test ([facility] Ag Self Test kit) As directed cyanocobalamin (vitamin B-12) 1,000 mcg PO DAILY diclofenac sodium 1% (Arthritis Pain (diclofenac)) 2 grams topical QID 30 days diphenhydramine HCl (Benadryl Allergy) 25 mg PO BEDTIME 10 days fluticasone propion-salmeterol 250-50 mcg/dose (Wixela Inhub) 1 inh inhalation Q12H hydroxyzine HCl 25 mg PO BID 7 days ipratropium-albuterol 0.5 mg-3 mg(2.5 mg base)/3 mL 3 mL inhalation Q4-6H PRN meclizine 25 mg PO BID PRN 10 days meloxicam 15 mg PO DAILY 30 days miscellaneous medical supply (Blood Pressure Cuff) As directed nebulizers (AeroEclipse II Nebulizer) NEED FOR NEW NEBULIZER MACHINE ondansetron 4 mg PO Q8H PRN pantoprazole 40 mg PO BID [pulse oximeter As directed] rosuvastatin 5 mg PO 3XW [Self Adhesive Electrode AGF-101 As directed NS] Shower Chair As directed sucralfate 1 g PO BID 90 days tramadol 50 mg PO BID PRN 7 days triamcinolone acetonide 0.1% 1 appl topical DAILY 30 days [wedge pillow As directed] HPI HPI r/s from 01/19: Details: GI CLINIC VISIT FOR THIS 64-YEAR-OLD FEMALE REFERRED FOR COLON CANCER SCREENING TO SCHEDULE A COLONOSCOPY AND FOR FU OF HEARTBURN AND NAUSEA; CHRONIC ILLNESSES:? ASTHMA, MIGRIANES, DEPRESSION - H/0 SUICIDALITY OVER DOSE - DOES THERAPY WEEKLY WITH DR. HOWARD AT [facility], ANXIETY, RT LUNG NODULE, RIGHT HIP AND LEFT KNEE OA, MEMORY LOSS, GASTRITIS, H/O BACK PAIN, H/O DRUG USE - CLEAN FOR MANY YEARS, GERD TODAY'S VISIT Patient follow up for abdominal pain and US results. Patient cc: Patient cc: abdominal discomfort on and off, chest pain with GERD. Feeling better after changing her diet - not taking red meat Can have intermittent nausea and denies vomiting. Having chest pains - attributed to acid reflux. Sometimes she forgets to take the 2nd dose of Pantoprazole Gained some wt after she took prednisone for asthma Voice is raspy when she wakes up Trying to eat healthy and lost some weight - Wt loss of 15 lb over the past year PAST VISIT: Younger brother at age 56 (on his BD) 2 weeks - hospitalized at [facility] with MRSA and of heart failure and still grieving (waiting for the autopsy report) Has been watching what she eats - does not eat foods which is going to cause nausea or make her sick. Takes Pantoprazole and sucralfate - has intermittent nausea and vomiting Tries not to eat late at night. Drinking more water and eating less cheese. Taking quinoa instead of rice Takes Lorazepam 0.5 mg at bedtime and dose was increased to 1 mg. If she eats a whole meal, she will have abdominal pain - can get sick. Eats a small portion - thinks her metabolism is slow and is not very active. Denies constipation. Has 2-3 loose BMs a day - soft and not hard Occasional constipation followed by passage of hard stools. Patient cc: abdominal bloating and still with pain in her right after procedure. Denies any other GI issues. EGD and Colon results reviewed with the patient. I am not feeling good. Having nausea yesterday - took 3 tab of dulcolax and went 8 times It was a big mess Has nausea and having some stomach ache Pantoprazole is not helping and does not have Zofran. Avoids red meat and sauces Scheduled EGD and Colon twice and had to cancel since her ride got COVID infection. Having constipation for the past month Had dinner at 8 pm - rice, salad, shrimp and octupus.. Had not eaten octopus in several yrs.? Able to drink tiny sips. Also noted a burning sensation. Denies facial swelling and had to sit up straight to see if food would go down. became anxious and noted ? shortness of breath. Noted minor episode of dysphagia the day prior when she had a small amount of octopus. ? Dysphagia when she had rice and shrimp Food felt stuck. Woke up at 5 am with chest pain and went to [facility] ER. Feet were itching a lot Notes intermittent heartburn and takes pantoprazole and zofran. Has chronic constipation and takes a stool softener 3 times a day with partial improvement. Minor rectal bleeding when she has hard stools. Denies known FH of colon polyps or cancer. ? EGD AND BIOPSY RESULTS WERE REVIEWED WITH THE PATIENT. ? Stopped eating Soda, Oreos, coffee and drinking a lot of water. ? Takes Protonix only before eating any irritating foods - 4/7 days a week - advised to take daily. ? Takes Carafate prn if she has pain 3/7 days a week. ? Takes Garlic in the morning. ? Takes fermin tea. ? Symptoms have improved partially ? Denies smoking and stopped drinking 5 yrs ago. - heavy drinker on the weekends ? Take Alleve 2 pills a day for CTS - had abd pain before she started taking Alleve. ? Had an EGD and Colonoscopy 5 yrs ago ? at [facility] - normal per patient and said its good for 10 yrs. ? Denies problems with anesthesia ? Denies major cardiac or pulmonary problems. ? Denies known FH of colon polyps or GI malignancy. ? PAST GI HISTORY BY REVIEW OF MEDICAL RECORDS: ? Last seen on 03/14/19: ? Assessments ? 1. Upper abdominal pain - R10.10 (Primary) ? 2. Gastroesophageal reflux disease, esophagitis presence not specified - K21.9 ? 3. Abdominal bloating - R14.0 ? 4. Constipation, unspecified constipation type - K59.00 ? 5. Elevated LFTs - R94.5 ? 58 YF with migraine headache, asthma, anxiety and depression seen for evaluation of abdominal pain with bloating, GERD and constipation. She has early satiety suggestive of gastric outlet obstruction versus idiopathic gastroparesis. ? Patient was advised to start Carafate in addition to omeprazole 20 mg once daily and schedule an upper endoscopy for further evaluation. Procedure and potential complications including bleeding, perforation, drug reaction, aspiration and missed diagnosis were reviewed with the patient. ? Treatment ? 1. Upper abdominal pain ? Start Carafate Tablet, 1 GM, 1 tablet at bedtime on an empty stomach before meals, Orally, twice a day, 30 day(s), 60 Tablet, Refills 3 ? IMAGING: EGD ? 2. Gastroesophageal reflux disease, esophagitis presence not specified ? IMAGING: EGD ? 3. Abdominal bloating ? LAB: IgA ? LAB: TRANSGLUTAMINASE AB IGA ? LAB: TRANSGLUTAMINASE AB IGG ? IMAGING: EGD ? 4. Elevated LFTs ? LAB: LIVER PROFILE ? Notes: Elevated AP of 151 in 2008. Will check repeat LFTs [facility]?08/[facility] reviewed. Elevated AP of 151 in 2008. ?IMAGING STUDIES: 05/2006 UGI showed: ? IMPRESSION: Small hiatus hernia with mild gastroesophageal reflux. ? Otherwise normal upper GI and small bowel series. ENDOSCOPIC PROCEDURES: 12/5/22 EGD AND COLON SHOWED: Endoscopy Findings: STOMACH: Moderate diffuse gastric erythema with prominent gastric folds and nodular appearing muosa in the gastric body - biopsied. ? Moderate erythema in the antrum.? No recurrent ulcer seen in the antrum. Colonoscopy Findings: Two small polyps removed Moderate diverticulosis seen in the sigmoid colon Moderate hemorrhoids on retroflexed exam. Plan: Repeat Colonoscopy interval based on path results - in 5 years if polyps are adenomatous and 10 years if polyps are hyperplastic. BIOPSIES SHOWED: A.? Stomach, antrum, biopsy:? Antral-type mucosa with mild chronic inactive inflammation; no Helicobacter organisms seen. B.? Stomach, body, biopsy:? Oxyntic mucosa with mild chronic inactive inflammation; no Helicobacter organisms seen. C.? Colon, random right, biopsy:? Colonic mucosa within normal limits. D.? Colon, transverse, polypectomy:? Colonic mucosa with mild surface hyp erplastic changes and small lymphoid aggregate; multiple additional levels examined. 02/16/19 EGD SHOWED: ? STOMACH: Moderate diffuse gastric erythema with prominent gastric folds and ? nodular appearing muosa in the gastric body - biopsied. A 1.5 cms healing ? ulcer in the antrum with multiple healing erosions bopsies were obtained. ? DUODENUM: Normal ? Plan: ? Await pathology results ? Continue present medications ? Patient has an appointment on 05/08/19 in the GI Clinic with Eleonora Londono M.D ? BIOPSIES SHOWED: ? A. Small bowel, biopsies: Duodenal mucosa with no significant histopathology; no ? villous abnormality identified; no increase in intraepithelial lymphocytes. ? B. Stomach, antrum, biopsies: Gastric antral mucosa with mild chronic, inactive ? gastritis; negative for Helicobacter pylori organisms; negative for intestinal ? metaplasia; negative for dysplasia. ? C. Stomach, ulcer, biopsy: Reactive gastropathy with background mild chronic inactive ? inflammation; no Helicobacter organisms seen; negative for dysplasia. ? D. Stomach, body, biopsy: Gastric body mucosa with mild chronic, inactive ? gastritis; negative for Helicobacter pylori organisms; negative for intestinal metaplasia; negative for dysplasia. Colonoscopy at [facility] or [facility] 10 yrs ago - normal per patient [facility] Medical History (Updated 05/08/24 @ 22:29 by RAJEEV Dickerson) Plantar fasciitis of right foot Seafood allergy Frequent headaches Stress at work Obesity (BMI 30-39.9) Essential hypertension Plantar fasciitis, bilateral Impaired fasting glucose Irritable bowel syndrome with constipation Gastric ulcer Dyslipidemia Former smoker Degenerative disc disease, lumbar Vitamin D deficiency Vitamin B12 deficiency History of drug abuse Gastritis Peripheral neuropathy Osteoarthritis involving multiple joints on both sides of body Migraine ANKIT (obstructive sleep apnea) Surgical History (Updated 06/14/24 @ 13:51 by Eden Haley) Hx of shoulder replacement History of esophagogastroduodenoscopy (EGD) Hx of colonoscopy History of right knee joint replacement History of partial hysterectomy Family History Father CKD (chronic kidney disease) Mother Alcoholism CVA (cerebral vascular accident), Onset Age: 54 Social History Housing: Apartment Are you a primary hospice patient care secretary to a significant other at home: No Do you presently have visiting nurse or other home services: No Alcohol intake: never Patient Tobacco Use Status: Former Tobacco user Tobacco use type: Cigarette Cigarette Packs Per Day: 1 Cigarettes Per Day: 20 Years Smoked: 30 yrs e-Cigarette/Vaping Use: Never Used Second Hand Smoke Exposure: No service: No Current occupational status: employed 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 Current occupational exposures/hazards: No Cognitive needs: No Hearing needs: No Vision needs: Yes Review of Systems Const All systems reviewed & are unremarkable except as noted in HPI and below Physical Exam Vital Signs: Last Vital Signs Pulse 86 06/14/24 13:56 BP 125/76 06/14/24 13:56 Pulse Ox 100 06/14/24 13:56 Oxygen Delivery Method Room Air 06/14/24 13:56 BMI result Body Mass Index 30.5 Const General: healthy appearing and no acute distress Nutritional Appearance: obese Orientation/consciousness: patient oriented x3 Limitations: no limitations HEENT Head: Yes normal to inspection Ears: hearing grossly normal bilaterally Eyes Sclerae: sclerae normal Pupils: Equal, round and reactive pupils present Neck Neck: Yes normal visual inspection Chest Chest palpation & inspection: normal inspection of the chest Resp Effort & Inspection: normal respiratory effort Auscultation: clear to auscultation bilaterally Cardio Palpation: normal PMI Rate: regular rate Rhythm: regular rhythm Heart sounds: S1 normal heart sound present, S2 normal heart sound present and no murmurs GI Palpation (GI): Soft to palpation, nontender and No hepatosplenomegaly present Auscultation: normal bowel sounds Rectal Exam - Female: deferred Skin General skin exam: no rashes or lesions noted Neuro General: patient oriented x3, gait normal and moves all extremities Cranial nerves: Yes Equal, round and reactive pupils present Psych Appearance: grossly normal Mental Status: mental status grossly normal Assessment & Plan Assessment & Plan (1) Vitamin B12 deficiency: Code(s): E53.8 - Deficiency of other specified B group vitamins Category: Medical (2) Irritable bowel syndrome with constipation: Code(s): K58.1 - Irritable bowel syndrome with constipation Category: Medical (3) GERD (gastroesophageal reflux disease): Code(s): K21.9 - Gastro-esophageal reflux disease without esophagitis Category: Medical (4) Early satiety: Code(s): R68.81 - Early satiety Category: Medical Plan 64 YF with migraine headache, asthma, anxiety and depression followed in GI for abdominal pain with bloating, GERD and constipation. She has early satiety suggestive of gastric outlet obstruction versus idiopathic gastroparesis. Patient was advised to start Carafate in addition to omeprazole 20 mg once daily 02/16/19 EGD showed Moderate diffuse gastric erythema with prominent gastric folds and nodular appearing mucosa in the gastric body - biopsied. A 1.5 cms healing ulcer in the antrum with multiple healing erosions. Gastric biopsies were negative for Helicobacter pylori. 02/2022 EGD and colonoscopy was performed in results as noted above. Patient was advised to schedule an abdominal ultrasound and a gastric emptying study. 12/22/23 Refill sent for sucralfate 06/14/24 Feeling better after changing her diet - not taking red meat Can have intermittent nausea and denies vomiting. Having chest pains - attributed to acid reflux. Follow-up in 4 months Coding Level of Care Code Est Pt Level 3 (76809) Diagnoses Vitamin B12 deficiency E53.8 Irritable bowel syndrome with constipation K58.1 GERD (gastroesophageal reflux disease) K21.9 Early satiety R68.81 Time Spent (min) 21
[2024-06-14 13:56] VITALS: BP 125/76; PULSE 86; O2SAT 100; BMI 30.5
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
--- OUTSIDE RECORDS SUMMARY | 2024-06-14 15:45 | XMS_ITS | Clinical Summary ---
Author Organization [facility] Address [address] [place] [address] Phone Care Team Providers Care Dough Panner Name Role Phone Malgorzata Reeves MD Primary Care Provider Allergies Active Allergy Reactions Criticality Noted Date Comments Varenicline 05/31/2024 Levofloxacin 05/31/2024 Morphine 05/31/2024 Medications cetirizine (ZyrTEC) 10 mg tablet Take 1 tablet (10 mg total) by mouth 1 (one) time each day. 30 each 05/31/2024 Active Encounters Date Type Department Care Team Description 05/31/2024 3:32 PM EDT - 05/31/2024 4:33 PM EDT Emergency [facility] Emergency [address] [place] [address] Matthew Lyon DO Allergic rhinitis due to other allergic trigger, unspecified seasonality (Primary Dx) Discharge Disposition: Home or Self Care from Last 3 Months Surgical History Surgery Date Site/Laterality Comments SHOULDER [...] CERVICAL BIOPSY W/ LOOP ELECTRODE EXCISION PROCEDURE: OH CONIZATION CERVIX W/WO D&C RPR ELTRD EXC; [...] Severe obesity (BMI 35.0-39. 9) with comorbidity (CMS/HCC V24, CMS/HCC V28) 04/30/2019 DX:Severe obesi ty (BMI 35.0- 39.9) with comorbidity (HCC) Vitamin [...] Value Date Recorded Sex Assigned at Female 05/31/2024 3:46 PM EDT Legal Sex Female 6:13 PM EST Gender Identity Female 05/31/2024 3:46 PM EDT Sexual Orientation Choose not to disclose 2024 3:46 PM EDT Obstetrics History Last Filed Vital Signs Vital Sign Reading Time Taken Comments Blood Pressure 129/105 05/31/2024 1:42 PM EDT Pulse 98 05/31/2024 3:32 PM EDT Temperature 36.6 ??C (97.9 ??F) 05/31/2024 1:42 PM ED T Respiratory Rate 20 05/31/2024 1:42 PM EDT Oxygen Saturation 100% 05/31/2024 3:32 PM EDT Inhaled Oxygen Concentration - - Weight 73.5 kg (162 lb) 05/31/2024 1:42 PM EDT Height 160 cm (5' 3 ) 05/31/2024 1:42 PM EDT Body Mass Index 28.7 05/31/2024 1:42 PM EDT Plan of Treatment Health Maintenance Due Date Last Done Comments Breast Cancer Screening 1960 Cervical Cancer Screening: Pap Smear 1981 Zoster Vaccines (1 of 2) 2010 Pneumococcal Vaccine: 50+ Years (2 of 2 - PCV) 02/14/2016 02/13/2015, 01/16/2013 Pneumococcal Vaccine: Pediatrics (0 to 5 Years) and At-Risk Patients (6 to 64 Years) (2 of 2 - PCV) 02/14/2016 02/13/2015, 01/16/2013 RSV Immunization Adult Patients (1 - Risk 60-74 years 1-dose series) 2020 Colorectal Cancer Screening: Colonoscopy 02/06/2022 Depression Screening 02/06/2022 HIV Screening 02/06/2022 Hepatitis C Screening 02/06/2022 Medicare Annual Wellness Visit 02/06/2022 Social Influencers of Health Screening 02/06/2022 Cholesterol Screening (Lipid Panel) 08/24/2022 08/24/2017 COVID-19 Vaccine (4 - season) 2023 01/30/2021, 07/10/2020, 06/12/2020 Influenza Vaccine (Season Ended) 2024 01/09/2020, 05/17/2018, 03/26/2016, Additional history exists Hypertension/CHF/CAD Annual BMP Blood Test 05/31/2025 05/31/2024 DTaP,Tdap,and Td Vaccines (4 - Td or Tdap) 08/25/2027 08/24/2017, 10/15/2012, 05/10/2011 Hepatitis B Vaccines Completed 07/17/2015, 01/02/2015, 12/03/2014 HIB Vaccines Aged Out No longer eligi [...] age to complete this topic Meningococcal B Vaccine Aged Out No l onger eligible based on patient's age to complete this topic RSV Immunization Patients Under 20 months Aged Out No longer eligible based on patient's age to complete this topic Varicella Vaccines Aged Out No longer eligible based on patient's age to complete this topic Procedures Procedure Name Priority Date/Time Associated Diagnosis Comments CBC WITH AUTO DIFFERENTIAL STAT 05/31/2024 2:56 PM EDT BASIC METABOLIC PANEL STAT 05/31/2024 2:56 PM EDT CBC AND DIFFERENTIAL STAT 05/31/2024 2:56 PM EDT XR CHEST 2 VIEWS STAT 05/31/2024 2:01 PM EDT [id number], RSV, FLU A AND B QUALITATIVE RT-PCR, INTERNAL LAB STAT 05/31/2024 1:47 PM EDT from Last 3 Months Results * (ABNORMAL) CBC auto differential (05/31/2024 2:56 PM EDT) WBC 11.0(H) 4.8 - 10.8 K/mcL LAB HEMETOLOGY METHOD 05/31/2024 3:19 PM EDT [facility] RBC 4.10 3.80 - 4.80 M/mcL LAB HEMETOLOGY METHOD 05/31/2024 3:19 PM EDT [facility] Hemoglobin 12.0 11.5 - 16.0 g/dL LAB HEMETOLOGY METHOD 05/31/2024 3:19 PM EDT [facility] Hematocrit 38.3 35.0 - 47.0 % LAB HEMETOLOGY METHOD 05/31/2024 3:19 PM EDT [facility] MCV 94.6 79.0 - 98.0 FL LAB HEMETOLOGY METHOD 05/31/2024 3:19 PM EDT [facility] MCH 29.6 27.0 - 32.0 pcg LAB HEMETOLOGY METHOD 05/31/2024 3:19 PM [facility] MCHC 31.3(L) 32.0 - 37.0 g/dL LAB HEMETOLOGY METHOD 05/31/2024 3:19 PM [facility] RDW 14.5 11.0 - 15.0 % LAB HEMETOLOGY METHOD 05/31/2024 3:19 PM [facility] Platelets 371 130 - 400 K/mcL LAB HEMETOLOGY METHOD 05/31/2024 3:19 PM [facility] MPV 10.1 7.0 - 11.0 FL LAB HEMETOLOGY METHOD 05/31/2024 3:19 PM [facility] NRBC 0.0 <1.0 % LAB HEMETOLOGY METHOD 05/31/2024 3:19 PM [facility] NRBC Absolute 0.00 <0.10 K/mcL LAB HEMETOLOGY METHOD 05/31/2024 3:19 PM [facility] Neutrophils Relative 66.8 % LAB HEMETOLOGY METHOD 05/31/2024 3:19 PM [facility] Lymphocytes Relative 22.8 % LAB HEMETOLOGY METHOD 05/31/2024 3:19 PM [facility] Monocytes Relative 8.6 % LAB HEMETOLOGY METHOD 05/31/2024 3:19 PM [facility] Eosinophils Relative 1.2 % LAB HEMETOLOGY METHOD 05/31/2024 3:19 PM [facility] Basophils Relative 0.3 % LAB HEMETOLOGY METHOD 05/31/2024 3:19 PM [facility] Immature Granulocytes Relative 0.3 % LAB HEMETOLOGY METHOD 05/31/2024 3:19 PM [facility] Neutrophils Absolute 7.37(H) 1.50 - 7.00 K/mcL LAB HEMETOLOGY METHOD 05/31/2024 3:19 PM EDT [facility] Lymphocytes Absolute 2.52 1.00 - 5.00 K/mcL LAB HEMETOLOGY METHOD 05/31/2024 3:19 PM EDT [facility] Monocytes Absolute 0.95 0.20 - 1.00 K/mcL LAB HEMETOLOGY METHOD 05/31/2024 3:19 PM EDT [facility] Eosinophils Absolute 0.13 0.00 - 0.50 K/mcL LAB HEMETOLOGY METHOD 05/31/2024 3:19 PM EDT [facility] Basophils Absolute 0.03 0.00 - 0.20 K/[facility] LAB HEMETOLOGY METHOD 05/31/2024 3:19 PM EDT [facility] Immature Granulocytes Absolute 0.03 0.00 - 0.03 K/[facility] LAB HEMETOLOGY METHOD 05/31/2024 3:19 PM EDT [facility] Blood Venous blood specimen / Unknown Venipuncture / Unknown 05/31/2024 2:56 PM EDT 05/31/2024 3:12 PM EDT us Matthew Lyon DO LAB BLOOD ORDERABLES Final Result [facility] [address] [place] [address], * Basic metabolic panel (05/31/2024 2:56 PM EDT) Sodium 137 133 - 145 mmol/L LAB CHEMISTRY METHOD 05/31/2024 3:43 PM EDT [facility] Potassium 4.3 3.5 - 5.5 mmol/L LAB CHEMISTRY METHOD 05/31/2024 3:43 PM EDT [facility] Chloride 105 96 - 110 mmol/L LAB CHEMISTRY METHOD 05/31/2024 3:43 PM EDT [facility] CO2 28 21 - 32 mmol/L LAB CHEMISTRY METHOD 05/31/2024 3:43 [facility] Anion Gap 4 3 - 11 LAB CHEMISTRY METHOD 05/31/2024 3:43 PM [facility] Glucose 100 70 - 100 mg/dL LAB CHEMISTRY METHOD 05/31/2024 3:43 PM [facility] BUN 14 5 - 25 mg/dL LAB CHEMISTRY METHOD 05/31/2024 3:43 PM [facility] Creatinine 0.75 0.50 - 1.10 mg/dL LAB CHEMISTRY METHOD 05/31/2024 3:43 PM [facility] eGFR 89 >=60 mL/min/1. 73m2 LAB CHEMISTRY METHOD 05/31/2024 3:43 PM EDT [facility] Comment:Calculation based on the??Chronic Kidney Disease Epidemiology Collaboration (CKD-EPI) equation refit??without adjustment for race. BUN/Creatinine Ratio 18.7 LAB CHEMISTRY METHOD 05/31/2024 3:43 PM [facility] Calcium 9.5 8.5 - 10.5 mg/dL LAB CHEMISTRY METHOD 05/31/2024 3:43 PM T [facility] Blood Venous blood specimen / Unknown Venipuncture / Unknown 05/31/2024 2:56 PM EDT 05/31/2024 3:12 PM EDT us Matthew Lyon DO LAB BLOOD ORDERABLES Final Result [facility] [address] [place] [address], * XR Chest 2 Views (05/31/2024 2:01 PM EDT) Anatomical Region Laterality Modality Body Radiographic Latanya ging 05/31/2024 3:09 PM EDT Impressions 05/31/2024 3:09 PM EDT No evidence of active pulmonary disease. No significant change from the prior study. [id number] -------- FINAL REPORT -------- Dictated By: Markel Ybarra Dictated Date: 05/31/2024 15:09 ET Assigned Physician: Markel Ybarra Reviewed and Electronically Signed By: Markel Ybarra Signed Date: 05/31/2024 15:09 ET Workstation ID: [id number] Transcribed By: Self Edit Transcribed Date: 05/31/2024 15:09 ET Narrative 05/31/2024 3:09 PM EDT INDICATION: Shortness of breath for 4 months FINDINGS: Two views of the chest were obtained. Compared to multiple prior studies most recent from November 25, 2021. Lung brown are clear. Cardiomediastinal silhouette is normal in size and shape. Bony structures are within normal limits for the patient's age. Procedure Note Markel Ybarra MD - 05/31/2024 INDICATION: Shortness of breath for 4 months FINDINGS: Two views of the chest were obtained. Compared to multiple priorstudies most recent from November 25, 2021. Lung brown are clear. Cardiomediastinal silhouette is normal in size and shape. Bony structures are within normal limits for the patient's age. IMPRESSION: No evidence of active pulmonary disease. No significant change from theprior study. [id number] -------- FINAL REPORT -------- Dictated By: Markel Ybarra Dictated Date: 05/31/2024 15:09 ET Assigned Physician: Markel Ybarra Reviewed and Electronically Signed By: Markel Ybarra Signed Date: 05/31/2024 15:09 ET Workstation ID: [id number] Transcribed By: Self Edit Transcribed Date: 05/31/2024 15:09 ET us Matthew Lyon DO IMG XR PROCEDURES Final Res ult * [id number], RSV, Influenza A and B qualitative RT-PCR (05/31/2024 1:47 PM EDT) Influenza A PCR Not Detected Not Detected LAB MICROBIOLOGY METHOD 05/31/2024 3:54 PM EDT [facility] Influenza B PCR Not Detected Not Detected LAB MICROBIOLOGY METHOD 05/31/2024 3:54 PM EDT [facility] RSV PCR Not Detected Not Detected LAB MICROBIOLOGY METHOD 05/31/2024 3:54 PM EDT [facility] SARS COV-2 Not Detected Not Detected LAB MICROBIOLOGY METHOD 05/31/2024 3:54 PM EDT [facility] Swab Both anterior nares / Unknown Non-blood Collection / Unknown 05/31/2024 1:47 PM EDT 05/31/2024 3:04 PM EDT Narrative [facility] - 05/31/2024 3:54 PM EDT Disclaimer: ??Testing was performed using the [employer] GeneXpert Xpress SARS-CoV-2 _Flu_RSV PLUS PCR assay. ??The manner in which this information is used to guide patient care is the responsibility of the healthcare provider. ??Results should be correlated with the clinical history, epidemiological data, and other data available to the clinician evaluating the patient. ??Negative results do not preclude infection. ??This test has been authorized by the FDA under an Emergency Use Authorization (EUA). ??This test is only authorized for the duration of time the declaration that circumstances exist justifying the authorization of the emergency use of in vitro diagnostic tests for detection of SARS-CoV-2 virus and/or diagnosis of COVID-19 infection under section 564 (b) (1) of the Act, 21 U.S.C 360bbb-3 (b) (1), unless the authorization is terminated or revoked sooner. ?? Reference Range: Not Detected Fact sheet for Healthcare providers can be found at https://www.fda.gov/media/814642/download. ?? Fact sheet for Healthcare patients can be found at https://www.fda.gov/media/718304/download. Matthew Lyon DO LAB MICROBIOLOGY - GENERAL ORDERABLES Final Result [facility] [place] [facility] [address] [place] [address], [place] [phone] from Last 3 Months Insurance MEDICAID - [place] [employer] MEDICARE Member Subscriber Plan / Payer (Ef fective 2020-Present) Name:Janet Ramos Relation to Subscriber:Self Name:Janet Ramos Payer ID:[id number] Group ID:[id number] Type:Not on file Address: [address] [place] [address] Care Teams Dough Panner Relationship Specialty Start Date End Date Malgorzata Reeves MD [address] [place] [address] PCP - General Internal Medicine 03/28/19
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
--- OUTSIDE RECORDS SUMMARY | 2024-06-14 15:45 | XMS_ITS | Clinical Summary ---
Author Organization [facility] Address [address] [place] [address] Care Team Providers Care Cement Loader Name Role Phone Janina Don MD Primary Care Pro vider Allergies Active Allergy Reactions Criticality Noted Date Comments [place] 08/04/2017 Codeine 08/04/2017 Ibuprofen Rash Low 06/20/2014 [...] age to complete this topic Care Teams Cement Loader Relationship Specialty Start Date End Date Janina Don MD [address] [place] [address] [facility] [id number] P[facility] - General Family Medicine 08/24/18
== END 2024-06-14 15:16 | disposition home or self-care (01) ==
PROVIDERS: PCP Physician Assistant; Visit Provider Internal Medicine Gastroenterology
DX: E53.8 Deficiency of other specified B group vitamins (principal); K58.1 Irritable bowel syndrome with constipation; K21.9 Gastro-esophageal reflux disease without esophagitis; R68.81 Early satiety
CPT/HCPCS: 99213

== ENCOUNTER → 2024-06-14 13:02 | Outpatient (BNVA) | payer OTHER, SELFPAY | PROVIDERS: PCP Physician Assistant; Visit Provider Internal Medicine Gastroenterology | DX: K21.9 Gastro-esophageal reflux disease without esophagitis (principal); K52.1 Toxic gastroenteritis and colitis; R07.9 Chest pain, unspecified; E53.8 Deficiency of other specified B group vitamins; R68.81 Early satiety | CPT/HCPCS: 99212 ==

== ENCOUNTER 2024-07-18 09:20 | Outpatient (REF) | payer OTHER, SELFPAY ==
--- OUTSIDE RECORDS SUMMARY | 2024-07-18 09:56 | XMS_ITS | Clinical Summary ---
Author Organization [employer] [facility] Address [address] [place] [address] Care Team Providers Care Pattern And Chain Maker Name Role Phone Janina Don MD Primary Care Pro vider Allergies Active Allergy Reactions Criticality Noted Date Comments [place] 08/04/2017 Codeine 08/04/2017 Ibuprofen Rash Low 06/20/2014 [...] age to complete this topic Care Teams Pattern And Chain Maker Relationship Specialty Start Date End Date Janina Don MD [address] [place] [address] [facility] [id number] P[facility] - General Family Medicine 08/24/18
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
--- OUTSIDE RECORDS SUMMARY | 2024-07-18 09:57 | XMS_ITS | Clinical Summary ---
Author Organization [facility] Address [address] [place] [address] Phone Care Team Providers Care Looper Operator Name Role Phone Malgorzata Reeves MD Primary Care Provider [phone] Allergies Active Allergy Reactions Criticality Noted Date Comments Varenicline 05/31/2024 Levofloxacin 05/31/2024 Morphine 05/31/2024 Medications cetirizine (ZyrTEC) 10 mg tablet Take 1 tablet (10 mg total) by mouth 1 (one) time each day. 30 each 05/31/2024 Active Encounters Date Type Department Care Team Description 05/31/2024 3:32 PM EDT - 05/31/2024 4:33 PM EDT Emergency [facility] Emergency [address] [place] [address] Matthew Lyon DO Allergic rhinitis [...] CERVICAL BIOPSY W/ LOOP ELECTRODE EXCISION PROCEDURE: VA CONIZATION CERVIX W/WO D&C RPR ELTRD EXC; [...] 2 VIEWS STAT 05/31/2024 2:01 PM EDT [id number], RSV, FLU A AND B QUALITATIVE RT-PCR, INTERNAL LAB STAT 05/31/2024 1:47 PM EDT from Last 3 Months Results * (ABNORMAL) CBC auto differential (05/31/2024 2:56 PM EDT) WBC 11.0(H) 4.8 - 10.8 K/mcL LAB HEMETOLOGY METHOD 05/31/2024 3:19 PM EDT [facility] RBC 4.10 3.80 - 4.80 M/mcL LAB HEMETOLOGY METHOD 05/31/2024 3:19 PM EDT [facility] Hemoglobin 12.0 11.5 - 16.0 g/dL LAB HEMETOLOGY METHOD 05/31/2024 3:19 PM EDT [facility] Hematocrit 38.3 35.0 - 47.0 % LAB HEMETOLOGY METHOD 05/31/2024 3:19 PM EDT [facility] MCV 94.6 79.0 - 98.0 FL LAB HEMETOLOGY METHOD 05/31/2024 3:19 PM EDT [facility] MCH 29.6 27.0 - 32.0 pcg LAB HEMETOLOGY METHOD 05/31/2024 3:19 PM EDT [facility] MCHC 31.3(L) 32.0 - 37.0 g/dL LAB HEMETOLOGY METHOD 05/31/2024 3:19 PM EDT [facility] RDW 14.5 11.0 - 15.0 % LAB HEMETOLOGY METHOD 05/31/2024 3:19 PM EDT [facility] Platelets 371 130 - 400 K/mcL LAB HEMETOLOGY METHOD 05/31/2024 3:19 PM EDT [facility] MPV 10.1 7.0 - 11.0 FL LAB [facility]EMETOLOGY [facility] NRBC 0.0 <1.0 % LAB HEMETOLOGY METHOD 05/31[facility]2024 [facility] NRBC Absolute 0.00 <0.10 K/mcL LAB HEMETOLOGY METHOD 05/31/2024 3:19 PM EDT [facility] Neutrophils Relative 66.8 % LAB HEMETOLOGY METHOD 05/31[facility]2024 [facility] Lymphocytes Relative 22.8 % LAB HEMETOLOGY METHOD 05/31/2024 3:19 PM [facility] Monocytes Relative 8.6 % LAB HEMETOLOGY METHOD 05/31/2024 3:[facility] Eosinophils Relative 1.2 % LAB HEMETOLOGY METHOD 05/31/2024 3:[facility] Basophils Relative 0.3 % LAB HEMETOLOGY METHOD 05/31/2024 3:[facility] Immature Granulocytes Relative 0.3 % LAB HEMETOLOGY METHOD 05/31/2024 3:[facility] Neutrophils Absolute 7.37(H) 1.50 - 7.00 K/mcL LAB HEMETOLOGY METHOD 05/31/2024 3:19 PM EDT [facility] Lymphocytes Absolute 2.52 1.00 - 5.00 K/[facility] LAB HEMETOLOGY METHOD 05/31/2024 3:19 PM EDT [facility] Monocytes Absolute 0.95 0.20 - 1.00 K/[facility] LAB HEMETOLOGY METHOD 05/31/2024 3:19 PM EDT [facility] Eosinophils Absolute 0.13 0.00 - 0.50 K/[facility] LAB HEMETOLOGY METHOD 05/31/2024 3:19 PM EDT [facility] Basophils Absolute 0.03 0.00 - 0.20 K/[facility] LAB HEMETOLOGY METHOD 05/31/2024 3:19 PM EDT [facility] Immature Granulocytes Absolute 0.03 0.00 - 0.03 K/[facility] LAB HEMETOLOGY METHOD 05/31/2024 3:19 PM EDT [facility] Blood Venous blood specimen / Unknown Venipuncture / Unknown 05/31/2024 2:56 PM EDT 05/31/2024 3:12 PM EDT Matthew Lyon DO LAB BLOOD ORDERABLES Final Result [facility] [address] [place] [address], * Basic metabolic panel (05/31/2024 2:56 PM EDT) Sodium 137 133 - 145 mmol/L LAB CHEMISTRY METHOD 05/31/2024 3:43 PM EDT [facility] Potassium 4.3 3.5 - 5.5 mmol/L LAB CHEMISTRY METHOD 05/31/2024 3:43 PM EDT [facility] Chloride 105 96 - 110 mmol/L LAB CHEMISTRY METHOD 05/31/2024 3:43 PM EDT [facility] CO2 28 21 - 32 mmol/L LAB CHEMISTRY METHOD 05/31/2024 3:43 PM EDT [facility] Anion Gap 4 3 - 11 LAB CHEMISTRY METHOD 05/31/2024 3:43 PM EDT [facility] Glucose 100 70 - 100 mg/dL LAB CHEMISTRY METHOD 05/31/2024 3:43 PM EDT [facility] BUN 14 5 - 25 mg/dL LAB CHEMISTRY METHOD 05/31/2024 3:43 PM EDT [facility] Creatinine 0.75 0.50 - 1.10 mg/dL LAB CHEMISTRY METHOD 05/31/2024 3:43 PM EDT [facility] eGFR 89 >=60 mL/min/1. 73m2 LAB CHEMISTRY METHOD 05/31/2024 3:43 PM EDT [facility] Comment:Calculation based on the??Chronic Kidney Disease Epidemiology Collaboration (CKD-EPI) equation refit??without adjustment for race. BUN/Creatinine Ratio 18.7 LAB CHEMISTRY METHOD 05/31/2024 3:43 PM EDT [facility] Calcium 9.5 8.5 - 10.5 mg/dL LAB CHEMISTRY METHOD 05/31/2024 3:43 PM EDT [facility] Blood Venous blood specimen / Unknown Venipuncture / Unknown 05/31/2024 2:56 PM EDT 05/31/2024 3:12 PM EDT us Matthew Lyon DO LAB BLOOD ORDERABLES Final Result [facility] [address] [place] [address], * XR Chest 2 Views (05/31/2024 2:01 PM EDT) Anatomical Region Laterality Modality Body Radiographic Latanya ging 05/31/2024 3:09 PM EDT Impressions 05/31/2024 3:09 PM EDT No evidence of active pulmonary disease. No significant change from the prior study. [id number] -------- FINAL REPORT -------- Dictated By: Markel Ybarra Dictated Date: 05/31/2024 15:09 ET Assigned Physician: Markel Ybarra Reviewed and Electronically Signed By: Markel Ybarra Signed Date: 05/31/2024 15:09 ET Workstation ID: [id number] Transcribed By: Self Edit Transcribed Date: 05/31/2024 [...] disease. No significant change from theprior study. [id number] -------- FINAL REPORT -------- Dictated By: Markel Ybarra Dictated Date: 05/31/2024 15:09 ET Assigned Physician: Markel Ybarra Reviewed and Electronically Signed By: Markel Ybarra Signed Date: 05/31/2024 15:09 ET Workstation ID: [id number] Transcribed By: Self Edit Transcribed Date: 05/31/2024 15:09 ET us Matthew Lyon DO IMG XR PROCEDURES Final Res ult * [id number], RSV, Influenza A and B qualitative RT-PCR (05/31/2024 1:47 PM EDT) Influenza A PCR Not Detected Not Detected LAB MICROBIOLOGY METHOD 05/31/2024 3:54 PM EDT [facility] Influenza B PCR Not Detected Not Detected LAB MICROBIOLOGY METHOD 05/31/2024 3:54 PM EDT [facility] RSV PCR Not Detected Not Detected LAB MICROBIOLOGY METHOD 05/31/2024 3:54 PM EDT [facility] SARS COV-2 Not Detected Not Detected LAB MICROBIOLOGY METHOD 05/31/2024 3:54 PM EDT [facility] Swab Both anterior nares / Unknown Non-blood Collection / Unknown 05/31/2024 1:47 PM EDT 05/31/2024 3:04 PM EDT Narrative [facility] - 05/31/2024 3:54 PM EDT Disclaimer: ??Testing was performed using the [employer] GeneXpert Xpress SARS-CoV-2 _Flu_RSV PLUS PCR assay. [...] for Healthcare providers can be found at https://www.fda.gov/media/217037/download. ?? Fact sheet for Healthcare patients can be found at https://www.fda.gov/media/401577/download. Matthew Lyon DO LAB MICROBIOLOGY - GENERAL ORDERABLES Final Result [facility] [address] [place] [address], [place] [phone] from Last 3 Months Insurance MEDICAID - [place] [employer] MEDICARE Member Subscriber Plan / Payer (Ef fective 2020-Present) Name:Janet Ramos Relation to Subscriber:Self Name:Janet Ramos Payer ID:[id number] Group ID:[id number] Type:Not on file Address: [address] [place] [address] Care Teams Looper Operator Relationship Specialty Start Date End Date Malgorzata Reeves MD [address] [place] [address] PCP - General Internal Medicine 03/28/19
[2024-07-18 10:21] LABS: Hematocrit 38.5 % (37.0-47.0); Hemoglobin 12.3 g/dl (12.0-16.0); Mean Corpuscular HGB Conc 31.9 g/dl (31.0-35.0); Mean Corpuscular Hemoglobin 29.1 pg (27.0-33.0); Mean Corpuscular Volume 91.2 fL (80.0-98.0); Mean Platelet Volume 10.4 fL (9.4-12.3); Platelet Count 347 X10*3/uL (160-400); Red Blood Count 4.22 X10*6/uL (4.20-5.50); Red Cell Distribution Width 13.4 % (11.0-16.0); White Blood Count 6.7 X10*3/uL (4.8-10.8)
[2024-07-18 11:12] LABS: Alanine Aminotransferase 17 U/L (0-31); Albumin Level 4.2 g/dL (3.5-5.0); Alkaline Phosphatase 123 U/L (39-117); Anion Gap 14 (12-20); Aspartate Amino Transferase 20 U/L (5-31); Bilirubin Total 0.2 mg/dL (0.0-1.0); Blood Urea Nitrogen 18 mg/dL (9-16); Carbon Dioxide 26 mmol/L (22-29); Chloride 107 mmol/L (96-108); Cholesterol 203 mg/dL (<200); Estimated Glomerular Filt Rate > 60; Glucose Fasting 94 mg/dL (60-99); HDL Cholesterol 69 mg/dL (>40); LDL Cholesterol Calculated 120 mg/dL (<100); Sodium 143 mmol/L (135-145); Total Protein 7.2 g/dL (6.5-8.0); Triglycerides 73 mg/dL (<150)
== END 2024-07-18 09:21 | disposition home or self-care (01) ==
LOC: HO.LAB 09:20
PROVIDERS: PCP Physician Assistant; Visit Provider Physician Assistant
DX: E78.2 Mixed hyperlipidemia (principal)
CPT/HCPCS: 36415; 80053; 80061; 85027

== ENCOUNTER 2024-08-02 12:44 | Outpatient (REF) | payer OTHER, SELFPAY ==
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
[2024-08-02 13:30] LABS: Hemoglobin 13.5 g/dl (12.0-16.0); Mean Corpuscular HGB Conc 32.9 g/dl (31.0-35.0); Mean Corpuscular Hemoglobin 29.8 pg (27.0-33.0); Mean Corpuscular Volume 90.5 fL (80.0-98.0); Mean Platelet Volume 10.1 fL (9.4-12.3); Platelet Count 353 X10*3/uL (160-400); Red Blood Count 4.53 X10*6/uL (4.20-5.50); Red Cell Distribution Width 13.2 % (11.0-16.0); White Blood Count 7.2 X10*3/uL (4.8-10.8)
[2024-08-02 13:38] LABS: Estimated Average Glucose 120 mg/dL; Hemoglobin A1c % 5.8 % (<6.0)
[2024-08-02 14:00] LABS: Alanine Aminotransferase 18 U/L (0-31); Albumin Level 4.6 g/dL (3.5-5.0); Alkaline Phosphatase 132 U/L (39-117); Anion Gap 12 (12-20); Aspartate Amino Transferase 20 U/L (5-31); Bilirubin Total 0.2 mg/dL (0.0-1.0); Blood Urea Nitrogen 13 mg/dL (9-16); Calcium 9.9 mg/dL (8.4-10.2); Carbon Dioxide 28 mmol/L (22-29); Chloride 107 mmol/L (96-108); Estimated Glomerular Filt Rate > 60; Glucose Fasting 111 mg/dL (60-99); Potassium 4.1 mmol/L (3.3-5.1); Sodium 143 mmol/L (135-145); Total Protein 7.7 g/dL (6.5-8.0)
[2024-08-02 14:19] LABS: Vitamin D 25-OH Total 46.5 ng/mL (>30)
[2024-08-02 14:19] LABS: Creatinine Urine 254.22 mg/dL; Microalbum/Creatinine Ratio Ur 11.8 ug/mg cr (<30)
== END 2024-08-02 12:45 | disposition home or self-care (01) ==
LOC: HO.LAB 12:44
PROVIDERS: PCP Physician Assistant; Visit Provider Physician Assistant
DX: I10 Essential (primary) hypertension (principal); E55.9 Vitamin D deficiency, unspecified; R73.01 Impaired fasting glucose; J45.909 Unspecified asthma, uncomplicated; E78.5 Hyperlipidemia, unspecified; G43.909 Migraine, unspecified, not intractable, without status migrainosus; M79.89 Other specified soft tissue disorders; M19.011 Primary osteoarthritis, right shoulder
CPT/HCPCS: 36415; 80053; 82043; 82306; 82570; 83036; 85027; 99212

== ENCOUNTER 2024-08-02 13:12 | Outpatient (AMB) | payer OTHER, SELFPAY ==
--- NOTE | 2024-08-02 13:14 | MHC.PC.OV ---
Vital Signs 08/02/24 13:22 Height 5 ft 2 in Weight 168 lb BMI 30.7 BP 118/78 Blood Pressure Location Lt brachial Position Sitting Pulse 88 Pulse Source Pulse Oximeter Temp 97.1 F Temp Source Temporal Artery Scan Pulse Oximetry (%) 98 Oxygen Delivery Method Room Air Intake Visit Reasons: not feeling well Safekeeping Clerk Required: No Accompanied by: Self / Same As Patient Allergies peanut Allergy (Severe, Verified 08/02/24 13:23) Anaphylaxis seafood Allergy (Severe, Verified 08/02/24 13:23) Anaphylaxis codeine [Codeine] Allergy (Intermediate, Verified 08/02/24 13:23) RASH/ITCHING tomato Allergy (Intermediate, Verified 08/02/24 13:23) Gastrointestinal Upset celecoxib [From Celebrex] Adverse Reaction (Intermediate, Verified 08/02/24 13:23) Palpitations ibuprofen [From Motrin] Adverse Reaction (Intermediate, Verified 08/02/24 13:23) Stomach pains levofloxacin [From Levaquin] Adverse Reaction (Intermediate, Verified 08/02/24 13:23) Nausea pravastatin Adverse Reaction (Intermediate, Verified 08/02/24 13:23) Muscle pain Medication List - Last Reconciled 08/02/24 by Feliciano Corey PA-C albuterol sulfate 90 mcg/actuation 1 puff inhalation QID PRN albuterol sulfate 2.5 mg (3 mL) inhalation Q6H PRN 15 days amitriptyline 25 mg PO BEDTIME 30 days amlodipine 10 mg PO DAILY 90 days blood pressure test kit-medium As directed cholecalciferol (vitamin D3) (Vitamin D3) 25 mcg PO DAILY COVID-19 antigen test (BinaxNO COVID-19 Ag Self Test kit) As directed cyanocobalamin (vitamin B-12) 1,000 mcg PO DAILY diclofenac sodium 1% (Arthritis Pain (diclofenac)) 2 grams topical QID 30 days diphenhydramine HCl (Benadryl Allergy) 25 mg PO BEDTIME 10 days fluticasone propion-salmeterol 250-50 mcg/dose (Wixela Inhub) 1 inh inhalation Q12H hydroxyzine HCl 25 mg PO BID 7 days ipratropium-albuterol 0.5 mg-3 mg(2.5 mg base)/3 mL 3 mL inhalation Q4-6H PRN meclizine 25 mg PO BID PRN 10 days meloxicam 15 mg PO DAILY 30 days miscellaneous medical supply (Blood Pressure Cuff) As directed nebulizers (AeroEclipse II Nebulizer) NEED FOR NEW NEBULIZER MACHINE ondansetron 4 mg PO Q8H PRN pantoprazole 40 mg PO BID [pulse oximeter As directed] rosuvastatin 5 mg PO 3XW [Self Adhesive Electrode AGF-101 As directed NS] Shower Chair As directed sucralfate 1 g PO BID 90 days tramadol 50 mg PO BID PRN 7 days triamcinolone acetonide 0.1% 1 appl topical DAILY 30 days [wedge pillow As directed] Tobacco use date assessed: 03/29/24 Fall risk assessment: No Falls in past year Last assessed Fall Risk: 08/02/24 Dental Screening Dental Screen Date: 03/29/24 HPI not feeling well HPI Details patient is a 64-year-old female with a past medical history significant for asthma, hyperlipidemia, anxiety and depression, polyarthralgia and migraine disorder. .. hyperlipidemia: recent lipid panel showing borderline high total cholesterol and LDL. She has been using rosuvastatin 5 mg 3 times a week. Will changed her frequency of dosing to daily to get better control over total cholesterol and LDL. .. The patient has experienced chronic migraines, exacerbated by stress and other life events. She is hesitant to take amitriptyline and lorazepam together at night due to concerns about interactions, although reassurances have been provided that concurrent use is safe. Her migraines are described as severe and debilitating, affecting her daily functioning and mood. She has undergone imaging and blood work, which were reported as normal, yet headaches persist. [facility] Medical History (Updated 08/02/24 @ 13:48 by Feliciano Corey PA-C) Plantar fasciitis of right foot Seafood allergy Frequent headaches Stress at work Obesity (BMI 30-39.9) Essential hypertension Plantar fasciitis, bilateral Impaired fasting glucose Irritable bowel syndrome with constipation Gastric ulcer Dyslipidemia Former smoker Degenerative disc disease, lumbar Vitamin D deficiency Vitamin B12 deficiency History of drug abuse Gastritis Peripheral neuropathy Osteoarthritis involving multiple joints on both sides of body Migraine ANKIT (obstructive sleep apnea) Surgical History Hx of shoulder replacement History of esophagogastroduodenoscopy (EGD) Hx of colonoscopy History of right knee joint replacement History of partial hysterectomy Family History Father CKD (chronic kidney disease) Mother Alcoholism CVA (cerebral vascular accident), Onset Age: 54 Social History Housing: Apartment Are you a primary day care attendant to a significant other at home: No Do you presently have visiting nurse or other home services: No Alcohol intake: never Patient Tobacco Use Status: Former Tobacco user Tobacco use type: Cigarette Cigarette Packs Per Day: 1 Cigarettes Per Day: 20 Years Smoked: 30 yrs Packs Per Year: 0 Packs per year/per ci.00 e-Cigarette/Vaping Use: Never Used Second Hand Smoke Exposure: No service: No Current occupational status: employed 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 Josué Feldman, Shari Luo, Lenny Barnes and colleagues, with an educational nino from [employer]. Review of Systems Const Reports headache(s) Eyes Denies loss of vision ENT Denies vertigo, Denies dizziness, Reports headache(s) and Denies sore throat Card Denies chest pain, Denies leg edema and Denies lightheadedness Resp Denies cough, Denies hemoptysis and Denies wheezing GI Denies abdominal pain, Denies melena, Denies constipation, Denies diarrhea and Denies vomiting Denies urinary frequency, Denies dysuria and Denies urinary urgency Musc Denies arthralgias, Denies joint swelling, Denies numbness and Denies tingling Neuro Denies Abnormal speech present, Denies behavioral changes, Denies vertigo, Denies dizziness, Reports headache(s), Denies loss of vision, Denies memory loss, Denies numbness and Denies tingling Psych Denies anxiety, Denies behavioral changes, Denies depression, Denies memory loss and Denies panic attacks Stefano/Lymph Denies easy bleeding and Denies easy bruising Aller/Immun Denies wheezing Physical exam (Primary Care) Vital Signs: Last Vital Signs Temp 97.1 F 08/02/24 13:22 Pulse 88 08/02/24 13:22 BP 118/78 08/02/24 13:22 Pulse Ox 98 08/02/24 13:22 Oxygen Delivery Method Room Air 08/02/24 13:22 BMI result Body Mass Index 30.7 Tobacco/Smoking Status: Tobacco use Status Tobacco use date assessed 03/29/24 08/02/24 13:15 Patient Tobacco Use Status Former Tobacco user 08/02/24 13:15 Tobacco use type Cigarette 08/02/24 13:15 e-Cigarette/Vaping Use Never Used 08/02/24 13:15 Thrive Assessment: Date of Thrive Assessment Date Thrive assessed 03/29/24 08/02/24 13:15 Const General: healthy appearing, no acute distress, alert and awake Nutritional Appearance: well nourished Orientation/consciousness: oriented to person, oriented to place and oriented to time HENMT Ears: TM's normal bilaterally General nose exam: Normal nasal mucous membranes and turbinates present Eyes Conjunctivae: conjunctivae normal Sclerae: sclerae normal Pupils: Equal, round and reactive pupils present Neck Neck: Yes no lymphadenopathy and Yes no JVD Thyroid: Thyroid normal Carotids: no bruits Resp Effort & Inspection: normal respiratory effort and not tachypneic Auscultation: no crackles, no rales, no rhonchi and no wheezes Cardio Rate: regular rate Rhythm: regular rhythm Heart sounds: no murmurs and normal S1 and S2 GI Palpation (GI): Soft to palpation, nontender, no hepatomegaly and no splenomegaly Auscultation: normal bowel sounds Skin General skin exam: no rashes or lesions noted and dry skin Neuro General: oriented to person, oriented to place and oriented to time Cranial nerves: Yes Equal, round and reactive pupils present Speech: No Abnormal speech present Gait exam (Neuro): Normal gait present Motor exam (neuro): no tremor noted Extrem Right upper extremity: full ROM Left upper extremity: full ROM Right lower extremity: full ROM; no edema Left lower extremity: full ROM; no edema Psych Mental Status: mental status grossly normal Speech and movement: Normal speech and movement present Affect: normal affect Attitude: cooperative Thought process: Normal thought process present Coding Level of Care Code Est Pt Level 4 (35371) Diagnoses Migraine without status migrainosus, not intractable, unspecified migraine type G43.909 Intractability: not intractable Migraine type: unspecified Status migrainosus presence: without status migrainosus Dyslipidemia E78.5 Assessment & Plan Assessment & Plan (1) Migraine: Code(s): G43.909 - Migraine, unspecified, not intractable, without status migrainosus Category: Medical Qualifiers: Intractability: not intractable Migraine type: unspecified Status migrainosus presence: without status migrainosus Qualified Code(s): G43.909 - Migraine, unspecified, not intractable, without status migrainosus Plan: The patient is experiencing severe migraines affecting her quality of life. I will prescribe sumatriptan as needed for acute migraine attacks, providing relief. Additionally, I will reassure her regarding the safe concurrent use of amitriptyline and lorazepam for nighttime migraine and insomnia management. (2) Dyslipidemia: Code(s): E78.5 - Hyperlipidemia, unspecified Category: Medical Plan: The patient?s hypercholesterolemia remains borderline high despite current therapy. I will switch her rosuvastatin regimen to a daily dose to enhance its efficacy in lowering cholesterol levels. Regular monitoring of her liver function tests will be done to ensure safety, given her history of prednisone use. Medications: New sumatriptan succinate take 1 tab at onset of headache; if no relief may repeat 1 tab after at least 2 hrs; max = 4 tabs/24 hr PO 9 tabs 0RF 30 days G43.909 - Migraine, unspecified, not intractable, without status migrainosus Changed From rosuvastatin 5 mg PO 3XW 39 tabs 1RF E78.5 - Hyperlipidemia, unspecified To rosuvastatin 5 mg PO DAILY 30 tabs 3RF 30 days E78.5 - Hyperlipidemia, unspecified Refilled tramadol 50 mg PO BID PRN 14 tabs 0RF pain 7 days M19.011 - Primary osteoarthritis, right shoulder
[2024-08-02 13:22] VITALS: BP 118/78; PULSE 88; TEMP 36.2; O2SAT 98; BMI 30.7
== END 2024-08-02 14:08 | disposition home or self-care (01) ==
PROVIDERS: PCP Physician Assistant; Visit Provider Physician Assistant
DX: G43.909 Migraine, unspecified, not intractable, without status migrainosus (principal); E78.5 Hyperlipidemia, unspecified

== ENCOUNTER 2024-09-13 13:22 | Outpatient (AMB) | payer OTHER, SELFPAY ==
--- OUTSIDE RECORDS SUMMARY | 2024-09-07 23:59 | XMS_ITS | Continuity of Care Document ---
Author Organization [facility] ter Address [address] [place] [id number]- Care Team Providers Care Enthone Solder Stripper Name Role Phone Feliciano William Primary Care Physician [phone] Encounter [facility] [id number] Date(s): 07/06/24 - 09/07/[address] [address] Attending Physician: Saad Sanderson MD Admitting Physician: Saad Sanderson MD Referring Physician: Feliciano William Encounter Type: Pre-Outpt Allergies, Adverse Reactions, Alerts Substance Criticality Severity Reaction Reaction Severity Status codeine Active shellfish Active Levaquin Active Chantix Hives Active Chocolate Active Peanuts Active Tomatoes Active Immunizations Given and Recorded Vaccine Date Status Refusal Reason influenza virus vaccine, inactivated 05/17/18 Give n influenza virus vaccine, inactivated 03/26/16 Give n influenza virus vaccine, inactivated 11/13/12 Give n influenza virus vaccine, inactivated 1 05/10/11 Gi david pneumococcal 23-valent vaccine 01/16/13 Given tetanus-diphtheria toxoids (Td) 10/15/12 Given Tetanus-Diphth Toxoids, Adult (oldterm) 05/10/11 G iven 1Admin Note: FLULAVAL Medications albuterol 0.083% inhalation solution 3 mL = 2.5 mg, Inhalation, Every 6 hours, # 25 each, 0 Refills, Maintenance, 12/26/17 6:56:25 AM EDT Start Date: 12/26/17 Status: Ordered Quantity: 25.0 Unit: each Repeat number: 1 albuterol CFC free 90 mcg/inh inhalation aerosol 2, puffs, Inhalation, Every 4 hours, PRN, # 8.5 Gm, Refills 0, Tot. Refills 0, Maintenance, 12/26/17 6:56:36 AM EDT, Aerosol, Print Requisition Start Date: 12/26/17 Status: Ordered Quantity: 8.5 Unit: g Repeat number: 1 Amlodipine By Mouth, Daily, 0 Refills, Maintenance, 02/16/22 5:28:00 PM EST, Partial fill upon patient requestif the prescription is for a schedule II opioid drug. Start Date: 02/16/22 Status: Ordered Repeat number: 1 Ativan 1 mg oral tablet See Instructions, 1 tablet tonight 1 mg By Mouth 2 times a day X 3 days )from tomorrow) 1 tab dailyfor 3 days 1/2 tab (0.5 mg) daily fro 3 days and stop, # 12 tablet, 0 Refills, Maintenance, 05/20/1911:17:12 PM EDT, Tablet Start Date: 05/19/18 Status: Ordered Quantity: 12.0 Unit: tablet Repeat number: 1 hydrochlorothiazide 12.5 mg oral capsule 1 capsule = 12.5 mg, By Mouth, Daily, dx: hypertension, lower extremity edema, # 30 capsule, 6 Refills, Maintenance, 12/18/16 11:10:20 AM EDT, Capsule, [facility] [id number] Start Date: 12/18/16 Stop Date: 07/16/17 Status: Ordered Quantity: 30.0 Unit: capsule Repeat number: 7 LORazepam 0.5 mg oral tablet 1 tablet = 0.5 mg, By Mouth, Every 8 hours, 0 Refills, Maintenance, 02/16/22 5:29:00 PM EST, Partial fill upon patient request if the prescription is for a schedule II opioid drug. Start Date: 02/16/22 Status: Ordered Repeat number: 1 omeprazole 20 mg oral delayed release tablet 1 tablet = 20 mg, By Mouth, Daily, dx: GERD, # 30 tablet, 6 Refills, Maintenance, 12/09/16 10:10:36 AM EDT, EC Tablet, [id number] Start Date: 12/09/16 Stop Date: 07/07/17 Status: Ordered Quantity: 30.0 Unit: tablet Repeat number: 7 Pantoprazole Daily, 0 Refills, Maintenance, 02/16/22 5:28:00 PM EST Start Date: 02/16/22 Status: Ordered Repeat number: 1 Percocet-5/325 325 mg-5 mg oral tablet 1, tablet, By Mouth, 3 times a day, PRN, # 10 tablet, Refills 0, Tot. Refills 0, Maintenance, Pain,07/10/18 3:46:40 AM EDT, Print Requisition Start Date: 07/10/18 Stop Date: 07/13/18 Status: Ordered Quantity: 10.0 Unit: tablet Repeat number: 1 Remeron 15 mg oral tablet 1 tablet = 15 mg, By Mouth, Daily at bedtime, # 30 tablet, 0 Refills, Maintenance, 05/19/18 12:21:46PM EDT, Tablet Start Date: 05/19/18 Stop Date: 06/18/18 Status: Ordered Quantity: 30.0 Unit: tablet Repeat number: 1 rosuvastatin 5 mg oral tablet 0 Refills, Maintenance, 07/18/24 7:55:00 AM EDT, Partial fill upon patient request if the prescription is for a schedule II opioid drug. Start Date: 07/18/24 Status: Ordered Repeat number: 1 simvastatin 10 mg oral tablet 10 mg, 1, tablet, By Mouth, Daily at bedtime, dx: hyperlipidemia, # 30 tablet, Refills 6, Tot. Refills 6, Maintenance, 12/09/16 10:10:14 AM EDT, Route to Pharmacy Electronically, [facility] [id number] Start Date: 12/09/16 Stop Date: 07/07/17 Status: Ordered Quantity: 30.0 Unit: tablet Repeat number: 7 Soma 350 mg oral tablet 350 mg, 1, tablet, By Mouth, 3 times a day, # 15 tablet, Refills 0, Tot. Refills 0, Maintenance, 07/10/18 3:46:38 AM EDT, Print Requisition Start Date: 07/10/18 Stop Date: 07/15/18 Status: Ordered Quantity: 15.0 Unit: tablet Repeat number: 1 Tramadol = 50 mg, By Mouth, prn, 0 Refills, Maintenance, 07/18/24 7:54:00 AM EDT, Partial fill upon patient request if the prescription is for a schedule II opioid drug. Start Date: 07/18/24 Status: Ordered Repeat number: 1 Vitamin B12 0 Refills, Maintenance, 02/16/22 5:29:00 PM EST, Partial fill upon patient request if the prescription is for a schedule II opioid drug. Start Date: 02/16/22 Status: Ordered Repeat number: 1 Vitamin D3 oral tablet 1 tablet = 10 mcg, By Mouth, Daily, 0 Refills, Maintenance, 02/16/22 5:29:00 PM EST, Partial fill upon patient request if the prescription is for a schedule II opioid drug. Start Date: 02/16/22 Status: Ordered Repeat number: 1 Wixela Inhub 250 mcg-50 mcg inhalation powder 1 inhalation, Inhalation, 2 times a day, rinse mouth and throat after use, # 1 capsule, 3 Refills, Maintenance, 07/18/24 8:48:00 AM EDT, Powder, [facility]/pharmacy #[id number], Partial fill upon patient request if the prescription is for a schedule II opioid drug., 1 inhalation Inhalation 2 times a day,Instr:rinse mouth and throat after use, 160, cm, 07/18/24 7:47:00 EDT, Height, 79.1, kg, 10/16/23 14:48:00 EDT, Dry Weight Start Date: 07/18/24 Status: Ordered Quantity: 1.0 Unit: capsule Repeat number: 4 Zofran 4 mg oral tablet 1 tablet = 4 mg, By Mouth, Every 8 hours, PRN Nausea & Vomiting, # 10 tablet, 0 Refills, Maintenance, 07/31/21 3:40:00 PM EDT, Tablet, [facility]/pharmacy #[id number], Partial fill upon patient request if the prescription is for a schedule II opioid drug., 160, cm, 07/31/21 15:16:00 EDT, Height, 81.1, kg, 06/01/21 17:01:00 EDT, Dry Weight Start Date: 07/31/21 Status: Ordered Quantity: 10.0 Unit: tablet Repeat number: 1 Problem List Condition Confirmation Course Effective Dates Status H ealth Status Informant Anxiety depression 1 Confirmed Active Asthma Confirmed Active Constipation Confirmed Active Dysphagia Confirmed Active Fecal urgency Confirmed Active Hyperlipidemia Confirmed Active Migraines Confirmed Active Odynophagia Confirmed Active PTSD - Post-traumatic stress disorder Confirmed Active Screening colonoscopy Confirmed Active 1History of self-cutting and overdose Social History Social History Type Response Tobacco Use: patient has not smoked in 2 years. Sex Sex Representation Female (finding) Patient Care team information Care Team Personnel Name: Sharmin Morris RN Position: [facility] [employer] Member Role: Primary Care Nurse Name: Feliciano William Position: Reference Physician Member Role: PCP Address: [address] [place] [address] [address] [place] [address] Telecom: Name: Linda Tyson RN Position: [facility] RN Member Role: Primary Care Nurse Name: Kathy Vasquez RN Position: [facility] RN Member Role: Primary Care Nurse Name: Kait Starr RN Position: [facility] RN Member Role: Primary Care Nurse Care Team Related Persons Name: DANE HAWKINS Name: AHSAN KING Name: PAUL HERRERA Insurance Providers Guarantor name: [facility] Plan Information #: 1 Payer: [facility] Payer Identifier: NA Member Number: [id number] Group Number: [id number] Subscriber Identifier: [id number] Relationship to Subscriber: self Coverage Type: Medicare Managed Care (Includes Medicare Advantage Plans) Coverage Verification Date: Telecom: NA Address: NA
--- OUTSIDE RECORDS SUMMARY | 2024-09-13 13:25 | XMS_ITS | Clinical Summary ---
Author Organization [employer] [facility] Address [address] [place] [address] Care Team Providers Care Air Cargo Specialist Name Role Phone Janina Don MD Primary Care Pro vider Allergies Active Allergy Reactions Criticality Noted Date Comments [place] 08/04/2017 Codeine 08/04/2017 Ibuprofen Rash Low 06/20/2014 [...] - PCV) 02/14/2016 02/13/2015 Influenza Vaccine (#1) 2024 DTap / Tdap / Td (2 - [...] age to complete this topic Care Teams Air Cargo Specialist Relationship Specialty Start Date End Date Janina Don MD [address] [place] [address] [facility] [address] PCP - General Family Medicine 08/24/18
--- OUTSIDE RECORDS SUMMARY | 2024-09-13 13:25 | XMS_ITS | Clinical Summary ---
Author Organization [facility] Address [address] [place] [address] Phone Care Team Providers Care Key Account Representative Name Role Phone Malgorzata Reeves MD Primary Care Provider Allergies Active Allergy Reactions Criticality Noted Date Comments Varenicline 05/31/2024 Levofloxacin 05/31/2024 Morphine 05/31/2024 Medications cetirizine (ZyrTEC) 10 mg tablet Take 1 tablet (10 mg total) by mouth 1 (one) time each day. 30 each 05/31/2024 Active Surgical History Surgery Date Site/Laterality Comments SHOULDER [...] CERVICAL BIOPSY W/ LOOP ELECTRODE EXCISION PROCEDURE: [place] CONIZATION CERVIX W/WO D&C RPR ELTRD EXC; [...] 98 05/31/2024 3:32 PM EDT Temperature 36.6 C (97.9 F) 05/31/2024 1:42 PM EDT Respiratory Rate 20 05/31/2024 1:42 PM EDT [...] 5 Years) and At-Risk Patients (6 to 49 Years) (2 of 2 - PCV) 02/14/2016 [...] season) 2023 01/30/2021, 07/10/2020, 06/12/2020 Influenza Vaccine (#1) 2024 , 05/17/2018, 03/26/2016, Additional history exists Hypertension/CHF/CAD Annual [...] Procedure Name Priority Date/Time Associated Diagnosis Comments BASIC METABOLIC PANEL STAT 05/31/2024 2:56 PM EDT from Last 3 Months or Most Recently Relevant to Health Maintenance Results * Basic metabolic panel (05/31/2024 2:56 PM EDT) Sodium 137 133 - 145 mmol/L LAB CHEMISTRY METHOD 05/31/2024 3:43 PM [facility] Potassium 4.3 3.5 - 5.5 mmol/L LAB CHEMISTRY METHOD 05/31/2024 3:43 PM [facility] Chloride 105 96 - 110 mmol/L LAB CHEMISTRY METHOD 05/31/2024 3:43 PM [facility] CO2 28 21 - 32 mmol/L LAB CHEMISTRY METHOD 05/31/2024 3:43 PM [facility] Anion Gap 4 3 - 11 LAB CHEMISTRY METHOD 05/31/2024 3:43 PM [facility] Glucose 100 70 - 100 mg/dL LAB CHEMISTRY METHOD 05/31/2024 3:43 PM [facility] BUN 14 5 - 25 mg/dL LAB CHEMISTRY METHOD 05/31/2024 3:43 PM [facility] Creatinine 0.75 0.50 - 1.10 mg/dL LAB CHEMISTRY METHOD 05/31/2024 3:43 PM [facility] eGFR 89 >=60 mL/min/1. 73m2 LAB CHEMISTRY METHOD 05/31/2024 3:43 PM [facility] Comment:Calculation based on the Chronic Kidney Disease Epidemiology Collaboration (CKD-EPI) equation refit without adjustment for race. BUN/Creatinine Ratio 18.7 LAB CHEMISTRY METHOD 05/31/2024 3:43 PM [facility] Calcium 9.5 8.5 - 10.5 mg/dL LAB CHEMISTRY METHOD 05/31/2024 3:43 PM [facility] Blood Venous blood specimen / Unknown Venipuncture / Unknown 05/31/2024 2:56 PM EDT 05/31/2024 3:12 PM EDT us Javi Lyon DO LAB BLOOD ORDERABLES Final Result [facility] [address] [place] [address], from Last 3 Months or Most Recently Relevant to Health Maintenance Insurance MEDICAID - [place] [facility] Member Subscriber Plan / Payer (Ef fective 2020-Present) Name:Janet Ramos Relation to Subscriber:Self Name:Janet Ramos Payer ID:[id number] Group ID:[id number] Type:Not on file Address: [address] [place] [address] Care Teams Key Account Representative Relationship Specialty Start Date End Date Malgorzata Reeves MD [address] [place] [address] PCP - General Internal Medicine 03/28/19
--- NOTE | 2024-09-13 13:27 | MHC.PC.OV ---
Vital Signs 09/13/24 13:29 Height 5 ft 2 in Weight 169 lb 2 oz BMI 30.9 BP 120/68 Blood Pressure Location Lt brachial Position Sitting Pulse 77 Pulse Source Pulse Oximeter Pulse Oximetry (%) 97 Oxygen Delivery Method Room Air Intake Visit Reasons: annual exam Contract Analyst Required: No Accompanied by: Self / Same As Patient Allergies peanut Allergy (Severe, Verified 09/13/24 13:44) Anaphylaxis seafood Allergy (Severe, Verified 09/13/24 13:44) Anaphylaxis codeine (Codeine) Allergy (Intermediate, Verified 09/13/24 13:44) RASH/ITCHING tomato Allergy (Intermediate, Verified 09/13/24 13:44) Gastrointestinal Upset celecoxib (From Celebrex) Adverse Reaction (Intermediate, Verified 09/13/24 13:44) Palpitations ibuprofen (From Motrin) Adverse Reaction (Intermediate, Verified 09/13/24 13:44) Stomach pains levofloxacin (From Levaquin) Adverse Reaction (Intermediate, Verified 09/13/24 13:44) Nausea pravastatin Adverse Reaction (Intermediate, Verified 09/13/24 13:44) Muscle pain Medication List - Last Reconciled 09/13/24 by Feliciano Corey PA-C albuterol sulfate 90 mcg/actuation 1 puff inhalation QID PRN albuterol sulfate 2.5 mg (3 mL) inhalation Q6H PRN 15 days amitriptyline 25 mg PO BEDTIME 30 days amlodipine 10 mg PO DAILY 90 days blood pressure test kit-medium As directed cholecalciferol (vitamin D3) (Vitamin D3) 25 mcg PO DAILY COVID-19 antigen test (BinaxNOW COVID-19 Ag Self Test kit) As directed cyanocobalamin (vitamin B-12) 1,000 mcg PO DAILY diclofenac sodium 1% (Arthritis Pain (diclofenac)) 2 grams topical QID 30 days diphenhydramine HCl (Benadryl Allergy) 25 mg PO BEDTIME 10 days fluticasone propion-salmeterol 250-50 mcg/dose (Wixela Inhub) 1 inh inhalation Q12H hydroxyzine HCl 25 mg PO BID 7 days ipratropium-albuterol 0.5 mg-3 mg(2.5 mg base)/3 mL 3 mL inhalation Q4-6H PRN meclizine 25 mg PO BID PRN 10 days meloxicam 15 mg PO DAILY 30 days miscellaneous medical supply (Blood Pressure Cuff) As directed nebulizers (AeroEclipse II Nebulizer) NEED FOR NEW NEBULIZER MACHINE ondansetron 4 mg PO Q8H PRN pantoprazole 40 mg PO BID [pulse oximeter As directed] rosuvastatin 5 mg PO DAILY 30 days [Self Adhesive Electrode AGF-101 As directed NS] Shower Chair As directed sucralfate 1 g PO BID 90 days sumatriptan succinate take 1 tab at onset of headache; if no relief may repeat 1 tab after at least 2 hrs; max = 4 tabs/24 hr PO 30 days tramadol 50 mg PO BID PRN 7 days triamcinolone acetonide 0.1% 1 appl topical DAILY 30 days [wedge pillow As directed] Tobacco use date assessed: 09/13/24 Fall risk assessment: No Falls in past year Last assessed Fall Risk: 09/13/24 Dental Screening Dental Screen Date: 09/13/24 Did you have a dental visit in the last 12 months?: Yes Did you have a dental problem in the last 6 months where you did not have access to dental care?: No Was dental information given to patient?: Patient has dentist HPI annual exam HPI Details Patient is a 64-year-old female here today for an annual physical Patient has a past medical history significant for hypertension, asthma, anxiety depression, GERD. Concern--> The patient experiences chronic constipation, reporting difficulty with bowel movements despite a high-fiber diet including fruits and vegetables. She recalls being prescribed a laxative, possibly senna, which she plans to resume to alleviate symptoms. Additionally, she reports symptoms consistent with irritable bowel syndrome with constipation, which complicates her bowel habits. . Pulmonary nodules: Patient a previous smoker. CT chest in 2022 showing--> Nonspecific, noncalcified 4 mm and 2 mm nodules are seen within the superior segment of the left lower lobe.. During the winter months of 2024 she had a chronic infection in her lungs. Patient now followed by pulmonology at [facility]. She reports her breathing has been fairly stable as of lately Generalized anxiety disorder: She continues to follow a psychiatrist and a mental health therapist. She continues on lorazepam on a daily basis. She continues to suffer with anxiety like symptoms such as racing thoughts at night, intermittent chest pain and palpitations, always worrying. She has some recent trauma lately related to her family that has caused some heightened anxiety as well. .. Hyperlipidemia: Continues with statin therapy and a every other day basis. Most recent lipid panel showing appropriate total cholesterol and LDL. Hypertension: Patient's blood pressure acceptable today in office. She continues on amlodipine 10 mg with good effect.. Vaccine: Up-to-date with COVID vaccine, need PCV. unclear if had varicella. Needs Tdap. Colon cancer screening: Colon done in 2021- repeat 5 years Mammogram: Mammogram done in May of 2024, normal [facility] Medical History (Updated 09/13/24 @ 13:53 by Feliciano Corey PA-C) Plantar fasciitis of right foot Seafood allergy Frequent headaches Stress at work Obesity (BMI 30-39.9) Essential hypertension Plantar fasciitis, bilateral Impaired fasting glucose Irritable bowel syndrome with constipation Gastric ulcer Dyslipidemia Former smoker Degenerative disc disease, lumbar Vitamin D deficiency Vitamin B12 deficiency History of drug abuse Gastritis Peripheral neuropathy Osteoarthritis involving multiple joints on both sides of body Migraine ANKIT (obstructive sleep apnea) Surgical History Hx of shoulder replacement History of esophagogastroduodenoscopy (EGD) Hx of colonoscopy History of right knee joint replacement History of partial hysterectomy Family History Father CKD (chronic kidney disease) Mother Alcoholism CVA (cerebral vascular accident), Onset Age: 54 Social History Housing: Apartment Are you a primary healthcare account manager to a significant other at home: No Do you presently have visiting nurse or other home services: No Alcohol intake: never Patient Tobacco Use Status: Former Tobacco user Tobacco use type: Cigarette Cigarette Packs Per Day: 1 Cigarettes Per Day: 20 Years Smoked: 30 yrs e-Cigarette/Vaping Use: Never Used Second Hand Smoke Exposure: No service: No Current occupational status: employed Current occupation: [employer]PER[employer] Current occupational exposures/hazards: No Cognitive needs: No Hearing needs: No Vision needs: Yes Questionnaire Thrive Questionnaire Date Thrive assessed: 09/13/24 MATTEO-7 AMB Questionnaire MATTEO-7 Date MATTEO - 7 assessed: 09/13/24 Source: Developed by Drs. Josué Feldman, Shari Luo, Lenny Barnes and colleagues, with an educational nino from [employer]. Review of Systems Const Denies body aches, Denies chills, Denies excessive sweating, Denies fatigue, Denies fever(s) and Denies headache(s) Eyes Denies blurry vision ENT Denies dysphagia, Denies vertigo, Denies dizziness, Denies headache(s), Denies hearing loss and Denies tinnitus Card Denies chest pain, Denies chest pain with activity, Denies syncope, Denies irregular heart rhythm and Denies dyspnea Resp Denies chest congestion, Denies cough, Denies hemoptysis, Denies dyspnea and Denies wheezing GI Denies abdominal pain, Denies melena, Denies hematochezia, Denies coffee ground emesis, Denies dysphagia, Denies diarrhea, Denies nausea and Denies vomiting Denies urinary frequency, Denies dysuria, Denies urinary hesitancy and Denies urinary urgency Musc Denies arthralgias, Denies limited range of motion, Denies muscle cramps and Denies muscle weakness Skin/Breast Denies rash and Denies skin ulcer Neuro Denies Abnormal speech present, Denies confusion, Denies vertigo, Denies dizziness, Denies syncope, Denies headache(s), Denies memory loss and Denies seizure-like activity Psych Denies anxiety, Denies confusion, Denies depression, Denies memory loss, Denies panic attacks and Denies paranoia Endo Denies excessive sweating, Denies fatigue, Denies flushing, Denies polydipsia and Denies polyuria Aller/Immun Denies wheezing Physical exam (Primary Care) Vital Signs: Last Vital Signs Pulse 77 09/13/24 13:29 BP 120/68 09/13/24 13:29 Pulse Ox 97 09/13/24 13:29 Oxygen Delivery Method Room Air 09/13/24 13:29 BMI result Body Mass Index 30.9 Tobacco/Smoking Status: Tobacco use Status Tobacco use date assessed 09/13/24 09/13/24 13:34 Patient Tobacco Use Status Former Tobacco user 09/13/24 13:34 Tobacco use type Cigarette 09/13/24 13:34 e-Cigarette/Vaping Use Never Used 09/13/24 13:34 Thrive Assessment: Date of Thrive Assessment Date Thrive assessed 09/13/24 09/13/24 13:34 Const General: cooperative, comfortable, no acute distress, alert and awake; No confusion Orientation/consciousness: oriented to person, oriented to place, patient oriented x3 and No confusion HENMT Head: Yes normocephalic Ears: external ears normal and TM's normal bilaterally Face and sinus: No sinus tenderness Mouth: Normal oral and palatal mucosa present and tongue normal Teeth and gingiva: dentition normal and gingiva normal Throat: Yes posterior oropharynx normal, Yes tonsils normal and Yes uvula midline Eyes Conjunctivae: conjunctivae normal Sclerae: sclerae normal Pupils: Equal, round and reactive pupils present EOM: EOMs intact bilaterally Direct Ophthalmoscopy: No no photophobia Neck Neck: Yes no lymphadenopathy, No tender and Yes no JVD Thyroid: Thyroid normal Carotids: no bruits Chest Chest palpation & inspection: no tenderness Resp Effort & Inspection: normal respiratory effort, no audible wheezes, not labored and no stridor Auscultation: no crackles, no rales, no rhonchi and no wheezes Cardio Jugular venous distension: no JVD Rate: regular rate, not bradycardic and not tachycardic Rhythm: regular rhythm Bruits: no carotid bruits Peripheral pulses: Peripheral pulses 2+ throughout GI Inspection: Yes normal to inspection, No abdominal wall ecchymosis and No visible herniation Palpation (GI): Soft to palpation, nontender, no guarding, not rigid and No hepatosplenomegaly present Auscultation: normoactive bowel sounds General: Yes no CVA tenderness Back/Spine/Pelvis Back: no CVA tenderness and No back tenderness Cervical Spine: cervical ROM normal Thoracic/Lumbar Spine: thoracic and lumbar spine normal to inspection, straight leg raise negative bilaterally, No thoraco-lumbar ROM limited and No lumbar spinal tenderness Skin Lesions: no lesions Rashes: no rashes Wounds: no wounds Neuro General: oriented to person, oriented to place, patient oriented x3, CN's II-XI intact bilaterally and No confusion Cranial nerves: Yes Equal, round and reactive pupils present and Yes Normal accommodation reflex present Cognition (Neuro): normal cognition Speech: No Abnormal speech present Gait exam (Neuro): Normal gait present Motor exam (neuro): 5/5 motor strength present throughout Extrem Right upper extremity: full ROM; no cyanosis Left upper extremity: full ROM; no cyanosis Right lower extremity: no edema Left lower extremity: no edema Psych Appearance: grossly normal Mental Status: mental status grossly normal Affect: normal affect Attitude: cooperative Thought process: Normal thought process present Coding Level of Care Code Est Pt Prev Care 40-64y([id number]) Diagnoses Annual physical exam Z00.00 Primary hypertension I10 Hypertension type: primary hypertension Mild intermittent asthma without complication J45.20 Asthma severity: mild Asthma persistence: intermittent Asthma complication type: uncomplicated Anxiety and depression F41.9; F32.A Mixed hyperlipidemia E78.2 Hyperlipidemia type: mixed hyperlipidemia Irritable bowel syndrome with constipation K58.1 Assessment & Plan Assessment & Plan (1) Annual physical exam: Code(s): Z00.00 - Encounter for general adult medical examination without abnormal findings Category: Medical Plan: As scheduled (2) Hypertension: Code(s): I10 - Essential (primary) hypertension Category: Medical Qualifiers: Hypertension type: primary hypertension Qualified Code(s): I10 - Essential (primary) hypertension Plan: Patient's blood pressure acceptable today in office. Will continue her current dose amlodipine 10 mg with goal blood pressure to be below 140/90. (3) Asthma: Code(s): J45.909 - Unspecified asthma, uncomplicated Category: Medical Qualifiers: Asthma severity: mild Asthma persistence: intermittent Asthma complication type: uncomplicated Qualified Code(s): J45.20 - Mild intermittent asthma, uncomplicated Plan: Patient reports her asthma is fairly well controlled though does use albuterol inhaler for shortness of breath and wheeze with good effect. (4) Anxiety and depression: Code(s): F41.9 - Anxiety disorder, unspecified; F32.A - Depression, unspecified Category: Medical Plan: As per HPI patient still seems to be suffering with anxiety. She speaks with a psychiatrist and a mental health therapist. Continues on lorazepam on a daily basis. Has had some family trauma recently that has heightened her anxiety. She admits to some sleeping issues related to racing thoughts at night. (5) Hyperlipidemia: Code(s): E78.5 - Hyperlipidemia, unspecified Category: Medical Qualifiers: Hyperlipidemia type: mixed hyperlipidemia Qualified Code(s): E78.2 - Mixed hyperlipidemia Plan: She reports she has fairly consistent with the use of her atorvastatin. Will recheck fasting lipid panel to ensure stable total cholesterol and LDL. Goal LDL to be below 130 (6) Irritable bowel syndrome with constipation: Code(s): K58.1 - Irritable bowel syndrome with constipation Category: Medical Plan: Patient has been experiencing more constipation as of late. Would supply her with send out to use temporarily to help reduce bowel movements. Advised on increasing fluids and fiber in her diet. Orders: Orders Lipid Panel Today E78.5 - Hyperlipidemia, unspecified Complete Blood Count no Diff Today E78.5 - Hyperlipidemia, unspecified Hemoglobin A1c Today R73.01 - Impaired fasting glucose Varicella IgG Antibody Today Z78.9 - Other specified health status Comprehensive [place]. Panel Fast Today E78.5 - Hyperlipidemia, unspecified Vitamin D 25-OH Total Today E55.9 - Vitamin D deficiency, unspecified Medications: New sennosides (Natural Senna Laxative) 8.6 mg PO BEDTIME 60 tabs 0RF 60 days K58.1 - Irritable bowel syndrome with constipation Refilled tramadol 50 mg PO BID PRN 14 tabs 0RF pain 7 days M19.011 - Primary osteoarthritis, right shoulder Patient Instructions: Goal: A1c to remain below 6.0, LDL to be below 130 Barriers: Adherence to physical activity and healthy eating habits
[2024-09-13 13:29] VITALS: BP 120/68; PULSE 77; O2SAT 97; BMI 30.9
== END 2024-09-13 14:05 | disposition home or self-care (01) ==
LOC: HO.HMCH 13:23
PROVIDERS: PCP Physician Assistant; Visit Provider Physician Assistant
DX: Z00.00 Encounter for general adult medical examination without abnormal findings (principal); I10 Essential (primary) hypertension; J45.20 Mild intermittent asthma, uncomplicated; F41.9 Anxiety disorder, unspecified; F32.A Depression, unspecified; E78.2 Mixed hyperlipidemia; K58.1 Irritable bowel syndrome with constipation

== ENCOUNTER → 2024-09-13 13:22 | Outpatient (BNVA) | payer OTHER, SELFPAY | PROVIDERS: PCP Physician Assistant; Visit Provider Physician Assistant | DX: Z00.00 Encounter for general adult medical examination without abnormal findings (principal); R91.8 Other nonspecific abnormal finding of lung field; F41.1 Generalized anxiety disorder; E78.5 Hyperlipidemia, unspecified; I10 Essential (primary) hypertension; J45.20 Mild intermittent asthma, uncomplicated; F32.A Depression, unspecified; E78.2 Mixed hyperlipidemia; K58.1 Irritable bowel syndrome with constipation; K59.09 Other constipation; M19.011 Primary osteoarthritis, right shoulder | CPT/HCPCS: 96127; 99396 ==

== ENCOUNTER 2024-12-12 08:52 | Outpatient (REF) | payer OTHER, SELFPAY ==
[2024-12-12 10:41] LABS: Hematocrit 37.3 % (37.0-47.0); Hemoglobin 12.0 g/dl (12.0-16.0); Mean Corpuscular HGB Conc 32.2 g/dl (31.0-35.0); Mean Corpuscular Hemoglobin 29.1 pg (27.0-33.0); Mean Corpuscular Volume 90.5 fL (80.0-98.0); NRBC Abs Auto 0.000 X10*3/uL (0.0-0.012); NRBC Pct Auto 0.0 /100WBC (0.0-0.2); Platelet Count 307 X10*3/uL (160-400); Red Blood Count 4.12 X10*6/uL (4.20-5.50); White Blood Count 6.6 X10*3/uL (4.8-10.8)
[2024-12-12 11:55] LABS: Alanine Aminotransferase 15 U/L (0-31); Albumin Level 4.4 g/dL (3.5-5.0); Alkaline Phosphatase 115 U/L (39-117); Anion Gap 10 (12-20); Aspartate Amino Transferase 20 U/L (5-31); Blood Urea Nitrogen 12 mg/dL (9-16); Calcium 9.3 mg/dL (8.4-10.2); Carbon Dioxide 26 mmol/L (22-29); Chloride 110 mmol/L (96-108); Cholesterol 247 mg/dL (<200); Estimated Glomerular Filt Rate > 60; HDL Cholesterol 61 mg/dL (>40); Potassium 3.9 mmol/L (3.3-5.1); Sodium 142 mmol/L (135-145); Total Protein 7.1 g/dL (6.5-8.0); Triglycerides 106 mg/dL (<150)
== END 2024-12-12 08:53 | disposition home or self-care (01) ==
LOC: HO.HMGCLDS 08:52
PROVIDERS: PCP Physician Assistant; Visit Provider Physician Assistant
DX: Z01.84 Encounter for antibody response examination (principal); R73.01 Impaired fasting glucose; E78.5 Hyperlipidemia, unspecified; E55.9 Vitamin D deficiency, unspecified; Z78.9 Other specified health status
CPT/HCPCS: 36415; 80053; 80061; 82306; 83036; 85027; 86787

== ENCOUNTER 2024-12-25 13:32 | Outpatient (AMB) | payer OTHER, SELFPAY ==
--- NOTE | 2024-12-25 13:45 | A.OFFPC_ITS ---
Vital Signs 12/25/24 13:46 Height 5 ft 2 in Weight 173 lb 8 oz BMI 31.7 BP 110/60 Blood Pressure Location Lt brachial Position Sitting Pulse 86 Pulse Source Pulse Oximeter Temp 97.3 F Temp Source Temporal Artery Scan Pulse Oximetry (%) 95 Oxygen Delivery Method Room Air Intake Visit Reasons: 4 months Torpedo Specialist Required: No Truckman: Not Required per policy Accompanied by: Self / Same As Patient Allergies peanut Allergy (Severe, Verified 12/25/24 14:07) Anaphylaxis seafood Allergy (Severe, Verified 12/25/24 14:07) Anaphylaxis codeine (Codeine) Allergy (Intermediate, Verified 12/25/24 14:07) RASH/ITCHING tomato Allergy (Intermediate, Verified 12/25/24 14:07) Gastrointestinal Upset celecoxib (From Celebrex) Adverse Reaction (Intermediate, Verified 12/25/24 14:07) Palpitations ibuprofen (From Motrin) Adverse Reaction (Intermediate, Verified 12/25/24 14:07) Stomach pains levofloxacin (From Levaquin) Adverse Reaction (Intermediate, Verified 12/25/24 14:07) Nausea pravastatin Adverse Reaction (Intermediate, Verified 12/25/24 14:07) Muscle pain Medication List - Last Reconciled 12/25/24 by Feliciano Corey PA-C albuterol sulfate 90 mcg/actuation 1 puff inhalation QID PRN albuterol sulfate 2.5 mg (3 mL) inhalation Q6H PRN 15 days amitriptyline 25 mg PO BEDTIME 30 days amlodipine 10 mg PO DAILY 90 days blood pressure test kit-medium As directed carboxymethylcellulose sodium 0.5% (Lubricant Eye Drops) 1 drp ophthalmic (eye) BID cetirizine 10 mg PO DAILY PRN 90 days cholecalciferol (vitamin D3) (Vitamin D3) 25 mcg PO DAILY COVID-19 antigen test ([facility] COVID-19 Ag Self Test kit) As directed cyanocobalamin (vitamin B-12) 1,000 mcg PO DAILY diclofenac sodium 1% (Arthritis Pain (diclofenac)) 2 grams topical QID 30 days fluticasone propion-salmeterol 250-50 mcg/dose (Wixela Inhub) 1 inh inhalation Q12H hydroxyzine HCl 25 mg PO BID 7 days ipratropium bromide 2 sprays intranasal BID PRN ipratropium-albuterol 0.5 mg-3 mg(2.5 mg base)/3 mL 3 mL inhalation Q4-6H PRN meclizine 25 mg PO BID PRN 10 days meloxicam 15 mg PO DAILY 30 days miscellaneous medical supply (Blood Pressure Cuff) As directed nebulizers (AeroEclipse II Nebulizer) NEED FOR NEW NEBULIZER MACHINE ondansetron 4 mg PO Q8H PRN pantoprazole 40 mg PO BID [pulse oximeter As directed] rosuvastatin 5 mg PO DAILY 30 days [Self Adhesive Electrode [id number] As directed NS] sennosides (Natural Senna Laxative) 8.6 mg PO BEDTIME 60 days Shower Chair As directed sucralfate 1 g PO BID 90 days sumatriptan succinate take 1 tab at onset of headache; if no relief may repeat 1 tab after at least 2 hrs; max = 4 tabs/24 hr PO 30 days tramadol 50 mg PO BID PRN 7 days triamcinolone acetonide 0.1% 1 appl topical DAILY 30 days [wedge pillow As directed] Tobacco use date assessed: 12/25/24 Fall risk assessment: No Falls in past year Last assessed Fall Risk: 12/25/24 Dental Screening Dental Screen Date: 09/13/24 HPI 4 months HPI Details Patient is a 64-year-old female here today for a follow-up visit. Patient has a past medical history significant for hypertension, asthma, anxiety depression, GERD. Concern--> The patient has been diagnosed with plantar fasciitis, experiencing significant heel pain, particularly in the mornings and after prolonged standing. She has tried using shoe inserts and ice application for relief, but the pain persists, affecting her daily activities. . Pulmonary nodules: Patient a previous smoker. CT chest in 2022 showing--> Nonspecific, noncalcified 4 mm and 2 mm nodules are seen within the superior s egment of the left lower lobe.. During the winter months of 2024 she had a chronic infection in her lungs. Patient now followed by pulmonology at [facility]. She reports her breathing has been fairly stable as of lately Generalized anxiety disorder: She continues to follow a psychiatrist and a mental health therapist. She continues on lorazepam on a daily basis. She continues to suffer with anxiety like symptoms such as racing thoughts at night, intermittent chest pain and palpitations, always worrying. She did have occupational health come to her home and do an EKG which showed normal sinus rhythm with a rate of 70. . .. Hyperlipidemia: The patient has a history of hypercholesterolemia, with recent lab results indicating an increase in total cholesterol from 203 mg/dL to 247 mg/dL and LDL cholesterol at 165 mg/dL. She admits to inconsistent use of rosuvastatin due to prescription refill issues, which may have contributed to the elevated cholesterol levels. Hypertension: Patient's blood pressure acceptable today in office. She continues on amlodipine 10 mg with good effect.. [facility] Medical History (Updated 12/25/24 @ 14:24 by Feliciano Corey PA-C) Plantar fasciitis, bilateral Plantar fasciitis of right foot Seafood allergy Frequent headaches Stress at work Obesity (BMI 30-39.9) Essential hypertension Impaired fasting glucose Irritable bowel syndrome with constipation Gastric ulcer Dyslipidemia Former smoker Degenerative disc disease, lumbar Vitamin D deficiency Vitamin B12 deficiency History of drug abuse Gastritis Peripheral neuropathy Osteoarthritis involving multiple joints on both sides of body Migraine ANKIT (obstructive sleep apnea) Surgical History Hx of shoulder replacement History of esophagogastroduodenoscopy (EGD) Hx of colonoscopy History of right knee joint replacement History of partial hysterectomy Family History Father CKD (chronic kidney disease) Mother Alcoholism CVA (cerebral vascular accident), Onset Age: 54 Social History Housing: Apartment Are you a primary transitions rn care coordinator to a significant other at home: No Do you presently have visiting nurse or other home services: No Alcohol intake: never Patient Tobacco Use Status: Former Tobacco user Tobacco use type: Cigarette Cigarette Packs Per Day: 1 Cigarettes Per Day: 20 Years Smoked: 30 yrs e-Cigarette/Vaping Use: Never Used Second Hand Smoke Exposure: Yes service: No Current occupational status: employed 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 1. Little interest or pleasure in doing things: not at all 2. Feeling down, depressed, or hopeless: not at all 3. Trouble falling or staying asleep, or sleeping too much: not at all 4. Feeling tired or having little energy: several days 5. Poor appetite or overeating: several days 6. Feeling bad about yourself - or that you are a failure or have let yourself or your family down: several days 7. Trouble concentrating on things, such as reading the newspaper or watching television: not at all 8. Moving or speaking so slowly that other people could have noticed. Or the opposite - being so fidgety or restless that you have been moving around a lot more than usual: not at all 9. Thoughts that you would be better off or of hurting yourself in some way: not at all Total score: 3 Depression Screening Interpretation: Positive Depression Screening Follow-up: Existing condition Depression Screening Done: Yes 85706 - PHQ-9 Billing: Yes Source: Developed by Drs. Josué Feldman, Shari Luo, Lenny Barnes and colleagues, with an educational nino from [employer]. Thrive Questionnaire Date Thrive assessed: 12/25/24 I am a: Patient What is your living situation today?: I have a steady place to live Within the past 12 months, did the food you bought not last and you didn't have the money to get more?: I choose not to answer this question Within the past 12 months, did you worry whether your food would run out before you got money to buy more?: I choose not to answer this question Do you have trouble paying for medicines?: I choose not to answer this question Do you have trouble getting transportation to medical appointments?: No Do you have trouble paying your heating and electricity bill?: No Do you have trouble taking care of your child, family member or friend?: I choose not to answer this question Do you have trouble with day-to-day activities such as bathing, preparing meals, shopping, managing finances, etc.?: No Are you currently unemployed and looking for a job?: No Are you interested in more education?: No Please select the resources that you would like help with: Care for elder or disabled Currently or been in a relationship where the following occur: No concerns reported THRIVE Score: 0 AUDIT C Alcohol Use Questionnaire (AUDIT-C) 1. How often do you have a drink containing alcohol?: Never Total Score: 0 MATTEO-7 AMB Questionnaire MATTEO-7 Date MATTEO - 7 assessed: 09/13/24 Feeling nervous, anxious, or on edge: 1 = Several days Source: Developed by Drs. Josué Feldman, Shari Luo, Lenny Barnes and colleagues, with an educational nino from [employer]. Review of Systems Const Denies headache(s) Eyes Denies loss of vision ENT Denies vertigo, Denies dizziness, Denies headache(s) and Denies sore throat Card Denies chest pain, Denies leg edema and Denies lightheadedness Resp Denies cough, Denies hemoptysis and Denies wheezing GI Denies abdominal pain, Denies melena, Denies constipation, Denies diarrhea and Denies vomiting Denies urinary frequency, Denies dysuria and Denies urinary urgency Musc Denies arthralgias, Denies joint swelling, Denies numbness and Denies tingling Neuro Denies Abnormal speech present, Denies behavioral changes, Denies vertigo, Denies dizziness, Denies headache(s), Denies loss of vision, Denies memory loss, Denies numbness and Denies tingling Psych Denies anxiety, Denies behavioral changes, Denies depression, Denies memory loss and Denies panic attacks Stefano/Lymph Denies easy bleeding and Denies easy bruising Aller/Immun Denies wheezing Physical exam (Primary Care) Vital Signs: Last Vital Signs Temp 97.3 F 12/25/24 13:46 Pulse 86 12/25/24 13:46 BP 110/60 12/25/24 13:46 Pulse Ox 95 12/25/24 13:46 Oxygen Delivery Method Room Air 12/25/24 13:46 BMI result Body Mass Index 31.7 Tobacco/Smoking Status: Tobacco use Status Tobacco use date assessed 12/25/24 12/25/24 13:53 Patient Tobacco Use Status Former Tobacco user 12/25/24 13:53 Tobacco use type Cigarette 12/25/24 13:53 e-Cigarette/Vaping Use Never Used 12/25/24 13:53 PHQ-9: PHQ-9 Score PHQ-9: Total score 3 12/25/24 13:53 Depression Screening Interpretation: Positive Depression Screening Follow-up: Existing condition Thrive Assessment: Date of Thrive Assessment Date Thrive assessed 12/25/24 12/25/24 13:53 Currently or been in a relationship where the following occur: No concerns reported Const General: healthy appearing, no acute distress, alert and awake Nutritional Appearance: well nourished Orientation/consciousness: oriented to person, oriented to place and oriented to time HENMT Ears: TM's normal bilaterally General nose exam: Normal nasal mucous membranes and turbinates present Eyes Conjunctivae: conjunctivae normal Sclerae: sclerae normal Pupils: Equal, round and reactive pupils present Neck Neck: Yes no lymphadenopathy and Yes no JVD Thyroid: Thyroid normal Carotids: no bruits Resp Effort & Inspection: normal respiratory effort and not tachypneic Auscultation: no crackles, no rales, no rhonchi and no wheezes Cardio Rate: regular rate Rhythm: regular rhythm Heart sounds: no murmurs and normal S1 and S2 GI Palpation (GI): Soft to palpation, nontender, no hepatomegaly and no splenomegaly Auscultation: normal bowel sounds Skin General skin exam: no rashes or lesions noted and dry skin Neuro General: oriented to person, oriented to place and oriented to time Cranial nerves: Yes Equal, round and reactive pupils present Speech: No Abnormal speech present Gait exam (Neuro): Normal gait present Motor exam (neuro): no tremor noted Extrem Right upper extremity: full ROM Left upper extremity: full ROM Right lower extremity: full ROM; no edema Left lower extremity: full ROM; no edema Psych Mental Status: mental status grossly normal Speech and movement: Normal speech and movement present Affect: normal affect Attitude: cooperative Thought process: Normal thought process present Coding Level of Care Code Est Pt Level 4 (47717) Diagnoses Primary hypertension I10 Hypertension type: primary hypertension Mild intermittent asthma without complication J45.20 Asthma severity: mild Asthma persistence: intermittent Asthma complication type: uncomplicated Anxiety and depression F41.9; F32.A Mixed hyperlipidemia E78.2 Hyperlipidemia type: mixed hyperlipidemia Primary insomnia F51.01 Insomnia type: primary Plantar fasciitis, bilateral M72.2 Additional Codes PHQ-9 - 13489 - PHQ-9 Billing: Yes ([id number]) Assessment & Plan Assessment & Plan (1) Hypertension: Code(s): I10 - Essential (primary) hypertension Category: Medical Qualifiers: Hypertension type: primary hypertension Qualified Code(s): I10 - Essential (primary) hypertension Plan: Patient's blood pressure acceptable today in office. Will continue her current dose amlodipine 10 mg with goal blood pressure to be below 140/90. (2) Asthma: Code(s): J45.909 - Unspecified asthma, uncomplicated Category: Medical Qualifiers: Asthma severity: mild Asthma persistence: intermittent Asthma complication type: uncomplicated Qualified Code(s): J45.20 - Mild intermittent asthma, uncomplicated Plan: Patient reports her asthma is fairly well controlled though does use albuterol inhaler for shortness of breath and wheeze with good effect. Followed by a new blow up operator whom has started her on a ipratropium nasal spray. Will be following up with a new ENT in May of 2025 (3) Anxiety and depression: Code(s): F41.9 - Anxiety disorder, unspecified; F32.A - Depression, unspecified Category: Medical Plan: As per HPI patient still seems to be suffering with anxiety. She speaks with a psychiatrist and a mental health therapist. Continues on lorazepam on a daily basis. Has had some family trauma recently that has heightened her anxiety. She admits to some sleeping issues related to racing thoughts at night. (4) Hyperlipidemia: Code(s): E78.5 - Hyperlipidemia, unspecified Category: Medical Qualifiers: Hyperlipidemia type: mixed hyperlipidemia Qualified Code(s): E78.2 - Mixed hyperlipidemia Plan: Recent lipid panel showing elevated total cholesterol and LDL. She has not been taking her statin. Will restart rosuvastatin 5 mg daily and recheck lipids in 3 months. . Goal LDL to be below 130 (5) Insomnia: Code(s): G47.00 - Insomnia, unspecified Category: Medical Qualifiers: Insomnia type: primary Qualified Code(s): F51.01 - Primary insomnia Plan: Patient reporting increased sleeping issues likely related to her anxiety. She is not interested in new medication at this time. She reports amitriptyline has been somewhat effective on giving your 6-7 hours at night. (6) Plantar fasciitis, bilateral: Code(s): M72.2 - Plantar fascial fibromatosis Category: Medical Plan: Patient has a chronic history of plantar fasciitis bilaterally. Has seen a cracker sprayer in the past though unfortunately her cracker sprayer has . She does have shoe inserts. She does use tramadol on a as needed basis with good effect on reducing her bilateral feet pain. She is interested in reestablishing care with a new cracker sprayer in possibly getting injections for her plantar fascia Orders: Orders Comprehensive [place]. Panel Fast Today E78.2 - Mixed hyperlipidemia Vitamin D 25-OH Total Today E55.9 - Vitamin D deficiency, unspecified Complete Blood Count no Diff Today E78.2 - Mixed hyperlipidemia Lipid Panel Today E78.2 - Mixed hyperlipidemia Vitamin B12 and Folate Today E53.8 - Deficiency of other specified B group vitamins Referrals Podiatry Referral M72.2 - Plantar fascial fibromatosis Medications: Changed From rosuvastatin 5 mg PO DAILY 30 days 30 tabs 3RF E78.5 - Hyperlipidemia, unspecified To rosuvastatin 5 mg PO DAILY 90 tabs 1RF 90 days E78.5 - Hyperlipidemia, unspecified Refilled tramadol 50 mg PO BID PRN 14 tabs 0RF pain 7 days M19.011 - Primary osteoarthritis, right shoulder
[2024-12-25 13:46] VITALS: BP 110/60; PULSE 86; TEMP 36.3; O2SAT 95; BMI 31.7
--- OUTSIDE RECORDS SUMMARY | 2024-12-25 17:45 | XMS_ITS | Data Portability ---
Author Organization [employer] [facility] Address [address] [place] [address] Care Team Providers Care Network Professional Name Role Phone HIM CCA OTHER GIRMA [...] primary team [email or web address] Not available 05/16/2024 19:26:32 09/03/2024 09/03/2024 I provided real -time medical direction via phone for this encounter and was available for additional phone-based assistance as needed. I have reviewed and agree with the Assessment and Plan as documented by the Cafeteria Attendant. Patient given the opportunity to ask questions. Our service contacted for an assessment of: Nausea without vomiting Medic checked COVID and flu and they were both negative. Per machine staker on the scene patient is nontoxic. Impression and plan: Questionable gastroenteritis versus exacerbation of GERD. ODT Zofran given x1 in the field with a very short course called in arms if her choice. The patient does have drug interactions that would warrant ongoing cardiac monitoring for QT interval so did not give a long-term prescription. Advised with PCP. Stay hydrated. Allergies: Reviewed and updated a PCP f/u: We discussed the diagnostic uncertainty of home visits and the risk associated with this. In this case, the patient and I felt this to be an acceptable and reasonable amount of risk given the benefit of avoiding an ED visit. We discussed the need to seek care urgently/emergentl y in the setting of any new or worsening serious symptoms, particularly fever chills lightheadedness altered mental status [email or web address] Not available 09/03/2024 16:50:36 10/01/2024 10/01/2024 I provided real -time medical direction via phone for this encounter, and was available for additional phone based assistance as needed. I have reviewed and agree with the Assessment and Plan as documented by the Cafeteria Attendant. We discussed the diagnostic uncertainty of home visits and the risk associated with this. In this case the patient and I felt this to be an acceptable and reasonable amount of risk given the benefit of avoiding an ED visit. The patient given the opportunity to ask questions. Advised if develops CP/severe SOB/turning blue /uncontrolled n/v/d or black/bloody emesis or stool/worsening or uncontrolled arm or axillary pain AMS/ syncope/ hi fever to call 911- verbalized understanding of instruction Not available 10/01/2024 20:32:49 Plan of Treatment Reminders Order Date Submit Date Provider Last Modified By Organization Details Last Modified Time Details Appointments None recorded. Lab BMP, serum or plasma [address] [facility], [address] [place] [address], [id number] 5 15:51:30 rapid SARS CoV 2 Ag, QL IA, respiratory specimen [address], [phone] 5 17:07:50 rapid flu (A+B) [address], [address] 5 18:16:33 rapid SARS CoV 2 Ag, QL IA, respiratory specimen [address], [address] 5 19:08:31 rapid flu (A+B) 2024 025 [facility], [address] [place] [address], 5 19:10:41 rapid SARS CoV 2 Ag, QL IA, respiratory specimen 2024 025 [email or web address] [facility], [address] [place] [address], 5 22:53:31 rapid flu (A+B) 2024 025 [email or web address] [facility], [address] [place] [address], 5 22:53:31 rapid SARS CoV 2 Ag, QL IA, respiratory specimen 2024 [facility], [address] [place] [address], 5 16:30:58 rapid flu (A+B) 2024 [facility], [address] [place] [address], 5 16:30:58 BMP, serum or plasma 2024 [facility], [address] [place] [address], 5 16:30:59 hemoglobin + hematocrit, blood 2024 [facility], [address] [place] [address], 5 16:30:59 rapid SARS CoV 2 Ag, QL IA, respiratory specimen 2024 025 [email or web address], [address] [place] [address], 5 20:26:06 rapid flu (A+B) 2024 025 [email or web address], [address] [place] [address], 5 20:26:06 rapid strep group A, throat 2024 025 [email or web address], [address] [place] [address], [id number] 20:26:06 Referral None recorded. Procedures None recorded. Surgeries None recorded. Imaging electrocard iogram [address] [facility], [address] [place] [address], [phone] 20:38:39 Medication Orders ketorolac 30 mg/mL injection solution 2024 025 [email or web address] 0 [facility]4471, [address] [place] [address], [address], 13:07:29 acetaminoph en ER 650 mg tablet,exte nded release 2024 025 [facility] [address] [place] [address], [address], 13:08:13 ondansetron 4 mg disintegrat ing tablet 2024 025 [email or web address] [facility], [address] [place] [address], [address], 15:01:19 ondansetron 4 mg disintegrat ing tablet 2024 025 [facility] [address] [place] [address], [address], 15:01:22 cefpodoxime 200 mg tablet 2024 025 [facility] [address] [place] [address], [address], 5 18:43:18 prednisone 20 mg tablet 2024 025 [email or web address] [facility]44[facility], [address] [place] [address], [address], 5 18:43:16 prednisone 10 mg tablet 2024 025 [facility] #4471, [address] [place] [address], [address], 5 18:45:29 lactated Ringers intravenous solution 2024 025 [address] [address] [place] [address], [address], 5 10:36:17 ketorolac 15 mg/mL injection solution [address] [place], [place] [address], [address] [place] [address], [address], 5 10:36:17 azithromyci n 500 mg tablet [address] [place], [place] [address], [address] [place] [address], [address], 5 10:36:17 azithromyci n 250 mg tablet [address] [place], [place] [address]Pharmacy [facility], [address] [place] [address], [address], 5 10:36:18 prednisone 20 mg tablet [address] [place], [place] [address], [address] [place] [address], [address], 5 10:36:17 prednisone 20 mg tablet [address] [place], [place] [address], [address] [place] [address], [address], 5 10:36:19 ipratropium 0.5 mg-albutero l 3 mg (2.5 mg base)/3 mL nebulizatio n soln [address] [place], [place] [address], [address] [place] [address], [address], 5 10:36:17 Patient TargetsNo targets recorded. Patient InstructionsNo instructions recorded. Reason for Referral None Reported. Results Created Date Observation Date Name Description Value Unit Range Abnormal Flag Note LastModifiedBy Organization Detail LastModifiedTime 05/17/19 25 05/16/2024 rapid flu (A+B) Flu negati ve Not Available [facility] [address] [place] [address], [phone] 05/16/2024 18:40:35 05/17/19 25 05/16/2024 rapid SARS CoV 2 Ag, QL IA, respi rator y speci men rapid SARS CoV 2 Ag, QL IA, respiratory specimen negati ve Not Available [facility] [address] [place] [address], [address] 05/16/2024 18:40:35 09/04/19 25 09/03/2024 rapid flu (A+B) Flu negati ve Not Available [address], [address] 09/03/2024 16:50:42 09/04/19 25 09/03/2024 rapid SARS CoV 2 Ag, QL IA, respi rator y speci men rapid SARS CoV 2 Ag, QL IA, respiratory specimen negati ve Not Available [address], [address] 09/03/2024 16:50:41 10/02/19 25 10/01/2024 elect arnoldo floresgr am No observ ation record ed. [email or web address] [address], [address] 10/01/2024 15:51:47 Result Notes None recorded. Medical Equipment None Reported. Allergies Allergen ID Allergen Name Allergen Category Reaction Reaction Severity Criticality Documentation Date Start Date Code Code System Note Provider Name and Address Organization Details Recorded Time 68452 Chantix medicatio n Not available Not available Not available 10/01/2024 46567 0 RxNorm Not Available [facility] - production 5 10:09:46 8178 levofloxa lily medicatio n Not available Not available Not available 01/03/2024 10738 RxNorm Not Available [facility] - production 4 03:42:32 913 Levaquin medicatio n Not available Not available Not available 11/01/2021 78726 2 RxNorm Natty Messer MD [address] [place] [address],[address], [place], [address], [employer] 12:16:41 914 morphine medicatio n Not available Not available Not available 11/01/2021 7052 RxNorm very sensi tive not true aller gy needs low dose Natty Messer MD [address] [facility],[address], [place], [address], [employer] 12:19:22 Medications Name Sig Start Date Stop Date Status Note LastModified by Organization Details LastModified Time prednisone 10 mg tablet PLEASE SEE ATTACHED FOR DETAILED DIRECTIONS active Not Available Not Available N ot Available ipratropium 0.5 mg-albuterol 3 mg (2.5 mg base)/3 mL nebulization soln INHALE 1 VIAL EVERY 4 TO 6 HOURS NEEDED FOR WHEEZING active Not Available Not Available No t [...] active Not Available Not Available Not Available senna 8.6 mg tablet TAKE 1 TABLET BY MOUTH EVERY DAY AT BEDTIME FOR 60 DAYS active Not Available Not Available No t Available meloxicam 15 mg tablet TAKE 1 TABLET BY MOUTH DAILY FOR 30 DAYS active Not Available Not Available Not Available sucralfate 1 gram tablet TAKE 1 TABLET BY MOUTH TWICE A DAY active Not Available Not Available No t Available sumatriptan 25 mg tablet TAKE 1 TAB AT ONSET OF HEADACHE IF NO RELIEF MAY REPEAT 1 TAB AFTER AT LEAST 2 HRS MAX = 4 TABS/24HR active Not Available Not Available No t [...] Not Available Not Available Not Avai lable acetaminophe n ER 650 mg tablet,exten ded release TAKE 1 TABLET EVERY 6-8 HOURS BY MOUTH NEEDED FOR PAIN. active Not Available Not Available No t Available amoxicillin 875 mg tablet TAKE 1 TABLET BY MOUTH TWICE A DAY FOR 7 DAYS active Not Available Not Available No t Available amitriptylin e 25 mg tablet TAKE 1 TABLET ORALLY BEDTIME FOR 30 DAYS active Not Available Not Available No [...] ed release TAKE 1 TABLET BY MOUTH TWICE A [...] Not Available Not Available N ot Available Lubricant Eye Drops 0.5 % PLACE 1 DROP INTO BOTH EYES TWICE A DAY active Not Available Not Available Not Available ondansetron HCl (PF) 4 mg/2 mL injection solution 4mg by [facility] at my request 2021 active Not [...] mcg/dose powder for inhalation INHALE 1 PUFF 2 TIMES A DAY,INSTR:R INSE MOUTH AND THROAT AFTER USE active Not Available Not Available No t Available [employer]flex COVID-19 Antigen Home Test kit USE DIRECTED active Not Available Not Available No t Available Vitals Date Recorded Oxygen saturation Oxygen saturation in Arterial blood by Pulse oximetry Body temperature Body weight Heart rate Body height Respiratory rate Systolic And Diastolic Provider Name and Address Organization Details Last Updated DateTime 5 98 % 98 % 98.4 [degF] 34525.7 2 g 80 /min 160.02 cm 18 /min 115/77 mm[Hg] Not Available [employer] 5 15:37:54 Date Recorded Heart rate Body temperature Oxygen saturation Oxygen saturation in Arterial blood by Pulse oximetry Respiratory rate Systolic And Diastolic Provider Name and Address Organization Details Last Updated DateTime 5 108 /min 98 [degF] 98 % 98 % 18 /min 116/85 mm[Hg] Not Available [employer] 5 10:19:56 Date Recorded Respiratory rate Heart rate Body temperature Oxygen saturation Oxygen saturation in Arterial blood by Pulse oximetry Systolic And Diastolic Provider Name and Address Organization Details Last Updated DateTime 5 18 /min 91 /min 98.6 [degF] 98 % 98 % 127/76 mm[Hg] Not Available [employer] 5 18:34:55 Date Recorded Respiratory rate Heart rate Body temperature Oxygen saturation Oxygen saturation in Arterial blood by Pulse oximetry Systolic And Diastolic Provider Name and Address Organization Details Last Updated DateTime 5 16 /min 68 /min 97.7 [degF] 98 % 98 % 117/76 mm[Hg] Not Available [facility] 5 14:57:28 Date Recorded Heart rate Respiratory rate Body temperature Oxygen saturation Oxygen saturation in Arterial blood by Pulse oximetry Systolic And Diastolic Provider Name and Address Organization Details Last Updated DateTime 5 86 /min 18 /min 97.7 [degF] 100 % 100 % 130/92 mm[Hg] Not Available [facility] 5 12:15:46 Social History None recorded. Functional Status None recorded. Mental Status None recorded. Family History Nothing Reported. Medical History No medical history recorded. Gynecological HistoryNo gynecological history recorded. Obstetrics History GPAL:G 0 P 0 0 0 0 Past Encounters Encounter ID Performer Location Encounter Start Date Encounter Closed Date Diagnosis/Indication Diagnosis SNOMED-CT Code Diagnosis ICD10 Code Diagnosis IMO Codes Diagnosis Note [id number] Azam Posada MD [facility] [address] [place] [phone] 07/28/2021 16:03:46 07/28/2021 16:08:14 [id number] Natty Messer MD [facility] [address] [place] [phone] 07/29/2021 14:03:55 11/13/2021 12:40:11 Closed injury of head [id number] 06 S09.90XD + Concussion / given worsening headache/ dizziness & nausea with new blurred vision- patient needs CT imaging of brain to r/o bleed/cont usion. Pat agreeable now to go to the ER( had refused at last visit). Expectant report [facility] to [facility] ER [id number] [facility] [address] [place] [id number] 11/01/2021 17:18:52 11/18/2021 11:39:21 Pain of shoulder region 79553710 M25.519 I have reviewed and agree with the Assessment and Plan as documented by the Cafeteria Attendant. I was available for additional phone based assistance as needed. Patient declined to have Medic call me [id number] Akira Taylor MD [facility] - [address] [address] 02/17/2022 15:49:16 02/19/2022 10:47:42 Pain of shoulder region 60044371 M25.519 No hx of kidney disease; has responded well per patient report to Toradol in the past; cannot tolerate NSAIDS but this is due to GI issue (method of administra tion) [id number] Chely Klein MD [facility] [address] [place] [phone] 02/20/2022 20:39:34 02/23/2022 11:03:44 Pain of shoulder region 32792040 M25.519 Ongoing shoulder pain unchanged from 3d [...] assessment and plan as documented by the machine staker. I provided real time medical direction for this encounter and was immediatel y available to provide additional phone based assistance as needed. [id number] Michael Ram MD [facility] [address] [place] [id number] 05/27/2022 10:35:07 05/31/2022 12:47:58 Strain of left trapezius muscle [id number] 0660086 S29.012A [id number] Buddy Carter MD [facility] [address] [place] [id number] 08/20/2022 14:55:30 08/21/2022 22:51:29 Pain of right shoulder joint 8991996160 1478986 M25.511 Patient presents with recent onset pain [...] stomach ulcers, though for a short period [id number] Jia Ruiz MD [facility] [address] [place] [id number] 09/09/2022 12:10:03 09/09/2022 23:13:39 Pain of right shoulder joint 3192925400 0296904 M25.511 [id number] Chely Klein MD [facility] [address] [place] [id number] 11/28/2022 13:13:25 11/28/2022 18:15:24 Chest pain 85502274 R07.9 Evaluation in the field was performed by my machine staker colleague, as noted above, I provided real-time direction and supervisio n for this visit. 62yo F recent should surgery p/w a few days of sharp chest pain radiating to back. Denies tearing sensation or associated dyspnea, diaphoresi s, LE edema/DVT sx. VS wnl. Taking oxycodone post-op w/ some improvemen t of chest pain. Endorses sig stress. On machine staker exam chest pain reproducib le and pt [...] shortness of breath, cough, chest pain, fever. [id number] Azam Posada MD [facility] [address] [place] [id number] 03/01/2023 19:43:02 03/27/2023 14:08:15 Hypertensive urgency 052981623 I16.0 This 62-year-ol d female called with a new onset fairly severe headache, paresthesi as and an elevated BP. She has no history of chronic headaches. I am concerned about a possible brain bleed and recommende d that she go to the ER. The patient agreed with this plan. [id number] Chely Klein MD [facility] [address] [place] [phone] 10/10/2023 09:24:11 10/10/2023 17:16:32 Pain of left hip joint [id number] 54296 M25.552 Evaluation in the field was performed by my machine staker colleague, as noted above, I provided real-time direction and supervisio n for this visit. 63yo F endorsing 2 months of atraumatic L hip pain. Worse with lying down and standing, pain feels deep . Minimal improvemen t w/ APAP, meloxicam, and tramadol given by PCP. Not done PT. Prior imaging unremarkab le. Denies fevers/chi lls. On machine staker eval VS unremarkab le, exam generalize d [...] shortness of breath, cough, chest pain, fever. [id number] Liat Foote MD [facility] [address] [place] [phone] 12/28/2023 09:53:45 12/28/2023 18:59:37 Burn of skin 529586495 T30.0 [id number] DAVID ADAME MD [facility] [address] [place] [id number] 02/21/2024 18:36:14 02/21/2024 22:16:37 Palpitations 01231845 R00.2 Weakness present 2750348 07 M62.81 Fatigue 65963190 R53.83 [id number] Chely Klein MD [facility] [address] [place] [phone] 04/17/2024 15:31:49 04/17/2024 23:01:50 Sore throat 139356290 J02.9 Evaluation in the field was performed by my machine staker colleague, as noted above, I provided real-time direction and supervisio n for this visit. 63yo F evaluated for 1 week of nasal congestion , sore throat, cough, and malaise. Endorses b/l chronic abd pain. Denies fevers, hemoptysis , other new symptoms. Phone call with PCP this AM and was sent rx for amoxicilli n for empiric tx. On machine staker eval VS wnl, exam with lungs CTA [...] shortness of breath, cough, chest pain, fever. [id number] Akira Taylor MD [address] [phone] 04/29/2024 10:19:54 04/30/2024 17:15:08 Mild dehydration [id number] 108 E86.0 Will give 1L of LR now. Exacerbati on of mild persistent asthma 013445590 J45.31 Will tx with Z-pack and prednisone taper per patient request. BMP and H/H within normal limits Discussed red flag signs for which to seek higher level of care Headache 78181277 R51.9 S/p Toradol x1 w/improvem ent. No renal disease or bleeding risks. [id number] Michael Ram MD [facility] - [address] [phone] 05/16/2024 18:34:52 05/17/2024 11:16:25 Cough 95219540 R05.9 [id number] Liat Foote MD [facility] Medical [address] [phone] 09/03/2024 14:57:17 09/03/2024 19:17:13 Nausea 337507479 R11.0 81697 Abnormal w ellness exam 4013617688 65218 Z00.01 [id number] Natty Messer MD [facility] [address] [phone] 10/01/2024 12:15:43 10/01/2024 21:23:46 Pain in axilla 972780284 M79.339 [id number] Advised although EKG is non-concer renee cannot w/u CP in home-howev er given mechanism of onset of pain after lifting and pain reproducib le with movement of extremitie s it is likely muscular- f/u with pcp tomorrow /avoid uncomforta ble movements advised ice / wrapped in a towel alternatin g w/ gentle heat 15 min each q 3-4H w/a to affected arearisks/ benefits ketorolac d/w patient- e has no history of black or bloody stools, peptic ulcer disease or CKD (she does have GERD for which she takes a PPI )but I have no recent labs. On 06/01/2023 H&H 12 3 BUN 14 and creatinine 0.75.-[place] ent is requesting ketorolac will check labs first. BMP nonconcern ing lites normal blood sugar 128 H&H 13.3/38 with BUN 13 creatinine slightly higher than previously at 1.2 but 1 single dose of 15 mg ketorolac is low risk-patie nt is agreeable to the injection NO meloxicam until tomorrow-o r other po nsaids / may take tylenol- will send new rx Health Concerns Section Related Observation LastModified by Organization Detai ls LastModified Time None Recorded Concern Status LastModified by Organization Details LastModified Time None Recorded Advance Directives Directive None Recorded Payers Insurance Date Sequence Insurance Name Policy Number Policy Godinez Covered Member ID Godinez Member ID Guarantor Name 08/20/2022 1 [facility] - DOS PRIOR TO 2022 - DUAL ELIGIBLE (MEDICARE REPLACEMENT/ADV ANTAGE - HMO) Janet Ramos [id number] Janet Ramos 10/01/2024 1 [facility] - DOS ON OR AFTER 2022 - DUAL ELIGIBLE - LONG TERM OPTIONS AND ONE CARE (MEDICARE REPLACEMENT/ADV ANTAGE - HMO) Janet Ramos [id number] Janet Ramos Notes Date Note Type Note [...] s/s and seek emergency treatment if needed. Cafeteria Attendant Organization Information for Ana Dumas [employer]ith [email or web address] Legal Name: [employer]. Address: [address] [place] [address], Beauty Culturist: Michael Steinberg MD [place] No.: [id number] Cafeteria Attendant POC Test Results from Ana Dumas Rapid COVID antigen (15:37:58) COVID: - Rapid influenza antigen (15:37:58) Flu: - Rapid strep test (15:37:59) Strep: + ...................... ...................... ...................... ...................... ...................... ...................... ......... Cafeteria Attendant Note From Ana Dumas: Sent to a [...] covid/flu test: neg; Rapid strep test: neg; [facility] consulted and pt is advised to continue symptomatic treatment and take antibiotics as prescribed. Red flags discussed. Pt has no further questions. ...................... ...................... ...................... ...................... ...................... ...................... ......... [facility] Consulted: Chely Klein ...................... ...................... ...................... ...................... ...................... ...................... ......... Disposition: Fulfilled Chely Klein MD [address] [facility], [place], [address], ADRIANA BOWER 04/17/2024 20:28:07 04/29/2024 text/html ROS as noted in the HPI [facility] Nurse Triage Notes (Cassie Reyes - RN): Reason For Request: Patient just got over the flu, and just feels tired, no strength. When she walks she feels more tired, and sometimes feels like passing out when she moves a lot. Minor Headache. Always tired. Patient Reports: History of asthma, increased use of inhaler; Shortness of breath with exertionDenies: Increased work of breathing/labored with or without fever Unable to speak in full sentences without distress Discoloration of skin -cyanosis Needs to sleep sitting up, can t catch breath Shortness of breath in setting of confusion Cough, fever greater than 2 days Lower extremity swelling COPD Sputum increase Cough Pain with inspiration Chief Complaints: WeaknessPMH: COPD/Asthma, Hypertension, Joint Replacement (e.g., Hip, Knee), Chronic Pain, AsthmaPMH Reviewed at 04/28/2024:17Allergies Reviewed at 04/28/2024 13:17Comments: It Business Systems Analyst verified the name//address and phone number.Pt calling [...] Feeling about the same. Daly Cerrato RN Cafeteria Attendant Organization Information for Sha Paredes Ces[employer] Legal Name: [facility] Transportation Address: [address] [place] [address], [place] [address], Beauty Culturist: Heraclio Ortega MD CLIA No.: [id number] Cafeteria Attendant POC Test Results from Sha Paredes RONNI Rapid COVID antigen (10::43) COVID: - Rapid influenza antigen (10::44) Flu: - epoc (10:26:46) pH: 7.44 pH units pCO2: 40.8 mmHg pO2: 31.4 mmHg Na: 145 mmol/L K: 4.1 mmol/L iCa: 1.21 mmol/L Cl: 107 mmol/L TCO2: 26.5 mEq/L Hct: 39 % Hb: 13.1 g/dL Glu: 125 mg/dL Lac: 1.62 mmol/L Cr: 0.76 mg/dL BUN: 12 mg/dL A ...................... ...................... ...................... ...................... ...................... ...................... ......... Cafeteria Attendant Note From Sha Paredes: This 63-year-old female [...] questions and is agreeable to this plan. ...................... ...................... ...................... ...................... ...................... ...................... ......... [facility] Consulted: Adilson Taylor ...................... ...................... ...................... ...................... ...................... ...................... ......... Disposition: Fulfilled Akira Taylor MD [address] [place] [address],[address], [place], [address], [email or web address] 04/29/2024 15:01:54 05/16/2024 text/html HPI: Call transferred to CRU from MSR. Mbr states she was suppose to have an instED visit yesterday but no one came. This instructional writer did not locate visit and confirmed with instED team no visit received yesterday. Marcelor reports recent flu and pneumonia, hx of [...] is awaiting a referral to a new social service agency director. Mbr reports she recently completed course of prednisone. Mbr reports using nebulizer that helps for a little while . Mbr was speaking full clear sentences as time of call. Mbr reports she has contacted PCP and they are unable to get her an appt. Marcelor was offered instED which she is agreeable to. Advised a referral would be submitted. Marcelor was advised to call for new/worsening sx and was educated on sx that warrant calling 911/going to ED. ...................... ...................... ...................... ...................... ...................... ...................... ......... [facility] Nurse Triage Notes (Uzma Smith): Reason For Request: SOB Chief Complaints: Breathing Problems PMH: COPD/Asthma, Hypertension, Joint Replacement (e.g., Hip, Knee), Chronic Pain, Asthma PMH Reviewed at 05/16/2024 15:51 Allergies Reviewed at 05/16/2024 15:51 Comments: Reviewed HPI, no further data needed. Maury THOMAS Cafeteria Attendant Organization Information for Keith [employer] Legal Name: [employer]. Address: [address] [place] [address], Beauty Culturist: Michael Steinberg MD [facility] No.: [id number] Cafeteria Attendant POC Test Results from Feroz Parker - ALS Rapid influenza antigen (18:46:58) Flu: - Attachments uploaded as part of this test result can be found under Documents section. Rapid COVID antigen (18:46:59) COVID: - Attachments uploaded as part of this test result can be found under Documents section. ...................... ...................... ...................... ...................... ...................... ...................... ......... Cafeteria Attendant Note From Feroz Parker: SC12 dispatched [...] process of scheduling an appointment with a social service agency director. Patient reports normal food/fluid intake, advised she has been medication compliant. Patient vital signs obtained as noted. COVID/FLU POC tests performed and negative for all. [facility] consulted, provided orders for 40mg Prednisone PO, advised that he would be sending prescription to patient preferred pharmacy for course of prednisone and Cefpodoxime. 40mg Prednisone PO administered without incident, six patient rights verified. Red flags discussed with patient, advised to call back or go to ED if condition worsened. SC 12 clear. [facility] Lab Orders: rapid SARS CoV 2 Ag, QL IA, respiratory specimen: Performed rapid flu (A+B): Performed ...................... ...................... ...................... ...................... ...................... ...................... ......... [facility] Consulted: Michael Ram ...................... ...................... ...................... ...................... ...................... ...................... ......... Disposition: Miguelito Ram MD [address] [place] [address],[address], [place], [address], [employer] 05/16/2024 22:53:33 09/03/2024 text/html HPI: 12:42pm MBR contacts the CRU directly to request an InstED in-home visit today for nausea, abdominal pain, and a headache. CANDICE is a 64 y/o female with a PMH of, but not limited to: HLD, HTN, migraines, PTSD, ANKIT, GERD, DM II, anxiety, and pulmonary nodule. CANDICE is extremely anxious and hyperverbal during this conversation. She is difficult to redirect, and is very angry that her PCP office h as bad communication. CANDICE reports she has been trying to call her PCP office since Tuesday about her illness, and she has not received a call back. CANDICE reports that she has had nausea, abdominal discomfort, a poor appetite, and headaches for three days. She denies CP, SOB, fevers, abdominal distention or firmness, vomiting, diarrhea, or voiding issues. CANDICE does report that she has not had a BM since Tuesday. CANDICE believes that her symptoms are related to the heat, therefore she is requesting an in-home visit and Zofran for her nausea. She flatly refuses ED or UC. CANDICE continues to perseverate about her PCP s office and their lack of communication. This CRU RN offers to consult the [facility] Provider Directory and email a list of new PCPs, which MBR accepts. MBR confirms receipt of this email during this call. After confirming MBRs address and phone number on file, this CRU RN strongly recommends that MBR call 911 for any new or worsening symptoms. MBR verbalizes understanding and will do so if necessary. This call originated from [phone]. ...................... ...................... ...................... ...................... ...................... ...................... ......... [facility] Nurse Triage Notes (Анна Hansen): Reason For Request: abdominal pain, nausea, vomiting Chief Complaints: Abdominal Pain, Headache, Nausea / Vomiting PMH: COPD/Asthma, Hypertension, Joint Replacement (e.g., Hip, Knee), Chronic Pain, Asthma, Anxiety Disorder, Post-Traumatic Stress Disorder (PTSD), Gastroesophageal Reflux Disease (GERD), Diabetes Mellitus Type 2 PMH Reviewed at 09/03/2024:35 Allergies Reviewed at 09/03/2024:35 Comments: HPI reviewed Cafeteria Attendant Organization Information for [employer] Legal Name: [facility] Address: [address] [place] [address], [place] [address], Beauty Culturist: Heraclio Ortega MD [place] No.: [id number] Cafeteria Attendant POC Test Results from [employer] Rapid COVID antigen (14:45:42) COVID: - Attachments uploaded as part of this test result can be found under Documents section. Rapid influenza antigen (14:45:43) Flu: - ...................... ...................... ...................... ...................... ...................... ...................... ......... Cafeteria Attendant Note From [employer]: S: evaluation of 64 y/o female for and pain and nausea since Tuesday pt states she jarvis i cky during heat wave last week weak tired slight nausea that worsened on Tuesday she was too tired fell asleep early was too nauseous to eat states sat and sun overall improvement slight appetite hydrated and ran errands, states today she has small appetite she is hydrating but can t shake the nausea feeling she called her pcp they haven t called her back yet so she called Insted. O: pt abreu x4 states nausea no vimiting since last week denies chest pain, sob, fever, chills. States had similar episode last summer was prescribed often from pcp ans she was better in couple days associating her illness to heat. Pt states better today than Tuesday just wants nausea to go away. Bms normal has gone everyday since Tuesday no blood or black stool and all formed no soft stool or diarrhea. Pt requesting zofran A: vss wnl less clear all brown and soft non tender to palp with active bs all quads no point or rebound tenderness noted or guarding. Gu function normal no odor or change in frequency or volume. Pt without peripheral edema or neck vein distention. Pt has taken Pantoprazole and sucrefate without relief. Pic Covid flu done to r/o both resulted negative. P spoke to [facility] pt to get zofran odt now and Mikhail sent to pharmacy ptmtomincrease fluids BRAT diet recommended due to possible stomach bug, reveal self in 48 hrs contact copy lathe tender no relief or request Insted revisit. Pt has pcp appt on 09/13 [facility] Medication Orders: ondansetron 4 mg disintegrating tablet: Administered ...................... ...................... ...................... ...................... ...................... ...................... ......... [facility] Consulted: Liat Foote ...................... ...................... ...................... ...................... ...................... ...................... ......... Disposition: Fulfilled Liat Foote MD [address], [place], [address], [place] [employer] - [employer] HERNADEZ 09/03/2024 16:51:51 10/01/2024 text/html ROS as noted in the [facility] Nurse Triage Notes (Анна Hansen): Reason For Request: Patient has neck pain and feels like there is pain near her bones in her neck, going towards top lefts side of her chest near her arm.Denies: History of Heart Attack, in the setting of active chest pain Active Chest pain, radiates to neck jaw and or arm Diaphoretic/Sweating Describes as c rushing Sudden onset of nausea/Vomiting and shortness of breath. Shortness of Breath Unable to speak in full sentences without distress Palpitations, feeling dizzy Chest pain, increased fatigue CHF history, increased swelling and edema Weakness/tachycardia Chief Complaints: Extremity PainPMH: COPD/Asthma, Hypertension, Joint Replacement (e.g., Hip, Knee), Chronic Pain, Asthma, Anxiety Disorder, Post-Traumatic Stress Disorder (PTSD), Gastroesophageal Reflux Disease (GERD), Diabetes Mellitus Type 2PMH Reviewed at 10/01/2024 - :09Allergies Reviewed at 10/01/2024 - :09Comments: 64 y.o female complains of Extremity PainPatient is self referringPatients symptoms started yesterday with complaints of a tender pain on left side under her collar bone radiating into the axilla area. pain is 6/10.She states she feels like its swollen. She feels its Muscle pain.able to move all extremities.denies any falls or injury and denies any visible bruising.denies any lightheadedness or dizziness.Denies any pain radiating down arm or into jaw and denies any chest pain.denies any kidney issues and denies being on ay blood thinnersreviewed red flags. I provided information on the mobile health provider response time and advised the patient and/or caregiver to monitor reported signs and symptoms. I discussed the warning signs of when to seek emergency care. Cafeteria Attendant Organization Information for Solomon Bravo Legal Name: [employer]. Address: [address] [place] [address], Beauty Culturist: Michael Steinberg MD CLIA No.: [id number] Cafeteria Attendant POC Test Results from Solomon Bravo - ALS iSTAT Chem8+ (12:47:00) Na: 139mEq/LK: 4.0mEq/LCl: 102mEq/LiCa: 1.22mmol/LTCO2: 25mmol/LGlu: 128mg/dLBUN: 13mg/dLCrea: 1.2mg/dLHct: 39%Hb: 13.3g/dLAmmol/LCartridge Number: [id number] Attachments uploaded as part of this test result can be found under Documents section. EKG (12:56:31) - This test has been updated by the machine staker, Solomon Bravo at (10/01/2024 13:36:14). The changes are marked in bold.EKG test performed. Attachments uploaded as part of this test result can be found under Documents section. ...................... ...................... ...................... ...................... ...................... ...................... ......... Cafeteria Attendant Note From Solomon Bravo: Encountered patient conscious alert and ambulatory. Patient reports since yesterday(09/30/24), following lifting in approximately 20 to 25 pound weighted blanket. Patient has been reporting left mid actually(SEGMD: correction- axillary) pain that travels to the left scapula. On exam, patient denies: chest pain, shortness of breath and acute changes in vision. Additionally, patient denies fevers, nausea, vomiting, dizziness and syncope. 12 lead EKG reveals a sinus rhythm with no present ectopy, non-diagnostic for acute STEMI. Skin warm, dry and of appropriate color for ethnicity. Head and neck, free of trauma and edema. -JVD. Breath sounds present clear and equal bilaterally. Abdomen is soft, nontender and non-distended. Extremities are free of trauma and edema. [facility] contacted: orders for BMP performed, values uploaded via [employer]. [facility] states patient can receive 15 mg of intramuscular Toradol; administered to left deltoid after reconciling medication r ights with patient. [facility] additionally advised patient that while receiving Toradol patient should no longer take her prescribed meloxicam as well as any evkq-[id number] ibuprofen. [facility] to send prescription for further treatment to a pharmacy of patients choice. Patient was additionally encouraged to arrange appointments with her primary care as soon as possible. Patient was informed that the [facility] program has limited capabilities when regarding cardiac workups and that emergent care should be considered if patient were to develop sudden chest pain. Patient was advised to monitor for chest pain, shortness of breath, syncope, black or bloody stools and fevers. Patient verbalizes understanding of the plan and states she is comfortable remaining home today. [facility] Lab Orders: electrocardiogram: Performed BMP, serum or plasma: Performed [facility] Medication Orders: ketorolac 30 mg/mL injection solution: Performed ...................... ...................... ...................... ...................... ...................... ...................... ......... [facility] Consulted: Natty Messer ...................... ...................... ...................... ...................... ...................... ...................... ......... Disposition: Fulfilled SEGMD: Patient reports that pain gets worse with lifting her arms up or twisting or with deep breathing but denies shortness of breath/SOB, diaphoresis, nausea /vomiting. Patient has no Tylenol. She was previously given tramadol for shoulder tendinitis, advised I cannot prescribe tramadol. Patient does have meloxicam but she is not taking it. She states she is not allergic to ibuprofen but does not like to take it due to a history of GERD Natty Messer MD [address] [place] [address],[address], [place], [address], [employer] 10/01/2024 20:38:12 OBGyn Episode No OBEpisode recorded.
== END 2024-12-25 14:37 | disposition home or self-care (01) ==
LOC: HO.HMCH 13:34
PROVIDERS: PCP Physician Assistant; Visit Provider Physician Assistant
DX: I10 Essential (primary) hypertension (principal); J45.20 Mild intermittent asthma, uncomplicated; F41.9 Anxiety disorder, unspecified; F32.A Depression, unspecified; E78.2 Mixed hyperlipidemia; F51.01 Primary insomnia; M72.2 Plantar fascial fibromatosis

== ENCOUNTER → 2024-12-25 13:32 | Outpatient (BNVA) | payer OTHER, SELFPAY | PROVIDERS: PCP Physician Assistant; Visit Provider Physician Assistant | DX: I10 Essential (primary) hypertension (principal); J45.20 Mild intermittent asthma, uncomplicated; F41.9 Anxiety disorder, unspecified; F32.A Depression, unspecified; E78.2 Mixed hyperlipidemia; F51.01 Primary insomnia; M72.2 Plantar fascial fibromatosis; Z79.899 Other long term (current) drug therapy; Z13.31 Encounter for screening for depression | CPT/HCPCS: 96127; 99212 ==

== ENCOUNTER 2025-01-03 11:16 | Outpatient (AMB) | payer OTHER, SELFPAY ==
[2025-01-03 11:55] VITALS: BP 132/78; PULSE 81; BMI 31.4
--- NOTE | 2025-01-03 11:55 | A.OFFVIS_ITS ---
Vital Signs 01/03/25 11:55 Height 5 ft 2 in Weight 171 lb 15.369 oz BMI 31.4 BP 132/78 Blood Pressure Location Lt brachial Position Sitting Pulse 81 Intake Visit Reasons: early satiety Intake Note: Janet presents in the office as a follow up for early satiety. CC: She states that her medications are all PRN and states that she is feeling okay. 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 Required: No Allergies peanut Allergy (Severe, Verified 01/03/25 11:56) Anaphylaxis seafood Allergy (Severe, Verified 01/03/25 11:56) Anaphylaxis codeine (Codeine) Allergy (Intermediate, Verified 01/03/25 11:56) RASH/ITCHING tomato Allergy (Intermediate, Verified 01/03/25 11:56) Gastrointestinal Upset celecoxib (From Celebrex) Adverse Reaction (Intermediate, Verified 01/03/25 11:56) Palpitations ibuprofen (From Motrin) Adverse Reaction (Intermediate, Verified 01/03/25 11:56) Stomach pains levofloxacin (From Levaquin) Adverse Reaction (Intermediate, Verified 01/03/25 11:56) Nausea pravastatin Adverse Reaction (Intermediate, Verified 01/03/25 11:56) Muscle pain Medication List - Last Reconciled 01/03/25 by Eleonora Londono MD albuterol sulfate 90 mcg/actuation 1 puff inhalation QID PRN amitriptyline 25 mg PO BEDTIME 30 days amlodipine 10 mg PO DAILY 90 days blood pressure test kit-medium As directed cholecalciferol (vitamin D3) (Vitamin D3) 25 mcg PO DAILY COVID-19 antigen test (BinaxNOW COVID-19 Ag Self Test kit) As directed cyanocobalamin (vitamin B-12) 1,000 mcg PO DAILY meloxicam 15 mg PO DAILY 30 days miscellaneous medical supply (Blood Pressure Cuff) As directed nebulizers (AeroEclipse II Nebulizer) NEED FOR NEW NEBULIZER MACHINE ondansetron 4 mg PO Q8H PRN pantoprazole 40 mg PO BID [pulse oximeter As directed] rosuvastatin 5 mg PO DAILY 90 days [Self Adhesive Electrode [id number] As directed NS] sennosides (Natural Senna Laxative) 8.6 mg PO BEDTIME 60 days Shower Chair As directed sucralfate 1 g PO BID 90 days sumatriptan succinate take 1 tab at onset of headache; if no relief may repeat 1 tab after at least 2 hrs; max = 4 tabs/24 hr PO 30 days tramadol 50 mg PO BID PRN 7 days [wedge pillow As directed] HPI HPI early satiety: Details: GI CLINIC VISIT FOR THIS 64-YEAR-OLD FEMALE REFERRED FOR COLON CANCER SCREENING TO SCHEDULE A COLONOSCOPY AND FOR FU OF HEARTBURN AND NAUSEA; CHRONIC ILLNESSES:? ASTHMA, MIGRIANES, DEPRESSION - H/0 SUICIDALITY OVER DOSE - DOES THERAPY WEEKLY WITH DR. HOWARD AT [facility], ANXIETY, RT LUNG NODULE, RIGHT HIP AND LEFT KNEE OA, MEMORY LOSS, GASTRITIS, H/O BACK PAIN, H/O DRUG USE - CLEAN FOR MANY YEARS, GERD TODAY'S VISIT Pt states that her medications are all PRN and states that she is feeling okay. Can have heartburn sometimes Takes pantoprazole 40 mg twice daily and sucralfate prn in if she has any abdominal pain Has a BM three times a day with intermittent hard stools Takes pineapple or herrera and it cleans her whole system Takes Senna prn for constipation and prefers to use diet and avoid medications. 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 PAST VISIT: Feeling better after changing her diet - not taking red meat Can have intermittent nausea and denies vomiting. Having chest pains - attributed to acid reflux. Sometimes she forgets to take the 2nd dose of Pantoprazole Gained some wt after she took prednisone for asthma Voice is raspy when she wakes up Trying to eat healthy and lost some weight - Wt loss of 15 lb over the past year Younger brother at age 56 (on his BD) 2 weeks - hospitalized at [facility] with MRSA and of heart failure and still grieving (waiting for the autopsy report) Has been watching what she eats - does not eat foods which is going to cause nausea or make her sick. Takes Pantoprazole and sucralfate - has intermittent nausea and vomiting Tries not to eat late at night. Drinking more water and eating less cheese. Taking quinoa instead of rice Takes Lorazepam 0.5 mg at bedtime and dose was increased to 1 mg. If she eats a whole meal, she will have abdominal pain - can get sick. Eats a small portion - thinks her metabolism is slow and is not very active. Denies constipation. Has 2-3 loose BMs a day - soft and not hard Occasional constipation followed by passage of hard stools. Patient cc: abdominal bloating and still with pain in her right after procedure. Denies any other GI issues. EGD and Colon results reviewed with the patient. I am not feeling good. Having nausea yesterday - took 3 tab of dulcolax and went 8 times It was a big mess Has nausea and having some stomach ache Pantoprazole is not helping and does not have Zofran. Avoids red meat and sauces Scheduled EGD and Colon twice and had to cancel since her ride got COVID infection. Having constipation for the past month Had dinner at 8 pm - rice, salad, shrimp and octupus.. Had not eaten octopus in several yrs.? Able to drink tiny sips. Also noted a burning sensation. Denies facial swelling and had to sit up straight to see if food would go down. became anxious and noted ? shortness of breath. Noted minor episode of dysphagia the day prior when she had a small amount of octopus. ? Dysphagia when she had rice and shrimp Food felt stuck. Woke up at 5 am with chest pain and went to [facility] ER. Feet were itching a lot Notes intermittent heartburn and takes pantoprazole and zofran. Has chronic constipation and takes a stool softener 3 times a day with partial improvement. Minor rectal bleeding when she has hard stools. Denies known FH of colon polyps or cancer. ? EGD AND BIOPSY RESULTS WERE REVIEWED WITH THE PATIENT. ? Stopped eating Soda, Oreos, coffee and drinking a lot of water. ? Takes Protonix only before eating any irritating foods - 4/7 days a week - advised to take daily. ? Takes Carafate prn if she has pain 3/7 days a week. ? Takes Garlic in the morning. ? Takes fermin tea. ? Symptoms have improved partially ? Denies smoking and stopped drinking 5 yrs ago. - heavy drinker on the weekends ? Take Alleve 2 pills a day for CTS - had abd pain before she started taking Alleve. ? Had an EGD and Colonoscopy 5 yrs ago ? at [facility] - normal per patient and said its good for 10 yrs. ? Denies problems with anesthesia ? Denies major cardiac or pulmonary problems. ? Denies known FH of colon polyps or GI malignancy. ? PAST GI HISTORY BY REVIEW OF MEDICAL RECORDS: ? Last seen on 03/14/19: ? Assessments ? 1. Upper abdominal pain - R10.10 (Primary) ? 2. Gastroesophageal reflux disease, esophagitis presence not specified - K21.9 ? 3. Abdominal bloating - R14.0 ? 4. Constipation, unspecified constipation type - K59.00 ? 5. Elevated LFTs - R94.5 ? 58 YF with migraine headache, asthma, anxiety and depression seen for evaluation of abdominal pain with bloating, GERD and constipation. She has early satiety suggestive of gastric outlet obstruction versus idiopathic gastroparesis. ? Patient was advised to start Carafate in addition to omeprazole 20 mg once daily and schedule an upper endoscopy for further evaluation. Procedure and potential complications including bleeding, perforation, drug reaction, aspiration and missed diagnosis were reviewed with the patient. ? Treatment ? 1. Upper abdominal pain ? Start Carafate Tablet, 1 GM, 1 tablet at bedtime on an empty stomach before meals, Orally, twice a day, 30 day(s), 60 Tablet, Refills 3 ? IMAGING: EGD ? 2. Gastroesophageal reflux disease, esophagitis presence not specified ? IMAGING: EGD ? 3. Abdominal bloating ? LAB: IgA ? LAB: TRANSGLUTAMINASE AB IGA ? LAB: TRANSGLUTAMINASE AB IGG ? IMAGING: EGD ? 4. Elevated LFTs ? LAB: LIVER PROFILE ? Notes: Elevated AP of 151 in 2008. Will check repeat LFTs [facility];?08/05/21 reviewed. Elevated AP of 151 in 2008. ?IMAGING STUDIES: 05/2006 UGI showed: ? IMPRESSION: Small hiatus hernia with mild gastroesophageal reflux. ? Otherwise normal upper GI and small bowel series. ENDOSCOPIC PROCEDURES: 02/08/22 EGD AND COLON SHOWED: Endoscopy Findings: STOMACH: Moderate diffuse gastric erythema with prominent gastric folds and nodular appearing muosa in the gastric body - biopsied. ? Moderate erythema in the antrum.? No recurrent ulcer seen in the antrum. Colonoscopy Findings: Two small hyperplastic polyps removed Moderate diverticulosis seen in the sigmoid colon Moderate hemorrhoids on retroflexed exam. Plan: Repeat Colonoscopy interval based on path results - in 5 years if polyps are adenomatous and 10 years if polyps are hyperplastic. Patient placed on the colonoscopy recall list for repeat colonoscopy in 10 years. BIOPSIES SHOWED: A.? Stomach, antrum, biopsy:? Antral-type mucosa with mild chronic inactive inflammation; no Helicobacter organisms seen. B.? Stomach, body, biopsy:? Oxyntic mucosa with mild chronic inactive inflammation; no Helicobacter organisms seen. C.? Colon, random right, biopsy:? Colonic mucosa within normal limits. D.? Colon, transverse, polypectomy:? Colonic mucosa with mild surface hyperplastic changes and small lymphoid aggregate; multiple additional levels examined. 02/16/19 EGD SHOWED: ? STOMACH: Moderate diffuse gastric erythema with prominent gastric folds and ? nodular appearing muosa in the gastric body - biopsied. A 1.5 cms healing ? ulcer in the antrum with multiple healing erosions bopsies were obtained. ? DUODENUM: Normal ? Plan: ? Await pathology results ? Continue present medications ? Patient has an appointment on 05/08/19 in the GI Clinic with Eleonora Londono M.D ? BIOPSIES SHOWED: ? A. Small bowel, biopsies: Duodenal mucosa with no significant histopathology; no ? villous abnormality identified; no increase in intraepithelial lymphocytes. ? B. Stomach, antrum, biopsies: Gastric antral mucosa with mild chronic, inactive ? gastritis; negative for Helicobacter pylori organisms; negative for intestinal metaplasia; negative for dysplasia. ? C. Stomach, ulcer, biopsy: Reactive gastropathy with background mild chronic inactive inflammation; no Helicobacter organisms seen; negative for dysplasia. ? D. Stomach, body, biopsy: Gastric body mucosa with mild chronic, inactive ? gastritis; negative for Helicobacter pylori organisms; negative for intestinal metaplasia; negative for dysplasia. Colonoscopy at [facility] or [facility] 10 yrs ago - normal per patient [facility] Medical History (Updated 12/25/24 @ 14:24 by Feliciano Corey PA-C) Plantar fasciitis, bilateral Plantar fasciitis of right foot Seafood allergy Frequent headaches Stress at work Obesity (BMI 30-39.9) Essential hypertension Impaired fasting glucose Irritable bowel syndrome with constipation Gastric ulcer Dyslipidemia Former smoker Degenerative disc disease, lumbar Vitamin D deficiency Vitamin B12 deficiency History of drug abuse Gastritis Peripheral neuropathy Osteoarthritis involving multiple joints on both sides of body Migraine ANKIT (obstructive sleep apnea) Surgical History Hx of shoulder replacement History of esophagogastroduodenoscopy (EGD) Hx of colonoscopy History of right knee joint replacement History of partial hysterectomy Family History Father CKD (chronic kidney disease) Mother Alcoholism CVA (cerebral vascular accident), Onset Age: 54 Social History Housing: Apartment Are you a primary auto care center manager to a significant other at home: No Do you presently have visiting nurse or other home services: No Alcohol intake: never Patient Tobacco Use Status: Former Tobacco user Tobacco use type: Cigarette Cigarette Packs Per Day: 1 Cigarettes Per Day: 20 Years Smoked: 30 yrs e-Cigarette/Vaping Use: Never Used Second Hand Smoke Exposure: Yes service: No Current occupational status: employed 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 Current occupational exposures/hazards: No Cognitive needs: No Hearing needs: No Vision needs: Yes Review of Systems Const All systems reviewed & are unremarkable except as noted in HPI and below Physical Exam Vital Signs: Last Vital Signs Pulse 81 01/03/25 11:55 BP 132/78 01/03/25 11:55 BMI result Body Mass Index 31.4 Const General: healthy appearing and no acute distress Nutritional Appearance: obese Orientation/consciousness: patient oriented x3 Limitations: no limitations HEENT Head: Yes normal to inspection Ears: hearing grossly normal bilaterally Eyes Sclerae: sclerae normal Pupils: Equal, round and reactive pupils present Neck Neck: Yes normal visual inspection Chest Chest palpation & inspection: normal inspection of the chest Resp Effort & Inspection: normal respiratory effort Auscultation: clear to auscultation bilaterally Cardio Palpation: normal PMI Rate: regular rate Rhythm: regular rhythm Heart sounds: S1 normal heart sound present, S2 normal heart sound present and no murmurs GI Palpation (GI): Soft to palpation, nontender and No hepatosplenomegaly present Auscultation: normal bowel sounds Rectal Exam - Female: deferred Skin General skin exam: no rashes or lesions noted Neuro General: patient oriented x3, gait normal and moves all extremities Cranial nerves: Yes Equal, round and reactive pupils present Psych Appearance: grossly normal Mental Status: mental status grossly normal Assessment & Plan Assessment & Plan (1) Gastritis: Code(s): K29.70 - Gastritis, unspecified, without bleeding Category: Medical Qualifiers: Gastritis type: unspecified gastritis Chronicity: chronic Gastritis bleeding: without bleeding Qualified Code(s): K29.50 - Unspecified chronic gastritis without bleeding (2) GERD (gastroesophageal reflux disease): Code(s): K21.9 - Gastro-esophageal reflux disease without esophagitis Category: Medical (3) Irritable bowel syndrome with constipation: Code(s): K58.1 - Irritable bowel syndrome with constipation Category: Medical (4) Colon cancer screening: Code(s): Z12.11 - Encounter for screening for malignant neoplasm of colon Category: Medical Plan 64 YF with migraine headache, asthma, anxiety and depression followed in GI for abdominal pain with bloating, GERD and constipation. She has early satiety suggestive of gastric outlet obstruction versus idiopathic gastroparesis. Patient was advised to start Carafate in addition to omeprazole 20 mg once daily 02/16/19 EGD showed Moderate diffuse gastric erythema with prominent gastric folds and nodular appearing mucosa in the gastric body - biopsied. A 1.5 cms healing ulcer in the antrum with multiple healing erosions. Gastric biopsies were negative for Helicobacter pylori. 02/2022 EGD and colonoscopy was performed in results as noted above. FU colonoscopy advised in 10 years (Due 02/2032) Patient was advised to schedule an abdominal ultrasound and a gastric emptying study. 12/22/23 Refill sent for sucralfate 06/14/24 Feeling better after changing her diet - not taking red meat Can have intermittent nausea and denies vomiting. Having chest pains - attributed to acid reflux. 01/03/25 patient advised to continue pantoprazole and sucralfate for GERD and senna p.r.n. for constipation. Follow-up in 6 months Coding Level of Care Code Est Pt Level 4 (65890) Diagnoses Chronic gastritis without bleeding, unspecified gastritis type K29.50 Gastritis type: unspecified gastritis Chronicity: chronic Gastritis bleeding: without bleeding GERD (gastroesophageal reflux disease) K21.9 Irritable bowel syndrome with constipation K58.1 Colon cancer screening Z12.11 Time Spent (min) 21
--- OUTSIDE RECORDS SUMMARY | 2025-01-03 14:07 | XMS_ITS | Continuity of Care Document ---
Author Name [facility], Medical Address [address] [place] [address] Organization Unknown Address [address] [place] [address] Medications No known medications Problems No known problems
--- OUTSIDE RECORDS SUMMARY | 2025-01-03 14:07 | XMS_ITS | Continuity of Care Document ---
Author Name [facility], Medical Address [address] [place] [id number] Organization Unknown Address [address] [place] [address] Medications No known medications Problems No known problems
--- OUTSIDE RECORDS SUMMARY | 2025-01-03 14:07 | XMS_ITS | Continuity of Care Document ---
Author Name Jorge Noel Address [address] [place] [id number] Organization Unknown Address [address] [place] [address] Medications No known medications Problems No known problems
--- OUTSIDE RECORDS SUMMARY | 2025-01-03 14:07 | XMS_ITS | Encounter Summary ---
Author Organization [facility] Address [address] [place] [address] Encounters * CPT with Medical [facility] at [facility] on 2024-10-01 { reasonForRequest : Patient has neck pain and feels like there is pain near her bones in her neck, going towards top lefts side of her chest near her arm. , patientReports": , denies :[ History of Heart Attack, in the setting of active chest pain , Active Chest pain, radiates to neck jaw and or arm , Diaphoretic/Sweating", Describes as crushing , Sudden onset of nausea/Vomiting and shortness of breath. , Shortness of Breath , Unable to speak in full sentences without distress , Palpitations, feeling dizzy , Chest pain, increased fatigue , CHF history, increased swelling and edema , Weakness/tachycardia ], chiefComplaints : Extremity Pain , pmh : COPD/Asthma, Hypertension, Joint Replacement (e.g., Hip, Knee), Chronic Pain, Asthma, Anxiety Disorder, Post-Traumatic Stress Disorder (PTSD), Gastroesophageal Reflux Disease (GERD), Diabetes Mellitus Type 2 , allergies : L evofloxacin, Chantix , otherAllergies :null, painAssessment : ,& quot;visitOutcome : , additionalComments : 64 y.o female complains of Extremity Pain\nPatient is self referring\nPatients symptoms started yesterday with complaints of a tender pain on left side under her collar bone radiating into the axilla area. pain is 6/10.She states she feels like its swollen. She feels its \ Muscle\ pain.\nable to move all extremities. \ndenies any falls or injury and denies any visible bruising. \ndenies any lightheadedness or di zziness.\nDenies any pain radiating down arm or into jaw and denies any chest pain. \ndenies any kidney issues and denies being on ay blood thinners\nreviewed red flags.\n\n\nI provided information on the mobile health provider response time and advised the patient and/or caregiver to monitor reported signs and symptoms. I discussed the warning signs of when to seek emergency care. } Encountered patient conscious alert and ambulatory. Patient reports since yesterday(09/30/24), following lifting in approximately 20 to 25 pound weighted blanket. Patient has been reporting left mid actually pain that travels to the left scapula. [...] Extremities are free of trauma and edema. [facility] contacted: orders for BMP performed, values uploaded via [employer]. [facility] states patient can azginzk22 mg of intramuscular Toradol; administered to left deltoid after reconciling medication ???rights?? with patient. [facility] additionally advised patient that while receiving Toradol patient should no longer take her prescribed meloxicam as well as any dxly-wgf-tlwzwkr ibuprofen. [facility] to send prescription for further treatment to a pharmacy of patients choice. Patient was additionally encouraged to arrange appointments with her primary care as soon as possible. [facility] was informed [facility] limited capabilities when regarding cardiac workups and that emergent care should be considered if patient were to develop sudden chest pain. Patient was advised to monitor for chest pain, shortness of breath, syncope, black or bloody stools and fevers. Patient verbalizes understanding ofthe plan and states she is comfortable remaining home today. IV_(FLUIDS_AND/OR_MEDICATION), MEDICATION_IM, ORAL_MEDICATION, WOUND_CARE, ORTHOSTATIC_VITAL_SIGNS Written by Medical [facility] on 2024-10-01
--- OUTSIDE RECORDS SUMMARY | 2025-01-03 14:07 | XMS_ITS | Clinical Summary ---
Author Organization [facility] Address [address] [place] [address] Care Team Providers Care Recreational Therapy Technician Name Role Phone Janina Don MD Primary Care Pro vider Allergies Active Allergy Reactions Criticality Noted Date Comments Jones 08/04/2017 Codeine 08/04/2017 Ibuprofen Rash Low 06/20/2014 [...] age to complete this topic Care Teams Recreational Therapy Technician Relationship Specialty Start Date End Date Janina Don MD [address] [place] [address] [facility] [id number] [facility] - [facility] Family Medicine 08/24/18
--- OUTSIDE RECORDS SUMMARY | 2025-01-03 14:07 | XMS_ITS | Encounter Summary ---
Author Organization [facility] Address [address] [place] [address] Encounters * CPT with Jorge Noel at [facility] on 2024-09-03 12:42pm ??? MBR contacts [facility] nausea, abdominal pain, and a headache. CANDICE is a 64 y/o female with a PMH of, but not limited to: HLD, HTN, migraines, PTSD, ANKIT, GERD, DM II, anxiety, and pulmonary nodule. CANDICE is extremely anxious and hyperverbal during this conversation. She is difficult to redirect, and is very angry that her PCP office ???has bad communication.?? MBR reports she has been trying to call her PCP office since Tuesday about her illness, and she has not received a call back. MBR reports that she has had nausea, abdominal discomfort, a poor appetite, and headaches for three days. She denies CP, SOB, fevers, abdominal distention or firmness, vomiting, diarrhea, or voiding issues. MBR does report that she has not had a BM since Tuesday. MALCOLMR believes that her symptoms are related to the heat, therefore she is requesting anin-home visit and Zofran for her nausea. She flatly refuses ED or UC. CANDICE continues to perseverate about her PCP???s office and their lack of communication. This [facility] RN offers to consult the [facility] Provider Directory and email a list of new PCPs, which MBR accepts. MBR confirms receipt of this email during this call. After confirming MBRs address and phone number on file, this [facility] RN strongly recommends that MBR call 911 for any new or worsening symptoms. MBR verbalizes understanding and will do so if necessary. This call originated from [phone]. { reasonForRequest : abdominal pain, nausea, vomiting , patientReports&quo t;: , denies :[], chiefComplaints : Abdominal Pain, Headache, Nausea / Vomiting , pmh : COPD/Asthma, Hypertension, Joint Replacement (e.g., Hip, Knee), Chronic Pain, Asthma, Anxiety Disorder, Post-Traumatic Stress Disorder (PTSD), Gastroesophageal Reflux Disease (GERD), Diabetes Mellitus Type 2 , allergies : Levofloxacin&q uot;, otherAllergies : shellfish , painAssessment : , visitOutcome : , additionalComments : HPI reviewed } S: evaluation of 64 y/o female for and pain and nausea since Tuesday pt states she jarvis ???icky?? during heat wave last week weak tired slight nausea that worsened on Tuesday she was too tired fell asleep early was too nauseous to eat states sat and sun overall improvement slight appetite hydrated and ran errands, states today she has small appetite she is hydrating but can???t shake the nausea feeling she called her pcp they haven???t called her back yet so she called [...] r/o both resulted negative. P spoke to [facility] pt to get zofran odt now and Mikhail sent to pharmacy ptmtomincrease fluids BRAT diet recommended due to possible stomach bug,reveal self in 48 hrs contact endoscopy nurse no relief or request [facility] revisit. Pt has pcp appt on 09/13 IV_(FLUIDS_AND/OR_MEDICATION), MEDICATION_IM, EKG, POC_BLOODWORK, POC_FLU_STREP, URINE_DIPSTICK, COVID_TEST Written by Jorge Noel on 2024-09-03
== END 2025-01-03 12:20 | disposition home or self-care (01) ==
LOC: HO.HGI 11:17
PROVIDERS: PCP Physician Assistant; Visit Provider Internal Medicine Gastroenterology
DX: K29.50 Unspecified chronic gastritis without bleeding (principal); K21.9 Gastro-esophageal reflux disease without esophagitis; K58.1 Irritable bowel syndrome with constipation
CPT/HCPCS: 99214

== ENCOUNTER → 2025-01-03 11:16 | Outpatient (BNVA) | payer OTHER, SELFPAY | PROVIDERS: PCP Physician Assistant; Visit Provider Internal Medicine Gastroenterology | DX: K29.50 Unspecified chronic gastritis without bleeding (principal); K58.1 Irritable bowel syndrome with constipation; K21.9 Gastro-esophageal reflux disease without esophagitis; R68.81 Early satiety; Z12.11 Encounter for screening for malignant neoplasm of colon; Z87.891 Personal history of nicotine dependence; M25.561 Pain in right knee; M25.562 Pain in left knee; T14.8XXA Other injury of unspecified body region, initial encounter; W19.XXXA Unspecified fall, initial encounter | CPT/HCPCS: 99212 ==

== ENCOUNTER 2025-01-03 13:14 | Outpatient (AMB) | payer OTHER, SELFPAY ==
--- OUTSIDE RECORDS SUMMARY | 2025-01-02 23:59 | XMS_ITS | Continuity of Care Document ---
Author Organization [facility] Address [address] [place] [address]- Care Team Providers Care Field Spec Name Role Phone Feliciano William Primary Care Physician [phone] Encounter [facility] [id number] Date(s): 09/04/24 - 01/02/25 [facility] [address] [place] [address] [address] [place] [address]- Attending Physician: Saad Sanderson MD Admitting Physician: Saad Sanderson MD Referring Physician: Feliciano William Encounter Type: Pre-OutPatient One Time Allergies, Adverse Reactions, Alerts Substance Criticality Severity Reaction Reaction Severity Status codeine Active shellfish Active Chantix Hives Active Levaquin Active Chocolate Active Peanuts Active Tomatoes Active [...] AM EDT Start Date: 12/26/17 Status: Ordered Medication Dispense Status: Completed Quantity: 25.0 Unit: each Total Allowed Fills: 1 Fills Dispensed: 0 albuterol CFC free 90 mcg/inh inhalation aerosol 2, puffs, Inhalation, Every 4 hours, PRN, # 8.5 Gm, Refills 0, Tot. Refills 0, Maintenance, 12/26/17 6:56:36 AM EDT, Aerosol, Print Requisition Start Date: 12/26/17 Status: Ordered Medication Dispense Status: Completed Quantity: 8.5 Unit: g Total Allowed Fills: 1 Fills Dispensed: 0 Amlodipine By Mouth, Daily, 0 Refills, Maintenance, 02/16/22 5:28:00 PM EST, Partial fill upon patient requestif the prescription is for a schedule II opioid drug. Start Date: 02/16/22 Status: Ordered Medication Dispense Status: Completed Total Allowed Fills: 1 Fills Dispensed: 0 Ativan 1 mg oral tablet See Instructions, 1 tablet tonight 1 mg By Mouth 2 times a day X 3 days )from tomorrow) 1 tab dailyfor 3 days 1/2 tab (0.5 mg) daily fro 3 days and stop, # 12 tablet, 0 Refills, Maintenance, 05/20/1911:17:12 PM EDT, Tablet Start Date: 05/19/18 Status: Ordered Medication Dispense Status: Completed Quantity: 12.0 Unit: tablet Total Allowed Fills: 1 Fills Dispensed: 0 hydrochlorothiazide 12.5 mg oral capsule 1 capsule = 12.5 mg, By Mouth, Daily, dx: hypertension, lower extremity edema, # 30 capsule, 6 Refills, Maintenance, 12/18/16 11:10:20 AM EDT, Capsule, [facility] [id number] Start Date: 12/18/16 Stop Date: 07/16/17 Status: Ordered Medication Dispense Status: Completed Quantity: 30.0 Unit: capsule Total Allowed Fills: 7 Fills Dispensed: 0 LORazepam 0.5 mg oral tablet 1 tablet = 0.5 mg, By Mouth, Every 8 hours, 0 Refills, Maintenance, 02/16/22 5:29:00 PM EST, Partial fill upon patient request if the prescription is for a schedule II opioid drug. Start Date: 02/16/22 Status: Ordered Medication Dispense Status: Completed Total Allowed Fills: 1 Fills Dispensed: 0 omeprazole 20 mg oral delayed release tablet 1 tablet = 20 mg, By Mouth, Daily, dx: GERD, # 30 tablet, 6 Refills, Maintenance, 12/09/16 10:10:36 AM EDT, EC Tablet, [facility] [id number] Start Date: 12/09/16 Stop Date: 07/07/17 Status: Ordered Medication Dispense Status: Completed Quantity: 30.0 Unit: tablet Total Allowed Fills: 7 Fills Dispensed: 0 Pantoprazole Daily, 0 Refills, Maintenance, 02/16/22 5:28:00 PM EST Start Date: 02/16/22 Status: Ordered Medication Dispense Status: Completed Total Allowed Fills: 1 Fills Dispensed: 0 Percocet-5/325 325 mg-5 mg oral tablet 1, tablet, By Mouth, 3 times a day, PRN, # 10 tablet, Refills 0, Tot. Refills 0, Maintenance, Pain,07/10/18 3:46:40 AM EDT, Print Requisition Start Date: 07/10/18 Stop Date: 07/13/18 Status: Ordered Medication Dispense Status: Completed Quantity: 10.0 Unit: tablet Total Allowed Fills: 1 Fills Dispensed: 0 Remeron 15 mg oral tablet 1 tablet = 15 mg, By Mouth, Daily at bedtime, # 30 tablet, 0 Refills, Maintenance, 05/19/18 12:21:46PM EDT, Tablet Start Date: 05/19/18 Stop Date: 06/18/18 Status: Ordered Medication Dispense Status: Completed Quantity: 30.0 Unit: tablet Total Allowed Fills: 1 Fills Dispensed: 0 rosuvastatin 5 mg oral tablet 0 Refills, Maintenance, 07/18/24 7:55:00 AM EDT, Partial fill upon patient request if the prescription is for a schedule II opioid drug. Start Date: 07/18/24 Status: Ordered Medication Dispense Status: Completed Total Allowed Fills: 1 Fills Dispensed: 0 simvastatin 10 mg oral tablet 10 mg, 1, tablet, By Mouth, Daily at bedtime, dx: hyperlipidemia, # 30 tablet, Refills 6, Tot. Refills 6, Maintenance, 12/09/16 10:10:14 AM EDT, [facility] [id number] Start Date: 12/09/16 Stop Date: 07/07/17 Status: Ordered Medication Dispense Status: Completed Quantity: 30.0 Unit: tablet Total Allowed Fills: 7 Fills Dispensed: 0 Soma 350 mg oral tablet 350 mg, 1, tablet, By Mouth, 3 times a day, # 15 tablet, Refills 0, Tot. Refills 0, Maintenance, 07/10/18 3:46:38 AM EDT, Print Requisition Start Date: 07/10/18 Stop Date: 07/15/18 Status: Ordered Medication Dispense Status: Completed Quantity: 15.0 Unit: tablet Total Allowed Fills: 1 Fills Dispensed: 0 Tramadol = 50 mg, By Mouth, prn, 0 Refills, Maintenance, 07/18/24 7:54:00 AM EDT, Partial fill upon patient request if the prescription is for a schedule II opioid drug. Start Date: 07/18/24 Status: Ordered Medication Dispense Status: Completed Total Allowed Fills: 1 Fills Dispensed: 0 Vitamin B12 0 Refills, Maintenance, 02/16/22 5:29:00 PM EST, Partial fill upon patient request if the prescription is for a schedule II opioid drug. Start Date: 02/16/22 Status: Ordered Medication Dispense Status: Completed Total Allowed Fills: 1 Fills Dispensed: 0 Vitamin D3 oral tablet 1 tablet = 10 mcg, By Mouth, Daily, 0 Refills, Maintenance, 02/16/22 5:29:00 PM EST, Partial fill upon patient request if the prescription is for a schedule II opioid drug. Start Date: 02/16/22 Status: Ordered Medication Dispense Status: Completed Total Allowed Fills: 1 Fills Dispensed: 0 Wixela Inhub 250 mcg-50 mcg inhalation powder 1 inhalation, Inhalation, 2 times a day, rinse mouth and throat after use, # 1 capsule, 3 Refills, Maintenance, 07/18/24 8:48:00 AM EDT, Powder, [id number], Partial fill upon patient request if the prescription is for a schedule II opioid drug., 1 inhalation Inhalation 2 times a day,Instr:rinse mouth and throat after use, 160, cm, 07/18/24 7:47:00 EDT, Height, 79.1, kg, 10/16/23 14:48:00 EDT, Dry Weight Start Date: 07/18/24 Status: Ordered Medication Dispense Status: Completed Quantity: 1.0 Unit: capsule Total Allowed Fills: 4 Fills Dispensed: 0 Zofran 4 mg oral tablet 1 tablet = 4 mg, By Mouth, Every 8 hours, PRN Nausea & Vomiting, # 10 tablet, 0 Refills, Maintenance, 07/31/21 3:40:00 PM EDT, Tablet, [id number], Partial fill upon patient request if the prescription is for a schedule II opioid drug., 160, cm, 07/31/21 15:16:00 EDT, Height, 81.1, kg, 06/01/21 17:01:00 EDT, Dry Weight Start Date: 07/31/21 Status: Ordered Medication Dispense Status: Completed Quantity: 10.0 Unit: tablet Total Allowed Fills: 1 Fills Dispensed: 0 Problem List Condition Confirmation Course Effective Dates Status H ealth Status Informant Anxiety depression 1 Confirmed Active Asthma Confirmed Active Constipation Confirmed Active Dysphagia Confirmed Active Fecal urgency Confirmed Active Hyperlipidemia Confirmed Active Migraines Confirmed Active Obese class I Confirmed Active Odynophagia Confirmed Active PTSD - Post-traumatic stress disorder Confirmed Active Screening colonoscopy Confirmed Active 1History of self-cutting and overdose Social History Social History Type Response Tobacco Use: patient has not smoked in 2 years. Sex Sex Representation Female (finding) Patient Care team information Care Team Personnel Name: Sharmin Morris RN Position: [facility] Beef Ribber Member Role: Primary Care Nurse Name: Feliciano William Position: Reference Physician Member Role: PCP Address: [address] [place] [address] [address] [place] [address]- Telecom: Name: Linda Tyson RN Position: [facility] RN Member Role: Primary Care Nurse Name: Kathy Vasquez RN Position: [facility] RN Member Role: Primary Care Nurse Name: Kait Starr RN Position: [facility] RN Member Role: Primary Care Nurse Care Team Related Persons Name: DANE HAWKINS Name: AHSAN KING Name: PAUL HERRERA Insurance Providers Guarantor name: KELSEY WEBER [facility] Information #: 1 Payer: [facility] Payer Identifier: VITO Member Number: [id number] Group Number: [id number] Subscriber Identifier: [id number] Relationship to Subscriber: self Coverage Type: Medicare Managed Care (Includes Medicare Advantage Plans) Coverage Verification Date: NA Telecom: NA Address: NA
--- OUTSIDE RECORDS SUMMARY | 2025-01-02 23:59 | XMS_ITS | Continuity of Care Document ---
Author Organization [facility] Address [address] [place] [address]- Care Team Providers Care Branch Credit Counselor Name Role Phone Feliciano William Primary Care Physician Encounter [facility] Date(s): 12/03/24 - 01/02/25 [facility] [address] [place] [address] [address] [place], [place] [address] Attending Physician: Admtr, [id number] Admitting Physician: Admtr, [id number] Referring Physician: Admtr, [id number] Encounter Type: Triage Allergies, Adverse Reactions, Alerts Substance Criticality Severity [...] Refills, Maintenance, 12/18/16 11:10:20 AM EDT, Capsule, [facility] [id number] Start Date: 12/18/16 Stop Date: 07/16/17 Status: [...] Maintenance, 12/09/16 10:10:36 AM EDT, EC Tablet, [facility] [id number] Start Date: 12/09/16 Stop Date: 07/07/17 Status: [...] 10:10:14 AM EDT, Route to Pharmacy Electronically, [facility] [id number] Start Date: 12/09/16 Stop Date: 07/07/17 Status: [...] Team Personnel Name: Sharmin Morris RN Position: [facility] Outside Salesman Member Role: Primary Care Nurse Name: Feliciano William Position: Reference Physician Member Role: PCP Address: [address] [facility] [address] [place] [address] Telecom: Name: Linda Tyson RN Position: [facility] RN Member Role: Primary Care Nurse Name: Kathy Vasquez RN Position: [facility] RN Member Role: Primary Care Nurse Name: Kait Starr RN Position: [facility] RN Member Role: Primary Care Nurse Care Team Related Persons Name: DANE HAWKINS Name: AHSAN KING Name: PAUL HERRERA Insurance Providers Guarantor name: [facility] [employer] Plan Information #: 1 Payer: [facility] Payer Identifier: NA Member Number: [id number] Group Number: [id number] Subscriber Identifier: NA Relationship to Subscriber: self Coverage Type: Medicare Managed Care (Includes Medicare Advantage Plans) Coverage Verification Date: NA Telecom: [facility] Address: NA
--- NOTE | 2025-01-03 13:14 | AM.OFFWIN_ITS ---
Intake Vital Signs 01/03/25 13:15 Height 5 ft 2 in Weight 174 lb BMI 31.8 BP 112/78 Blood Pressure Location Lt brachial Position Sitting Pulse 78 Pulse Source Pulse Oximeter Temp 98.1 F Temp Source Oral Pulse Oximetry (%) 97 Intake Visit Reasons: EP - Foot Bilateral Patient Tobacco Use Status: Former Tobacco user Allergies peanut Allergy (Severe, Verified 01/03/25 13:15) Anaphylaxis seafood Allergy (Severe, Verified 01/03/25 13:15) Anaphylaxis codeine (Codeine) Allergy (Intermediate, Verified 01/03/25 13:15) RASH/ITCHING tomato Allergy (Intermediate, Verified 01/03/25 13:15) Gastrointestinal Upset celecoxib (From Celebrex) Adverse Reaction (Intermediate, Verified 01/03/25 13:15) Palpitations ibuprofen (From Motrin) Adverse Reaction (Intermediate, Verified 01/03/25 13:15) Stomach pains levofloxacin (From Levaquin) Adverse Reaction (Intermediate, Verified 01/03/25 13:15) Nausea pravastatin Adverse Reaction (Intermediate, Verified 01/03/25 13:15) Muscle pain Do you need a note to return to daycare/school/sports/work: No HPI HPI Comments History of Present Illness Details Patient was informed and verbally consented to the use of an ambient scribe for clinic note documentation during the visit. History of Present Illness The patient is a 64-year-old female presenting with a fall. Fall: - Occurred two days prior to the visit, on a Tuesday afternoon, around 5 PM. - The fall happened while walking to pur neftali a pizza. - The patient described losing balance a s her right foot tilted. - No head injury or loss of consciousnes s was reported. - Developed skin abrasion along the left hand and left knee - Also reports bruising of the right kne e - States someone from her insurance eval uated her and recommended her to wash her wounds daily with soap and water - Noticed some discharge from the wounds . - Advised initially not to apply anythin g to the abrasions. - Walking is described as problematic, w ith some difficulty noted. - No significant redness, swelling noted of wound. No fevers. Review of Systems - Musculoskeletal: Reports swelling and bruising of the left knee, difficulty walking. - Skin: Reports abrasions on the left kn ee and left hand. No redness or swelling of wounds. - Neurological: Denies loss of conscious ness or head injury. Physical Exam General Appearance: Normal appearance, well developed. No acute distress Head: Normocephalic, atraumatic Pulmonary: No respiratory distress. Speaking in full sentences Musculoskeletal: Two skin abrasions present along the left dorsum of the hand and two skin abrasions present along the left anterior knee without erythema, swelling, or discharge. Minimal swelling noted overlying the left knee. Ecchymosis noted along the right anterior knee. Normal ROM of the left hand and knees. Normal gait. Mental Status: Alert and Oriented x 3 Psychiatric: Normal mood. Normal affect. [facility] Medical History (Updated 12/25/24 @ 14:24 by Feliciano Corey PA-C) Plantar fasciitis, bilateral Plantar fasciitis of right foot Seafood allergy Frequent headaches Stress at work Obesity (BMI 30-39.9) Essential hypertension Impaired fasting glucose Irritable bowel syndrome with constipation Gastric ulcer Dyslipidemia Former smoker Degenerative disc disease, lumbar Vitamin D deficiency Vitamin B12 deficiency History of drug abuse Gastritis Peripheral neuropathy Osteoarthritis involving multiple joints on both sides of body Migraine ANKIT (obstructive sleep apnea) Surgical History Hx of shoulder replacement History of esophagogastroduodenoscopy (EGD) Hx of colonoscopy History of right knee joint replacement History of partial hysterectomy Family History Father CKD (chronic kidney disease) Mother Alcoholism CVA (cerebral vascular accident), Onset Age: 54 Social History Housing: Apartment Are you a primary pet care associate to a significant other at home: No Do you presently have visiting nurse or other home services: No Alcohol intake: never Patient Tobacco Use Status: Former Tobacco user Tobacco use type: Cigarette Cigarette Packs Per Day: 1 Cigarettes Per Day: 20 Years Smoked: 30 yrs e-Cigarette/Vaping Use: Never Used Second Hand Smoke Exposure: Yes service: No Current occupational status: employed 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 Current occupational exposures/hazards: No Cognitive needs: No Hearing needs: No Vision needs: Yes Physical Exam Vital Signs: BMI result Body Mass Index 31.8 Assessment & Plan Assessment & Plan (1) Fall: Code(s): W19.XXXA - Unspecified fall, initial encounter Qualifiers: Encounter type: initial encounter Qualified Code(s): W19.XXXA - Unspecified fall, initial encounter (2) Skin abrasion: Code(s): T14.8XXA - Other injury of unspecified body region, initial encounter (3) Bilateral knee pain: Code(s): M25.561 - Pain in right knee; M25.562 - Pain in left knee Qualifiers: Chronicity: acute Qualified Code(s): M25.561 - Pain in right knee; M25.562 - Pain in left knee Plan - Left hand and left knee skin abrasions were covered with antibiotic ointment, gauze, and Coban in office - Advised to wash once daily with soap and water and apply antibiotic ointment to prevent infection. - Extra antibiotic ointment, gauze, and Coban were provided for patient - Encourage intermittent application of ice every two hours for 10 to 15 minutes on the left hand and knees to reduce swelling. - Low concern for fractures based on physical exam and normal ROM/gait. - Monitor for signs of infection such as increased redness, swelling, pus, or systemic signs like fever. - Discussed tetanus vaccine with patient as no prior documented TDAP. Patient reports she received a flu shot today and will get tetanus vaccine at a later time. Advised tetanus vaccine and flu shot can be taken together. Recommended to get tetanus vacccine within 48 hours after injury. Coding Level of Care Code Est Pt Level 3 (58997) Diagnoses Fall, initial encounter W19.XXXA Encounter type: initial encounter Skin abrasion T14.8XXA Acute pain of both knees M25.561; M25.562 Chronicity: acute
[2025-01-03 13:15] VITALS: BP 112/78; PULSE 78; TEMP 36.7; O2SAT 97; BMI 31.8
--- OUTSIDE RECORDS SUMMARY | 2025-01-03 16:10 | XMS_ITS | Data Portability ---
Author Organization [facility] [facility] Address [address] [place] [address] Care Team Providers Care Communications Representative Name Role Phone HIM CCA OTHER GIRMA KOEHLER Primary Care Provider [phone] Assessment Encounter Date Assessment Date Assessment LastModified [...] Assessment and Plan as documented by the Washer Hand. Patient given the opportunity to ask questions. Our service contacted for an assessment of: Nausea without vomiting Medic checked COVID and flu and they were both negative. Per massage coordinator on the scene patient is nontoxic. Impression [...] Assessment and Plan as documented by the Washer Hand. We discussed the diagnostic uncertainty of home [...] to call 911- verbalized understanding of instruction [email or web address] Not available 10/01/2024 20:32:49 Plan of Treatment Reminders Order Date Submit Date Provider Last Modified By Organization Details Last Modified Time Details Appointments None recorded. Lab BMP, serum or plasma 2024 025 [facility], [address] [place] [address], [phone] 5 15:51:30 rapid SARS CoV 2 Ag, QL IA, respiratory specimen [address], [address] 5 17:07:50 rapid flu (A+B) [address], [address] 5 18:16:33 rapid SARS CoV 2 Ag, QL IA, respiratory specimen [address], [address] 19:08:31 rapid flu (A+B) 2024 [facility], [address] [place] [address], 19:10:41 rapid SARS CoV 2 Ag, QL IA, respiratory specimen 2024 [facility], [address] [place] [address], 22:53:31 rapid flu (A+B) 2024 [facility], [address] [place] [address], 22:53:31 rapid SARS CoV 2 Ag, QL IA, respiratory specimen 2024 [facility], [address] [place] [address], 16:30:58 rapid flu (A+B) 2024 [facility], [address] [place] [address], 16:30:58 BMP, serum or plasma 2024 [facility], [address] [place] [address], 5 16:30:59 hemoglobin + hematocrit, blood 2024 [facility], [address] [place] [address], 16:30:59 Referral None recorded. Procedures None recorded. Surgeries None recorded. Imaging electrocard iogram 2024 [facility], [address] [place] [address], 20:38:39 Medication Orders ketorolac 30 mg/mL injection solution 2024 [email or web address] [facility]/Pharmacy #[id number], [address] [place] [address], [address], 13:07:29 acetaminoph en ER 650 mg tablet,exte nded release 2024 025 [facility]/Pharmacy #4471, [address] [place], [address], 5 13:08:13 ondansetron 4 mg disintegrat ing tablet 2024 025 [email or web address] [facility]/Pharmacy #4471, [address] [place], [address], 5 15:01:19 ondansetron 4 mg disintegrat ing tablet [address] [facility] [address] [place], [address], 5 15:01:22 cefpodoxime 200 mg tablet [address] [facility] [address] [place], [address], 5 18:43:18 prednisone 20 mg tablet 2024 025 [email or web address] [facility]/Pharmacy #4471, [address] [place], [address], 5 18:43:16 prednisone 10 mg tablet 2024 025 [facility]/Pharmacy #4471, [address] [place], [address], 5 18:45:29 lactated Ringers intravenous solution 2024 025 [email or web address] [address] [place], [address], 5 10:36:17 ketorolac 15 mg/mL injection solution 2024 025 [email or web address], [address] [place], [address], 5 10:36:17 azithromyci n 500 mg tablet 2024 025 [address] [place], [address], 5 10:36:17 azithromyci n 250 mg tablet [address] [facility] [address] [place], [address], 5 10:36:18 prednisone 20 mg tablet 2024 025 [address] [place], [address], 5 10:36:17 prednisone 20 mg tablet [address] [facility] [address] [place], [address], 5 10:36:19 ipratropium 0.5 mg-albutero l 3 mg (2.5 mg base)/3 mL nebulizatio n soln 2024 025 [address] [place], [address], 5 10:36:17 Patient TargetsNo targets recorded. Patient InstructionsNo instructions recorded. Reason for Referral None Reported. Results Created Date Observation Date Name Description Value Unit Range Abnormal Flag Note LastModifiedBy Organization Detail LastModifiedTime 05/17/1905/16/2024 rapid flu (A+B) Flu negati ve Not Available Main - [facility] ed [address] [place] [address], [address] 05/16/2024 18:40:35 05/17/19 25 05/16/2024 rapid SARS CoV 2 Ag, QL IA, respi rator y speci men rapid SARS CoV 2 Ag, QL IA, respiratory specimen negati ve Not Available Main - [facility] ed [address] [place] [address], [address] 05/16/2024 18:40:35 09/04/19 25 09/03/2024 rapid flu (A+B) Flu negati ve Not Available [address], [address] 09/03/2024 16:50:42 09/04/19 25 09/03/2024 rapid SARS CoV 2 Ag, QL IA, respi rator y speci men rapid SARS CoV 2 Ag, QL IA, respiratory specimen negati ve Not Available [address], [address] 09/03/2024 16:50:41 10/02/19 25 10/01/2024 elect arnoldo diogr am No observ ation record ed. [email or web address] [address], [address] 10/01/2024 15:51:47 Result Notes None recorded. Medical Equipment None Reported. Allergies Allergen ID Allergen Name Allergen Category Reaction Reaction Severity Criticality Documentation Date Start Date Code Code System Note Provider Name and Address Organization Details Recorded Time 31465 Chantix medicatio n Not available Not available Not available 10/01/2024 70274 0 RxNorm Not Available [facility] - production 10:09:46 06047 varenicli ne Not available Not available Not available Not available 01/02/20252024 00981 2 RxNorm Not Available [facility] - External [employer] - prod 20:56:01 8178 levofloxa lily medicatio n Not available Not available Not available 01/03/2024 03013 RxNorm Not Available [facility] - production 4 03:42:32 913 Levaquin medicatio n Not available Not available Not available 11/01/2021 84533 2 RxNorm Natty Messer MD [address] [facility],[address], [place], [address], [employer] 5 12:16:41 914 morphine medicatio n Not available Not available Not available 11/01/2021 7052 RxNorm very sensi tive not true aller gy needs low dose Natty Messer MD [address] [facility],[address], [place], [address], [employer] 12:19:22 Medications Name Sig Start Date Stop [...] 4 mg/2 mL injection solution 4mg by [facility] at my request 2021 active Not Available [...] % 18 /min 116/85 mm[Hg] Not Available [facility] [employer] 5 10:19:56 Date Recorded Respiratory rate Heart rate Body temperature Oxygen saturation Oxygen saturation in Arterial blood by Pulse oximetry Systolic And Diastolic Provider Name and Address Organization Details Last Updated DateTime 5 18 /min 91 /min 98.6 [degF] 98 % 98 % 127/76 mm[Hg] Not Available [facility] - production 5 18:34:55 Date Recorded Respiratory rate Heart rate Body temperature Oxygen saturation Oxygen saturation in Arterial blood by Pulse oximetry Systolic And Diastolic Provider Name and Address Organization Details Last Updated DateTime 5 16 /min 68 /min 97.7 [degF] 98 % 98 % 117/76 mm[Hg] Not Available [facility] [employer] 5 14:57:28 Date Recorded Heart rate Respiratory rate Body temperature Oxygen saturation Oxygen saturation in Arterial blood by Pulse oximetry Systolic And Diastolic Provider Name and Address Organization Details Last Updated DateTime 5 86 /min 18 /min 97.7 [degF] 100 % 100 % 130/92 mm[Hg] Not Available [facility] [employer] 5 12:15:46 Social History None recorded. Functional [...] 1761 Azam Posada MD Main - [facility] [address] [place] [address] 07/28/2021 16:03:46 07/28/2021 16:08:14 1780 Natty Messer MD Main - [facility] [address] [place] [address] 07/29/2021 14:03:55 11/13/2021 12:40:11 Closed injury of head [id number] 06 S09.90XD + Concussion / given worsening headache/ dizziness & nausea with new blurred vision- patient needs CT imaging of brain to r/o bleed/cont usion. Pat agreeable now to go to the ER( had refused at last visit). Expectant report called to [facility] ER 3604 [facility] [address] [place] [phone] 11/01/2021 17:18:52 11/18/2021 11:39:21 Pain of shoulder region 83180964 M25.519 I have reviewed and agree with the Assessment and Plan as documented by the Washer Hand. I was available for additional phone based assistance as needed. Patient declined to have Medic call me 6150 Akira Taylor [facility] [address] [place] [address] 02/17/2022 15:49:16 02/19/2022 10:47:42 Pain of shoulder region 95206973 M25.519 No hx of kidney disease; has responded well per patient report to Toradol in the past; cannot tolerate NSAIDS but this is due to GI issue (method of administra tion) 5176 Chely Klein MD [facility] [address] [place] [address] 02/20/2022 20:39:34 02/23/2022 11:03:44 Pain of shoulder region 93826582 M25.519 Ongoing shoulder pain unchanged from 3d [...] assessment and plan as documented by the massage coordinator. I provided real time medical direction for this encounter and was immediatel y available to provide additional phone based assistance as needed. 1258 Michael Ram MD Main - [facility] [address] [place] [phone] 05/27/2022 10:35:07 05/31/2022 12:47:58 Strain of left trapezius muscle [id number] S29.012A 92708 Buddy Carter MD Main - [facility] [address] [place] [address] 08/20/2022 14:55:30 08/21/2022 22:51:29 Pain of right shoulder joint [id number] 0966295 M25.511 Patient presents with recent onset pain [...] stomach ulcers, though for a short period 04971 Jia Ruiz MD Main - [facility] [address] [place] [address] 09/09/2022 12:10:03 09/09/2022 23:13:39 Pain of right shoulder joint [id number] M25.511 26870 Chely Klein MD Main - [facility] [address] [place] [address] 11/28/2022 13:13:25 11/28/2022 18:15:24 Chest pain 37472863 R07.9 Evaluation in the field was performed by my massage coordinator colleague, as noted above, I provided real-time direction and supervisio n for this visit. 62yo F recent should surgery p/w a few days of sharp chest pain radiating to back. Denies tearing sensation or associated dyspnea, diaphoresi s, LE edema/DVT sx. VS wnl. Taking oxycodone post-op w/ some improvemen t of chest pain. Endorses sig stress. On massage coordinator exam chest pain reproducib le and pt [...] shortness of breath, cough, chest pain, fever. 87022 Azam Posada MD Main - [facility] [address] [place] [address] 03/01/2023 19:43:02 03/27/2023 14:08:15 Hypertensive urgency [id number] I16.0 This 62-year-ol d female called with a new onset fairly severe headache, paresthesi as and an elevated BP. She has no history of chronic headaches. I am concerned about a possible brain bleed and recommende d that she go to the ER. The patient agreed with this plan. 20708 Chely Klein MD Main - [facility] [address] [place] [address] 10/10/2023 09:24:11 10/10/2023 17:16:32 Pain of left hip joint [id number] 64965 M25.552 Evaluation in the field was performed by my massage coordinator colleague, as noted above, I provided real-time direction and supervisio n for this visit. 63yo F endorsing 2 months of atraumatic L hip pain. Worse with lying down and standing, pain feels deep . Minimal improvemen t w/ APAP, meloxicam, and tramadol given by PCP. Not done PT. Prior imaging unremarkab le. Denies fevers/chi lls. On massage coordinator eval VS unremarkab le, exam generalize d [...] shortness of breath, cough, chest pain, fever. 40198 Liat Foote MD Main - [address] [address] 12/28/2023 09:53:45 12/28/2023 18:59:37 Burn of skin 112690443 T30.0 97571 DAVID ADAME MD Main - [facility] [address] [place] [address] 02/21/2024 18:36:14 02/21/2024 22:16:37 Palpitations 67727945 R00.2 Weakness present 9659391 07 M62.81 Fatigue 99364138 R53.83 62689 Chely Klein MD [facility] - [address] [address] 04/17/2024 15:31:49 04/17/2024 23:01:50 Sore throat 383615451 J02.9 Evaluation in the field was performed by my massage coordinator colleague, as noted above, I provided real-time direction and supervisio n for this visit. 63yo F evaluated for 1 week of nasal congestion , sore throat, cough, and malaise. Endorses b/l chronic abd pain. Denies fevers, hemoptysis , other new symptoms. Phone call with PCP this AM and was sent rx for amoxicilli n for empiric tx. On massage coordinator eval VS wnl, exam with lungs CTA [...] shortness of breath, cough, chest pain, fever. 48789 Akira Taylor MD Main - [address] [phone] 04/29/2024 10:19:54 04/30/2024 17:15:08 Mild dehydration [id number] 108 E86.0 Will give 1L of LR now. Exacerbati on of mild persistent asthma 623007544 J45.31 Will tx with Z-pack and prednisone taper per patient request. BMP and H/H within normal limits Discussed red flag signs for which to seek higher level of care Headache 81226921 R51.9 S/p Toradol x1 w/improvem ent. No renal disease or bleeding risks. 64748 Michael Ram MD Main - [facility] [address] 05/16/2024 18:34:52 05/17/2024 11:16:25 Cough 86010027 R05.9 22917 Liat Foote MD [facility] [address] [address] 09/03/2024 14:57:17 09/03/2024 19:17:13 Nausea 890427897 R11.0 42158 Abnormal w ellness exam 3936139336 81240 Z00.01 [id number] 22469 Natty Messer MD [facility] [address] [address] 10/01/2024 12:15:43 10/01/2024 21:23:46 Pain in axilla 224420274 M79.474 [id number] Advised although EKG is non-concer renee cannot [...] have no recent labs. On 06/01/2023 H&H 3 BUN 14 and creatinine 0.75.-Sapphire ent [...] Godinez Member ID Guarantor Name 08/20/2022 1 [facility] - DOS PRIOR TO 2022 - DUAL ELIGIBLE (MEDICARE REPLACEMENT/ADV ANTAGE - HMO) Janet Richard [id number] Janet Rodriguez Richard 10/01/2024 1 [facility] - DOS ON OR AFTER 2022 - DUAL ELIGIBLE - JAIL OPTIONS AND ONE CARE (MEDICARE REPLACEMENT/ADV ANTAGE - HMO) Janet Richard [id number] Janet Rodriguez Richard Notes Date Note Type Note Provider Name and Address Organization Details Recorded Time 04/29/2024 text/html ROS as noted in the [...] at 04/28/2024 - 13:17Allergies Reviewed at 04/28/2024 13:17Comments: Bdr verified the name//address and phone number.Pt calling [...] Feeling about the same. Daly Cerrato RN Washer Hand Organization Information for Sha Paredes Legal Name: [employer] Address: [address] [place] [address], [place] [address], Cemetery Workers Supervisor: Heraclio Ortega MD CLIA No.: [id number] Washer Hand POC Test Results from [facility] Rapid COVID antigen (10:26:43) COVID: - Rapid influenza antigen (10::44) Flu: - epoc (10:26:46) pH: 7.44 pH units pCO2: 40.8 mmHg pO2: 31.4 mmHg Na: 145 mmol/L K: 4.1 mmol/L iCa: 1.21 mmol/L Cl: 107 mmol/L TCO2: 26.5 mEq/L Hct: 39 % Hb: 13.1 g/dL Glu: 125 mg/dL Lac: 1.62 mmol/L Cr: 0.76 mg/dL BUN: 12 mg/dL A ...................... ...................... ...................... ...................... ...................... ...................... ......... Washer Hand Note From Sha Pared[facility]: This 63-year-old female [...] ...................... ...................... ...................... ...................... ...................... ...................... ......... [facility] Consulted: Adilson Taylor ...................... ...................... ...................... ...................... ...................... ...................... ......... Disposition: Fulfilled Akira Taylor MD [address] [place] [address],[address], [place], [address], [employer] 04/29/2024 15:01:54 05/16/2024 text/html HPI: Call transferred to CRU from NMR. Marcelor states she [facility] but no one came. This chart writer did not locate visit and confirmed with [employer] team no visit received yesterday. Candice reports recent flu and pneumonia, hx of asthma and lung nodules. Marcelor states she has worsening SOB with exertion, productive cough, pain to her upper back, headache and occasional blurry vision. Candice denies SOB or blurry vision at time of call, CP, fever or chills, numbness, tingling or weakness. Marcelor reports she has been feeling unwell for 3 months and is awaiting a referral to a new kosher dietary service supervisor. Mbr reports she recently completed course of prednisone. Marcelor reports using nebulizer that helps for a little while . Candice was speaking full clear sentences as time of call. Mbr reports she has contacted PCP and they are unable to get her an appt. Candice was offered inst[facility] which she is agreeable to. Advised a referral would be submitted. Candice was advised to call for new/worsening sx and was educated on sx that warrant calling 911/going to ED. ...................... ...................... ...................... ...................... ...................... ...................... ......... [facility] Nurse Triage Notes (Uzma Smith): Reason For Request: SOB Chief Complaints: Breathing Problems PMH: COPD/Asthma, Hypertension, Joint Replacement (e.g., Hip, Knee), Chronic Pain, Asthma PMH Reviewed at 05/16/2024:51 Allergies Reviewed at 05/16/2024:51 Comments: Reviewed HPI, no further data needed. Maury THOMAS Washer Hand Organization Information for [employer] Legal Name: [employer] Address: [address] [place] [address], Cemetery [employer] Supervisor: Michael Steinberg MD [facility] No.: [id number] Washer Hand POC Test Results from [employer] Rapid influenza antigen (18:46:58) Flu: - Attachments uploaded as part of this test result can be found under Documents section. Rapid COVID antigen (18:46:59) COVID: - Attachments uploaded as part of this test result can be found under Documents section. ...................... ...................... ...................... ...................... ...................... ...................... ......... Washer Hand Note From Feroz Parker: SC12 dispatched to [...] process of scheduling an appointment with a kosher dietary service supervisor. Patient reports normal food/fluid intake, advised she has been medication compliant. Patient vital signs obtained as noted. COVID/FLU POC tests performed and negative for all. [facility] consulted, provided orders for 40mg Prednisone PO, advised that he would be sending prescription to patient preferred pharmacy for course of prednisone and Cefpodoxime. 40mg Prednisone PO administered without incident, six patient rights verified. Red flags discussed with patient, advised to call back or go to ED if condition worsened. SC 12 clear. [facility] Lab Orders: rapid SARS CoV 2 Ag, QL IA, respiratory specimen: Performed rapid flu (A+B): Performed ...................... ...................... ...................... ...................... ...................... ...................... ......... [facility] Consulted: Michael Ram ...................... ...................... ...................... ...................... ...................... ...................... ......... Disposition: Miguelito Ram MD [address] [place] [address],[address], [place], [address] [employer] 05/16/2024 22:53:33 09/03/2024 text/html HPI: 12:42pm CANDICE contacts the CRU directly to request an [...] nausea. She flatly refuses ED or UC. MBR continues to perseverate about her PCP s office and their lack of communication. This CRU RN offers to consult the [facility] Provider Directory and email a list of new PCPs, which MBR accepts. MBR confirms receipt of this email during this call. After confirming MBRs address and phone number on file, this CRU RN strongly recommends that MBR call 911 for any new or worsening symptoms. MBR verbalizes understanding and will do so if necessary. This call originated from [phone]. ...................... ...................... ...................... ...................... ...................... ...................... ......... [facility] Nurse Triage Notes (Анна Hansen): Reason For Request: abdominal pain, nausea, vomiting Chief Complaints: Abdominal Pain, Headache, Nausea / Vomiting PMH: COPD/Asthma, Hypertension, Joint Replacement (e.g., Hip, Knee), Chronic Pain, Asthma, Anxiety Disorder, Post-Traumatic Stress Disorder (PTSD), Gastroesophageal Reflux Disease (GERD), Diabetes Mellitus Type 2 PMH Reviewed at 09/03/2024:35 Allergies Reviewed at 09/03/2024 - 13:35 Comments: HPI reviewed Washer Hand Organization Information for Brown [employer] Business Legal Name: [employer] Address: [address] [place] [address], [place] [address], Cemetery Workers Supervisor: Heraclio Ortega MD CLIA No.: [id number] Washer Hand POC Test Results from [employer] Rapid COVID antigen (14:45:42) COVID: - Attachments uploaded as part of this test result can be found under Documents section. Rapid influenza antigen (14:45:43) Flu: - ...................... ...................... ...................... ...................... ...................... ...................... ......... Washer Hand Note From Brown Hoffman: S: evaluation of [...] r/o both resulted negative. P spoke to [facility] pt to get zofran odt now and Mikhail sent to pharmacy ptmtomincrease fluids BRAT diet recommended due to possible stomach bug, reveal self in 48 hrs contact coper hand no relief or request [facility] revisit. Pt has pcp appt on 09/13 [facility] Medication Orders: ondansetron 4 mg disintegrating tablet: Administered ...................... ...................... ...................... ...................... ...................... ...................... ......... [facility] Consulted: Liat Foote ...................... ...................... ...................... ...................... ...................... ...................... ......... Disposition: Fulfilled Liat Foote MD [address] [place] [address],[address], [place], [address], [employer] 09/03/2024 16:51:51 10/01/2024 text/html ROS as noted in the HPI [facility] Nurse Triage Notes (Анна Hansen): Reason [...] Mellitus Type 2PMH Reviewed at 10/01/2024 - 10:09Allergies Reviewed at 10/01/2024 - 10:09Comments: 64 y.o female complains of Extremity PainPatient [...] signs of when to seek emergency care. Washer Hand Organization Information for Solomon Bravo Legal Name: [employer]. Address: [address] [place] [address], Cemetery Workers Supervisor: Michael Steinberg MD CLIA No.: [id number] Washer Hand POC Test Results from [facility] iSTAT Chem8+ (12:47:00) Na: 139mEq/LK: 4.0mEq/LCl: 102mEq/LiCa: 1.22mmol/LTCO2: 25mmol/LGlu: 128mg/dLBUN: 13mg/dLCrea: 1.2mg/dLHct: 39%Hb: 13.3g/dLAmmol/LCartridge Number: [id number] Attachments uploaded as part of this test result can be found under Documents section. EKG (12:56:31) - This test has been updated by the massage coordinator, Solomon Bravo at (10/01/2024 13:36:14). The changes are marked in bold.EKG test performed. Attachments uploaded as part of this test result can be found under Documents section. ...................... ...................... ...................... ...................... ...................... ...................... ......... Washer Hand Note From Solomon Bravo: Encountered patient conscious [...] Extremities are free of trauma and edema. [facility] contacted: orders for BMP performed, values uploaded via [employer]. [facility] states patient can receive 15 mg of intramuscular Toradol; administered to left deltoid after reconciling medication r ights with patient. [facility] additionally advised patient that while receiving Toradol patient should no longer take her prescribed meloxicam as well as any [id number] ibuprofen. [facility] to send prescription for further treatment to a pharmacy of patients choice. Patient was additionally encouraged to arrange appointments with her primary care as soon as possible. [facility] and that emergent care should be considered if patient were to develop sudden chest pain. Patient was advised to monitor for chest pain, shortness of breath, syncope, black or bloody stools and fevers. Patient verbalizes understanding of the plan and states she is comfortable remaining home today. [facility] Lab Orders: electrocardiogram: Performed BMP, serum or plasma: Performed [facility] Medication Orders: ketorolac 30 mg/mL injection solution: Performed ...................... ...................... ...................... ...................... ...................... ...................... ......... [facility] Consulted: Natty Messer ...................... ...................... ...................... ...................... [...] a history of GERD Natty Messer MD [address] [facility],[address], [place], [address], [place] 10/01/2024 20:38:12 OBGyn Episode No OBEpisode recorded.
== END 2025-01-03 13:52 | disposition home or self-care (01) ==
PROVIDERS: PCP Physician Assistant; Visit Provider Family Medicine
DX: W19.XXXA Unspecified fall, initial encounter (principal); T14.8XXA Other injury of unspecified body region, initial encounter; M25.561 Pain in right knee; M25.562 Pain in left knee

== ENCOUNTER 2025-01-08 14:08 | Outpatient (AMB) | payer OTHER, SELFPAY ==
[2025-01-08 14:32] VITALS: BMI 31.8
--- NOTE | 2025-01-08 14:32 | A.OFFVIS_ITS ---
Vital Signs 01/08/25 14:32 Height 5 ft 2 in Weight 174 lb BMI 31.8 Intake Visit Reasons: Plantar Fascial fibromatosis Intake Note: Janet is a 64 year old female who presents today as a new patient for an evaluation of her bilateral plantar fasciitis. Pt reports she has had the pain for about 1 year and is located in both of her heels. She described the pain as a burning sensation and she has tried icing her foot, messages, stretching exercises and has found temporary relief. Patient notes after removing her shoes and socks she is unable to bear weight on her right foot because she experiences pain in her right great toe. Patient reports she fell on 01/01/25 at the store and she was seen by her insurance company and then proceded to go to the walk in clinic for her ankle pain. Allergies peanut Allergy (Severe, Verified 01/08/25 14:34) Anaphylaxis seafood Allergy (Severe, Verified 01/08/25 14:34) Anaphylaxis codeine (Codeine) Allergy (Intermediate, Verified 01/08/25 14:34) RASH/ITCHING tomato Allergy (Intermediate, Verified 01/08/25 14:34) Gastrointestinal Upset celecoxib (From Celebrex) Adverse Reaction (Intermediate, Verified 01/08/25 14:34) Palpitations ibuprofen (From Motrin) Adverse Reaction (Intermediate, Verified 01/08/25 14:34) Stomach pains levofloxacin (From Levaquin) Adverse Reaction (Intermediate, Verified 01/08/25 14:34) Nausea pravastatin Adverse Reaction (Intermediate, Verified 01/08/25 14:34) Muscle pain HPI HPI Plantar Fascial fibromatosis: Details: 64-year-old female with past medical history of GERD, right TKA, presents for bilateral heel pain. Patient states that she has had bilateral heel pain for approximately 10-15 years. She had seen another tower equipment installer in [place] were previously given her up to 9 injections in both feet. She has tried custom inserts which have not helped. She performs range of motion and stretching exercises at home, and also uses frozen water bottle. Patient states she has a history of nerve conduction velocity test however she does not remember the results. Also notes history of bilateral carpal tunnel syndrome, had injections previously which had resolved her pain. She had a recent fall last week which resulted in a left knee abrasion and right ankle injury. She was seen at the walk-in clinic and referred to us for right ankle sprain. [facility] Medical History (Updated 01/08/25 @ 15:45 by Serafin Bain DPM) Plantar fasciitis, bilateral Plantar fasciitis of right foot Seafood allergy Frequent headaches Stress at work Obesity (BMI 30-39.9) Essential hypertension Impaired fasting glucose Irritable bowel syndrome with constipation Gastric ulcer Dyslipidemia Former smoker Degenerative disc disease, lumbar Vitamin D deficiency Vitamin B12 deficiency History of drug abuse Gastritis Peripheral neuropathy Osteoarthritis involving multiple joints on both sides of body Migraine ANKIT (obstructive sleep apnea) Surgical History Hx of shoulder replacement History of esophagogastroduodenoscopy (EGD) Hx of colonoscopy History of right knee joint replacement History of partial hysterectomy Family History Father CKD (chronic kidney disease) Mother Alcoholism CVA (cerebral vascular accident), Onset Age: 54 Social History Housing: Apartment Are you a primary progressive care manager to a significant other at home: No Do you presently have visiting nurse or other home services: No Alcohol intake: never Patient Tobacco Use Status: Former Tobacco user Tobacco use type: Cigarette Cigarette Packs Per Day: 1 Cigarettes Per Day: 20 Years Smoked: 30 yrs e-Cigarette/Vaping Use: Never Used Second Hand Smoke Exposure: Yes service: No Current occupational status: employed 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 Mild varicosities to bilateral feet. Derm: No open wounds or lacerations. No clinical signs of infection. Neuro: Positive Tinel sign bilateral tarsal tunnel region with burning radiating to the heel and arch. MSK: Normal arch foot type. Mild tenderness on palpation of the plantar medial calcaneal tubercle bilaterally. Ankle dorsiflexion 10 degrees on knee extension. No tenderness to the Achilles. Mild tenderness on palpation of the right lateral ankle ligaments. No pain to the syndesmosis or deltoid. No marked edema or ecchymosis to the right ankle. Assessment & Plan Assessment & Plan (1) Plantar fasciitis, bilateral: Code(s): M72.2 - Plantar fascial fibromatosis Category: Medical Plan: * Referred for bilateral foot x-rays * Continue stretching exercises * Recommended to use Dr. Baugh's gel heel cushions. * Offered capsaicin ointment as a topical analgesic alternative as the patient deferred other treatments at this time. * Follow up in 1 month. (2) Tarsal tunnel syndrome of both lower extremities: Code(s): G57.53 - Tarsal tunnel syndrome, bilateral lower limbs Category: Medical Plan: * Recommended diagnostic block which the patient deferred at this time. * Recommended EMG NCV which the patient deferred at this time. * Discussed possible MRI bilateral ankles. (3) Sprain of ankle: Code(s): S93.409A - Sprain of unspecified ligament of unspecified ankle, initial encounter Category: Medical Qualifiers: Encounter type: initial encounter Involved ligament of ankle: anterior talofibular ligament Laterality: right Qualified Code(s): S93.491A - Sprain of other ligament of right ankle, initial encounter Plan: * Applied Joce bandage * Continue rest ice compression elevation Orders: Orders XR Foot Wing 3V Today M72.2 - Plantar fascial fibromatosis Coding Level of Care Code New Pt Level 4 (96594) Diagnoses Plantar fasciitis, bilateral M72.2 Tarsal tunnel syndrome of both lower extremities G57.53 Sprain of anterior talofibular ligament of right ankle, initial encounter S93.491A Encounter type: initial encounter Involved ligament of ankle: anterior talofibular ligament Laterality: right Time Spent (min) 35
--- OUTSIDE RECORDS SUMMARY | 2025-01-08 17:10 | XMS_ITS | Encounter Summary ---
Author Organization [facility] Address [address] [place] [address] Care Team Providers Care Stud Driver Name Role Phone Community, Pcp Primary Care Provider Malgorzata Zelaya Md, MD Primary Care Provider Unavailable Encounter Details Date Type Department Care Team Description 08/11/2017 Orders Only General Surgery - [place] [address] [facility] [address] [place] [address] Kalen Rivero MD [address] [place] [id number] Arm lesion (Primary Dx) Social History Tobacco [...] tissue documented in this encounter Care Teams Stud Driver Relationship Specialty Start Date End Date Community, Pcp PCP - General Internal Medicine 07/25/17 03/27/19 Malgorzata Reeves MD, MD PCP - General Internal Medicine 03/28/19 documented as of this encounter
--- OUTSIDE RECORDS SUMMARY | 2025-01-08 17:11 | XMS_ITS | Clinical Summary ---
Author Organization [facility] Address [address] [place] [address] Phone Care Team Providers Care Slip Mixer Name Role Phone Malgorzata Reeves MD Primary [...] CERVICAL BIOPSY W/ LOOP ELECTRODE EXCISION PROCEDURE: LA CONIZATION CERVIX W/WO D&C RPR ELTRD EXC; [...] Last Done Comments Breast Cancer Screening 1960 Colorectal Cancer Screening: Colonoscopy 1960 Cervical Cancer Screening: Pap Smear 1981 RSV Immunization Adult Patients (1 - Risk 50-74 years 1-dose series) 2010 Zoster Vaccines (1 of 2) 2010 Pneumococcal Vaccine: 50+ Years (2 of 2 - PCV) 02/14/2016 02/13/2015, 01/16/2013 HIV Screening 02/06/2022 Hepatitis C Screening 02/06/2022 Medicare Annual Wellness Visit 02/06/2022 Social Influencers of Health Screening 02/06/2022 Cholesterol Screening (Lipid Panel) 08/24/2022 08/24/2017 Depression Screening 03/07/2024 COVID-19 Vaccine (4 - season) 2024 01/30/2021, 07/10/2020, 06/12/2020 Influenza Vaccine (#1) 2024 [...] mmol/L LAB CHEMISTRY METHOD 05/31/2024 3:43 PM T [facility] Potassium 4.3 3.5 - 5.5 mmol/L LAB CHEMISTRY METHOD 05/31/2024 3:43 PM [facility] Chloride 105 96 - 110 mmol/L LAB CHEMISTRY METHOD 05/31/2024 3:43 PM [facility] CO2 28 21 - 32 mmol/L LAB CHEMISTRY METHOD 05/31/2024 3:43 PM [facility] Anion Gap 4 3 - 11 LAB CHEMISTRY METHOD 05/31/2024 3:43 PM [facility] Glucose 100 70 - 100 mg/dL LAB CHEMISTRY METHOD 05/31/2024 3:43 PM [facility] BUN 14 5 - 25 mg/dL LAB CHEMISTRY METHOD 05/31/2024 3:43 PM [facility] Creatinine 0.75 0.50 - 1.10 mg/dL LAB CHEMISTRY METHOD 05/31/2024 3:43 PM [facility] eGFR 89 >=60 mL/min/1. 73m2 LAB CHEMISTRY METHOD 05/31/2024 3:43 PM [facility] Comment:Calculation based on the Chronic Kidney Disease Epidemiology Collaboration (CKD-EPI) equation refit without adjustment for race. BUN/Creatinine Ratio 18.7 LAB CHEMISTRY METHOD 05/31/2024 3:43 PM T [facility] Calcium 9.5 8.5 - 10.5 mg/dL LAB CHEMISTRY METHOD 05/31/2024 3:43 PM [facility] Blood Venous blood specimen / Unknown Venipuncture / Unknown 05/31/2024 2:56 PM EDT 05/31/2024 3:12 PM EDT us Matthew Lyon DO LAB BLOOD ORDERABLES Final Result [facility] [address] [place] [address], from Last 3 Months or Most Recently Relevant to Health Maintenance Insurance MEDICAID - [place] [employer] MEDICARE Member Subscriber Plan / Payer (Ef fective 2020-Present) Name:Janet Ramos Relation to Subscriber:Self Name:Janet Ramos Payer ID:[id number] Group ID:[id number] Type:Not on file Address: [address] [place] [address] Care Teams Slip Mixer Relationship Specialty Start Date End Date Malgorzata Reeves MD [address] [place] [address] PCP - General Internal Medicine 03/28/19
--- OUTSIDE RECORDS SUMMARY | 2025-01-08 17:11 | XMS_ITS | Data Portability ---
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 Patient given the opportunity to ask questions. Our service contacted for an assessment of: Nausea without vomiting Medic checked COVID and flu and they were both negative. Per intelligence engineer on the scene patient is nontoxic. Impression [...] Assessment and Plan as documented by the Integrity Director. We discussed the diagnostic uncertainty of home [...] to call 911- verbalized understanding of instruction [email or web address] Not available 10/01/2024 20:32:49 01/02/2025 01/02/2025 On 01/02/25, the [employer] platform system was down. As part of this downtime, any encounter that took place on 01/02/25 did not have the Mobile Health Provider clinical information, including vital signs and point of care data, incorporated into the [facility] note. [email or web address] Not available 01/04/2025 14:23:40 Plan of Treatment Reminders Order Date Submit Date Provider Last Modified By Organization Details Last Modified Time Details Appointments None recorded. Lab BMP, serum or plasma 2024 025 [facility], [address] [place] [address], [id number] 15:51:30 rapid SARS CoV 2 Ag, QL IA, respiratory specimen 2024 025 [facility], [address] [place] [address], [id number] 17:07:50 rapid flu (A+B) 2024 025 [facility], [address] [place] [address], [address] 5 18:16:33 rapid SARS CoV 2 Ag, QL IA, respiratory specimen 2024 025 [facility], [address] [place] [address], [address] 5 19:08:31 rapid flu (A+B) 2024 025 [facility], [address] [place] [place] [address], [address] 5 19:10:41 rapid SARS CoV 2 Ag, QL IA, respiratory specimen 2024 [facility], [address] [place] [address], [address] 5 22:53:31 rapid flu (A+B) 2024 025 [facility], [address] [place] [address], [address] 5 22:53:31 rapid SARS CoV 2 Ag, QL IA, respiratory specimen 2024 [facility], [address] [place] [address], [address] 5 16:30:58 rapid flu (A+B) 2024 [facility], [address] [place] [address], [address] 5 16:30:58 BMP, serum or plasma 2024 [facility], [address] [place] [place] [address], [address] 5 16:30:59 hemoglobin + hematocrit, blood 2024 [facility], [address] [place] [address], [address] 5 16:30:59 Referral None recorded. Procedures None recorded. Surgeries None recorded. Imaging electrocard iogram 2024 025 [facility], [address] [place] [address], [address] 5 20:38:39 Medication Orders ketorolac 30 mg/mL injection solution 2024 025 [email or web address] [facility]4471, [address] [place] [address], [address], 5 13:07:29 acetaminoph en ER 650 mg tablet,exte nded release 2024 025 [facility] [address] [place] [address], [address], 5 13:08:13 ondansetron 4 mg disintegrat ing tablet 2024 025 [email or web address] [facility], [address] [place] [address], [address], 5 15:01:19 ondansetron 4 mg disintegrat ing tablet 2024 025 [facility] [address] [place] [address], [address], 5 15:01:22 cefpodoxime 200 mg tablet 2024 025 [facility] [address] [place] [address], [address], 5 18:43:18 prednisone 20 mg tablet 2024 025 [email or web address] [facility]44[facility], [address] [place] [address], [address], 5 18:43:16 prednisone 10 mg tablet 2024 025 [facility]acy #4471, [address] [place] [address], [address], 5 18:45:29 lactated Ringers intravenous solution 2024 025 [email or web address] [facility] #44[facility], [address] [place] [address], [address], 5 10:36:17 ketorolac 15 mg/mL injection solution 2024 025 [address] [address] [place], [address], 5 10:36:17 azithromyci n 500 mg tablet 2024 025 [address] [place], [address], 5 10:36:17 azithromyci n 250 mg tablet 2024 025 [facility] [address] [place] [address], [address], 5 10:36:18 prednisone 20 mg tablet 2024 025 [address], [address] [place] [address], [address], 5 10:36:17 prednisone 20 mg tablet 2024 025 [facility] [address] [place] [address], [address], 5 10:36:19 ipratropium 0.5 mg-albutero l 3 mg (2.5 mg base)/3 mL nebulizatio n soln 2024 025 [address] [address] [place] [address], [address], 5 10:36:17 Patient TargetsNo targets recorded. Patient InstructionsNo instructions recorded. Reason for Referral None Reported. Results Created Date Observation Date Name Description Value Unit Range Abnormal Flag Note LastModifiedBy Organization Detail LastModifiedTime 05/17/19 25 05/16/2024 rapid flu (A+B) Flu negati ve Not Available Main - [facility] ed [address] [place] [address], [address] 05/16/2024 18:40:35 05/17/19 25 05/16/2024 rapid SARS CoV 2 Ag, QL IA, respi rator y speci men rapid SARS CoV 2 Ag, QL IA, respiratory specimen negati ve Not Available Main - [address], [address] 05/16/2024 18:40:35 09/04/19 25 09/03/2024 rapid flu (A+B) Flu negati ve Not Available Main-[address], [address] 09/03/2024 16:50:42 09/04/19 25 09/03/2024 rapid SARS CoV 2 Ag, QL IA, respi rator y speci men rapid SARS CoV 2 Ag, QL IA, respiratory specimen negati ve Not Available [address], [address] 09/03/2024 16:50:41 10/02/19 25 10/01/2024 elect arnoldo العلي am No observ ation record ed. [email or web address] [address], [address] 10/01/2024 15:51:47 Result Notes None recorded. Medical Equipment None Reported. Allergies Allergen ID Allergen Name Allergen Category Reaction Reaction Severity Criticality Documentation Date Start Date Code Code System Note Provider Name and Address Organization Details Recorded Time 33678 Chantix medicatio n Not available Not available Not available 10/01/2024 65288 0 RxNorm Not Available [facility] - production 10:09:46 36096 varenicli ne Not available Not available Not available Not available 01/02/20252024 77792 2 RxNorm Not Available [employer] - External Data [employer] - prod 20:56:01 99902 codeine medicatio n Not available Not available Not available 01/04/2025 2670 RxNorm Not Available [facility] - External Data Service - prod 13:14:43 8178 levofloxa lily medicatio n Not available Not available Not available 01/03/2024 35564 RxNorm Not Available [facility] - production 03:42:32 913 Levaquin medicatio n Not available Not available Not available 11/01/2021 75762 2 RxNorm Natty Messer MD [address] [facility],[address], [place], [address], [employer] 12:16:41 914 morphine medicatio n Not available Not available Not available 11/01/2021 7052 RxNorm very sensi tive not true aller gy needs low dose Natty Messer MD [address] [facility],[address], [place], [address], [employer] 12:19:22 Medications Name Sig Start Date Stop [...] 4 mg/2 mL injection solution 4mg by [facility] at my request 2021 active Not Available [...] % 18 /min 116/85 mm[Hg] Not Available [facility] [employer] 5 10:19:56 Date Recorded Respiratory rate Heart rate Body temperature Oxygen saturation Oxygen saturation in Arterial blood by Pulse oximetry Systolic And Diastolic Provider Name and Address Organization Details Last Updated DateTime 5 18 /min 91 /min 98.6 [degF] 98 % 98 % 127/76 mm[Hg] Not Available [facility] - production 5 18:34:55 Date Recorded Respiratory rate Heart rate Body temperature Oxygen saturation Oxygen saturation in Arterial blood by Pulse oximetry Systolic And Diastolic Provider Name and Address Organization Details Last Updated DateTime 5 16 /min 68 /min 97.7 [degF] 98 % 98 % 117/76 mm[Hg] Not Available [facility] - production 5 14:57:28 Date Recorded Heart rate Respiratory rate Body temperature Oxygen saturation Oxygen saturation in Arterial blood by Pulse oximetry Systolic And Diastolic Provider Name and Address Organization Details Last Updated DateTime 5 86 /min 18 /min 97.7 [degF] 100 % 100 % 130/92 mm[Hg] Not Available [facility] - production 12:15:46 Social History None recorded. Functional Status [...] Codes Diagnosis Note 1761 Azam Posada MD [facility] - [address] [address] 07/28/2021 16:03:46 07/28/2021 16:08:14 1780 Natty Messer MD [address] [address] 07/29/2021 14:03:55 11/13/2021 12:40:11 Closed injury of head [id number] 06 S09.90XD + Concussion / given worsening headache/ dizziness & nausea with new blurred vision- patient needs CT imaging of brain to r/o bleed/cont usion. Pat agreeable now to go to the ER( had refused at last visit). Expectant report called to [facility] ER 3604 Natty Messer MD [address] [address] 11/01/2021 17:18:52 11/18/2021 11:39:21 Pain of shoulder region [id number] M25.519 I have reviewed and agree with the Assessment and Plan as documented by the Integrity Director. I was available for additional phone based assistance as needed. Patient declined to have Medic call me 0283 Akira Taylor MD [facility] - [address] [address] 02/17/2022 15:49:16 02/19/2022 10:47:42 Pain of shoulder region 05037835 M25.519 No hx of kidney disease; has responded well per patient report to Toradol in the past; cannot tolerate NSAIDS but this is due to GI issue (method of administra tion) 7978 Chely Klein MD [address] [address] 02/20/2022 20:39:34 02/23/2022 11:03:44 Pain of shoulder region 96258240 M25.519 Ongoing shoulder pain unchanged from 3d [...] assessment and plan as documented by the intelligence engineer. I provided real time medical direction for this encounter and was immediatel y available to provide additional phone based assistance as needed. 8748 Michael Ram MD Main - [facility] [address] [place] [address] 05/27/2022 10:35:07 05/31/2022 12:47:58 Strain of left trapezius muscle [id number] S29.012A 30241 Buddy Carter MD Main - [facility] [address] [place] [address] 08/20/2022 14:55:30 08/21/2022 22:51:29 Pain of right shoulder joint 1826144745 2354768 M25.511 Patient presents with recent onset pain [...] stomach ulcers, though for a short period 58179 Jia Ruiz MD Main - [facility] [address] [place] [address] 09/09/2022 12:10:03 09/09/2022 23:13:39 Pain of right shoulder joint [id number] [id number] M25.511 45206 Chely Klein MD Main - [facility] [address] [place] [address] 11/28/2022 13:13:25 11/28/2022 18:15:24 Chest pain 34733671 R07.9 Evaluation in the field was performed by my intelligence engineer colleague, as noted above, I provided real-time direction and supervisio n for this visit. 62yo F recent should surgery p/w a few days of sharp chest pain radiating to back. Denies tearing sensation or associated dyspnea, diaphoresi s, LE edema/DVT sx. VS wnl. Taking oxycodone post-op w/ some improvemen t of chest pain. Endorses sig stress. On intelligence engineer exam chest pain reproducib le and [...] shortness of breath, cough, chest pain, fever. 08604 Azam Posada MD Main - [facility] [address] [place] [address] 03/01/2023 19:43:02 03/27/2023 14:08:15 Hypertensive urgency [id number] I16.0 This 62-year-ol d female called with a new onset fairly severe headache, paresthesi as and an elevated BP. She has no history of chronic headaches. I am concerned about a possible brain bleed and recommende d that she go to the ER. The patient agreed with this plan. [id number] Chely Klein MD Main - [facility] [address] [place] [phone] 10/10/2023 09:24:11 10/10/2023 17:16:32 Pain of left hip joint [id number] 18156 M25.552 Evaluation in the field was performed by my intelligence engineer colleague, as noted above, I provided real-time direction and supervisio n for this visit. 63yo F endorsing 2 months of atraumatic L hip pain. Worse with lying down and standing, pain feels deep . Minimal improvemen t w/ APAP, meloxicam, and tramadol given by PCP. Not done PT. Prior imaging unremarkab le. Denies fevers/chi lls. On intelligence engineer eval VS unremarkab le, exam generalize [...] shortness of breath, cough, chest pain, fever. 81202 Liat Foote MD Main - [facility] [address] [place] [phone] 12/28/2023 09:53:45 12/28/2023 18:59:37 Burn of skin 660767136 T30.0 74354 DAVID ADAME MD Main - [facility] [address] [place] [address] 02/21/2024 18:36:14 02/21/2024 22:16:37 Palpitations 99967755 R00.2 Weakness present 0813598 07 M62.81 Fatigue 75577691 R53.83 32843 Chely Klein MD Main - [facility] [address] [place] [address] 04/17/2024 15:31:49 04/17/2024 23:01:50 Sore throat 706268435 J02.9 Evaluation in the field was performed by my intelligence engineer colleague, as noted above, I provided real-time direction and supervisio n for this visit. 63yo F evaluated for 1 week of nasal congestion , sore throat, cough, and malaise. Endorses b/l chronic abd pain. Denies fevers, hemoptysis , other new symptoms. Phone call with PCP this AM and was sent rx for amoxicilli n for empiric tx. On intelligence engineer eval VS wnl, exam with lungs [...] shortness of breath, cough, chest pain, fever. 62453 Akira Taylor MD Main - [address] [phone] 04/29/2024 10:19:54 04/30/2024 17:15:08 Mild dehydration [id number] 108 E86.0 Will give 1L of LR now. Exacerbati on of mild persistent asthma 850871670 J45.31 Will tx with Z-pack and prednisone taper per patient request. BMP and H/H within normal limits Discussed red flag signs for which to seek higher level of care Headache 20526552 R51.9 S/p Toradol x1 w/improvem ent. No renal disease or bleeding risks. [id number] Michael Ram MD [facility] - [address] [address] 05/16/2024 18:34:52 05/17/2024 11:16:25 Cough 81991585 R05.9 16575 Liat Foote MD [facility] ED Medical [address] [address] 09/03/2024 14:57:17 09/03/2024 19:17:13 Nausea 766747095 R11.0 78288 Abnormal w ellness exam 4323144308 90583 Z00.01 [id number] 98832 Natty Messer MD [facility] ED Medical [address] [address] 10/01/2024 12:15:43 10/01/2024 21:23:46 Pain in axilla 115020694 M79.951 [id number] Advised although EKG is non-concer renee cannot [...] w/a to affected arearisks/ benefits ketorolac d/w patient-eliezer ferrer has no history of black or bloody stools, peptic ulcer disease or CKD (she does have GERD for which she takes a PPI )but I have no recent labs. On 06/01/2023 H&H 3 BUN 14 and creatinine 0.75.-[place] ent is requesting ketorolac will check labs first. BMP nonconcern ing lites normal blood sugar 128 H&H 13. with BUN 13 creatinine slightly higher than previously at 1.2 but 1 single dose of 15 mg ketorolac is low risk-patie nt is agreeable to the injection NO meloxicam until tomorrow-o r other po nsaids / may take tylenol- will send new rx 87438 Era Harry MD Main-[facility] ED Medical [address] [address] 01/02/2025 20:55:41 01/04/2025 14:47:41 Pain in lower limb 74340766 M79.606 [id number] 64 year old female with chronic unilateral lower extremity pain, being evaluated after a fall yesterday. Patient reports tripped and fell on her hands and knees, without a head strike, dizziness or presyncope . Patient reports pain throughout her leg, the leg she has chronic pain in. She has been taking her tramadol with minimal effect. She is not on blood thinners, has not taken any other medication s for pain. She is ambulating at her baseline. Exam notable for normal vital signs, mild abrasions on hands, grossly normal neurologic exam. Presentati on consistent with mechanical fall, causing acute on chronic pain of her lower extremity, consistent with mild injuries. Safe to monitor at home, trial simple analgesics - tylenol and ibuprofen administer ed on scene. FU outpatient team for ongoing or worsening pain. I have reviewed and agree with the assessment and plan as documented by the intelligence engineer. I provided real-time medical direction for this encounter and was immediatel y available to provide additional phone-base d assistance as needed. We discussed the diagnostic uncertaint y of home visits and associated risks. We discussed the need to seek care urgently/e mergently in the setting of any new or worsening symptoms. Health Concerns Section Related Observation LastModified by Organization Detai ls LastModified Time None Recorded Concern Status LastModified by Organization Details LastModified Time None Recorded Advance Directives Directive None Recorded Payers Insurance Date Sequence Insurance Name Policy Number Policy Godinez Covered Member ID Godinez Member ID Guarantor Name 08/20/2022 1 [facility] - DOS PRIOR TO 2022 - DUAL ELIGIBLE (MEDICARE REPLACEMENT/ADV ANTAGE - HMO) Janet Mercadoz [id number] Janet Ramos 01/04/2025 1 [facility] - DOS ON OR AFTER 2022 - DUAL ELIGIBLE - JAIL OPTIONS AND ONE CARE (MEDICARE REPLACEMENT/ADV ANTAGE - HMO) Janet Ramos [id number] Janet Ramos Notes Date Note Type Note Provider Name and Address Organization Details Recorded Time text/html ROS as noted in the HPI [...] - 13:17Allergies Reviewed at 04/28/2024 - 13:17Comments: Insurance Account Specialist verified the name//address and phone number.Pt calling [...] Feeling about the same. Daly Cerrato RN Integrity Director Organization Information for Sha Paredesbarbara Legal Name: [facility] Transportation Address: [address] [place] [address], [place]azar [address], Match Maker: Heraclio Ortega MD CLIA No.: [id number] Integrity Director POC Test Results from Jamalheath Sha Canseco [facility]ON[facility] Rapid COVID antigen (10::43) COVID: - Rapid influenza antigen (::44) Flu: - epoc (::46) pH: 7.44 pH units pCO2: 40.8 mmHg pO2: 31.4 mmHg Na: 145 mmol/L K: 4.1 mmol/L iCa: 1.21 mmol/L Cl: 107 mmol/L TCO2: 26.5 mEq/L Hct: 39 % Hb: 13.1 g/dL Glu: 125 mg/dL Lac: 1.62 mmol/L Cr: 0.76 mg/dL BUN: 12 mg/dL A ........................... ........................... ........................... ........................... ........................... ...... Integrity Director Note From Sha Paredes: This 63-year-old female [...] questions and is agreeable to this plan. ........................... ........................... ........................... ........................... ........................... ...... [facility] Consulted: Adilson Taylor ........................... ........................... ........................... ........................... ........................... ...... Disposition: Fulfilled Akira Taylor MD [address] [facility],[address], [place], [address], [facility] 04/29/2024 15:01:54 5 text/html HPI: Call transferred to CRU from [facility]. Marcelor states she was suppose to have an Urge visit yesterday but no one came. This signwriter did not locate visit and confirmed with Urge team no visit received yesterday. Candice reports [...] is awaiting a referral to a new heat seal operator. Mbr reports she recently completed course of prednisone. Marcelor reports using nebulizer that helps for a little while . Candice was speaking full clear sentences as time of call. Mbr reports she has contacted PCP and they are unable to get her an appt. Candice was offered [facility] which she is agreeable to. Advised a referral would be submitted. Candice was advised to call for new/worsening sx and was educated on sx that warrant calling 911/going to ED. ........................... ........................... ........................... ........................... ........................... ...... [facility] Nurse Triage Notes (Uzma Smith): Reason For Request: SOB Chief Complaints: Breathing Problems PMH: COPD/Asthma, Hypertension, Joint Replacement (e.g., Hip, Knee), Chronic Pain, Asthma PMH Reviewed at 05/16/2024: Allergies Reviewed at 05/16/2024:51 Comments: Reviewed HPI, no further data needed. Maury THOMAS Integrity Director Organization Information for Feroz Parker [employer] Legal Name: [employer] Address: [address] [place] [address], Match Maker: Michael Steinberg MD [facility] No.: [id number] Integrity Director POC [facility] Rapid influenza antigen (18:46:58) Flu: - Attachments uploaded as part of this test result can be found under Documents section. Rapid COVID antigen (18:46:59) COVID: - Attachments uploaded as part of this test result can be found under Documents section. ........................... ........................... ........................... ........................... ........................... ...... Integrity Director Note From Feroz Parker: SC12 dispatched to [...] process of scheduling an appointment with a heat seal operator. Patient reports normal food/fluid intake, advised she has been medication compliant. Patient vital signs obtained as noted. COVID/FLU POC tests performed and negative for all. [facility] consulted, provided orders for 40mg Prednisone PO, advised that he would be sending prescription to patient preferred pharmacy for course of prednisone and Cefpodoxime. 40mg Prednisone PO administered without incident, six patient rights verified. Red flags discussed with patient, advised to call back or go to ED if condition worsened. SC [address] [facility] Lab Orders: rapid SARS CoV 2 Ag, QL IA, respiratory specimen: Performed rapid flu (A+B): Performed ........................... ........................... ........................... ........................... ........................... ...... [facility] Consulted: Michael Ram ........................... ........................... ........................... ........................... ........................... ...... Disposition: Miguelito Ram MD [address] [facility],[address], [place], [address], [facility] 05/16/2024 22:53:33 5 text/html HPI: 12:42pm MBR contacts the CRU [...] her PCP office h as bad communication. MARCELOR reports she has been trying to call her PCP office since Tuesday about her illness, and she has not received a call back. CANDICE reports that she has had nausea, abdominal discomfort, a poor appetite, and headaches for three days. She denies CP, SOB, fevers, abdominal distention or firmness, vomiting, diarrhea, or voiding issues. MARCELOR does report that she has not had a BM since Tuesday. CANDICE believes that her symptoms are related to the heat, therefore she is requesting an in-home visit and Zofran for her nausea. She flatly refuses ED or UC. CANDICE continues to perseverate about her PCP s office and their lack of communication. This CRU RN offers to consult the [facility] Provider Directory and email a list of new PCPs, which CANDICE accepts. CANDICE confirms receipt of this email during this call. After confirming MBRs address and phone number on file, this CRU RN strongly recommends that MBR call 911 for any new or worsening symptoms. MBR verbalizes understanding and will do so if necessary. This call originated from [phone]. ........................... ........................... ........................... ........................... ........................... ...... [facility] Nurse Triage Notes (Анна Hansen): Reason For Request: abdominal pain, nausea, vomiting Chief Complaints: Abdominal Pain, Headache, Nausea / Vomiting PMH: COPD/Asthma, Hypertension, Joint Replacement (e.g., Hip, Knee), Chronic Pain, Asthma, Anxiety Disorder, Post-Traumatic Stress Disorder (PTSD), Gastroesophageal Reflux Disease (GERD), Diabetes Mellitus Type 2 PMH Reviewed at 09/03/2024: Allergies Reviewed at 09/03/2024:35 Comments: HPI reviewed Integrity Director Organization Information for [employer] Business Legal Name: [facility] Address: [address] [place] [address], Match Maker: Heraclio Ortega MD [place] No.: [id number] Integrity Director POC Test Results from [facility] Rapid COVID antigen (14:45:42) COVID: - Attachments uploaded as part of this test result can be found under Documents section. Rapid influenza antigen (14:45:43) Flu: - ........................... ........................... ........................... ........................... ........................... ...... Integrity Director Note From [facility]: S: evaluation of [...] r/o both resulted negative. P spoke to [facility] pt to get zofran odt now and Mikhail sent to pharmacy ptmtomincrease fluids BRAT diet recommended due to possible stomach bug, reveal self in 48 hrs contact copyright clerk no relief or request Insted revisit. Pt has pcp appt on 09/13 [facility] Medication Orders: ondansetron 4 mg disintegrating tablet: Administered ........................... ........................... ........................... ........................... ........................... ...... [facility] Consulted: Liat Foote ........................... ........................... ........................... ........................... ........................... ...... Disposition: Fulfilled Liat Foote MD [address] [place] [address],[address], [place], [address], Pixelated 09/03/2024 16:51:51 5 text/html ROS as noted in the HPI [...] (GERD), Diabetes Mellitus Type 2PMH Reviewed at 10/01/2024:09Allergies Reviewed at 10/01/2024 - 10:09Comments: 64 y.o [...] signs of when to seek emergency care. Integrity Director Organization Information for Solomon Bravo Legal Name: [employer]. Address: [address] [place] [address], Match Maker: Michael Steinberg MD [place] No.: [id number] Integrity Director POC Test Results from Lawrence Solomon Canseco RONNI iSTAT Chem8+ (12:47:00) Na: 139mEq/LK: 4.0mEq/LCl: 102mEq/LiCa: 1.22mmol/LTCO2: 25mmol/LGlu: 128mg/dLBUN: 13mg/dLCrea: 1.2mg/dLHct: 39%Hb: 13.3g/dLAmmol/LCartridge Number: [id number] Attachments uploaded as part of this test result can be found under Documents section. EKG (12:56:31) - This test has been updated by the intelligence engineer, Solomon Bravo at (10/01/2024 13:36:14). The changes are marked in bold.EKG test performed. Attachments uploaded as part of this test result can be found under Documents section. ........................... ........................... ........................... ........................... ........................... ...... Integrity Director Note From Solomon Bravo: Encountered patient conscious [...] Extremities are free of trauma and edema. [facility] contacted: orders for BMP performed, values uploaded via Urge. [facility] states patient can receive 15 mg of intramuscular Toradol; administered to left deltoid after reconciling medication r ights with patient. [facility] additionally advised patient that while receiving Toradol patient should no longer take her prescribed meloxicam as well as any [id number] ibuprofen. [facility] to send prescription for further treatment to a pharmacy of patients choice. Patient was additionally encouraged to arrange appointments with her primary care as soon as possible. Patient was informed that [facility] has limited capabilities when regarding cardiac workups and that emergent care should be considered if patient were to develop sudden chest pain. Patient was advised to monitor for chest pain, shortness of breath, syncope, black or bloody stools and fevers. Patient verbalizes understanding of the plan and states she is comfortable remaining home today. [facility] Lab Orders: electrocardiogram: Performed BMP, serum or plasma: Performed [facility] Medication Orders: ketorolac 30 mg/mL injection solution: Performed ........................... ........................... ........................... ........................... ........................... ...... [facility] Consulted: Natty Messer ........................... ........................... ........................... ........................... ........................... ...... Disposition: Fulfilled SEGMD: Patient reports that pain [...] a history of GERD Natty Messer MD [address] [place] [address],[address], [place], [address], Pixelated 10/01/2024 20:38:12 5 text/html [facility] (Alycia Gale)Mechanical fall yesterday - last night. Fell off sidewalk - cut knee and L hand by knuckles. Small cut by hand slightly bleeding, knee with no drainage. No bruising noted to hip. Pain under the knee and to L hip. Denies head strike or LOC. Unsure of how the fall happened but denies amnesia to the fall. Reports feeling heart palpitations since fall - did not have prior to fall. Attributes to anxiety related to fall. Denies chest pain. Able to bear weight on L side - just painful. Reports she has spoken to PCP for XRAY. Reports pain in feet prior to fall - possibly attributed to fall. Has not taken PRNs for the pain. Not on anticoagulation. Denies kidney issues. Informed of inability to perform imaging - patient reports understanding. Requesting On license of [facility] visit.Late entry: 01/03/25 1027. Alycia Gale RN. The Urge NOW system was down on date of service, 01/02/25. The following sections are required for documentation purposes but were not fully reviewed at the time of referral: PMH not fully review.Patient ReportsWeakness with fall, able to move all extremitiesDeniesFalls with head strike and LOCFalls from a standing position, no LOC, patient is amnestic to the eventFalls with isolated injury and deformity noted to limbFalls with inability to move post fallCool extremities after fall or injuryPast Medical History (PMH)COPD/Asthma, Hypertension, Joint Replacement (e.g., Hip, Knee), Chronic Pain, Asthma, Anxiety Disorder, Post-Traumatic Stress Disorder (PTSD), Gastroesophageal Reflux Disease (GERD), Diabetes Mellitus Type 2Reviewed at1 - 10:28AllergiesLevofloxacin, ChantixReviewed at1 - 10:28 Natty Messer MD [address] [facility],[address], [place], [address], [facility] 01/04/2025 17:38:08 OBGyn Episode No OBEpisode recorded.
--- OUTSIDE RECORDS SUMMARY | 2025-01-08 17:11 | XMS_ITS | Clinical Summary ---
Author Organization [employer] [facility] Address [address] [place] [address] Care Team Providers Care Foreign Exchange Clerk Name Role Phone Janina Don MD Primary Care Pro vider Allergies Active Allergy Reactions Criticality Noted Date Comments [place] 08/04/2017 Codeine 08/04/2017 Ibuprofen Rash Low 06/20/2014 [...] on patient's age to complete this topic Insurance Payer Benefit Plan / Group Subscriber ID Effective Dates Phone Address Type [place] [id number] 2004-Pre sent [employer] [address] [facility] [place] [address] Medicare [employer] [facility] [id number] 2016-Pr esent [address] [place] [id number] Care Teams Foreign Exchange Clerk Relationship Specialty Start Date End Date Janina Don MD [address] [place] [address] [facility] [address] PCP - General Family Medicine 08/24/18
--- OUTSIDE RECORDS SUMMARY | 2025-01-08 17:11 | XMS_ITS | Clinical Summary ---
Author Organization [facility] [facility] Address [address] [place] [address] Care Team Providers Care Ms Access Database Developer Name Role Phone Malgorzata Reeves Md, MD [...] 68 04/24/2019 10:54 AM EST Temperature 35.8 C (96.5 F) 08/04/2017 8:50 AM EDT Respiratory Rate - - Oxygen Saturation - [...] RISK PATIENTS (#1) 05/06/1979 CHOLESTEROL SCREENING 1980 MAMMOGRAM 2000 COLON CANCER SCREENING 2010 SHINGLES VACCINE (1 of 2) 2010 CERVICAL CANCER SCREENING 03/28/2018 03/28/2015 BMI CHECK/ADVISE 03/07/2024 11/11/2017, 08/04/2017 INFLUENZA (#1) 2024 DTAP/TDAP/TD (2 - Td or Tdap) 08/25/2027 08/24/2017 Care Teams Ms Access Database Developer Relationship Specialty Start Date End Date Malgorzata Reeves MD, MD PCP - General Internal Medicine 03/28/19
== END 2025-01-08 14:53 | disposition home or self-care (01) ==
LOC: HO.HPODS 14:08
PROVIDERS: PCP Physician Assistant; Visit Provider Student in an Organized Health Care Education/Training Program
DX: M72.2 Plantar fascial fibromatosis (principal); G57.53 Tarsal tunnel syndrome, bilateral lower limbs; S93.491A Sprain of other ligament of right ankle, initial encounter
CPT/HCPCS: 99204

== ENCOUNTER → 2025-01-08 14:08 | Outpatient (BNVA) | payer OTHER, SELFPAY | PROVIDERS: PCP Physician Assistant; Visit Provider Student in an Organized Health Care Education/Training Program | DX: S93.491A Sprain of other ligament of right ankle, initial encounter (principal); M72.2 Plantar fascial fibromatosis; G57.33 Lesion of lateral popliteal nerve, bilateral lower limbs; W18.30XA Fall on same level, unspecified, initial encounter; Y92.512 Supermarket, store or market as the place of occurrence of the external cause; Y99.9 Unspecified external cause status | CPT/HCPCS: 99202 ==

== ENCOUNTER 2025-02-11 14:01 | Outpatient (AMB) | payer OTHER, SELFPAY ==
--- NOTE | 2025-02-11 14:23 | MHC.OFFVIS ---
Vital Signs 02/11/25 14:24 Height 5 ft 2 in Weight 174 lb BMI 31.8 Intake Visit Reasons: Plantar Fascial fibromatosis Intake Note: Janet is a 64 year old female who presents to the office today for a follow up for her Plantar Fascial fibromatosis. At last visit pt deferred a diagnostic block and EMG. X-rays were ordered. Pt states she is interested in getting the injections today due to her bilateral foot pain. She was unable to obtain X ray and she does not want to get the EMG done. Allergies peanut Allergy (Severe, Verified 02/11/25 14:24) Anaphylaxis seafood Allergy (Severe, Verified 02/11/25 14:24) Anaphylaxis codeine (Codeine) Allergy (Intermediate, Verified 02/11/25 14:24) RASH/ITCHING tomato Allergy (Intermediate, Verified 02/11/25 14:24) Gastrointestinal Upset celecoxib (From Celebrex) Adverse Reaction (Intermediate, Verified 02/11/25 14:24) Palpitations ibuprofen (From Motrin) Adverse Reaction (Intermediate, Verified 02/11/25 14:24) Stomach pains levofloxacin (From Levaquin) Adverse Reaction (Intermediate, Verified 02/11/25 14:24) Nausea pravastatin Adverse Reaction (Intermediate, Verified 02/11/25 14:24) Muscle pain HPI HPI Plantar Fascial fibromatosis: Details: 64-year-old female with past medical history of GERD, right TKA, returns for bilateral heel pain. She performs range of motion and stretching exercises at home, and also uses frozen water bottle, but still having persistent pain. She is requesting an injection today. History: Patient states that she has had bilateral heel pain for approximately 10-15 years. She had seen another die finisher forging in [place] were previously given her up to 9 injections in both feet. She has tried custom inserts which have not helped. Patient states she has a history of nerve conduction velocity test however she does not remember the results. Also notes history of bilateral carpal tunnel syndrome, had injections previously which had resolved her pain. [facility] Medical History (Updated 01/08/25 @ 15:45 by Serafin Bain DPM) Plantar fasciitis, bilateral Plantar fasciitis of right foot Seafood allergy Frequent headaches Stress at work Obesity (BMI 30-39.9) Essential hypertension Impaired fasting glucose Irritable bowel syndrome with constipation Gastric ulcer Dyslipidemia Former smoker Degenerative disc disease, lumbar Vitamin D deficiency Vitamin B12 deficiency History of drug abuse Gastritis Peripheral neuropathy Osteoarthritis involving multiple joints on both sides of body Migraine ANKIT (obstructive sleep apnea) Surgical History Hx of shoulder replacement History of esophagogastroduodenoscopy (EGD) Hx of colonoscopy History of right knee joint replacement History of partial hysterectomy Family History Father CKD (chronic kidney disease) Mother Alcoholism CVA (cerebral vascular accident), Onset Age: 54 Social History Housing: Apartment Are you a primary before and after school daycare worker to a significant other at home: No Do you presently have visiting nurse or other home services: No Alcohol intake: never Patient Tobacco Use Status: Former Tobacco user Tobacco use type: Cigarette Cigarette Packs Per Day: 1 Cigarettes Per Day: 20 Years Smoked: 30 yrs e-Cigarette/Vaping Use: Never Used Second Hand Smoke Exposure: Yes service: No Current occupational status: employed 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 Description: The right heel was prepped using alcohol. A steroid injection was administered using sterile technique. The site was dressed using a band-aid. Post-procedure Instructions: The patient was instructed to apply ice to the injection site. The patient was advised to call the office if there are signs or symptoms of worsening pain, infection, or steroid flare. Tendon Injection POD1: - Plantar Fascia Injection All charges added?: Procedure code (CPT) selection complete Office Meds triamcinolone acetonide 40 mg/mL suspension for injection Performing Provider: Serafin Bain DPM Performing Location: [facility] Administered by: Serafin Bain DPM on 02/11/25 19:41 Dose Route Admin Location Dispensed Lot Number Expiration Date [facility] Teacher Asst 20 mg Tendon Sheath Inj. 1 mL [id number] [employer] Total Dispensed Waste 1 mL 50 % dexamethasone sodium phosphate 4 mg/mL injection solution Performing Provider: Serafin Bain DPM Performing Location: [facility] Administered by: Serafin Bain DPM on 02/11/25 19:41 Dose Route Admin Location Dispensed Lot Number Expiration Date [facility] Teacher Asst 4 mg Tendon Sheath Inj. 1 mL [id number] [employer] Total Dispensed Waste 1 mL 0 % bupivacaine (PF) 0.5 % (5 mg/mL) injection solution Performing Provider: Serafin Bain DPM Performing Location: [facility] Administered by: Serafin Bain DPM on 02/11/25 19:41 Dose Route Admin Location Dispensed Lot Number Expiration Date [facility] Teacher Asst 2 mL intra-articular 10 mL [id number] [employer] Total Dispensed Waste 10 mL 80 % Assessment & Plan Assessment & Plan (1) Plantar fasciitis, bilateral: Code(s): M72.2 - Plantar fascial fibromatosis Category: Medical Plan: Instructe patient to receive her bilateral foot x-rays Continue stretching exercises Administered right heel steroid injection Follow up in 1 week for left heel injection. (2) Tarsal tunnel syndrome of both lower extremities: Code(s): G57.53 - Tarsal tunnel syndrome, bilateral lower limbs Category: Medical Plan: Recommended diagnostic block which the patient deferred at this time. Recommended EMG NCV which the patient deferred at this time. Discussed possible MRI bilateral ankles. Orders: Orders AMB Flexor Tendon / Plantar Fascia Injection Today M72.2 - Plantar fascial fibromatosis Coding Level of Care Code Est Pt Level 3 (89640) Diagnoses Plantar fasciitis, bilateral M72.2 Tarsal tunnel syndrome of both lower extremities G57.53 CPT Codes Tendon Injection - Tendon Injection POD1: - Plantar Fascia Injection ([id number]) Time Spent (min) 20
[2025-02-11 14:24] VITALS: BMI 31.8
--- OUTSIDE RECORDS SUMMARY | 2025-02-11 22:52 | XMS_ITS | Continuity of Care Document ---
Author Organization [place] [facility], [facility] Address [address] [place] [phone] Care Team Providers Care Engraver Flatware Name Role Phone HIM CCA OTHER GIRMA KOEHLER Primary Care Provider Assessment Encounter Date Assessment Date Assessment LastModified by Organization Details LastModified Time 01/02/2025 01/02/2025 On 01/02/25, the [employer] platform system was down. As part of this downtime, any encounter that took place on 01/02/25 did not have the [employer] Provider clinical information, including vital signs and point of care data, incorporated into the [facility] note. [email or web address] Not available 01/04/2025 14:23:40 Plan of Treatment Reminders Order Date Submit Date Provider Last Modified By Organization Details Last Modified Time Details Appointments None record ed. Lab None record ed. Referral None record ed. Procedures None record ed. Surgeries None record ed. Imaging None record ed. Medication Orders None record ed. Patient TargetsNo targets recorded. Patient InstructionsNo instructions recorded. Reason for Referral None Reported. Medical Equipment None Reported. Allergies Allergen ID Allergen Name Allergen Category Reaction Reaction Severity Criticality Documentation Date Start Date Code Code System Note Provider Name and Address Organization Details Recorded Time 74971 Chantix medicatio n Not available Not available Not available 10/01/2024 63742 0 RxNorm Not Available [facility] - production 10:09:46 37512 varenicli ne Not available Not available Not available Not available 01/02/20252024 68340 2 RxNorm Not Available [facility] - External Data Service - prod 20:56:01 12918 codeine medicatio n Not available Not available Not available 01/04/2025 2670 RxNorm Not Available [facility] [employer] - prod 13:14:43 8178 levofloxa lily medicatio n Not available Not available Not available 01/03/2024 08291 RxNorm Not Available [employer] - production 4 03:42:32 913 Levaquin medicatio n Not available Not available Not available 11/01/2021 08121 2 RxNorm Natty Messer MD [address] [facility],[address], [place], [address], [employer] 5 12:16:41 914 morphine medicatio n Not available Not available Not available 11/01/2021 7052 RxNorm very sensi tive not true aller gy needs low dose Natty Messer MD [address] [place] [address],[address], [place], [address], [employer] 5 12:19:22 Medications Name Sig Start Date Stop [...] 4 mg/2 mL injection solution 4mg by [facility] at my request 2021 active [...] Available Not Available No t Available Vitals None Recorded Social History None recorded. Functional Status None recorded. Mental Status None recorded. Family History Nothing Reported. Medical History No medical history recorded. Gynecological HistoryNo gynecological history recorded. Obstetrics History GPAL:G 0 P 0 0 0 0 Past Encounters Encounter ID Performer Location Encounter Start Date Encounter Closed Date Diagnosis/Indication Diagnosis SNOMED-CT Code Diagnosis ICD10 Code Diagnosis IMO Codes Diagnosis Note [id number] Era Harry MD [facility] ED Medical [address] [address] 01/02/2025 20:55:41 01/04/2025 14:47:41 Pain in lower limb [id number] M79.606 [id number] 64 year old female with chronic unilateral [...] assessment and plan as documented by the supervisor sound technician. I provided real-time medical direction for this [...] Member ID Godinez Member ID Guarantor Name 01/02/2025 1 [facility] - DOS ON OR AFTER 2022 - DUAL ELIGIBLE - SKILLED NURSING OPTIONS AND ONE CARE (MEDICARE REPLACEMENT/ADV ANTAGE - HMO) Janet Ramos [id number] Janet Ramos Notes Date Note Type Note Provider Name and Address Organization Details Recorded Time 5 text/html [facility] (Alycia Gale)Mechanical fall yesterday [...] perform imaging - patient reports understanding. Requesting instED visit.Late entry: 01/03/25 1027. Alycia Gale RN. [facility] on date of [...] ChantixReviewed at1 - 10:28 Natty Messer MD [address] [place] [address],[address], [place], [address], [employer] 01/04/2025 17:38:08 OBGyn Episode No OBEpisode recorded.
--- OUTSIDE RECORDS SUMMARY | 2025-02-11 22:52 | XMS_ITS | Encounter Summary ---
Author Organization [facility] Prior to 01/06/2024 Address [address] [place] [address] Care Team Providers Care Area Sales Manager Name Role Phone Community, Pcp Primary Care Provider Malgorzata Zelaya Md, MD Primary Care Provider Unavailable Encounter Details Date Type Department Care Team Description 08/08/2017 Release of Information Medical Records [address] [place] [id number] Abstract, Provider Social History Tobacco Use Types Packs/Day Years Used Date Smoking Tobacco: Former Smokeless Tobacco: Former Quit: 2017 Sex Assigned at Date Recorded Not on file documented as of this encounter Plan of Treatment Not on file documented as of this encounter Visit Diagnoses Not on filedocumented in this encounter Care Teams Area Sales Manager Relationship Specialty Start Date End Date Community, Pcp PCP - General Internal Medicine 07/25/17 03/27/19 Malgorzata Reeves MD, MD PCP - General Internal Medicine 03/28/19 documented as of this encounter
--- OUTSIDE RECORDS SUMMARY | 2025-02-11 22:52 | XMS_ITS | Data Portability ---
Author Organization [employer], [place] [facility] Address [address] [place] [address] Care Team Providers Care Medical Terminologist Name Role Phone HIM CCA OTHER GIRMA [...] Assessment and Plan as documented by the Medical Field Representative. Patient given the opportunity to ask questions. Our service contacted for an assessment of: Nausea without vomiting Medic checked COVID and flu and they were both negative. Per tire classifier on the scene patient is nontoxic. Impression [...] Assessment and Plan as documented by the Medical Field Representative. We discussed the diagnostic uncertainty of home [...] to call 911- verbalized understanding of instruction [email or web address] Not available 10/01/2024 20:32:49 01/02/2025 01/02/2025 On 01/02/25, the [employer] OGK-5 platform system was down. As part of this downtime, any encounter that took place on 01/02/25 did not have the Mobile Health Provider clinical information, including vital signs and point of care data, incorporated into the [facility] note. Not available 01/04/2025 14:23:40 Plan of Treatment Reminders Order Date Submit Date Provider Last Modified By Organization Details Last Modified Time Details Appointments None recorded. Lab BMP, serum or plasma 2024 025 [facility], [address] [place] [address], [id number] 15:51:30 rapid SARS CoV 2 Ag, QL IA, respiratory specimen 2024 025 [facility], [address] [place] [address], [id number] 17:07:50 rapid flu (A+B) 2024 025 [facility], [address] [place] [address], [address] 5 18:16:33 rapid SARS CoV 2 Ag, QL IA, respiratory specimen 2024 025 [facility], [address] [place] [address], [address] 5 19:08:31 rapid flu (A+B) 2024 025 [facility], [address] [place] [address], [address] 5 19:10:41 rapid SARS CoV 2 Ag, QL IA, respiratory specimen 2024 [facility], [address] [place] [address], [address] 5 22:53:31 rapid flu (A+B) 2024 025 [facility], [address] [place] [address], [address] 5 22:53:31 rapid SARS CoV 2 Ag, QL IA, respiratory specimen 2024 [facility], [address] [place] [address], [address] 5 16:30:58 rapid flu (A+B) 2024 [facility], [address] [place] [address], [address] 5 16:30:58 BMP, serum or plasma 2024 [facility], [address] [place] [address], [address] 5 16:30:59 hemoglobin + hematocrit, blood 2024 [facility], [address] [place] [address], [address] 5 16:30:59 Referral None recorded. Procedures None recorded. Surgeries None recorded. Imaging electrocard iogram 2024 025 [facility], [address] [place] [address], [id number] 5 20:38:39 Medication Orders ketorolac 30 mg/mL injection solution 2024 025 [email or web address] [facility], [address] [place] [address], [address], 5 13:07:29 acetaminoph en ER 650 mg tablet,exte nded release 2024 025 [facility] [address] [place] [address], [address], 5 13:08:13 ondansetron 4 mg disintegrat ing tablet 2024 025 [email or web address] [facility], [address] [place] [address], [address], 5 15:01:19 ondansetron 4 mg disintegrat ing tablet 2024 025 [facility] [address] [place] [address], [address], 5 15:01:22 cefpodoxime 200 mg tablet 2024 025 [facility] [address] [place] [address], [address], 5 18:43:18 prednisone 20 mg tablet 2024 025 [email or web address] [facility], [address] [place] [address], [address], 5 18:43:16 prednisone 10 mg tablet 2024 025 [facility], [address] [place] [address], [address], 5 18:45:29 lactated Ringers intravenous solution 2024 025 [email or web address] [facility], [address] [place] [address], [address], 5 10:36:17 ketorolac 15 mg/mL injection solution 2024 025 [address] [place], [address], 5 10:36:17 azithromyci n 500 mg tablet 2024 025 [address] [place], [address], 5 10:36:17 azithromyci n 250 mg tablet 2024 025 [facility] [address] [place] [address], [address], 5 10:36:18 prednisone 20 mg tablet 2024 025 [address] [address] [place] [address], [address], 5 10:36:17 prednisone 20 mg tablet 2024 025 [facility] [address] [place] [address], [address], 5 10:36:19 ipratropium 0.5 mg-albutero l 3 mg (2.5 mg base)/3 mL nebulizatio n soln 2024 025 [address] [facility] [address], [address] [place] [address], [address], 5 10:36:17 Patient TargetsNo targets recorded. Patient InstructionsNo instructions recorded. Reason for Referral None Reported. Results Created Date Observation Date Name Description Value Unit Range Abnormal Flag Note LastModifiedBy Organization Detail LastModifiedTime 05/17/19 25 05/16/2024 rapid flu (A+B) Flu negati ve Not Available Main - [facility] ed [address] [place] [address], [address] 05/16/2024 18:40:35 05/17/19 25 05/16/2024 rapid SARS CoV 2 Ag, QL IA, respi rator y speci men rapid SARS CoV 2 Ag, QL IA, respiratory specimen negati ve Not Available Main - [address], [address] 05/16/2024 18:40:35 09/04/19 25 09/03/2024 rapid flu (A+B) Flu negati ve Not Available Main-[address], [address] 09/03/2024 16:50:42 09/04/19 25 09/03/2024 rapid SARS CoV 2 Ag, QL IA, respi rator y speci men rapid SARS CoV 2 Ag, QL IA, respiratory specimen negati ve Not Available [address], [address] 09/03/2024 16:50:41 10/02/19 25 10/01/2024 elect arnoldo العلي am No observ ation record ed. [email or web address] [address], [address] 10/01/2024 15:51:47 Result Notes None recorded. Medical Equipment None Reported. Allergies Allergen ID Allergen Name Allergen Category Reaction Reaction Severity Criticality Documentation Date Start Date Code Code System Note Provider Name and Address Organization Details Recorded Time 03721 Chantix medicatio n Not available Not available Not available 10/01/2024 78229 0 RxNorm Not Available [facility] - production 10:09:46 71402 varenicli ne Not available Not available Not available Not available 01/02/20252024 78726 2 RxNorm Not Available [employer] - External Data Service - prod 20:56:01 73904 codeine medicatio n Not available Not available Not available 01/04/2025 2670 RxNorm Not Available [employer] - External Data Service - prod 13:14:43 8178 levofloxa lily medicatio n Not available Not available Not available 01/03/2024 61072 RxNorm Not Available [facility] - production 03:42:32 913 Levaquin medicatio n Not available Not available Not available 11/01/2021 47150 2 RxNorm Natty Messer MD [address] [facility],[address], [place], [address], [employer] 12:16:41 914 morphine medicatio n Not available Not available Not available 11/01/2021 7052 RxNorm very sensi tive not true aller gy needs low dose Natty Messer MD [address] [facility],[address], [place], [address], [employer] 12:19:22 Medications Name Sig Start Date Stop [...] 4 mg/2 mL injection solution 4mg by [facility] at my request 2021 active Not [...] Recorded Heart rate Body temperature Oxygen saturation Respiratory rate Systolic And Diastolic Provider Name and Address Organization Details Last Updated DateTime 5 108 /min 98 [degF] 98 % 18 /min 116/85 mm[Hg] Not Available [employer] [facility] [employer] 5 10:19:56 Date Recorded Respiratory rate Heart rate Body temperature Oxygen saturation Systolic And Diastolic Provider Name and Address Organization Details Last Updated DateTime 5 18 /min 91 /min 98.6 [degF] 98 % 127/76 mm[Hg] Not Available [employer] - production 5 18:34:55 Date Recorded Respiratory rate Heart rate Body temperature Oxygen saturation Systolic And Diastolic Provider Name and Address Organization Details Last Updated DateTime 5 16 /min 68 /min 97.7 [degF] 98 % 117/76 mm[Hg] Not Available [facility] - [employer] 5 14:57:28 Date Recorded Heart rate Respiratory rate Body temperature Oxygen saturation Systolic And Diastolic Provider Name and Address Organization Details Last Updated DateTime 5 86 /min 18 /min 97.7 [degF] 100 % 130/92 mm[Hg] Not Available [facility] [employer] 5 12:15:46 Social History None recorded. Functional [...] Codes Diagnosis Note [address] [facility] - [address] [address] 07/28/2021 16:03:46 07/28/2021 16:08:14 [address] [facility] - [address] [address] 07/29/2021 14:03:55 11/13/2021 12:40:11 Closed injury of head [id number] 06 S09.90XD + Concussion / given worsening headache/ dizziness & nausea with new blurred vision- patient needs CT imaging of brain to r/o bleed/cont usion. Pat agreeable now to go to the ER( had refused at last visit). Expectant report called to [facility] ER 3604 Natty Messer MD [address] [address] 11/01/2021 17:18:52 11/18/2021 11:39:21 Pain of shoulder region [id number] M25.519 I have reviewed and agree with the Assessment and Plan as documented by the Medical Field Representative. I was available for additional phone based assistance as needed. Patient declined to have Medic call me 6184 Akira Taylor MD [address] [address] 02/17/2022 15:49:16 02/19/2022 10:47:42 Pain of shoulder region 59488814 M25.519 No hx of kidney disease; has responded well per patient report to Toradol in the past; cannot tolerate NSAIDS but this is due to GI issue (method of administra tion) [address] [facility] - [address] [address] 02/20/2022 20:39:34 02/23/2022 11:03:44 Pain of shoulder region 07902647 M25.519 Ongoing shoulder pain unchanged from 3d [...] assessment and plan as documented by the tire classifier. I provided real time medical direction for this encounter and was immediatel y available to provide additional phone based assistance as needed. 8748 Michael Ram MD Main - [facility] [address] [place] [phone] 05/27/2022 10:35:07 05/31/2022 12:47:58 Strain of left trapezius muscle [id number] 7518549 S29.012A 60500 Buddy Carter MD Main - [facility] [address] [place] [phone] 08/20/2022 14:55:30 08/21/2022 22:51:29 Pain of right shoulder joint [id number] 6584054 M25.511 Patient presents with recent onset pain [...] stomach ulcers, though for a short period 07558 Jia Ruiz MD Main - [facility] [address] [place] [address] 09/09/2022 12:10:03 09/09/2022 23:13:39 Pain of right shoulder joint [id number] 2485992 M25.511 88077 Chely Klein MD Main - [facility] [address] [place] [address] 11/28/2022 13:13:25 11/28/2022 18:15:24 Chest pain 81111279 R07.9 Evaluation in the field was performed by my tire classifier colleague, as noted above, I provided real-time direction and supervisio n for this visit. 62yo F recent should surgery p/w a few days of sharp chest pain radiating to back. Denies tearing sensation or associated dyspnea, diaphoresi s, LE edema/DVT sx. VS wnl. Taking oxycodone post-op w/ some improvemen t of chest pain. Endorses sig stress. On tire classifier exam chest pain reproducib le and pt [...] shortness of breath, cough, chest pain, fever. 67258 Azam Posada MD Main - [facility] [address] [place] [address] 03/01/2023 19:43:02 03/27/2023 14:08:15 Hypertensive urgency [id number] I16.0 This 62-year-ol d female called with a new onset fairly severe headache, paresthesi as and an elevated BP. She has no history of chronic headaches. I am concerned about a possible brain bleed and recommende d that she go to the ER. The patient agreed with this plan. 67805 Chely Klein MD Main - [facility] [address] [place] [address] 10/10/2023 09:24:11 10/10/2023 17:16:32 Pain of left hip joint [id number] 65345 M25.552 Evaluation in the field was performed by my tire classifier colleague, as noted above, I provided real-time direction and supervisio n for this visit. 63yo F endorsing 2 months of atraumatic L hip pain. Worse with lying down and standing, pain feels deep . Minimal improvemen t w/ APAP, meloxicam, and tramadol given by PCP. Not done PT. Prior imaging unremarkab le. Denies fevers/chi lls. On tire classifier eval VS unremarkab le, exam generalize d [...] shortness of breath, cough, chest pain, fever. 30045 Liat Foote MD Main - [facility] [address] [place] [address] 12/28/2023 09:53:45 12/28/2023 18:59:37 Burn of skin 993955849 T30.0 54596 DAVID ADAME MD Main - [facility] [address] [place] [address] 02/21/2024 18:36:14 02/21/2024 22:16:37 Palpitations 80429736 R00.2 Weakness present 5398034 07 M62.81 Fatigue 41080949 R53.83 77327 Chely Klein MD Main - [facility] [address] [place] [address] 04/17/2024 15:31:49 04/17/2024 23:01:50 Sore throat 416898185 J02.9 Evaluation in the field was performed by my tire classifier colleague, as noted above, I provided real-time direction and supervisio n for this visit. 63yo F evaluated for 1 week of nasal congestion , sore throat, cough, and malaise. Endorses b/l chronic abd pain. Denies fevers, hemoptysis , other new symptoms. Phone call with PCP this AM and was sent rx for amoxicilli n for empiric tx. On tire classifier eval VS wnl, exam with lungs CTA [...] shortness of breath, cough, chest pain, fever. 06388 Akira Taylor MD Main - [address] [address] 04/29/2024 10:19:54 04/30/2024 17:15:08 Mild dehydration [id number] 108 E86.0 Will give 1L of LR now. Exacerbati on of mild persistent asthma 417559755 J45.31 Will tx with Z-pack and prednisone taper per patient request. BMP and H/H within normal limits Discussed red flag signs for which to seek higher level of care Headache 12013887 R51.9 S/p Toradol x1 w/improvem ent. No renal disease or bleeding risks. [address] [facility] - [address] [address] 05/16/2024 18:34:52 05/17/2024 11:16:25 Cough 60779751 R05.9 83036 Liat Foote MD [facility] ED Medical [address] [address] 09/03/2024 14:57:17 09/03/2024 19:17:13 Nausea 948739040 R11.0 84957 Abnormal w ellness exam [id number] 62594 Z00.01 [id number] 99326 Natty Messer MD [facility] ED Medical [address] [address] 10/01/2024 12:15:43 10/01/2024 21:23:46 Pain in axilla 371072194 M79.189 [id number] Advised although EKG is non-concer renee cannot [...] may take tylenol- will send new rx [id number] Era Harry MD Main-[facility] ED Medical [facility] [address] [place] [address] 01/02/2025 20:55:41 01/04/2025 14:47:41 Pain in lower limb 02809076 M79.606 [id number] 64 year old female with chronic unilateral [...] assessment and plan as documented by the tire classifier. I provided real-time medical direction for this [...] Godinez Member ID Guarantor Name 08/20/2022 1 [facility] - DOS PRIOR TO 2022 - DUAL ELIGIBLE (MEDICARE REPLACEMENT/ADV ANTAGE - HMO) Janet Ramos [id number] Janet Ramos 01/04/2025 1 [facility] - DOS ON OR AFTER 2022 - DUAL ELIGIBLE - CUSTODIAL OPTIONS AND ONE CARE (MEDICARE REPLACEMENT/ADV ANTAGE - HMO) Janet Ramos [id number] Janet Ramos Notes Date Note Type Note Provider Name and Address Organization Details Recorded Time 5 text/html ROS as noted in the [facility] Nurse Triage Notes (Cassie Reyes - [...] Chronic Pain, AsthmaPMH Reviewed at 04/28/2024 - :17Allergies Reviewed at 04/28/2024 - 13:17Comments: Chemical Etching Processor verified the name//address and phone number.Pt calling [...] Feeling about the same. Daly Cerrato RN Medical Field Representative Organization Information for [facility]Sa [facility]ared[facility] Legal Name: [facility] Address: [address] [place] [address], [place] [address], Biomedical Specialist: Heraclio Ortega MD [place] No.: [id number] Medical Field Representative POC Test Results from [facility] Rapid [...] A ........................... ........................... ........................... ........................... ........................... ...... Medical Field Representative Note From [facility]: This 63-year-old female [...] ........................... ........................... ........................... ........................... ........................... ...... [facility] Consulted: Adilson Taylor ........................... ........................... ........................... ........................... ........................... ...... Disposition: Fulfilled Akira Taylor MD [address] [facility],[address], [place], [address], [employer] 04/29/2024 15:01:54 5 text/html HPI: Call transferred to CRU from FLR. Mbr states she was suppose to have an [facility] visit yesterday but no one came. This junior copywriter did not locate visit and confirmed with [employer] team no visit received yesterday. Marcelor reports [...] is awaiting a referral to a new airplane engineer. Mbr reports she recently completed course of prednisone. Mbr reports using nebulizer that helps for a little while . Marcelor was speaking full clear sentences as time [...] ED. ........................... ........................... ........................... ........................... ........................... ...... [facility] Nurse Triage Notes (Uzma Smith): Reason For Request: SOB Chief Complaints: Breathing Problems PMH: COPD/Asthma, Hypertension, Joint Replacement (e.g., Hip, Knee), Chronic Pain, Asthma PMH Reviewed at 05/16/2024:51 Allergies Reviewed at 05/16/2024:51 Comments: Reviewed HPI, no further data needed. Maury RN Medical Field Representative Organization Information for [employer] Legal Name: [employer]. Address: [address] [place] [address], Biomedical Specialist: Michael LEON No.: [id number] Medical Field Representative POC Test Results from [employer] Rapid influenza antigen (18:46:58) Flu: - Attachments uploaded as part of this test result can be found under Documents section. Rapid COVID antigen (18:46:59) COVID: - Attachments uploaded as part of this test result can be found under Documents section. ........................... ........................... ........................... ........................... ........................... ...... Medical Field Representative Note From [employer]: SC12 dispatched to [...] process of scheduling an appointment with a airplane engineer. Patient reports normal food/fluid intake, advised she has been medication compliant. Patient vital signs obtained as noted. COVID/FLU POC tests performed and negative for all. [facility] consulted, provided orders for 40mg Prednisone PO, advised that he would be sending prescription to patient preferred pharmacy for course of prednisone and Cefpodoxime. 40mg Prednisone PO administered without incident, six patient rights verified. Red flags discussed with patient, advised to call back or go to ED if condition worsened. SC [address] [facility] Lab Orders: rapid SARS CoV 2 Ag, QL IA, respiratory specimen: Performed rapid flu (A+B): Performed ........................... ........................... ........................... ........................... ........................... ...... [facility] Consulted: Michael Ram ........................... ........................... ........................... ........................... ........................... ...... Disposition: Miguelito Ram MD [address] [place] [address],[address], [place], [address], [employer] 05/16/2024 22:53:33 5 text/html HPI: 12:42pm CANDICE contacts the CRU [...] This CRU RN offers to consult the [facility] Provider Directory and email a list of new PCPs, which CANDICE accepts. MARCELOR confirms receipt of this email during this call. After confirming MBRs address and phone number on file, this CRU RN strongly recommends that MBR call 911 for any new or worsening symptoms. MBR verbalizes understanding and will do so if necessary. This call originated from [phone]. ........................... ........................... ........................... ........................... ........................... ...... [facility] Nurse Triage Notes (Анна Hansen): Reason For Request: abdominal pain, nausea, vomiting Chief Complaints: Abdominal Pain, Headache, Nausea / Vomiting PMH: COPD/Asthma, Hypertension, Joint Replacement (e.g., Hip, Knee), Chronic Pain, Asthma, Anxiety Disorder, Post-Traumatic Stress Disorder (PTSD), Gastroesophageal Reflux Disease (GERD), Diabetes Mellitus Type 2 PMH Reviewed at 09/03/2024:35 Allergies Reviewed at 09/03/2024:35 Comments: HPI reviewed Medical Field Representative Organization Information for [employer] Legal Name: [facility] Address: [address] [place] [address], Biomedical Specialist: Heraclio Ortega MD [place] No.: [id number] Medical Field Representative POC Test Results from [facility] Rapid COVID antigen (14:45:42) COVID: - Attachments uploaded as part of this test result can be found under Documents section. Rapid influenza antigen (14:45:43) Flu: - ........................... ........................... ........................... ........................... ........................... ...... Medical Field Representative Note From [employer]: S: evaluation of [...] both resulted negative. P spoke to [facility] pt to get zofran odt now and Mikhail sent to pharmacy ptmtomincrease fluids BRAT diet recommended due to possible stomach bug, reveal self in 48 hrs contact endoscopy specialty technician no relief or request [facility] revisit. Pt has pcp appt on 09/13 [facility] Medication Orders: ondansetron 4 mg disintegrating tablet: Administered ........................... ........................... ........................... ........................... ........................... ...... [facility] Consulted: Liat Foote ........................... ........................... ........................... ........................... ........................... ...... Disposition: Miguelito Liat Foote MD [address] [place] [address],[address], [place], [address], [employer] 09/03/2024 16:51:51 5 text/html ROS as noted in the [facility] Nurse Triage Notes (Анна Hansen): Reason [...] Mellitus Type 2PMH Reviewed at 10/01/2024 - :Allergies Reviewed at 10/01/2024 - :09Comments: 64 y.o [...] signs of when to seek emergency care. Medical Field Representative Organization Information for [employer] Legal Name: [employer]. Address: [address] [place] [address], Biomedical Specialist: Michael Steinberg MD CLIA No.: [id number] Medical Field Representative POC Test Results from [facility] iSTAT Chem8+ (12:47:00) Na: 139mEq/LK: 4.0mEq/LCl: 102mEq/LiCa: 1.22mmol/LTCO2: 25mmol/LGlu: 128mg/dLBUN: 13mg/dLCrea: 1.2mg/dLHct: 39%Hb: 13.3g/dLAmmol/LCartridge Number: [id number] Attachments uploaded as part of this test result can be found under Documents section. EKG (12:56:31) - This test has been updated by the tire classifier, LawrenceSolomon at (10/01/2024 13:36:14). The changes are marked in bold.EKG test performed. Attachments uploaded as part of this test result can be found under Documents section. ........................... ........................... ........................... ........................... ........................... ...... Medical Field Representative Note From Solomon Bravo: Encountered patient conscious [...] are free of trauma and edema. [facility] contacted: orders for BMP performed, values uploaded via [employer]. C states patient can receive 15 mg of intramuscular Toradol; administered to left deltoid after reconciling medication r ights with patient. [facility] additionally advised patient that while receiving Toradol patient should no longer take her prescribed meloxicam as well as any dwuh-rbs-[id number] ibuprofen. C to send prescription for further treatment to a pharmacy of patients choice. Patient was additionally encouraged to arrange appointments with her primary care as soon as possible. Patient was informed that the [employer] program has limited capabilities when regarding cardiac workups and that emergent care should be considered if patient were to develop sudden chest pain. Patient was advised to monitor for chest pain, shortness of breath, syncope, black or bloody stools and fevers. Patient verbalizes understanding of the plan and states she is comfortable remaining home today. [facility] Orders: electrocardiogram: Performed BMP, serum or plasma: Performed [facility] Medication Orders: ketorolac 30 mg/mL injection solution: Performed ........................... ........................... ........................... ........................... ........................... ...... [facility] Consulted: Natty Messer ........................... ........................... ........................... ........................... [...] a history of GERD Natty Messer MD [address] [place] [address],[address], [place], [address], [employer] 10/01/2024 20:38:12 5 text/html [facility] Nurse T[facility] Notes (Alycia Gale)Mechanical [...] perform imaging - patient reports understanding. [facility]ing [facility].Late entry: 01/03/25 1027. Alycia Gale RN. The [employer] system was down on date of service, [...] 10:28 Natty Messer MD [address] [facility],[address] [facility], [place], [address], [facility] - [employer] 01/04/2025 17:38:08 OBGyn Episode No OBEpisode recorded.
--- OUTSIDE RECORDS SUMMARY | 2025-02-11 22:52 | XMS_ITS | Clinical Summary ---
Author Organization [facility] Prior to 01/06/2024 Address [address] [place] [address] Care Team Providers Care General Farmworker Name Role Phone Malgorzata Reeves Md, MD [...] Td or Tdap) 08/25/2027 08/24/2017 Care Teams General Farmworker Relationship Specialty Start Date End Date Malgorzata Reeves MD, MD PCP - General Internal Medicine 03/28/19
--- OUTSIDE RECORDS SUMMARY | 2025-02-11 22:52 | XMS_ITS | Clinical Summary ---
Author Organization [facility] Address [address] [place] [address] Phone Care Team Providers Care Airline Ticket Agent Name Role Phone Malgorzata Reeves MD Primary [...] CERVICAL BIOPSY W/ LOOP ELECTRODE EXCISION PROCEDURE: GA CONIZATION CERVIX W/WO D&C RPR ELTRD EXC; [...] Years Used Date Smoking Tobacco: Former Cigarettes 0 Q uit: 03/07/2016 Smokeless Tobacco: Former Quit: [...] not to disclose 2024 3:46 PM EDT Last Filed Vital Signs Vital Sign Reading [...] LAB CHEMISTRY METHOD 05/31/2024 3:[address] [facility] Potassium 4.3 3.5 - 5.5 mmol/L LAB CHEMISTRY METHOD 05/31/2024 3:43 PM [facility] Chloride 105 96 - 110 mmol/L LAB CHEMISTRY METHOD 05/31/2024 3:43 PM [facility] CO2 28 21 - 32 mmol/L LAB CHEMISTRY METHOD 05/31/2024 3:43 PM [facility] Anion Gap 4 3 - 11 LAB CHEMISTRY METHOD 05/31/2024 3:43 PM [facility] Glucose 100 70 - 100 mg/dL LAB CHEMISTRY METHOD 05/31/2024 3:43 PM [facility] BUN 14 5 - 25 mg/dL LAB CHEMISTRY METHOD 05/31/2024 3:43 PM [facility] Creatinine 0.75 0.50 - 1.10 mg/dL LAB CHEMISTRY METHOD 05/31/2024 3:43 PM [facility] eGFR 89 >=60 mL/min/1. 73m2 LAB CHEMISTRY METHOD 05/31/2024 3:43 PM [facility] Comment:Calculation based on the Chronic Kidney Disease Epidemiology Collaboration (CKD-EPI) equation refit without adjustment for race. BUN/Creatinine Ratio 18.7 LAB CHEMISTRY METHOD 05/31/2024 3:[address] [facility] Calcium 9.5 8.5 - 10.5 mg/dL LAB CHEMISTRY METHOD 05/31/2024 3:43 PM [facility] Blood Venous blood specimen / Unknown Venipuncture / Unknown 05/31/2024 2:56 PM EDT 05/31/2024 3:12 PM EDT us Matthew Lyon DO LAB BLOOD ORDERABLES Final Result [facility] [address] [place] [address], from Last 3 Months or Most Recently Relevant to Health Maintenance Insurance MEDICAID - [place] [employer] MEDICARE Member Subscriber Plan / Payer (Ef fective 2020-Present) Name:Janet Ramos Relation to Subscriber:Self Name:Janet Ramos Payer ID:[id number] Group ID:[id number] Type:Not on file Address: [address] [place] [phone] Care Teams Airline Ticket Agent Relationship Specialty Start Date End Date Malgorzata Reeves MD [address] [place] [address] PCP - General Internal Medicine 03/28/19
--- OUTSIDE RECORDS SUMMARY | 2025-02-11 22:52 | XMS_ITS | Encounter Summary ---
Author Organization [facility] [facility] Prior to 01/06/2024 Address [address] [place] [address] Care Team Providers Care Steel Worker Name Role Phone Community, Pcp Primary Care Provider Malgorzata Zelaya Md, MD Primary Care Provider Unavailable Encounter Details Date Type Department Care Team Description 02/12/2019 Information Systems Security Manager Report Medical Records [address] [place] [id number] Lilia Mcdonald MD [address] [place] [address] [place] [id number] Social History Tobacco Use Types Packs/Day Years [...] on filedocumented in this encounter Care Teams Steel Worker Relationship Specialty Start Date End Date Community, Pcp PCP - General Internal Medicine 07/25/17 03/27/19 Malgorzata Reeves MD, MD PCP - General Internal Medicine 03/28/19 documented as of this encounter
--- OUTSIDE RECORDS SUMMARY | 2025-02-11 22:52 | XMS_ITS | Clinical Summary ---
Author Organization [employer] [facility] Prior to 08/04/24 Address [address] [place] [address] Care Team Providers Care Chiller Technician Name Role Phone Janina Don MD Primary Care Pro vider Allergies Active Allergy Reactions Criticality Noted Date Comments [place] 08/04/2017 Codeine 08/04/2017 Ibuprofen Rash Low 06/20/2014 [...] age to complete this topic Care Teams Chiller Technician Relationship Specialty Start Date End Date Janina Don MD [address] [place] [address] [place] [address] PCP - General Family Medicine 08/24/18
== END 2025-02-11 14:40 | disposition home or self-care (01) ==
LOC: HO.HPODS 14:02
PROVIDERS: PCP Physician Assistant; Visit Provider Student in an Organized Health Care Education/Training Program
DX: M72.2 Plantar fascial fibromatosis (principal); G57.53 Tarsal tunnel syndrome, bilateral lower limbs
CPT/HCPCS: 20550

== ENCOUNTER 2025-02-18 11:19 | Outpatient (AMB) | payer OTHER, SELFPAY ==
--- NOTE | 2025-02-18 11:25 | A.OFFVIS_ITS ---
Vital Signs 02/18/25 11:30 Height 5 ft 2 in Weight 174 lb BMI 31.8 Intake Visit Reasons: injection Intake Note: Janet is a 64 year old female who presents today for a for a left heel injection. At her last visit a right heel cortisone injection was administered. Patient reports she is doing well and the injection has helped significantly improve her pain. Allergies peanut Allergy (Severe, Verified 02/18/25 11:27) Anaphylaxis seafood Allergy (Severe, Verified 02/18/25 11:27) Anaphylaxis codeine (Codeine) Allergy (Intermediate, Verified 02/18/25 11:27) RASH/ITCHING tomato Allergy (Intermediate, Verified 02/18/25 11:27) Gastrointestinal Upset celecoxib (From Celebrex) Adverse Reaction (Intermediate, Verified 02/18/25 11:2 7) Palpitations ibuprofen (From Motrin) Adverse Reaction (Intermediate, Verified 02/18/25 11:27) Stomach pains levofloxacin (From Levaquin) Adverse Reaction (Intermediate, Verified 02/18/25 11:27) Nausea pravastatin Adverse Reaction (Intermediate, Verified 02/18/25 11:27) Muscle pain HPI HPI injection: Details: 64-year-old female with past medical history of GERD, right TKA, returns for bilateral heel pain. She states that the injection applied to the right heel last visit has improved the pain. She still has pain to her left heel, unable to ambulate without a limp. She is performing some stretching exercises every day. History: Patient states that she has had bilateral heel pain for approximately 10-15 years. She had seen another engine house helper in [place] were previously given her up to 9 injections in both feet. She has tried custom inserts which have not helped. Patient states she has a history of nerve conduction velocity test however she does not remember the results. Also notes history of bilateral carpal tunnel syndrome, had injections previously which had resolved her pain. [facility] Medical History (Updated 01/08/25 @ 15:45 by Serafin Bain DPM) Plantar fasciitis, bilateral Plantar fasciitis of right foot Seafood allergy Frequent headaches Stress at work Obesity (BMI 30-39.9) Essential hypertension Impaired fasting glucose Irritable bowel syndrome with constipation Gastric ulcer Dyslipidemia Former smoker Degenerative disc disease, lumbar Vitamin D deficiency Vitamin B12 deficiency History of drug abuse Gastritis Peripheral neuropathy Osteoarthritis involving multiple joints on both sides of body Migraine ANKIT (obstructive sleep apnea) Surgical History Hx of shoulder replacement History of esophagogastroduodenoscopy (EGD) Hx of colonoscopy History of right knee joint replacement History of partial hysterectomy Family History Father CKD (chronic kidney disease) Mother Alcoholism CVA (cerebral vascular accident), Onset Age: 54 Social History Housing: Apartment Are you a primary transitions rn care coordinator to a significant other at home: No Do you presently have visiting nurse or other home services: No Alcohol intake: never Patient Tobacco Use Status: Former Tobacco user Tobacco use type: Cigarette Cigarette Packs Per Day: 1 Cigarettes Per Day: 20 Years Smoked: 30 yrs e-Cigarette/Vaping Use: Never Used Second Hand Smoke Exposure: Yes service: No Current occupational status: employed 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 Mild varicosities to bilateral feet. Derm: No open wounds or lacerations. No clinical signs of infection. Neuro: Positive Tinel sign bilateral tarsal tunnel region with burning radiating to the heel and arch. MSK: Normal arch foot type. No tenderness on palpation of the right heel. Moderate tenderness on palpation of the plantar medial calcaneal tubercle left foot. Ankle dorsiflexion 10 degrees on knee extension. No tenderness to the Achilles. Mild tenderness on palpation of the right lateral ankle ligaments. No pain to the syndesmosis or deltoid. No marked edema or ecchymosis to the right ankle. Office Procedures AMB Flexor Tendon/Plantar POD Tendon Injection Details of AMB Procedure: Procedure: Steroid injection Location: Left heel Medication: 1.5cc 0.5% bupivicaine, 1cc dexamethasone, 0.5cc kenalog? Description: The [] was prepped using alcohol. A steroid injection was administered using sterile technique. The site was dressed using a band-aid. Post-procedure Instructions: The patient was instructed to apply ice to the injection site. The patient was advised to call the office if there are signs or symptoms of worsening pain, infection, or steroid flare. Tendon Injection POD1: - Plantar Fascia Injection All charges added?: Procedure code (CPT) selection complete Office Meds triamcinolone acetonide 40 mg/mL suspension for injection Performing Provider: Serafin Bain DPM Performing Location: [facility] Administered by: Serafin Bain DPM on 02/18/25 12:04 Dose Route Admin Location Dispensed Lot Number Expiration Date [facility] Supervisor Inspection Department 20 mg Tendon Sheath Inj. 1 mL [address]-0 [employer] Total Dispensed Waste 1 mL 50 % dexamethasone sodium phosphate 4 mg/mL injection solution Performing Provider: Serafin Bain DPM Performing Location: [facility] Administered by: Serafin Bain DPM on 02/18/25 12:04 Dose Route Admin Location Dispensed Lot Number Expiration Date [facility] Supervisor Inspection Department 4 mg Tendon Sheath Inj. 1 mL [id number] [employer] Total Dispensed Waste 1 mL 0 % bupivacaine (PF) 0.5 % (5 mg/mL) injection solution Performing Provider: Serafin Bain DPM Performing Location: [facility] Administered by: Serafin Bain DPM on 02/18/25 12:04 Dose Route Admin Location Dispensed Lot Number Expiration Date [facility] Supervisor Inspection Department 2 mL Tendon Sheath Inj. 10 mL [id number] [employer] Total Dispensed Waste 10 mL 80 % Assessment & Plan Assessment & Plan (1) Plantar fasciitis, bilateral: Code(s): M72.2 - Plantar fascial fibromatosis Category: Medical Plan: * Instructed patient to receive her bilateral foot x-rays * A new handout was dispensed to perform stretching and [id number] exercises for bilateral ankles. The patient has not been performing exercises correctly. She was demonstrated how to perform exercises today. She was recommended purchasing a band to fire and safety helper at-home therapy. * Status post 1 right heel injection 02/11/25 * Administered left heel steroid injection today 02/18/25 * Follow up in 1 month for re-evaluation (2) Tarsal tunnel syndrome of both lower extremities: Code(s): G57.53 - Tarsal tunnel syndrome, bilateral lower limbs Category: Medical Plan: * Recommended diagnostic block which the patient deferred at this time. * Recommended EMG NCV which the patient deferred at this time. * Discussed possible MRI bilateral ankles in the future Orders: Orders AMB Flexor Tendon / Plantar Fascia Injection Today G57.53 - Tarsal tunnel syndrome, bilateral lower limbs, M72.2 - Plantar fascial fibromatosis Coding Level of Care Code Procedure Only Diagnoses Plantar fasciitis, bilateral M72.2 Tarsal tunnel syndrome of both lower extremities G57.53 CPT Codes Tendon Injection - Tendon Injection POD1: - Plantar Fascia Injection ([id number])
[2025-02-18 11:30] VITALS: BMI 31.8
== END 2025-02-18 11:41 | disposition home or self-care (01) ==
LOC: HO.HPODS 11:19
PROVIDERS: PCP Physician Assistant; Visit Provider Student in an Organized Health Care Education/Training Program
DX: G57.53 Tarsal tunnel syndrome, bilateral lower limbs (principal); M72.2 Plantar fascial fibromatosis
CPT/HCPCS: 20550